=== PATIENT | female | born 1965 | race Caucasian/White ===

== ENCOUNTER 2016-08-27 12:04 | Emergency (ER) | payer OTHER, MEDICARE ==
--- NOTE | 2016-08-27 12:37 | ER Document Report ---
ED Medical Screen (RME) - General Stated Complaint: DIARRHEA,VOMITING,ABDOMINAL PAIN Notes: 51 yo female c/o n/v/d x 5 days. + RLQ pain radiating to RLQ. not able to eat in 6 days due to symptoms. + nocturnal fever. pt reports has had recent gallbladder US. TRAVEL OUTSIDE OF THE [place] IN LAST 30 DAYS: No - Related Data Allergies/Adverse Reactions: morphine [Morphine] Allergy (Verified 05/24/16 12:38) NSAIDS (Non-Steroidal Anti-Inflamma [Nsaids] Allergy (Verified 05/24/16 12:38) Penicillins Allergy (Verified 05/24/16 12:38) Sulfa (Sulfonamide Antibiotics) Allergy (Verified 05/24/16 12:38) Past Medical History - Past Medical History Cardiac Medical History: Reports: Hx Hypercholesterolemia Pulmonary Medical History: Reports: Hx COPD Denies: Hx Tuberculosis Malignancy Medical History: Reports: Hx Skin Cancer GI Medical History: Reports: Hx Cirrhosis Musculoskeltal Medical History: Reports Hx Arthritis Psychiatric Medical History: Reports: Hx Anxiety, Hx Depression Past Surgical History: Reports: Hx Section - 1986, Hx Gynecologic Surgery - laparoscopy, Hx Hysterectomy, Hx Oral Surgery - wisdom teeth, Hx Tubal Ligation, Other - [place] teeth extraction - Immunizations Hx Diphtheria, Pertussis, Tetanus Vaccination: Yes - 2012 Physical Exam - Vital signs Vitals: Temp Pulse Resp BP Pulse Ox 97.9 F 98 14 91/64 L 94 08/27/16 12:14 08/27/16 12:14 08/27/16 12:14 08/27/16 12:14 08/27/16 12:14 Course - Vital Signs Vital signs: Temp Pulse Resp BP Pulse Ox 97.9 F 98 14 91/64 L 94 08/27/16 12:14 08/27/16 12:14 08/27/16 12:14 08/27/16 12:14 08/27/16 12:14
[2016-08-27 13:09] LABS: ABSOLUTE LYMPHOCYTES (AUTO) 3.1 10^3/uL (0.5-4.7); ABSOLUTE MONOCYTES (AUTO) 0.8 10^3/uL (0.1-1.4); ABSOLUTE NEUT (AUTO) 6.3 10^3/uL (1.7-8.2); BASOPHILS % (AUTO) 0.5 % (0-2); EOSINOPHILS % (AUTO) 0.4 % (0-6); HEMOGLOBIN 16.1 g/dL (12.0-15.5); HGB HCT DIFFERENCE 1.3; LYMPHOCYTES % (AUTO) 29.8 % (13-45); MEAN CORPUSCULAR HEMOGLOBIN 33.1 pg (27.0-33.4); MEAN CORPUSCULAR HGB CONC 34.2 g/dL (32.0-36.0); MEAN CORPUSCULAR VOLUME 97 fl (80-97); MONOCYTES % (AUTO) 7.6 % (3-13); RED BLOOD COUNT 4.85 10^6/uL (3.72-5.28); RED CELL DISTRIBUTION WIDTH 14.5 % (11.5-14.0); SEGMENTED NEUTROPHILS % (AUTO) 61.7 % (42-78); WHITE BLOOD COUNT 10.3 10^3/uL (4.0-10.5)
[2016-08-27 13:27] LABS: ALANINE AMINOTRANSFERASE 42 U/L (9-52); ALBUMIN 3.3 g/dL (3.5-5.0); ALKALINE PHOSPHATASE 190 U/L (38-126); ANION GAP 14 (5-19); ASPARTATE AMINO TRANSFERASE 66 U/L (14-36); BILIRUBIN,DIRECT 0.1 mg/dL (0.0-0.3); BILIRUBIN,TOTAL 2.3 mg/dL (0.2-1.3); BLOOD UREA NITROGEN 5 mg/dL (7-20); CARBON DIOXIDE 27 mmol/L (22-30); CHLORIDE 99 mmol/L (98-107); CREATININE RESULT 0.98 mg/dL (0.52-1.25); GLUCOSE 141 mg/dL (75-110); LIPASE 20.5 U/L (23-300); POTASSIUM 3.4 mmol/L (3.6-5.0); SODIUM 139.6 mmol/L (137-145); TOTAL PROTEIN 7.2 g/dL (6.3-8.2)
[2016-08-27] MEDS ORDERED: NORMAL SALINE 1000 ML 1,000 ML IV ONE (15:28)
--- NOTE | 2016-08-27 15:30 | ER Document Report ---
ED GI/ - General Mode of Arrival: Ambulatory Information source: Patient TRAVEL OUTSIDE OF THE [place] IN LAST 30 DAYS: No - HPI Patient complains to provider of: Abdominal pain Timing/Duration: Gradual, Persistent Associated symptoms: Diarrhea, Fever, Nausea, Vomiting <LORENE GOINS - Last Filed: 08/27/16 17:22> <CRYSTAL WHITE - Last Filed: 09/01/16 13:15> - General Chief Complaint: Abdominal Pain Stated Complaint: DIARRHEA,VOMITING,ABDOMINAL PAIN Notes: Patient is a 51-year-old female presenting to the emergency department chief complaint abdominal pain onset 6 days ago. Patient states that every time she eats, she vomits. Patient also reports green, watery diarrhea, [place], vomiting, nausea, nocturnal fever, rash, and cough. Patient states that she had an ultrasound at the OR 7 days ago with no results reported yet. Patient states that the x ray service technician mentioned something about gallstones in her gallbladder. Patient states that she feels "toxic", that "I feel like every pore is dripping." Patient has a history of anxiety, depression, and liver cirrhosis. (LORENE GOINS) - Related Data Allergies/Adverse Reactions: morphine [Morphine] Allergy (Verified 08/27/16 12:38) NSAIDS (Non-Steroidal Anti-Inflamma [Nsaids] Allergy (Verified 08/27/16 12:38) Penicillins Allergy (Verified 08/27/16 12:38) Sulfa (Sulfonamide Antibiotics) Allergy (Verified 08/27/16 12:38) Past Medical History - General Information source: Patient - Social History Smoking Status: Never Smoker Chew tobacco use (# tins/day): No Frequency of alcohol use: None Drug Abuse: None Family History: Reviewed & Not Pertinent, Arthritis Patient has suicidal ideation: No Patient has homicidal ideation: No - Past Medical History Cardiac Medical History: Reports: Hx Hypercholesterolemia Pulmonary Medical History: Reports: Hx COPD Denies: Hx Tuberculosis Renal/ Medical History: Denies: Hx Peritoneal Dialysis Malignancy Medical History: Reports: Hx Skin Cancer GI Medical History: Reports: Hx Cirrhosis Musculoskeltal Medical History: Reports Hx Arthritis Psychiatric Medical History: Reports: Hx Anxiety, Hx Depression Past Surgical History: Reports: Hx Section - 1986, Hx Gynecologic Surgery - laparoscopy, Hx Hysterectomy, Hx Oral Surgery - wisdom teeth, Hx Tubal Ligation, Other - [place] teeth extraction - Immunizations Hx Diphtheria, Pertussis, Tetanus Vaccination: Yes - 2012 Hx Pneumococcal Vaccination: 07/13/12 <LORENE GOINS - Last Filed: 08/27/16 17:22> Review of Systems - Review of Systems Constitutional: No symptoms reported EENT: No symptoms reported Cardiovascular: No symptoms reported Respiratory: See HPI, Cough Gastrointestinal: See HPI, Abdominal pain, Diarrhea, Nausea, Vomiting, Poor appetite Genitourinary: See HPI, Other - Decreased urination Female Genitourinary: No symptoms reported Musculoskeletal: No symptoms reported Skin: See HPI, Rash Hematologic/Lymphatic: No symptoms reported Neurological/Psychological: No symptoms reported <LORENE GOINS - Last Filed: 08/27/16 17:22> Physical Exam - General General appearance: Alert - HEENT Head: Normocephalic, Atraumatic Eyes: Normal Pupils: PERRL - Respiratory Respiratory status: No respiratory distress Chest status: Nontender Breath sounds: Normal Chest palpation: Normal - Cardiovascular Rhythm: Regular Heart sounds: Normal auscultation Murmur: No - Abdominal Distension: No distension Bowel sounds: Normal Tenderness: Tender - RUQ Mildly tender to palpation Organomegaly: No organomegaly - Back Back: Normal, Nontender - Extremities General upper extremity: Normal inspection General lower extremity: Normal inspection - Neurological Neuro grossly intact: Yes Cognition: Normal [place] Coma Scale Eye Opening: Spontaneous [place] Coma Scale Verbal: Oriented [place] Coma Scale Motor: Obeys Commands [place] Coma Scale Total: 15 Speech: Normal - Psychological Associated symptoms: Normal affect, Normal mood - Skin Skin Temperature: Warm Skin Moisture: Dry Skin Color: Normal <LORENE GOINS - Last Filed: 08/27/16 17:22> Course - Laboratory Result Diagrams: 08/27/16 12:50 08/27/16 12:50 <LORENE GOINS - Last Filed: 08/27/16 17:22> - Laboratory Result Diagrams: 08/27/16 12:50 08/27/16 12:50 <CRYSTAL WHITE - Last Filed: 09/01/16 13:15> - Re-evaluation Re-evalutation: 08/27/16 18:40 I personally performed the services described in the documentation, reviewed and edited the documentation which was dictated to my scribe in my presence, and it accurately records my words and actions. presents emergency department with a history of nausea vomiting and diarrhea. Said she's had intermittent fevers at home. She has a history of alcohol abuse chronic back pain and has overdosed in the past. She states she is not currently drinking alcohol she denies taking narcotics for her back pain. Chart says right lower abdomen pain patient on examination serial abdominal examinations no acute tenderness guarding rebound rigidity vital signs are stable mildly elevated liver enzymes no acute pancreatitis. Patient given nausea medication IV fluids is well-appearing and nontoxic no acute abdomen. We will DC on Zofran 1-2 day PCP follow-up and discuss reasons for ED return sooner (CRYSTAL WHITE) - Vital Signs Vital signs: Temp Pulse Resp BP Pulse Ox 98.1 F 105 H 16 93/63 L 94 08/27/16 18:51 08/27/16 18:51 08/27/16 18:51 08/27/16 18:51 08/27/16 18:51 (LORENE GOINS) (CRYSTAL WHITE) - Laboratory Laboratory results interpreted by me: 08/27/16 08/27/16 08/27/16 12:50 12:50 15:24 Hgb 16.1 H RDW 14.5 H Potassium 3.4 L BUN 5 L Glucose 141 H Total Bilirubin 2.3 H AST 66 H Alkaline Phosphatase 190 H Albumin 3.3 L Lipase 20.5 L Urine Urobilinogen 4.0 H (LORENE GOINS) (CRYSTAL WHITE) Discharge <LORENE GOINS - Last Filed: 08/27/16 17:22> <CRYSTAL WHITE - Last Filed: 09/01/16 13:15> - Discharge Clinical Impression: Vomiting and diarrhea Condition: Stable Disposition: HOME, SELF-CARE Additional Instructions: Vomiting Vomiting can be part of many illnesses. Most cases of vomiting are due to gastroenteritis, usually a viral infection in the intestinal tract. There is no specific treatment. The disease will end by itself. For now, the main danger to your child is dehydration. During the first few hours of the illness, give clear liquids, such as Pedialyte. Try to give small quantities frequently, such as a teaspoon of liquid every minute or about an ounce of fluids every five to ten minutes. Medications may be prescribed by the physician for special cases. After an hour or two of fluids without vomiting, add rice cereal, toast, applesauce, or bananas and other more solid foods to the clear liquids. Call the physician or go to the hospital if vomiting increases or blood appears in the bowel movement or vomitus; if your child fails to improve, or if signs of dehydration occur (no wet diapers for eight to twelve hours, tongue and mouth become dry, not acting as alert as usual).Diarrhea Diarrhea means frequent, watery stools. There are many causes. Any problem that keeps the intestinal tract from absorbing water from the stool can lead to diarrhea. A sudden new diarrhea problem is usually caused by a virus, food sensitivity, toxic bacteria, or drugs. In this case, we expect the problem to go away soon. Testing is done only if you seem seriously ill from the diarrhea. If you have chronic diarrhea, or diarrhea that keeps coming back, we need to find out why. Chronic diarrhea can be due to inflammation of the bowels such as Crohn's disease or ulcerative colitis, food sensitivity such as intolerance to lactose or wheat protein, irritable bowel syndrome, and other problems. If your diarrhea is a significant problem but it's not clear why you have it, we' ll refer you to a specialist for further testing. During an episode of diarrhea, drink small amounts (two to six ounces) of clear liquids (soft drinks, sport drinks, herb teas, broth, etc). Take fluids frequently to prevent dehydration. It's usually not a problem to take mild anti- diarrhea medication such as Kaopectate or Pepto-Bismol. As the diarrhea eases, advance to small amounts of bland food (mashed potato, toast) for 24 hours. Call the physician if blood appears in your vomit or stool, if vomiting lasts longer than 24 hours, if the abdominal pain worsens or becomes localized to one area, if you develop high fever, or if you become lightheaded and weak. Prescriptions: Ondansetron [Zofran Odt 4 mg Tablet] 1 - 2 tab PO Q4H PRN #15 tab.rapdis PRN Reason: For Nausea/Vomiting Referrals: [facility] [Provider Group] - Follow up tomorrow (Call in the a.m. to be seen in 2-3 days return for increasing worsening or new symptoms) Scribe Documentation - Scribe Written by Bhavya:: Lorene Goins 08/27/2016 1530 acting as scribe for :: Benson <LORENE GOINS - Last Filed: 08/27/16 17:22>
[2016-08-27 15:41] LABS: APPEARANCE,URINE SLIGHTLY-CLOUDY; BILIRUBIN,URINE NEGATIVE (NEGATIVE); GLUCOSE, URINE NEGATIVE (NEGATIVE); KETONES,URINE NEGATIVE (NEGATIVE); LEUKOCYTE ESTERASE,URINE NEGATIVE (NEGATIVE); NITRITE,URINE NEGATIVE (NEGATIVE); PROTEIN,URINE NEGATIVE (NEGATIVE); URINE SPECIFIC GRAVITY 1.018
[2016-08-27] MEDS ORDERED: ONDANSETRON HCL INJ/PF 4 MG/2 ML SDV IV ONE (15:42)
[2016-08-27 15:52] LABS: URINE BARBITURATES SCREEN NEGATIVE; URINE METHADONE SCREEN NEGATIVE; URINE OPIATES LOW NEGATIVE; URINE PHENCYCLIDINE SCREEN NEGATIVE
[2016-08-27 18:59] VITALS: BP 93/63
== END 2016-08-27 18:52 | disposition home or self-care (01) ==
LOC: ER 12:04
DX: R19.7 Diarrhea, unspecified (principal); R11.10 Vomiting, unspecified; R10.9 Unspecified abdominal pain; E78.00 Pure hypercholesterolemia, unspecified; J44.9 Chronic obstructive pulmonary disease, unspecified; Z88.6 Allergy status to analgesic agent; Z88.0 Allergy status to penicillin; Z88.2 Allergy status to sulfonamides; Z85.828 Personal history of other malignant neoplasm of skin; Z90.710 Acquired absence of both cervix and uterus
CPT/HCPCS: 99284; 96361; 96374; 36415; 80307 ×2; 83690; 85025; 80053; 81001; J2405; J7030

== ENCOUNTER 2016-09-20 10:15 | Inpatient (IN) | payer OTHER, MEDICARE ==
--- NOTE | 2016-09-20 10:24 | ER Document Report ---
ED Medical Screen (RME) - General Stated Complaint: NAUSEA VOMITING Mode of Arrival: Medic Information source: Emergency Med Personnel Notes: Patient presents to the emergency department via EMS for nausea vomiting diarrhea abdominal pain for the past 4 days. Patient was given ODT Zofran. Possible history of gallbladder disease. Abdomen soft. Patient reports her back is hurting. I have greeted and performed a rapid initial assessment of this patient. A comprehensive ED assessment and evaluation of the patient, analysis of test results and completion of the medical decision making process will be conducted by additional ED providers. TRAVEL OUTSIDE OF THE [place] IN LAST 30 DAYS: No - Related Data Allergies/Adverse Reactions: morphine [Morphine] Allergy (Verified 09/20/16 10:22) NSAIDS (Non-Steroidal Anti-Inflamma [Nsaids] Allergy (Verified 09/20/16 10:22) Penicillins Allergy (Verified 09/20/16 10:22) Sulfa (Sulfonamide Antibiotics) Allergy (Verified 09/20/16 10:22) Home Medications: Current Home Medications Acamprosate Calcium [Campral 333 mg Tablet] 333 mg PO Q8 09/20/16 [History] Buspirone HCl [Buspar 15 mg Tablet] 15 mg PO Q12 09/20/16 [History] Duloxetine HCl [Cymbalta] 60 mg PO DAILY 09/20/16 [History] Trazodone HCl [Desyrel] 200 mg PO QHS 09/20/16 [History] Zolpidem Tartrate [Ambien] 10 mg PO HSP PRN 09/20/16 [History] Past Medical History - Past Medical History Cardiac Medical History: Reports: Hx Hypercholesterolemia Pulmonary Medical History: Reports: Hx COPD Denies: Hx Tuberculosis Renal/ Medical History: Denies: Hx Peritoneal Dialysis Malignancy Medical History: Reports: Hx Skin Cancer GI Medical History: Reports: Hx Cirrhosis Musculoskeltal Medical History: Reports Hx Arthritis Psychiatric Medical History: Reports: Hx Anxiety, Hx Depression Past Surgical History: Reports: Hx Section - 1986, Hx Gynecologic Surgery - laparoscopy, Hx Hysterectomy, Hx Oral Surgery - wisdom teeth, Hx Tubal Ligation, Other - [place] teeth extraction - Immunizations Hx Diphtheria, Pertussis, Tetanus Vaccination: Yes - 2012 Physical Exam - Vital signs Vitals: Temp Pulse Resp BP Pulse Ox 97.4 F 71 24 H 84/59 L 100 09/20/16 10:26 09/20/16 10:26 09/20/16 10:26 09/20/16 10:26 09/20/16 10:26 Course - Vital Signs Vital signs: Temp Pulse Resp BP Pulse Ox 98.1 F 80 19 94/73 L 92 09/20/16 16:03 09/20/16 12:09 09/20/16 22:01 09/20/16 22:01 09/20/16 22:01 - Laboratory Result Diagrams: 09/20/16 10:55 09/20/16 10:55 Laboratory results interpreted by me: 09/20/16 09/20/16 09/20/16 10:55 10:55 10:55 WBC 12.2 H MCV 99 H MCH 33.8 H RDW 16.7 H Seg Neutrophils % 79.5 H Lymphocytes % 12.8 L Absolute Neutrophils 9.7 H Sodium 136.3 L Chloride 96 L BUN 5 L Glucose 141 H Lactic Acid 4.7 H Total Bilirubin 2.8 H AST 109 H Alkaline Phosphatase 135 H Albumin 3.1 L Lipase 16.7 L Urine Urobilinogen 09/20/16 13:07 WBC MCV MCH RDW Seg Neutrophils % Lymphocytes % Absolute Neutrophils Sodium Chloride BUN Glucose Lactic Acid Total Bilirubin AST Alkaline Phosphatase Albumin Lipase Urine Urobilinogen 4.0 H Doctor's Discharge - Discharge Clinical Impression: Nausea vomiting and diarrhea, Elevated lactic acid level, Biliary sludge determined by ultrasound, Transient hypotension, Liver enzyme elevation Condition: Good Disposition: ADMITTED INPATIENT
[2016-09-20] MEDS ORDERED: NORMAL SALINE 1000 ML 1,000 ML IV ONE ×5 (10:26→14:13)
[2016-09-20 11:16] LABS: ABSOLUTE BASOPHILS # (AUTO) 0.1 10^3/uL (0.0-0.2); ABSOLUTE LYMPHOCYTES (AUTO) 1.6 10^3/uL (0.5-4.7); ABSOLUTE MONOCYTES (AUTO) 0.8 10^3/uL (0.1-1.4); ABSOLUTE NEUT (AUTO) 9.7 10^3/uL (1.7-8.2); BASOPHILS % (AUTO) 0.8 % (0-2); EOSINOPHILS % (AUTO) 0.1 % (0-6); HEMATOCRIT 42.8 % (36.0-47.0); HEMOGLOBIN 14.7 g/dL (12.0-15.5); HGB HCT DIFFERENCE 1.3; LYMPHOCYTES % (AUTO) 12.8 % (13-45); MEAN CORPUSCULAR HEMOGLOBIN 33.8 pg (27.0-33.4); MEAN CORPUSCULAR HGB CONC 34.2 g/dL (32.0-36.0); MEAN CORPUSCULAR VOLUME 99 fl (80-97); MONOCYTES % (AUTO) 6.8 % (3-13); RED BLOOD COUNT 4.34 10^6/uL (3.72-5.28); RED CELL DISTRIBUTION WIDTH 16.7 % (11.5-14.0); SEGMENTED NEUTROPHILS % (AUTO) 79.5 % (42-78); WHITE BLOOD COUNT 12.2 10^3/uL (4.0-10.5)
[2016-09-20 11:39] LABS: ALANINE AMINOTRANSFERASE 44 U/L (9-52); ALBUMIN 3.1 g/dL (3.5-5.0); ALKALINE PHOSPHATASE 135 U/L (38-126); ANION GAP 17 (5-19); ASPARTATE AMINO TRANSFERASE 109 U/L (14-36); BILIRUBIN,TOTAL 2.8 mg/dL (0.2-1.3); BLOOD UREA NITROGEN 5 mg/dL (7-20); CARBON DIOXIDE 23 mmol/L (22-30); CHLORIDE 96 mmol/L (98-107); CREATININE RESULT 0.74 mg/dL (0.52-1.25); GLUCOSE 141 mg/dL (75-110); LIPASE 16.7 U/L (23-300); MAGNESIUM 1.8 mg/dL (1.6-2.3); POTASSIUM 3.7 mmol/L (3.6-5.0); SODIUM 136.3 mmol/L (137-145); TOTAL PROTEIN 6.9 g/dL (6.3-8.2)
[2016-09-20 11:40] LABS: ALCOHOL < 10 mg/dL (NONE DETECTED)
[2016-09-20] MEDS ORDERED: LEVOFLOXACIN 750 MG/D5W RTU 150 ML IV ONE (11:58)
[2016-09-20 13:25] LABS: APPEARANCE,URINE CLEAR; BILIRUBIN,URINE NEGATIVE (NEGATIVE); GLUCOSE, URINE NEGATIVE (NEGATIVE); KETONES,URINE NEGATIVE (NEGATIVE); LEUKOCYTE ESTERASE,URINE NEGATIVE (NEGATIVE); NITRITE,URINE NEGATIVE (NEGATIVE); PROTEIN,URINE NEGATIVE (NEGATIVE); URINE SPECIFIC GRAVITY 1.005
[2016-09-20 14:09] LABS: URINE BARBITURATES SCREEN NEGATIVE; URINE METHADONE SCREEN NEGATIVE; URINE OPIATES LOW NEGATIVE; URINE PHENCYCLIDINE SCREEN NEGATIVE
--- NOTE | 2016-09-20 14:28 | ER Document Report ---
ED General - General Chief Complaint: Nausea/Vomiting/Diarrhea Stated Complaint: NAUSEA VOMITING Mode of Arrival: Medic TRAVEL OUTSIDE OF THE [place] IN LAST 30 DAYS: No - HPI Patient complains to provider of: nausea vomiting diarrhea right upper quadrant abdominal pain Notes: Patient's coming in for nausea vomiting diarrhea right upper quadrant abdominal pain ongoing for the last 4-5 days. Patient has a history of chronic alcoholism. Patient states she has been sober for the last 6 months. Patient denies any fevers. Patient denies any bloody stools. Patient states abdominal pain has been located right upper quadrant since this started. Denies sick contacts denies recent travel denies antibiotics. Of note patient's blood pressure was significantly low whenever she came into the ER patient denies dizziness - Related Data Allergies/Adverse Reactions: morphine [Morphine] Allergy (Verified 09/20/16 10:22) NSAIDS (Non-Steroidal Anti-Inflamma [Nsaids] Allergy (Verified 09/20/16 10:22) Penicillins Allergy (Verified 09/20/16 10:22) Sulfa (Sulfonamide Antibiotics) Allergy (Verified 09/20/16 10:22) Home Medications: Current Home Medications Acamprosate Calcium [Campral 333 mg Tablet] 333 mg PO Q8 09/20/16 [History] Buspirone HCl [Buspar 15 mg Tablet] 15 mg PO Q12 09/20/16 [History] Duloxetine HCl [Cymbalta] 60 mg PO DAILY 09/20/16 [History] Trazodone HCl [Desyrel] 200 mg PO QHS 09/20/16 [History] Zolpidem Tartrate [Ambien] 10 mg PO HSP PRN 09/20/16 [History] Past Medical History - General Information source: Emergency Med Personnel - Social History Smoking Status: Unknown if Ever Smoked Family History: Reviewed & Not Pertinent, Arthritis Patient has suicidal ideation: No Patient has homicidal ideation: No - Past Medical History Cardiac Medical History: Reports: Hx Hypercholesterolemia Pulmonary Medical History: Reports: Hx COPD Denies: Hx Tuberculosis Renal/ Medical History: Denies: Hx Peritoneal Dialysis Malignancy Medical History: Reports: Hx Skin Cancer GI Medical History: Reports: Hx Cirrhosis Musculoskeltal Medical History: Reports Hx Arthritis Psychiatric Medical History: Reports: Hx Anxiety, Hx Depression Past Surgical History: Reports: Hx Section - 1986, Hx Gynecologic Surgery - laparoscopy, Hx Hysterectomy, Hx Oral Surgery - wisdom teeth, Hx Tubal Ligation, Other - [place] teeth extraction - Immunizations Hx Diphtheria, Pertussis, Tetanus Vaccination: Yes - 2012 Hx Pneumococcal Vaccination: 07/13/12 Review of Systems - Review of Systems Constitutional: No symptoms reported EENT: No symptoms reported Cardiovascular: No symptoms reported Respiratory: No symptoms reported Gastrointestinal: Abdominal pain, Diarrhea, Nausea, Vomiting Genitourinary: No symptoms reported Female Genitourinary: No symptoms reported Musculoskeletal: No symptoms reported Skin: No symptoms reported Hematologic/Lymphatic: No symptoms reported Neurological/Psychological: No symptoms reported -: Yes All other systems reviewed and negative Physical Exam - Vital signs Vitals: Temp Pulse Resp BP Pulse Ox 97.4 F 71 24 H 84/59 L 100 09/20/16 10:26 09/20/16 10:26 09/20/16 10:26 09/20/16 10:26 09/20/16 10:26 Interpretation: Hypotensive - General General appearance: Appears well, Alert - HEENT Head: Normocephalic, Atraumatic Eyes: Normal Pupils: PERRL - Respiratory Respiratory status: No respiratory distress Chest status: Nontender Breath sounds: Normal Chest palpation: Normal - Cardiovascular Rhythm: Regular Heart sounds: Normal auscultation Murmur: No - Abdominal Inspection: Normal Distension: No distension Bowel sounds: Normal Tenderness: Tender - Mild tenderness right upper quadrant. No: McBurney's point , Ellis's sign, Guarding, Rebound, Other Organomegaly: No organomegaly - Back Back: Normal, Nontender - Extremities General upper extremity: Normal inspection, Nontender, Normal color, Normal ROM , Normal temperature General lower extremity: Normal inspection, Nontender, Normal color, Normal ROM , Normal temperature, Normal weight bearing. No: Max's sign - Neurological Neuro grossly intact: Yes Cognition: Normal Orientation: AAOx4 [place] Coma Scale Eye Opening: Spontaneous [place] Coma Scale Verbal: Oriented [place] Coma Scale Motor: Obeys Commands [place] Coma Scale Total: 15 Speech: Normal Motor strength normal: LUE, RUE, LLE, RLE Sensory: Normal - Psychological Associated symptoms: Normal affect, Normal mood - Skin Skin Temperature: Warm Skin Moisture: Dry Skin Color: Normal Course - Re-evaluation Re-evalutation: 09/20/16 15:06 Patient's lab work shows chronic elevation in her liver function tests. Patient does have a slight white count. Patient does have a significant elevation in her lactic acid. Ultrasound was performed showing biliary sludge no signs of acute cholecystitis. Because of the hypotension white count and elevated lactic acid a dose of Levaquin was given prophylactically. Patient was fluid resuscitated. Blood pressure did improve. I did consult surgery at this time does not think patient has any surgical etiology. Also discussed with hospitalist who agrees to that the patient patient's abdomen still remains nonsurgical is no guarding no rebound minimal tenderness in the right upper quadrant. More likely I think patient is having possible gastroenteritis with dehydration likely lactic acid due to chronic alcoholism and chronic liver disease. - Vital Signs Vital signs: Temp Pulse Resp BP Pulse Ox 97.7 F 80 20 107/61 100 09/20/16 12:09 09/20/16 12:09 09/20/16 12:09 09/20/16 12:09 09/20/16 12:09 - Laboratory Result Diagrams: 09/20/16 10:55 09/20/16 10:55 Laboratory results interpreted by me: 09/20/16 09/20/16 09/20/16 10:55 10:55 10:55 WBC 12.2 H MCV 99 H MCH 33.8 H RDW 16.7 H Seg Neutrophils % 79.5 H Lymphocytes % 12.8 L Absolute Neutrophils 9.7 H Sodium 136.3 L Chloride 96 L BUN 5 L Glucose 141 H Lactic Acid 4.7 H Total Bilirubin 2.8 H AST 109 H Alkaline Phosphatase 135 H Albumin 3.1 L Lipase 16.7 L Urine Urobilinogen 09/20/16 13:07 WBC MCV MCH RDW Seg Neutrophils % Lymphocytes % Absolute Neutrophils Sodium Chloride BUN Glucose Lactic Acid Total Bilirubin AST Alkaline Phosphatase Albumin Lipase Urine Urobilinogen 4.0 H Critical Care Note - Critical Care Note Total time excluding time spent on procedures (mins): 35 Comments: Multiple evaluations for initial transient hypotension Discharge - Discharge Clinical Impression: Nausea vomiting and diarrhea, Elevated lactic acid level, Biliary sludge determined by ultrasound, Transient hypotension, Liver enzyme elevation Condition: Good Disposition: ADMITTED INPATIENT [facility]: Telemetry
[2016-09-20] MEDS ORDERED: LORAZEPAM INJ 2 MG/1 ML VIAL IV PRN (16:11)
[2016-09-20] MEDS: DEXTROSE 5%-NORMAL SALINE 1,000 ML IV PRN (16:23)
[2016-09-20] MEDS: ONDANSETRON HCL INJ/PF 4 MG/2 ML SDV IV PRN ×2 (16:26→21:49)
--- NOTE | 2016-09-20 16:31 | PDOC H&P ---
History of Present Illness Admission Date/PCP: 09/20/16 15:29 Patient complains of: Nausea and vomiting History of Present Illness: SANAZ COSYB is a 51 year old female, with history of alcohol abuse, has been sober for 4 months, history of opiate and benzodiazepine dependency presents to the hospital because of increasing abdominal pain with associated nausea and vomiting for the past 4 days. His associated diarrhea as well. There is no melena or hematochezia nor hematemesis. Patient states low-grade fever. There is no cough, no shortness of breath, there is lower rib cage pain due to vomiting. Patient is unable to take anything by mouth due to the discomfort. The patient was in the hospital and signed out AGAINST MEDICAL ADVICE last month for the same problem. Patient reports that she has back pain and right lower extremity pain where she is being worked up at the [facility]. For the past week or so the patient is unable to walk due to pain on her back and right leg. Patient denies any numbness on the lower extremities nor tingling sensation. Pain is characterized as sharp when it happens. In the emergency room the patient was found to be hypotensive with elevated lactic acid. Abdominal ultrasound revealed gallbladder sludge and fatty liver. Patient reportedly evaluated by surgery. The patient was then referred for admission. Past Medical History Cardiac Medical History: Reports: Hyperlipidema Pulmonary Medical History: Reports: Chronic Obstructive Pulmonary Disease (COPD) Denies: Tuberculosis Malignancy Medical History: Reports: Skin Cancer GI Medical History: Reports: Cirrhosis, Other - Chronic pancreatitis Musculoskeltal Medical History: Reports: Arthritis Skin Medical History: Reports: Other - History of skin cancer Psychiatric Medical History: Reports: Depression Past Surgical History Past Surgical History: Reports: Section - 1986, Hysterectomy, Tubal Ligation, Other - [employer] teeth extraction Social History Information Source: Patient Smoking Status: Current Every Day Smoker Frequency of Alcohol Use: Heavy - But has been sober for 4 months. Hx Recreational Drug Use: No Drugs: None Hx Prescription Drug Abuse: No Family History Family History: Arthritis Parental Family History Reviewed: Yes Children Family History Reviewed: Yes Sibling(s) Family History Reviewed.: Yes Medication/Allergy Home Medications: Acamprosate Calcium [Campral 333 mg Tablet] 333 mg PO Q8 09/20/16 Buspirone HCl [Buspar 15 mg Tablet] 15 mg PO Q12 09/20/16 Duloxetine HCl [Cymbalta] 60 mg PO DAILY 09/20/16 Trazodone HCl [Desyrel] 200 mg PO QHS 09/20/16 Zolpidem Tartrate [Ambien] 10 mg PO HSP PRN 09/20/16 Allergies/Adverse Reactions: morphine [Morphine] Allergy (Verified 09/20/16 10:22) NSAIDS (Non-Steroidal Anti-Inflamma [Nsaids] Allergy (Verified 09/20/16 10:22) Penicillins Allergy (Verified 09/20/16 10:22) Sulfa (Sulfonamide Antibiotics) Allergy (Verified 09/20/16 10:22) Review of Systems Constitutional: PRESENT: chills, fever(s), weakness - Generalized. ABSENT: headache(s), night sweats, weight gain, weight loss Eyes: ABSENT: visual disturbances Ears: ABSENT: hearing changes Nose, Mouth, and Throat: PRESENT: sore throat - due to dryness and vomiting. ABSENT: mouth pain Cardiovascular: PRESENT: chest pain - On the lower rib cage. ABSENT: dyspnea on exertion, edema, orthropnea, palpitations Respiratory: ABSENT: cough, dyspnea, hemoptysis, sputum Gastrointestinal: PRESENT: abdominal pain, diarrhea, nausea, vomiting. ABSENT: constipation, hematemesis, hematochezia, melena Genitourinary: ABSENT: difficulty urinating, dysuria, hematuria, nocturia Musculoskeletal: PRESENT: back pain. ABSENT: joint swelling Integumentary: ABSENT: pruritus, rash, wounds Neurological: ABSENT: abnormal gait, abnormal speech, confusion, dizziness, focal weakness, syncope Psychiatric: ABSENT: anxiety, depression, homidical ideation, suicidal ideation Endocrine: ABSENT: cold intolerance, heat intolerance, polydipsia, polyuria Hematologic/Lymphatic: ABSENT: easy bleeding, easy bruising Physical Exam Vital Signs: Temp Pulse Resp BP Pulse Ox 97.7 F 80 20 107/61 100 09/20/16 12:09 09/20/16 12:09 09/20/16 12:09 09/20/16 12:09 09/20/16 12:09 General appearance: PRESENT: mild distress - Due to pain and discomfort, well- developed, well-nourished Head exam: PRESENT: atraumatic, normocephalic Eye exam: PRESENT: conjunctiva pink, EOMI, PERRLA. ABSENT: scleral icterus Ear exam: PRESENT: normal external ear exam. ABSENT: drainage Mouth exam: PRESENT: dry mucosa, neck supple, tongue midline Throat exam: ABSENT: post pharyngeal erythema, tonsillar erythema Neck exam: ABSENT: carotid bruit, JVD, lymphadenopathy, thyromegaly Respiratory exam: PRESENT: clear to auscultation tanisha, unlabored. ABSENT: rales , rhonchi, wheezes Cardiovascular exam: PRESENT: RRR, +S1, +S2. ABSENT: diastolic murmur, gallop, rubs, systolic murmur Pulses: PRESENT: normal dorsalis pedis pul Vascular exam: PRESENT: normal capillary refill GI/Abdominal exam: PRESENT: hyperactive bowel sounds, soft, tenderness - Right upper quadrant and right lower quadrant. ABSENT: distended, guarding, mass, organolmegaly, rebound Rectal exam: PRESENT: deferred Extremities exam: PRESENT: full ROM. ABSENT: calf tenderness, clubbing, pedal edema Neurological exam: PRESENT: alert, awake, oriented to person, oriented to place , oriented to time, oriented to situation Psychiatric exam: PRESENT: anxious - Slightly, appropriate affect, normal mood. ABSENT: homicidal ideation, suicidal ideation Skin exam: PRESENT: dry, intact, warm. ABSENT: cyanosis, jaundice, rash Results Impressions: Abdomen Ultrasound 09/20/16 10:50 IMPRESSION: MARKED FATTY INFILTRATION OF THE LIVER. SLUDGE IN THE GALLBLADDER. OTHERWISE UNREMARKABLE RIGHT UPPER QUADRANT ULTRASOUND. Assessment & Plan - Diagnosis (1) Intractable abdominal pain Is this a current diagnosis for this admission?: Yes (2) Hypotension Qualifiers: Hypotension type: unspecified hypotension type Qualified Code(s): I95.9 - Hypotension, unspecified Is this a current diagnosis for this admission?: Yes (3) Biliary sludge determined by ultrasound Is this a current diagnosis for this admission?: Yes (4) Transaminitis Is this a current diagnosis for this admission?: Yes (5) Alcohol abuse Is this a current diagnosis for this admission?: Yes (6) Cirrhosis of liver Qualifiers: Hepatic cirrhosis type: alcoholic cirrhosis Ascites presence: without ascites Qualified Code(s): K70.30 - Alcoholic cirrhosis of liver without ascites Is this a current diagnosis for this admission?: Yes (7) Chronic pancreatitis Qualifiers: Pancreatitis type: unspecified pancreatitis type Qualified Code(s): K86.1 - Other chronic pancreatitis Is this a current diagnosis for this admission?: Yes (8) COPD (chronic obstructive pulmonary disease) Qualifiers: COPD type: unspecified COPD Qualified Code(s): J44.9 - Chronic obstructive pulmonary disease, unspecified Is this a current diagnosis for this admission?: Yes (9) Anxiety and depression Is this a current diagnosis for this admission?: Yes (10) Opiate dependence Qualifiers: Substance use status: with unspecified opioid-induced disorder Qualified Code(s): F11.29 - Opioid dependence with unspecified opioid-induced disorder Is this a current diagnosis for this admission?: Yes (11) Benzodiazepine dependence Is this a current diagnosis for this admission?: Yes - Time Time Spent: 50 to 70 Minutes - Inpatient Certification Based on my medical assessment, after consideration of the patient's comorbidities, presenting symptoms, or acuity I expect that the services needed warrant INPATIENT care.: Yes I certify that my determination is in accordance with my understanding of Medicare's requirements for reasonable and necessary INPATIENT services [42 CFR 412.3e].: Yes Medical Necessity: Significant Comorbidiites Make Outpatient Treatment Too Risky , Need Close Monitoring Due to Risk of Patient Decompensation, Need For IV Fluids, Need for IV Antibiotics, Risk of Diagnosis Which Will Require Inpatient Eval/Care/Monitoring Post Hospital Care: D/C Morgue Attendant Documentation - Plan Summary Plan Summary: The patient will be admitted to [facility]. The patient's elevated lactic acid could be secondary to hypotension or could be from sepsis. We will begin intravenous Invanz. Obtain CT of the abdomen and pelvis to evaluate her appendix and gallbladder. We will likewise obtain a HIDA scan. I will hydrate the patient with D5 normal saline and give supplemental thiamine and folic acid and multivitamin. We will monitor electrolytes, creatinine and liver function. We will put the patient on as needed Ativan in case she developed withdrawal symptoms. Patient will be on DVT prophylaxis with Lovenox. Further testing depends on the initial evaluation as outlined above.
[2016-09-20] MEDS: NORMAL SALINE 1000 ML 1,000 ML with THIAMINE HCL 100 MG, MVI, ADULT NO.1 WITH VIT K 10 ... IV PRN ×4 (18:40)
[2016-09-20] MEDS: ERTAPENEM SODIUM 1 GM in NORMAL SALINE 50 ML IV SCH (21:36)
[2016-09-20] MEDS: PANTOPRAZOLE SODIUM 40 MG VIAL IV SCH (21:36)
[2016-09-20] MEDS: TRAZODONE HCL 50 MG TABLET PO SCH (21:37)
[2016-09-20] MEDS ORDERED: (PENDING PHARMACY ID) (Trazodone Hcl [Desyrel] 200 MG) PO SCH (22:00)
[2016-09-21] MEDS: DEXTROSE 5%-NORMAL SALINE 1,000 ML IV PRN ×3 (00:23→16:01)
[2016-09-21 06:22] LABS: ABSOLUTE EOSINOPHILS # (AUTO) 0.1 10^3/uL (0.0-0.6); ABSOLUTE LYMPHOCYTES (AUTO) 2.4 10^3/uL (0.5-4.7); ABSOLUTE MONOCYTES (AUTO) 0.5 10^3/uL (0.1-1.4); ABSOLUTE NEUT (AUTO) 2.9 10^3/uL (1.7-8.2); BASOPHILS % (AUTO) 0.5 % (0-2); EOSINOPHILS % (AUTO) 1.1 % (0-6); HEMATOCRIT 32.3 % (36.0-47.0); HGB HCT DIFFERENCE 0.7; MEAN CORPUSCULAR HEMOGLOBIN 34.1 pg (27.0-33.4); MEAN CORPUSCULAR VOLUME 100 fl (80-97); MONOCYTES % (AUTO) 7.8 % (3-13); RED BLOOD COUNT 3.22 10^6/uL (3.72-5.28); RED CELL DISTRIBUTION WIDTH 16.3 % (11.5-14.0); SEGMENTED NEUTROPHILS % (AUTO) 49.6 % (42-78); WHITE BLOOD COUNT 5.8 10^3/uL (4.0-10.5)
[2016-09-21 06:47] LABS: ALANINE AMINOTRANSFERASE 35 U/L (9-52); ALBUMIN 1.8 g/dL (3.5-5.0); ALKALINE PHOSPHATASE 75 U/L (38-126); ANION GAP 7 (5-19); ASPARTATE AMINO TRANSFERASE 117 U/L (14-36); BILIRUBIN,TOTAL 1.1 mg/dL (0.2-1.3); BLOOD UREA NITROGEN 3 mg/dL (7-20); CALCIUM 7.1 mg/dL (8.4-10.2); CARBON DIOXIDE 24 mmol/L (22-30); CHLORIDE 113 mmol/L (98-107); CREATININE RESULT 0.66 mg/dL (0.52-1.25); GLUCOSE 124 mg/dL (75-110); MAGNESIUM 1.6 mg/dL (1.6-2.3); PHOSPHORUS 3.4 mg/dL (2.5-4.5); TOTAL PROTEIN 4.6 g/dL (6.3-8.2)
[2016-09-21 06:54] LABS: POTASSIUM 2.5 mmol/L (3.6-5.0)
[2016-09-21] MEDS: ENOXAPARIN SODIUM INJ 40 MG/0.4 ML DISP.SYRIN SUBCUT SCH (08:25)
[2016-09-21] MEDS: POTASSI CL 20 MEQ/50 ML RIDER 20 MEQ/50 ML RTUPB IV SCH ×3 (09:41→13:49)
[2016-09-21] MEDS: PANTOPRAZOLE SODIUM 40 MG VIAL IV SCH ×2 (09:41→23:15)
[2016-09-21] MEDS ORDERED: ERTAPENEM SODIUM INJ 1 GM VIAL IV SCH (10:00)
--- NOTE | 2016-09-21 10:49 | PDOC PROGRESS REPORT ---
Subjective Progress Note for:: 09/21/16 Subjective:: Patient feels better. Denies nausea or vomiting. No chills or fever. Diarrhea is less. Abdominal pain is less as well. Blood pressure is stable, patient was not placed on vasopressors. Patient denies any bleeding. Physical Exam Vital Signs: Temp Pulse Resp BP Pulse Ox 98.1 F 82 20 91/57 L 97 09/21/16 07:56 09/21/16 07:56 09/21/16 07:56 09/21/16 07:56 09/21/16 07:56 Intake & Output 09/20/16 09/21/16 09/22/16 05:59 06:59 06:59 Intake Total Balance Weight General appearance: PRESENT: no acute distress, cooperative Head exam: PRESENT: normocephalic Eye exam: PRESENT: EOMI Mouth exam: PRESENT: dry mucosa, neck supple Neck exam: ABSENT: JVD Respiratory exam: PRESENT: clear to auscultation tanisha, unlabored Cardiovascular exam: PRESENT: RRR. ABSENT: gallop GI/Abdominal exam: PRESENT: hyperactive bowel sounds, soft, tenderness - On the Right side improved. Less tender today. ABSENT: distended Extremities exam: ABSENT: pedal edema Neurological exam: PRESENT: alert, awake, oriented to situation Skin exam: PRESENT: dry, warm. ABSENT: cyanosis Results Laboratory Results: 09/21/16 06:07 09/21/16 06:07 09/20/16 09/21/16 09/21/16 17:04 06:07 06:07 WBC 5.8 RBC 3.22 L Hgb 11.0 L D Hct 32.3 L MCV 100 H MCH 34.1 H MCHC 34.0 RDW 16.3 H Plt Count 103 L Seg Neutrophils % 49.6 Lymphocytes % 41.0 Monocytes % 7.8 Eosinophils % 1.1 Basophils % 0.5 Absolute Neutrophils 2.9 Absolute Lymphocytes 2.4 Absolute Monocytes 0.5 Absolute Eosinophils 0.1 Absolute Basophils 0.0 Sodium 144.0 Potassium 2.5 L* D Chloride 113 H Carbon Dioxide 24 Anion Gap 7 BUN 3 L Creatinine 0.66 Est GFR ( Amer) > 60 Est GFR (Non-Af Amer) > 60 Glucose 124 H Lactic Acid 4.7 H Calcium 7.1 L Phosphorus 3.4 Magnesium 1.6 Total Bilirubin 1.1 AST 117 H ALT 35 Alkaline Phosphatase 75 Total Protein 4.6 L Albumin 1.8 L Impressions: Abdomen/Pelvis CT 09/20/16 00:00 IMPRESSION: 1. Findings remain consistent with chronic pancreatitis, changes as above including a chronic pseudocyst in the pancreatic neck and coarse calcifications. 2. No definite acute abnormality. No evidence of inflammatory or acute process in the right lower quadrant. Fatty liver. Abdomen Ultrasound 09/20/16 10:50 IMPRESSION: MARKED FATTY INFILTRATION OF THE LIVER. SLUDGE IN THE GALLBLADDER. OTHERWISE UNREMARKABLE RIGHT UPPER QUADRANT ULTRASOUND. Assessment & Plan - Diagnosis (1) Intractable abdominal pain Is this a current diagnosis for this admission?: Yes (2) Hypotension Qualifiers: Hypotension type: unspecified hypotension type Qualified Code(s): I95.9 - Hypotension, unspecified Is this a current diagnosis for this admission?: Yes (3) Biliary sludge determined by ultrasound Is this a current diagnosis for this admission?: Yes (4) Transaminitis Is this a current diagnosis for this admission?: Yes (5) Alcohol abuse Is this a current diagnosis for this admission?: Yes (6) Cirrhosis of liver Qualifiers: Hepatic cirrhosis type: alcoholic cirrhosis Ascites presence: without ascites Qualified Code(s): K70.30 - Alcoholic cirrhosis of liver without ascites Is this a current diagnosis for this admission?: Yes (7) Chronic pancreatitis Qualifiers: Pancreatitis type: unspecified pancreatitis type Qualified Code(s): K86.1 - Other chronic pancreatitis Is this a current diagnosis for this admission?: Yes (8) COPD (chronic obstructive pulmonary disease) Qualifiers: COPD type: unspecified COPD Qualified Code(s): J44.9 - Chronic obstructive pulmonary disease, unspecified Is this a current diagnosis for this admission?: Yes (9) Anxiety and depression Is this a current diagnosis for this admission?: Yes (10) Opiate dependence Qualifiers: Substance use status: with unspecified opioid-induced disorder Qualified Code(s): F11.29 - Opioid dependence with unspecified opioid-induced disorder Is this a current diagnosis for this admission?: Yes (11) Benzodiazepine dependence Is this a current diagnosis for this admission?: Yes (12) Pancreatic pseudocyst Is this a current diagnosis for this admission?: Yes - Time Time Spent with patient: 25-34 minutes - Plan Summary Plan Summary: Continue current antibiotic. Continue IV hydration. Patient's potassium. Check HIDA scan. Continue supportive care per now. We will try to advance diet today.
[2016-09-21] MEDS: ERTAPENEM SODIUM 1 GM in NORMAL SALINE 50 ML IV SCH (22:30)
[2016-09-21] MEDS: TRAZODONE HCL 50 MG TABLET PO SCH (23:15)
[2016-09-21] MEDS: NORMAL SALINE 1000 ML 1,000 ML with THIAMINE HCL 100 MG, MVI, ADULT NO.1 WITH VIT K 10 ... IV PRN ×4 (23:15)
[2016-09-22] MEDS: DEXTROSE 5%-NORMAL SALINE 1,000 ML IV PRN ×3 (01:02→16:21)
[2016-09-22 07:39] LABS: HEMATOCRIT 34.2 % (36.0-47.0); HEMOGLOBIN 11.5 g/dL (12.0-15.5); HGB HCT DIFFERENCE 0.3; MEAN CORPUSCULAR HEMOGLOBIN 34.3 pg (27.0-33.4); MEAN CORPUSCULAR HGB CONC 33.7 g/dL (32.0-36.0); MEAN CORPUSCULAR VOLUME 102 fl (80-97); RED BLOOD COUNT 3.36 10^6/uL (3.72-5.28); RED CELL DISTRIBUTION WIDTH 16.8 % (11.5-14.0); WHITE BLOOD COUNT 6.3 10^3/uL (4.0-10.5)
[2016-09-22 08:05] LABS: ANION GAP 6 (5-19); BLOOD UREA NITROGEN < 2 mg/dL (7-20); CALCIUM 7.4 mg/dL (8.4-10.2); CARBON DIOXIDE 20 mmol/L (22-30); CHLORIDE 117 mmol/L (98-107); CREATININE RESULT 0.59 mg/dL (0.52-1.25); GLUCOSE 116 mg/dL (75-110); MAGNESIUM 1.6 mg/dL (1.6-2.3); SODIUM 142.8 mmol/L (137-145)
[2016-09-22 08:07] LABS: POTASSIUM 2.7 mmol/L (3.6-5.0)
--- NOTE | 2016-09-22 10:13 | PDOC PROGRESS REPORT ---
Subjective Progress Note for:: 09/22/16 Subjective:: Patient continues to feels better. Denies nausea or vomiting. No chills or fever. Diarrhea is less. Abdominal pain is less as well. Blood pressure is stable, but on the low normal side. Urine output reportedly less , but creatinine remains normal. Patient denies any bleeding. Physical Exam Vital Signs: Temp Pulse Resp BP Pulse Ox 98.4 F 65 18 94/59 L 95 09/22/16 07:45 09/22/16 07:45 09/22/16 07:45 09/22/16 07:45 09/22/16 07:45 Intake & Output 09/21/16 09/22/16 09/23/16 06:59 06:59 06:59 Intake Total 6877 Balance 6877 Weight 74.3 kg General appearance: PRESENT: no acute distress, cooperative Head exam: PRESENT: normocephalic Eye exam: PRESENT: EOMI Mouth exam: PRESENT: moist, neck supple Neck exam: ABSENT: JVD Respiratory exam: PRESENT: clear to auscultation tanisha. ABSENT: rhonchi, wheezes Cardiovascular exam: PRESENT: RRR. ABSENT: gallop GI/Abdominal exam: PRESENT: normal bowel sounds, soft, tenderness - Improved on the right upper quadrant. ABSENT: distended Neurological exam: PRESENT: alert, awake, oriented to situation Skin exam: PRESENT: dry, warm. ABSENT: cyanosis Results Laboratory Results: 09/22/16 07:26 09/22/16 07:26 09/22/16 09/22/16 09/22/16 07:26 07:26 07:26 WBC 6.3 RBC 3.36 L Hgb 11.5 L Hct 34.2 L MCV 102 H MCH 34.3 H MCHC 33.7 RDW 16.8 H Plt Count 109 L Sodium 142.8 Potassium 2.7 L* Chloride 117 H Carbon Dioxide 20 L Anion Gap 6 BUN < 2 L Creatinine 0.59 Est GFR ( Amer) > 60 Est GFR (Non-Af Amer) > 60 Glucose 116 H Lactic Acid 2.2 H Calcium 7.4 L Magnesium 1.6 Impressions: Abdomen/Pelvis CT 09/20/16 00:00 IMPRESSION: 1. Findings remain consistent with chronic pancreatitis, changes as above including a chronic pseudocyst in the pancreatic neck and coarse calcifications. 2. No definite acute abnormality. No evidence of inflammatory or acute process in the right lower quadrant. Fatty liver. Abdomen Ultrasound 09/20/16 10:50 IMPRESSION: MARKED FATTY INFILTRATION OF THE LIVER. SLUDGE IN THE GALLBLADDER. OTHERWISE UNREMARKABLE RIGHT UPPER QUADRANT ULTRASOUND. Assessment & Plan - Diagnosis (1) Intractable abdominal pain Is this a current diagnosis for this admission?: Yes (2) Hypotension Qualifiers: Hypotension type: unspecified hypotension type Qualified Code(s): I95.9 - Hypotension, unspecified Is this a current diagnosis for this admission?: Yes (3) Biliary sludge determined by ultrasound Is this a current diagnosis for this admission?: Yes (4) Transaminitis Is this a current diagnosis for this admission?: Yes (5) Alcohol abuse Is this a current diagnosis for this admission?: Yes (6) Cirrhosis of liver Qualifiers: Hepatic cirrhosis type: alcoholic cirrhosis Ascites presence: without ascites Qualified Code(s): K70.30 - Alcoholic cirrhosis of liver without ascites Is this a current diagnosis for this admission?: Yes (7) Chronic pancreatitis Qualifiers: Pancreatitis type: unspecified pancreatitis type Qualified Code(s): K86.1 - Other chronic pancreatitis Is this a current diagnosis for this admission?: Yes (8) COPD (chronic obstructive pulmonary disease) Qualifiers: COPD type: unspecified COPD Qualified Code(s): J44.9 - Chronic obstructive pulmonary disease, unspecified Is this a current diagnosis for this admission?: Yes (9) Anxiety and depression Is this a current diagnosis for this admission?: Yes (10) Opiate dependence Qualifiers: Substance use status: with unspecified opioid-induced disorder Qualified Code(s): F11.29 - Opioid dependence with unspecified opioid-induced disorder Is this a current diagnosis for this admission?: Yes (11) Benzodiazepine dependence Is this a current diagnosis for this admission?: Yes (12) Pancreatic pseudocyst Is this a current diagnosis for this admission?: Yes - Time Time Spent with patient: 25-34 minutes - Plan Summary Plan Summary: Patient without any signs of withdrawal at this time. Continue supportive care. Continue IV hydration. Continue supplements. Continue current antibiotics. Awaiting HIDA scan, and if negative patient likely had colitis causing septic picture. Continue supportive care. Replace potassium and magnesium and recheck levels in the morning.
[2016-09-22] MEDS ORDERED: MAGNESIUM OXIDE 400 MG TABLET PO ONE (11:00)
[2016-09-22] MEDS: ENOXAPARIN SODIUM INJ 40 MG/0.4 ML DISP.SYRIN SUBCUT SCH (11:48)
[2016-09-22] MEDS: PANTOPRAZOLE SODIUM 40 MG VIAL IV SCH ×2 (11:48→21:49)
[2016-09-22] MEDS ORDERED: POTASSIUM CHLORIDE 10 MEQ TABLET.SA PO ONE ×2 (13:00→17:00)
[2016-09-22] MEDS: NORMAL SALINE 1000 ML 1,000 ML with THIAMINE HCL 100 MG, MVI, ADULT NO.1 WITH VIT K 10 ... IV PRN ×4 (17:56)
[2016-09-22] MEDS: TRAZODONE HCL 50 MG TABLET PO SCH (21:49)
[2016-09-22] MEDS: ERTAPENEM SODIUM 1 GM in NORMAL SALINE 50 ML IV SCH (21:50)
[2016-09-23] MEDS: DEXTROSE 5%-NORMAL SALINE 1,000 ML IV PRN ×2 (05:55→18:40)
[2016-09-23 06:58] LABS: ANION GAP 6 (5-19); CARBON DIOXIDE 19 mmol/L (22-30); CHLORIDE 119 mmol/L (98-107); CREATININE RESULT 0.55 mg/dL (0.52-1.25); GLUCOSE 109 mg/dL (75-110); MAGNESIUM 1.5 mg/dL (1.6-2.3); POTASSIUM 3.1 mmol/L (3.6-5.0); SODIUM 144.3 mmol/L (137-145)
[2016-09-23 07:02] LABS: BLOOD UREA NITROGEN < 2 mg/dL (7-20)
[2016-09-23] MEDS ORDERED: POTASSI CL 20 MEQ/50 ML RIDER 20 MEQ/50 ML RTUPB IV SCH (09:00)
[2016-09-23] MEDS: PANTOPRAZOLE SODIUM 40 MG VIAL IV SCH (11:14)
[2016-09-23] MEDS: POTASSIUM CHLORIDE 20 MEQ/50 ML RTU IV SCH ×2 (11:20→12:35)
[2016-09-23] MEDS: ENOXAPARIN SODIUM INJ 40 MG/0.4 ML DISP.SYRIN SUBCUT SCH (11:25)
[2016-09-23] MEDS: ONDANSETRON HCL INJ/PF 4 MG/2 ML SDV IV PRN (17:39)
[2016-09-23] MEDS: NORMAL SALINE 1000 ML 1,000 ML with THIAMINE HCL 100 MG, MVI, ADULT NO.1 WITH VIT K 10 ... IV PRN ×4 (17:39)
--- NOTE | 2016-09-23 18:44 | PDOC PROGRESS REPORT ---
Subjective Progress Note for:: 09/23/16 Subjective:: Patient continues have some abdominal pain but reports is improved. She had a HIDA scan which showed a decreased ejection fraction but no obstruction. Physical Exam Vital Signs: Temp Pulse Resp BP Pulse Ox 98.5 F 81 18 95/63 L 98 09/23/16 16:31 09/23/16 16:31 09/23/16 16:31 09/23/16 16:31 09/23/16 16:31 Intake & Output 09/22/16 09/23/16 09/24/16 06:59 06:59 06:59 Intake Total 6877 5970 1300 Output Total 200 Balance 6877 5770 1300 Weight 74.3 kg 77.9 kg General appearance: PRESENT: no acute distress Eye exam: PRESENT: conjunctiva pink. ABSENT: scleral icterus Mouth exam: PRESENT: moist, tongue midline Neck exam: ABSENT: JVD Respiratory exam: PRESENT: clear to auscultation tanisha. ABSENT: rales, rhonchi, wheezes Cardiovascular exam: PRESENT: RRR. ABSENT: diastolic murmur, rubs, systolic murmur GI/Abdominal exam: PRESENT: normal bowel sounds, soft, tenderness - Mild epigastric tenderness but no guarding or rebound.. ABSENT: distended, guarding , mass, organolmegaly, rebound Extremities exam: ABSENT: calf tenderness, clubbing, pedal edema Neurological exam: PRESENT: alert, awake, oriented to person, oriented to place , oriented to time, oriented to situation, CN II-XII grossly intact. ABSENT: motor sensory deficit Psychiatric exam: PRESENT: appropriate affect Skin exam: PRESENT: dry, intact, warm. ABSENT: cyanosis, rash Results Laboratory Results: 09/22/16 07:26 09/23/16 06:01 09/23/16 06:01 Sodium 144.3 Potassium 3.1 L Chloride 119 H Carbon Dioxide 19 L Anion Gap 6 BUN < 2 L Creatinine 0.55 Est GFR ( Amer) > 60 Est GFR (Non-Af Amer) > 60 Glucose 109 Calcium 8.0 L Magnesium 1.5 L Impressions: Abdomen/Pelvis CT 09/20/16 00:00 IMPRESSION: 1. Findings remain consistent with chronic pancreatitis, changes as above including a chronic pseudocyst in the pancreatic neck and coarse calcifications. 2. No definite acute abnormality. No evidence of inflammatory or acute process in the right lower quadrant. Fatty liver. Abdomen Ultrasound 09/20/16 10:50 IMPRESSION: MARKED FATTY INFILTRATION OF THE LIVER. SLUDGE IN THE GALLBLADDER. OTHERWISE UNREMARKABLE RIGHT UPPER QUADRANT ULTRASOUND. Hepatobiliary Scan Nuclear Medicine 09/23/16 08:00 IMPRESSION: NO CYSTIC OR COMMON DUCT OBSTRUCTION. DEPRESSED GALLBLADDER EJECTION FRACTION. EVIDENCE FOR BILIARY DYSKINESIS. Assessment & Plan - Diagnosis (1) Intractable abdominal pain Is this a current diagnosis for this admission?: YesPlan: Most likely secondary to colitis. Patient had an abnormal HIDA scan however no obvious obstruction and it did not reproduce her pain (2) Hypotension Qualifiers: Hypotension type: unspecified hypotension type Qualified Code(s): I95.9 - Hypotension, unspecified Is this a current diagnosis for this admission?: YesPlan: Resolved. (3) Biliary sludge determined by ultrasound Is this a current diagnosis for this admission?: YesPlan: Patient has a decreased ejection fraction. (4) Anxiety and depression Is this a current diagnosis for this admission?: Yes (5) Benzodiazepine dependence Is this a current diagnosis for this admission?: Yes (6) COPD (chronic obstructive pulmonary disease) Qualifiers: COPD type: unspecified COPD Qualified Code(s): J44.9 - Chronic obstructive pulmonary disease, unspecified Is this a current diagnosis for this admission?: Yes (7) Chronic pancreatitis Qualifiers: Pancreatitis type: unspecified pancreatitis type Qualified Code(s): K86.1 - Other chronic pancreatitis Is this a current diagnosis for this admission?: Yes (8) Cirrhosis of liver Qualifiers: Hepatic cirrhosis type: alcoholic cirrhosis Ascites presence: without ascites Qualified Code(s): K70.30 - Alcoholic cirrhosis of liver without ascites Is this a current diagnosis for this admission?: Yes (9) Pancreatic pseudocyst Is this a current diagnosis for this admission?: Yes (10) Transaminitis Is this a current diagnosis for this admission?: Yes (11) Alcohol abuse Is this a current diagnosis for this admission?: Yes - Time Time Spent with patient: 25-34 minutes - Inpatient Certification Medical Necessity: Need Close Monitoring Due to Risk of Patient Decompensation - Plan Summary Plan Summary: If she continues to improve over discharge home tomorrow on oral antibiotics
[2016-09-23] MEDS: TRAZODONE HCL 50 MG TABLET PO SCH (22:10)
[2016-09-23] MEDS: ERTAPENEM SODIUM 1 GM in NORMAL SALINE 50 ML IV SCH (22:10)
[2016-09-24] MEDS: DEXTROSE 5%-NORMAL SALINE 1,000 ML IV PRN (05:58)
[2016-09-24 06:06] LABS: ABSOLUTE EOSINOPHILS # (AUTO) 0.1 10^3/uL (0.0-0.6); ABSOLUTE LYMPHOCYTES (AUTO) 1.8 10^3/uL (0.5-4.7); ABSOLUTE MONOCYTES (AUTO) 0.5 10^3/uL (0.1-1.4); ABSOLUTE NEUT (AUTO) 3.6 10^3/uL (1.7-8.2); BASOPHILS % (AUTO) 0.6 % (0-2); EOSINOPHILS % (AUTO) 1.3 % (0-6); HEMATOCRIT 33.4 % (36.0-47.0); HEMOGLOBIN 11.4 g/dL (12.0-15.5); HGB HCT DIFFERENCE 0.8; LYMPHOCYTES % (AUTO) 29.6 % (13-45); MEAN CORPUSCULAR HEMOGLOBIN 34.6 pg (27.0-33.4); MEAN CORPUSCULAR HGB CONC 34.1 g/dL (32.0-36.0); MEAN CORPUSCULAR VOLUME 102 fl (80-97); MONOCYTES % (AUTO) 8.2 % (3-13); RED BLOOD COUNT 3.29 10^6/uL (3.72-5.28); RED CELL DISTRIBUTION WIDTH 17.1 % (11.5-14.0); SEGMENTED NEUTROPHILS % (AUTO) 60.3 % (42-78)
[2016-09-24 06:35] LABS: ANION GAP 7 (5-19); CALCIUM 7.9 mg/dL (8.4-10.2); CARBON DIOXIDE 17 mmol/L (22-30); CHLORIDE 118 mmol/L (98-107); CREATININE RESULT 0.56 mg/dL (0.52-1.25); GLUCOSE 101 mg/dL (75-110); POTASSIUM 3.1 mmol/L (3.6-5.0); SODIUM 141.7 mmol/L (137-145)
[2016-09-24 06:40] LABS: BLOOD UREA NITROGEN < 2 mg/dL (7-20)
[2016-09-24] MEDS ORDERED: NORMAL SALINE 1000 ML 1,000 ML IV PRN (07:36)
[2016-09-24] MEDS: ENOXAPARIN SODIUM INJ 40 MG/0.4 ML DISP.SYRIN SUBCUT SCH (07:50)
[2016-09-24] MEDS ORDERED: POTASSI CL 20 MEQ/50 ML RIDER 20 MEQ/50 ML RTUPB IV SCH (08:00)
[2016-09-24 08:07] VITALS: BP 98/69
[2016-09-24] MEDS ORDERED: OXYCODONE HCL IR 5 MG TABLET PO PRN (09:29)
--- NOTE | 2016-09-24 12:32 | PDOC DISCHARGE SUMMARY ---
General - Admit/Disc Date/PCP Admission Date/Primary Care Provider: 09/20/16 15:56 Discharge Date: 09/24/16 - Discharge Diagnosis (1) Intractable abdominal pain Is this a current diagnosis for this admission?: YesSummary: Most likely secondary to colitis. Patient is noted have gallbladder sludge but is felt not to be the cause for her abdominal pain. (2) Hypotension Is this a current diagnosis for this admission?: Yes (3) Biliary sludge determined by ultrasound Is this a current diagnosis for this admission?: YesSummary: With evidence for biliary dyskinesia with an abnormal HIDA scan. (4) Anxiety and depression Is this a current diagnosis for this admission?: Yes (5) Benzodiazepine dependence Is this a current diagnosis for this admission?: Yes (6) COPD (chronic obstructive pulmonary disease) Is this a current diagnosis for this admission?: Yes (7) Chronic pancreatitis Is this a current diagnosis for this admission?: Yes (8) Cirrhosis of liver Is this a current diagnosis for this admission?: Yes (9) Pancreatic pseudocyst Is this a current diagnosis for this admission?: Yes (10) Transaminitis Is this a current diagnosis for this admission?: Yes (11) Alcohol abuse Is this a current diagnosis for this admission?: Yes - Additional Information Resuscitation Status: Full Code Home Medications: Acamprosate Calcium [Campral 333 mg Tablet] 333 mg PO Q8 09/20/16 Buspirone HCl [Buspar 15 mg Tablet] 15 mg PO Q12 09/20/16 Duloxetine HCl [Cymbalta] 60 mg PO DAILY 09/20/16 Trazodone HCl [Desyrel] 200 mg PO QHS 09/20/16 Zolpidem Tartrate [Ambien] 10 mg PO HSP PRN 09/20/16 History of Present Illness History of Present Illness: SANAZ COSBY is a 51 year old female who has a history of alcohol abuse in the past and reportedly has been sober for the last 4 months who presented with abdominal pain nausea and vomiting. The patient had recently been in the hospital for similar episode and left AGAINST MEDICAL ADVICE. The patient initially was found to be hypotensive with elevated lactic acid. Patient was started on IV fluids and admitted for further evaluation. Hospital Course Hospital Course: 51-year-old female with a history of alcohol abuse who presented with abdominal pain. Patient was started on imipenem for presumed colitis. Patient also had an episode of hypotension and may have had some early sepsis. The patient's cultures were negative except for Emy. She was noted to have some gallbladder sludge on ultrasound and underwent a HIDA scan which showed biliary dyskinesia but this did not reproduce her symptoms. It's felt that she most likely had colitis. The patient continued have problems with metabolic acidosis and she decided to leave AGAINST MEDICAL ADVICE on 09/24/2016. Patient is aware of the risk of leaving and that she needs continued IV fluids and IV antibiotics but she is unwilling to stay or in taking other medications. Physical Exam Vital Signs: Temp Pulse Resp BP Pulse Ox 97.6 F 86 20 98/69 L 94 09/24/16 07:33 09/24/16 07:33 09/24/16 07:33 09/24/16 07:33 09/24/16 07:33 Intake & Output 09/23/16 09/24/16 09/25/16 06:59 06:59 06:59 Intake Total 5970 4075 Output Total 200 0 Balance 5770 4075 Weight 77.9 kg 85.1 kg General appearance: PRESENT: no acute distress Eye exam: PRESENT: conjunctiva pink. ABSENT: scleral icterus Mouth exam: PRESENT: moist, tongue midline Neck exam: ABSENT: JVD Respiratory exam: PRESENT: clear to auscultation tanisha. ABSENT: rales, rhonchi, wheezes Cardiovascular exam: PRESENT: RRR. ABSENT: diastolic murmur, rubs, systolic murmur GI/Abdominal exam: PRESENT: normal bowel sounds, soft, tenderness - Mild epigastric tenderness but no guarding or rebound. ABSENT: distended, guarding, mass, organolmegaly, rebound Neurological exam: PRESENT: alert, awake, oriented to person, oriented to place , oriented to time, oriented to situation, CN II-XII grossly intact. ABSENT: motor sensory deficit Psychiatric exam: PRESENT: flat affect Results Laboratory Results: 09/24/16 05:25 09/24/16 05:25 09/24/16 09/24/16 05:25 05:25 WBC 6.0 RBC 3.29 L Hgb 11.4 L Hct 33.4 L MCV 102 H MCH 34.6 H MCHC 34.1 RDW 17.1 H Plt Count 103 L Seg Neutrophils % 60.3 Lymphocytes % 29.6 Monocytes % 8.2 Eosinophils % 1.3 Basophils % 0.6 Absolute Neutrophils 3.6 Absolute Lymphocytes 1.8 Absolute Monocytes 0.5 Absolute Eosinophils 0.1 Absolute Basophils 0.0 Sodium 141.7 Potassium 3.1 L Chloride 118 H Carbon Dioxide 17 L Anion Gap 7 BUN < 2 L Creatinine 0.56 Est GFR ( Amer) > 60 Est GFR (Non-Af Amer) > 60 Glucose 101 Calcium 7.9 L Impressions: Abdomen/Pelvis CT 09/20/16 00:00 IMPRESSION: 1. Findings remain consistent with chronic pancreatitis, changes as above including a chronic pseudocyst in the pancreatic neck and coarse calcifications. 2. No definite acute abnormality. No evidence of inflammatory or acute process in the right lower quadrant. Fatty liver. Abdomen Ultrasound 09/20/16 10:50 IMPRESSION: MARKED FATTY INFILTRATION OF THE LIVER. SLUDGE IN THE GALLBLADDER. OTHERWISE UNREMARKABLE RIGHT UPPER QUADRANT ULTRASOUND. Hepatobiliary Scan Nuclear Medicine 09/23/16 08:00 IMPRESSION: NO CYSTIC OR COMMON DUCT OBSTRUCTION. DEPRESSED GALLBLADDER EJECTION FRACTION. EVIDENCE FOR BILIARY DYSKINESIS. Qualifiers PATEINT BEING DISCHARGED WITH ANY OF THE FOLLOWING DIAGNOSIS?: No Plan Discharge Plan: Patient is leaving AGAINST MEDICAL ADVICE. She should follow-up with her primary care doctor in 1-2 weeks. Time Spent: Greater than 30 Minutes
== END 2016-09-24 11:02 | disposition left against medical advice (07) | DRG 392 ==
LOC: ER 10:15 → UNDOADMIN 15:29 → EH 15:29 → 3S 23:30
DX: K52.9 Noninfective gastroenteritis and colitis, unspecified (principal); K86.1 Other chronic pancreatitis; F13.20 Sedative, hypnotic or anxiolytic dependence, uncomplicated; F11.20 Opioid dependence, uncomplicated; K86.3 Pseudocyst of pancreas; E87.2 Acidosis; J44.9 Chronic obstructive pulmonary disease, unspecified; K83.9 Disease of biliary tract, unspecified; F32.9 Major depressive disorder, single episode, unspecified; M19.90 Unspecified osteoarthritis, unspecified site; F41.9 Anxiety disorder, unspecified; K70.30 Alcoholic cirrhosis of liver without ascites; F17.200 Nicotine dependence, unspecified, uncomplicated; R74.0 Nonspecific elevation of levels of transaminase and lactic acid dehydrogenase [LDH]; K76.0 Fatty (change of) liver, not elsewhere classified; I95.9 Hypotension, unspecified; Z85.828 Personal history of other malignant neoplasm of skin; Z90.710 Acquired absence of both cervix and uterus; Z88.6 Allergy status to analgesic agent; Z88.0 Allergy status to penicillin; Z88.2 Allergy status to sulfonamides
CPT/HCPCS: 36415; 74177; 76705; 78227; 80048; 80053; 80076; 80307; 81001; 83605; 83690; 83735; 84100; 84443; 85025; 85027; 86850; 86900; 86901; 87040; 87045; 87086; 87205; 87493; 96361; 96365; 96366; 99291; A9537; J1335; J1650; J1956; J2060; J2405; J2805; J3411; J3480; J3490; J7030; Q9969; S0164

== ENCOUNTER 2016-10-23 11:24 | Inpatient (IN) | payer OTHER, MEDICARE ==
[2016-10-23 12:53] LABS: ABSOLUTE BASOPHILS # (AUTO) 0.1 10^3/uL (0.0-0.2); ABSOLUTE EOSINOPHILS # (AUTO) 0.1 10^3/uL (0.0-0.6); ABSOLUTE LYMPHOCYTES (AUTO) 2.8 10^3/uL (0.5-4.7); ABSOLUTE MONOCYTES (AUTO) 1.5 10^3/uL (0.1-1.4); BASOPHILS % (AUTO) 0.9 % (0-2); EOSINOPHILS % (AUTO) 0.6 % (0-6); HEMATOCRIT 47.2 % (36.0-47.0); HGB HCT DIFFERENCE 0.8; MEAN CORPUSCULAR HGB CONC 33.9 g/dL (32.0-36.0); MEAN CORPUSCULAR VOLUME 100 fl (80-97); MONOCYTES % (AUTO) 9.7 % (3-13); RED BLOOD COUNT 4.71 10^6/uL (3.72-5.28); RED CELL DISTRIBUTION WIDTH 13.9 % (11.5-14.0); SEGMENTED NEUTROPHILS % (AUTO) 70.8 % (42-78); WHITE BLOOD COUNT 15.5 10^3/uL (4.0-10.5)
[2016-10-23] MEDS ORDERED: NORMAL SALINE 1000 ML 1,000 ML IV ONE ×3 (12:56→13:30)
--- NOTE | 2016-10-23 13:01 | ER Document Report ---
ED General - General Chief Complaint: Blood Pressure Problem Stated Complaint: DIZZY,DIARRHEA,NAUSEA Time seen by provider: 12:45 Mode of Arrival: Ambulatory Information source: Patient Notes: 51-year-old female with 3 week history of diarrhea and nausea at about 6 months history of diffuse abdominal pain worsened right upper quadrant who [facility] for follow-up of outpatient workup done in [place] for her chronic abdominal pain and also for chronic right leg pain for the past 6 months and was noted there to have a blood pressure 70 systolic. Staff there wish to transfer or here by ambulance but she refused and came by private vehicle. She denies hematemesis, hematochezia, melena, vomiting, fever , chills, cough, shortness of breath. The patient reports poor appetite and thinks she lost about 40 pounds in the past 6 months. Patient reports no alcohol use in the past 5 months. She had admission in September where she is not have colitis and gallbladder sludge but signed out AMA. Physical Exam: General: Alert, appears uncomfortable and frail HEENT: Normocephalic. Atraumatic. PERRLA. Extraocular movements intact. Oropharynx mucous membranes Neck: Supple. Non-tender. No JVD no carotid bruits Respiratory: No respiratory distress. Clear and equal breath sounds bilaterally. Cardiovascular: Regular rate and rhythm. PMI not displaced Abdominal: Normal Inspection. Soft, mild diffuse tenderness no guarding rebound rigidity no distension. Normal Bowel Sounds. Back: Non-tender. No deformity or step off. Extremities: Extremities are all warm trace pedal edema bilaterally 2+ radial pulses one posterior suspect is posterior tibial pulses no Homans sign bilaterally Neurological: Speech clear mentation normal moves all 4 extremities to command Psychological: Normal affect. Normal Mood. Skin: Warm. Dry. Normal color. TRAVEL OUTSIDE OF THE [place] IN LAST 30 DAYS: No - Related Data Allergies/Adverse Reactions: morphine [Morphine] Allergy (Verified 10/23/16 11:39) NSAIDS (Non-Steroidal Anti-Inflamma [Nsaids] Allergy (Verified 10/23/16 11:39) Penicillins Allergy (Verified 10/23/16 11:39) Sulfa (Sulfonamide Antibiotics) Allergy (Verified 10/23/16 11:39) Home Medications: Current Home Medications Hydroxyzine Pamoate 100 mg PO TID 04/13/17 [History] Past Medical History - Social History Smoking Status: Current Every Day Smoker Frequency of alcohol use: None Drug Abuse: None Family History: Arthritis - Past Medical History Cardiac Medical History: Reports: Hx Hypercholesterolemia Pulmonary Medical History: Reports: Hx COPD Denies: Hx Tuberculosis Renal/ Medical History: Denies: Hx Peritoneal Dialysis Malignancy Medical History: Reports: Hx Skin Cancer GI Medical History: Reports: Hx Cirrhosis Musculoskeltal Medical History: Reports Hx Arthritis Psychiatric Medical History: Reports: Hx Anxiety, Hx Depression Past Surgical History: Reports: Hx Section - 1986, Hx Gynecologic Surgery - laparoscopy, Hx Hysterectomy, Hx Oral Surgery - wisdom teeth, Hx Tubal Ligation, Other - [place] teeth extraction - Immunizations Hx Diphtheria, Pertussis, Tetanus Vaccination: Yes - 2012 Hx Pneumococcal Vaccination: 07/13/12 Review of Systems - Review of Systems Constitutional: Malaise, Weakness, Weight loss. denies: Chills, Fever EENT: denies: Ear pain, Throat pain Cardiovascular: denies: Chest pain, Dyspnea, Edema Respiratory: denies: Cough, Short of breath, Wheezing Gastrointestinal: See HPI Genitourinary: denies: Burning, Dysuria Female Genitourinary: denies: Vaginal discharge, Vaginal bleeding Musculoskeletal: denies: Back pain Skin: denies: Rash Hematologic/Lymphatic: denies: Swollen glands Neurological/Psychological: denies: Weakness, Numbness Physical Exam - Vital signs Vitals: Temp Pulse Resp BP Pulse Ox 98.4 F 108 H 16 92/67 L 97 10/23/16 11:29 10/23/16 11:29 10/23/16 11:29 10/23/16 11:29 10/23/16 11:29 Course - Re-evaluation Re-evalutation: 10/23/16 17:22 Patient's initial blood pressure here was 93 systolic but she had multiple episodes of hypotension down into the 80s and ultimately received 2 L worth of saline boluses. Most recent blood pressure is 98 systolic. Based on the CT findings of new ascites ultrasound guided paracentesis was performed by radiology. Patient is noted to have a leukocytosis and elevated lactate and meets criteria for systemic inflammatory response syndrome and differential here would include spontaneous bacterial peritonitis. He started on broad- spectrum antibiotics and cultures have been sent. Due to inadequate peripheral access central line was placed without difficulty. The patient's hypotension conceivably could be due to volume depletion from her diarrhea but cannot exclude more serious etiologies believe she requires admission in and out monitoring and Dr. Padilla of the hospitalist service has agreed to admission. Total critical care time excluding billable procedures is 39 minutes - Vital Signs Vital signs: Temp Pulse Resp BP Pulse Ox 98.4 F 108 H 18 98/50 L 98 10/23/16 11:29 10/23/16 11:29 10/23/16 15:47 10/23/16 15:47 10/23/16 15:47 - Laboratory Result Diagrams: 10/23/16 12:00 10/23/16 12:00 Laboratory results interpreted by me: 10/23/16 10/23/16 10/23/16 12:00 12:00 12:40 WBC 15.5 H Hgb 16.0 H Hct 47.2 H MCV 100 H MCH 34.0 H Plt Count 132 L Absolute Neutrophils 11.0 H Absolute Monocytes 1.5 H PT APTT Sodium 135.5 L Potassium 2.6 L* Chloride 90 L Carbon Dioxide 31 H BUN < 2 L Glucose 148 H Lactic Acid Total Bilirubin 3.3 H Direct Bilirubin 1.4 H AST 142 H Alkaline Phosphatase 176 H Albumin 2.8 L Lipase 20.9 L 10/23/16 10/23/16 13:58 13:58 WBC Hgb Hct MCV MCH Plt Count Absolute Neutrophils Absolute Monocytes PT 16.0 H APTT 44.6 H Sodium Potassium Chloride Carbon Dioxide BUN Glucose Lactic Acid 5.1 H Total Bilirubin Direct Bilirubin AST Alkaline Phosphatase Albumin Lipase - Diagnostic Test Radiology reviewed: Image reviewed, Reports reviewed - EKG Interpretation by Me Additional EKG results interpreted by me: 10/23/16 17:22 EKG reviewed by myself shows sinus rhythm at [address] changes Procedures - Central Line Right Internal jugular Time completed: 15:30 Consent obtained: Yes Central line pre-insertion: Sterile PPE donned, Chloraprep applied, Sterile drapes applied Central line lumen type: Triple Anesthetic type: 1% Lidocaine mL's of anesthesia: 3 Ultrasound guided: Yes CM at insertion site: 12 Line secured with sutures: Yes Central line post-insertion: Blood return from lumens, Sutured, Sterile dressing applied, Position confirmed w/ CXR Number of attempts: 3 - right internal jugular vein was easily visualized on ultrasound and seen on ultrasound to be cannulated on all 3 attempts but on the first 2 attempts J-wire would not thread and needle had to be withdrawn and repositioned Complications: No Discharge - Discharge Clinical Impression: Hypokalemia Hypotension Qualifiers: Hypotension type: unspecified hypotension type Qualified Code(s): I95.9 - Hypotension, unspecified Sepsis Qualifiers: Sepsis type: sepsis due to unspecified organism Qualified Code(s): A41.9 - Sepsis, unspecified organism Cirrhosis of liver Qualifiers: Hepatic cirrhosis type: alcoholic cirrhosis Ascites presence: without ascites Qualified Code(s): K70.30 - Alcoholic cirrhosis of liver without ascites Condition: Serious Disposition: ADMITTED INPATIENT Admitting Provider: Hospitalist Unit Admitted: [facility]
[2016-10-23 13:28] LABS: LIPASE 20.9 U/L (23-300)
[2016-10-23 13:28] LABS: ALANINE AMINOTRANSFERASE 39 U/L (9-52); ALBUMIN 2.8 g/dL (3.5-5.0); ALKALINE PHOSPHATASE 176 U/L (38-126); ANION GAP 15 (5-19); ASPARTATE AMINO TRANSFERASE 142 U/L (14-36); BILIRUBIN,DIRECT 1.4 mg/dL (0.0-0.4); BILIRUBIN,TOTAL 3.3 mg/dL (0.2-1.3); CALCIUM 8.5 mg/dL (8.4-10.2); CARBON DIOXIDE 31 mmol/L (22-30); CHLORIDE 90 mmol/L (98-107); CREATININE RESULT 0.79 mg/dL (0.52-1.25); GLUCOSE 148 mg/dL (75-110); SODIUM 135.5 mmol/L (137-145); TOTAL PROTEIN 6.9 g/dL (6.3-8.2)
[2016-10-23 13:29] LABS: BLOOD UREA NITROGEN < 2 mg/dL (7-20)
[2016-10-23 13:39] LABS: POTASSIUM 2.6 mmol/L (3.6-5.0)
[2016-10-23] MEDS ORDERED: POTASSI CL 20 MEQ/NS 1L 1,000 ML IV ONE (13:52)
[2016-10-23 14:10] LABS: CREATINE KINASE MB 0.36 ng/mL (<4.55)
[2016-10-23 14:11] LABS: TROPONIN I < 0.012 ng/mL
[2016-10-23 14:22] LABS: PARTIAL THROMBOPLASTIN TIME 44.6 SEC (23.5-35.8)
[2016-10-23] MEDS ORDERED: VANCOMYCIN HCL INJ 1000 MG VIAL IV ONE (16:27)
[2016-10-23] MEDS ORDERED: CEFTAZIDIME INJ 1 GM VIAL IV ONE (16:27)
[2016-10-23] MEDS ORDERED: POTASSI CL 20 MEQ/50 ML RIDER 50 ML IV ONE (16:28)
[2016-10-23 17:39] LABS: FLUID TYPE PERITONEAL
[2016-10-23 17:40] LABS: FLUID APPEARANCE CLEAR; FLUID RBC AVERAGE 23.5; FLUID RBC DILUENT USED NONE USED; FLUID RBC DILUTION FACTOR 1; FLUID RBC SIDE 1 27; FLUID RBC SIDE 2 20; TOTAL RBC SQUARES COUNTED FLD 225
[2016-10-23] MEDS ORDERED: VANCOMYCIN HCL 0 MG in DEXTROSE 5%-WATER 250 ML IV NR (17:45)
--- NOTE | 2016-10-23 17:53 | PDOC H&P ---
History of Present Illness Admission Date/PCP: 10/23/2016 PMD: [facility] Patient complains of: hypotension History of Present Illness: SANAZ COSBY is a 51 year old female with 3 week history of diarrhea and nausea at about 6 months history of diffuse abdominal pain worsened right upper quadrant who [facility] for follow-up of outpatient workup done in [place] for her chronic abdominal pain and also for chronic right leg pain for the past 6 months and was noted there to have a blood pressure 70 systolic. Staff there wish to transfer or here by ambulance but she refused and came by private vehicle. She denies hematemesis, hematochezia, melena, vomiting, fever, chills , cough, shortness of breath. The patient reports poor appetite and thinks she lost about 40 pounds in the past 6 months. Patient reports no alcohol use in the past 5 months. She had admission in September where she is not have colitis and gallbladder sludge but signed out AMA. Upon evaluation in the ED patient was found in septic shock with a BP of 70 systolic She had a distended abdomen with ascites The abdomen was tender on palpation Paracentesis was performed and a liter of ascitic fluid was drained She was treated with IV fluid resuscitation; broad-spectrum antibiotics and subsequently admitted under hospitalist service with a presumptive diagnosis of Spontaneous Bacterial Peritonitis Past Medical History Cardiac Medical History: Reports: Hyperlipidema Pulmonary Medical History: Reports: Chronic Obstructive Pulmonary Disease (COPD) Denies: Tuberculosis Malignancy Medical History: Reports: Skin Cancer GI Medical History: Reports: Cirrhosis Musculoskeltal Medical History: Reports: Arthritis Psychiatric Medical History: Reports: Depression Past Surgical History Past Surgical History: Reports: Section - 1986, Hysterectomy, Tubal Ligation, Other - [place] teeth extraction Social History Smoking Status: Current Every Day Smoker Frequency of Alcohol Use: Heavy - But has been sober for 6 months. Hx Recreational Drug Use: No Drugs: None Hx Prescription Drug Abuse: No Family History Family History: Arthritis, Other - Chronic alcoholism Parental Family History Reviewed: Yes Children Family History Reviewed: Yes Sibling(s) Family History Reviewed.: Yes Medication/Allergy Home Medications: Buspirone HCl [Buspar 15 mg Tablet] 15 mg PO Q12 09/20/16 Duloxetine HCl [Cymbalta] 60 mg PO DAILY 09/20/16 Trazodone HCl [Desyrel] 200 mg PO QHS 09/20/16 Zolpidem Tartrate [Ambien] 10 mg PO HSP PRN 09/20/16 Hydroxyzine Pamoate 100 mg PO TID 10/23/16 Allergies/Adverse Reactions: morphine [Morphine] Allergy (Verified 10/23/16 11:39) NSAIDS (Non-Steroidal Anti-Inflamma [Nsaids] Allergy (Verified 10/23/16 11:39) Penicillins Allergy (Verified 10/23/16 11:39) Sulfa (Sulfonamide Antibiotics) Allergy (Verified 10/23/16 11:39) Review of Systems Constitutional: PRESENT: chills, fever(s), weight loss. ABSENT: headache(s), weight gain Eyes: ABSENT: visual disturbances Ears: ABSENT: hearing changes Cardiovascular: ABSENT: chest pain, dyspnea on exertion, edema, orthropnea, palpitations Respiratory: ABSENT: cough, hemoptysis Gastrointestinal: PRESENT: abdominal pain, diarrhea, other - Anorexia diarrhea profuse for the past 6 months. ABSENT: constipation, hematemesis, hematochezia , nausea, vomiting Genitourinary: ABSENT: dysuria, hematuria Musculoskeletal: PRESENT: other - Severe right knee pain Right knee gives out Patient has to ambulate with a walker and has a hard time bearing weight on the right leg. ABSENT: joint swelling Integumentary: ABSENT: rash, wounds Neurological: ABSENT: abnormal gait, abnormal speech, confusion, dizziness, focal weakness, syncope Psychiatric: ABSENT: anxiety, depression, homidical ideation, suicidal ideation Endocrine: ABSENT: cold intolerance, heat intolerance, polydipsia, polyuria Hematologic/Lymphatic: ABSENT: easy bleeding, easy bruising Physical Exam Vital Signs: Temp Pulse Resp BP Pulse Ox 98.4 F 108 H 18 98/50 L 98 10/23/16 11:29 10/23/16 11:29 10/23/16 15:47 10/23/16 15:47 10/23/16 15:47 Intake & Output 10/22/16 10/23/16 10/24/16 00:59 00:59 00:59 Weight 63.503 kg General appearance: PRESENT: mild distress, thin Head exam: PRESENT: atraumatic, normocephalic Eye exam: PRESENT: conjunctiva pale, EOMI, PERRLA. ABSENT: scleral icterus Ear exam: PRESENT: normal external ear exam Mouth exam: PRESENT: moist, tongue midline Neck exam: ABSENT: carotid bruit, JVD, lymphadenopathy, thyromegaly Respiratory exam: PRESENT: clear to auscultation tanisha. ABSENT: rales, rhonchi, wheezes Cardiovascular exam: PRESENT: RRR. ABSENT: diastolic murmur, rubs, systolic murmur Pulses: PRESENT: normal dorsalis pedis pul Vascular exam: PRESENT: normal capillary refill GI/Abdominal exam: PRESENT: distended, normal bowel sounds, soft, tenderness - Diffuse no guarding or rebound. ABSENT: guarding, mass, organolmegaly, rebound Rectal exam: PRESENT: deferred Extremities exam: PRESENT: full ROM. ABSENT: calf tenderness, clubbing, pedal edema Neurological exam: PRESENT: alert, awake, oriented to person, oriented to place , oriented to time, oriented to situation, CN II-XII grossly intact. ABSENT: motor sensory deficit Psychiatric exam: PRESENT: appropriate affect, normal mood. ABSENT: homicidal ideation, suicidal ideation Skin exam: PRESENT: dry, intact, warm. ABSENT: cyanosis, rash Results Laboratory Results: 10/23/16 12:00 10/23/16 12:00 10/23/16 10/23/16 10/23/16 12:00 12:00 12:40 WBC 15.5 H RBC 4.71 Hgb 16.0 H Hct 47.2 H MCV 100 H MCH 34.0 H MCHC 33.9 RDW 13.9 Plt Count 132 L Seg Neutrophils % 70.8 Lymphocytes % 18.0 Monocytes % 9.7 Eosinophils % 0.6 Basophils % 0.9 Absolute Neutrophils 11.0 H Absolute Lymphocytes 2.8 Absolute Monocytes 1.5 H Absolute Eosinophils 0.1 Absolute Basophils 0.1 Sodium 135.5 L Potassium 2.6 L* Chloride 90 L Carbon Dioxide 31 H Anion Gap 15 BUN < 2 L Creatinine 0.79 Est GFR ( Amer) > 60 Est GFR (Non-Af Amer) > 60 Glucose 148 H Lactic Acid Calcium 8.5 Magnesium Total Bilirubin 3.3 H AST 142 H ALT 39 Alkaline Phosphatase 176 H Total Protein 6.9 Albumin 2.8 L Lipase 20.9 L 10/23/16 10/23/16 13:58 16:52 WBC RBC Hgb Hct MCV MCH MCHC RDW Plt Count Seg Neutrophils % Lymphocytes % Monocytes % Eosinophils % Basophils % Absolute Neutrophils Absolute Lymphocytes Absolute Monocytes Absolute Eosinophils Absolute Basophils Sodium Potassium Chloride Carbon Dioxide Anion Gap BUN Creatinine Est GFR ( Amer) Est GFR (Non-Af Amer) Glucose Lactic Acid 5.1 H Calcium Magnesium 1.9 Total Bilirubin AST ALT Alkaline Phosphatase Total Protein Albumin Lipase 10/23/16 10/23/16 12:30 12:40 Creatine Kinase 49 CK-MB (CK-2) 0.36 Troponin I < 0.012 Impressions: Chest X-Ray 10/23/16 00:00 IMPRESSION: CENTRAL LINE PLACEMENT IN SATISFACTORY POSITION. NO PNEUMOTHORAX. NO ACUTE RADIOGRAPHIC FINDING IN THE CHEST. Abdomen/Pelvis CT 10/23/16 12:59 IMPRESSION: 1. INTERVAL DEVELOPMENT OF MODERATE ASCITES, NOT PRESENT ON THE PRIOR STUDY (05/2017). 2. SEVERE FATTY INFILTRATION OF THE LIVER. 3. STABLE CHRONIC FINDINGS IN THE PANCREAS INCLUDING ATROPHY AND CALCIFICATIONS CONSISTENT WITH CHRONIC PANCREATITIS. STABLE SMALL FLUID COLLECTION LIKELY REPRESENTING A SMALL PSEUDOCYST. 4. STONES AND/OR SLUDGE IN THE GALLBLADDER. Paracentesis Ultrasound 10/23/16 13:29 IMPRESSION: Successful ultrasound-guided paracentesis Assessment & Plan - Diagnosis (1) Chronic pancreatitis Is this a current diagnosis for this admission?: YesPlan: Patient does have pancreatic calcifications She also has a chronic diarrhea likely to be secondary to malabsorption We will start the patient on pancreatic enzymes (2) Spontaneous bacterial peritonitis Is this a current diagnosis for this admission?: YesPlan: is likely cause for the sepsis Patient has been diffuse and diffusely tender abdomen We will continue antibiotics cefepime and vancomycin pending results of the ascitic fluid (3) Cirrhosis Qualifiers: Hepatic cirrhosis type: alcoholic cirrhosis Ascites presence: with ascites Qualified Code(s): K70.31 - Alcoholic cirrhosis of liver with ascites Is this a current diagnosis for this admission?: YesPlan: We will give the patient thiamine ; check PT/INR (4) Hypokalemia Is this a current diagnosis for this admission?: YesPlan: Check magnesium replace potassium (5) Sepsis Qualifiers: Sepsis type: sepsis due to unspecified organism Qualified Code(s): A41.9 - Sepsis, unspecified organism Is this a current diagnosis for this admission?: YesPlan: Etiology likely secondary to SBP Fluid boluses have been given and the blood pressure is now 97/50 No need for pressors Continue broad-spectrum antibiotics Continue hydration (6) Pancreatic pseudocyst Is this a current diagnosis for this admission?: YesPlan: An MR I of the abdomen and will be performed on Thursday when patient is stable to reevaluate - Time Time Spent with patient: Patient was admitted to an IMCU unit Time Spent: Greater than 70 Minutes - Inpatient Certification Based on my medical assessment, after consideration of the patient's comorbidities, presenting symptoms, or acuity I expect that the services needed warrant INPATIENT care.: Yes I certify that my determination is in accordance with my understanding of Medicare's requirements for reasonable and necessary INPATIENT services [42 CFR 412.3e].: Yes Medical Necessity: Need Close Monitoring Due to Risk of Patient Decompensation, Need For IV Fluids, Risk of Complication if Not Cared For in Hospital
[2016-10-23] MEDS ORDERED: ENOXAPARIN SODIUM INJ 40 MG/0.4 ML DISP.SYRIN SUBCUT ONE (18:00)
[2016-10-23] MEDS: POTASSI CL 20 MEQ/NS 1L 1,000 ML IV PRN ×2 (18:28→23:26)
[2016-10-23] MEDS ORDERED: NOREPINEPHRINE BITARTRATE INJ/PF 4 MG/4 ML SDV IV ONE (19:03)
[2016-10-23 19:27] LABS: ANION GAP 10 (5-19); CALCIUM 7.4 mg/dL (8.4-10.2); CARBON DIOXIDE 29 mmol/L (22-30); CHLORIDE 99 mmol/L (98-107); CREATININE RESULT 0.71 mg/dL (0.52-1.25); GLUCOSE 95 mg/dL (75-110); POTASSIUM 3.3 mmol/L (3.6-5.0)
[2016-10-23 19:32] LABS: BLOOD UREA NITROGEN < 2 mg/dL (7-20)
--- NOTE | 2016-10-23 19:52 | EKG REPORT ---
SEVERITY:- ABNORMAL ECG - SINUS RHYTHM LOW VOLTAGE IN FRONTAL LEADS NONSPECIFIC T ABNORMALITIES, DIFFUSE LEADS PROLONGED QT INTERVAL : Confirmed by: Rod Jensen MD 23-Oct-2016 19:51:58
[2016-10-23] MEDS: PANTOPRAZOLE SODIUM 40 MG VIAL IV SCH (21:28)
[2016-10-23] MEDS: TRAZODONE HCL 50 MG TABLET PO SCH (21:28)
[2016-10-23] MEDS: BUSPIRONE HCL 10 MG TABLET PO SCH (21:28)
[2016-10-23] MEDS: ALBUMIN HUMAN 50 ML IV SCH ×4 (21:46→23:24)
[2016-10-23] MEDS ORDERED: CEFEPIME 2 GM/D5W RTU 50 ML IV SCH (22:00)
[2016-10-23] MEDS ORDERED: (PENDING PHARMACY ID) (Trazodone Hcl [Desyrel] 200 MG) PO SCH (22:00)
[2016-10-23] MEDS ORDERED: CEFEPIME HCL 2 GM in DEXTROSE 5%-WATER 100 ML IV SCH (22:00)
[2016-10-23] MEDS: CEFEPIME HCL 2 GM in DEXTROSE 5%-WATER 50 ML IV SCH (22:11)
[2016-10-23] MEDS: VANCOMYCIN HCL 750 MG in DEXTROSE 5%-WATER 250 ML IV SCH (22:50)
[2016-10-24] MEDS: DEXTROSE 5%-WATER 250 ML with NOREPINEPHRINE BITARTRATE 4 MG IV PRN ×6 (00:32→15:13)
[2016-10-24 01:26] LABS: APPEARANCE,URINE SLIGHTLY-CLOUDY; BILIRUBIN,URINE NEGATIVE (NEGATIVE); GLUCOSE, URINE NEGATIVE (NEGATIVE); KETONES,URINE NEGATIVE (NEGATIVE); LEUKOCYTE ESTERASE,URINE NEGATIVE (NEGATIVE); NITRITE,URINE NEGATIVE (NEGATIVE); PROTEIN,URINE NEGATIVE (NEGATIVE); URINE SPECIFIC GRAVITY 1.003; UROBILINOGEN,URINE NEGATIVE mg/dL (<2.0)
[2016-10-24 04:36] LABS: ABSOLUTE BASOPHILS # (AUTO) 0.1 10^3/uL (0.0-0.2); ABSOLUTE EOSINOPHILS # (AUTO) 0.1 10^3/uL (0.0-0.6); ABSOLUTE LYMPHOCYTES (AUTO) 3.8 10^3/uL (0.5-4.7); ABSOLUTE MONOCYTES (AUTO) 1.8 10^3/uL (0.1-1.4); ABSOLUTE NEUT (AUTO) 8.8 10^3/uL (1.7-8.2); BASOPHILS % (AUTO) 0.9 % (0-2); EOSINOPHILS % (AUTO) 0.7 % (0-6); HEMATOCRIT 33.9 % (36.0-47.0); HGB HCT DIFFERENCE 1.2; LYMPHOCYTES % (AUTO) 26.2 % (13-45); MEAN CORPUSCULAR HEMOGLOBIN 34.4 pg (27.0-33.4); MEAN CORPUSCULAR HGB CONC 34.4 g/dL (32.0-36.0); MEAN CORPUSCULAR VOLUME 100 fl (80-97); RED BLOOD COUNT 3.39 10^6/uL (3.72-5.28); RED CELL DISTRIBUTION WIDTH 13.6 % (11.5-14.0); SEGMENTED NEUTROPHILS % (AUTO) 60.2 % (42-78); WHITE BLOOD COUNT 14.6 10^3/uL (4.0-10.5)
[2016-10-24 04:44] LABS: HEMOGLOBIN 11.7 g/dL (12.0-15.5)
[2016-10-24 04:47] LABS: ANION GAP 12 (5-19); CALCIUM 7.9 mg/dL (8.4-10.2); CARBON DIOXIDE 25 mmol/L (22-30); CHLORIDE 105 mmol/L (98-107); CREATININE RESULT 0.78 mg/dL (0.52-1.25); GLUCOSE 185 mg/dL (75-110); MAGNESIUM 1.8 mg/dL (1.6-2.3); POTASSIUM 3.2 mmol/L (3.6-5.0); SODIUM 141.8 mmol/L (137-145)
[2016-10-24 04:55] LABS: BLOOD UREA NITROGEN < 2 mg/dL (7-20)
[2016-10-24] MEDS ORDERED: POTASSIUM CHLORIDE 10 MEQ TABLET.SA PO ONE (06:00)
[2016-10-24] MEDS ORDERED: ENOXAPARIN SODIUM INJ 40 MG/0.4 ML DISP.SYRIN SUBCUT SCH (08:00)
[2016-10-24] MEDS: POTASSI CL 20 MEQ/NS 1L 1,000 ML IV PRN (08:07)
--- NOTE | 2016-10-24 08:09 | PDOC PROGRESS REPORT ---
Subjective Progress Note for:: 10/24/16 Subjective:: The patient is still on pressors this morning She is alert and awake, does not appear acutely ill She states that the abdominal pain has improved somewhat; she still has some discomfort in the right upper quadrant Ultrasound of the abdomen was suggestive of portal vein thrombosis Physical Exam Vital Signs: Temp Pulse Resp BP Pulse Ox 98.8 F 103 H 22 H 103/67 94 10/24/16 07:58 10/24/16 02:22 10/24/16 07:43 10/24/16 07:43 10/24/16 07:43 Intake & Output 10/23/16 10/24/16 10/25/16 00:59 00:59 00:59 Intake Total 848 Output Total 600 Balance 248 Weight 66.6 kg General appearance: PRESENT: no acute distress, thin Head exam: PRESENT: atraumatic, normocephalic Eye exam: PRESENT: conjunctiva pink, EOMI, PERRLA. ABSENT: scleral icterus Neck exam: ABSENT: carotid bruit, JVD, lymphadenopathy, thyromegaly Respiratory exam: PRESENT: clear to auscultation tanisha. ABSENT: rales, rhonchi, wheezes Cardiovascular exam: PRESENT: RRR. ABSENT: diastolic murmur, rubs, systolic murmur Pulses: PRESENT: normal dorsalis pedis pul GI/Abdominal exam: PRESENT: ascites, tenderness - In the right upper quadrant without guarding or rebound. ABSENT: guarding Extremities exam: PRESENT: full ROM. ABSENT: calf tenderness, clubbing, pedal edema Neurological exam: PRESENT: alert, awake, oriented to person, oriented to place , oriented to time, oriented to situation, CN II-XII grossly intact. ABSENT: motor sensory deficit Results Laboratory Results: 10/24/16 04:28 10/24/16 04:28 10/23/16 10/23/16 10/24/16 18:44 18:44 00:58 WBC RBC Hgb Hct MCV MCH MCHC RDW Plt Count Seg Neutrophils % Lymphocytes % Monocytes % Eosinophils % Basophils % Absolute Neutrophils Absolute Lymphocytes Absolute Monocytes Absolute Eosinophils Absolute Basophils Sodium 138.0 Potassium 3.3 L Chloride 99 Carbon Dioxide 29 Anion Gap 10 BUN < 2 L Creatinine 0.71 Est GFR ( Amer) > 60 Est GFR (Non-Af Amer) > 60 Glucose 95 Lactic Acid 1.7 Calcium 7.4 L Magnesium Urine Color YELLOW Urine Appearance SLIGHTLY-CLOUDY Urine pH 6.0 Ur Specific [place] 1.003 Urine Protein NEGATIVE Urine Glucose (UA) NEGATIVE Urine Ketones NEGATIVE Urine Blood NEGATIVE Urine Nitrite NEGATIVE Ur Leukocyte Esterase NEGATIVE Urine WBC (Auto) 2 Urine RBC (Auto) 0 10/24/16 10/24/16 04:28 04:28 WBC 14.6 H RBC 3.39 L Hgb 11.7 L D Hct 33.9 L MCV 100 H MCH 34.4 H MCHC 34.4 RDW 13.6 Plt Count 148 L Seg Neutrophils % 60.2 Lymphocytes % 26.2 Monocytes % 12.0 Eosinophils % 0.7 Basophils % 0.9 Absolute Neutrophils 8.8 H Absolute Lymphocytes 3.8 Absolute Monocytes 1.8 H Absolute Eosinophils 0.1 Absolute Basophils 0.1 Sodium 141.8 Potassium 3.2 L Chloride 105 Carbon Dioxide 25 Anion Gap 12 BUN < 2 L Creatinine 0.78 Est GFR ( Amer) > 60 Est GFR (Non-Af Amer) > 60 Glucose 185 H Lactic Acid Calcium 7.9 L Magnesium 1.8 Urine Color Urine Appearance Urine pH Ur Specific [place] Urine Protein Urine Glucose (UA) Urine Ketones Urine Blood Urine Nitrite Ur Leukocyte Esterase Urine WBC (Auto) Urine RBC (Auto) Impressions: Chest X-Ray 10/23/16 00:00 IMPRESSION: CENTRAL LINE PLACEMENT IN SATISFACTORY POSITION. NO PNEUMOTHORAX. NO ACUTE RADIOGRAPHIC FINDING IN THE CHEST. Abdomen/Pelvis CT 10/23/16 12:59 IMPRESSION: 1. INTERVAL DEVELOPMENT OF MODERATE ASCITES, NOT PRESENT ON THE PRIOR STUDY (05/2017). 2. SEVERE FATTY INFILTRATION OF THE LIVER. 3. STABLE CHRONIC FINDINGS IN THE PANCREAS INCLUDING ATROPHY AND CALCIFICATIONS CONSISTENT WITH CHRONIC PANCREATITIS. STABLE SMALL FLUID COLLECTION LIKELY REPRESENTING A SMALL PSEUDOCYST. 4. STONES AND/OR SLUDGE IN THE GALLBLADDER. Paracentesis Ultrasound 10/23/16 13:29 IMPRESSION: Successful ultrasound-guided paracentesis Abdomen Ultrasound 10/23/16 17:29 IMPRESSION: Question interval portal vein thrombosis. To and fro flow be in the hepatic veins. Distended gallbladder with sludge but no pericholecystic fluid. Marked fatty infiltration of the liver. Assessment & Plan - Diagnosis (1) Chronic pancreatitis Is this a current diagnosis for this admission?: YesPlan: It is likely close A for the chronic diarrhea ; we will initiate pancreatic enzymes by mouth (2) Spontaneous bacterial peritonitis Is this a current diagnosis for this admission?: Yes (3) Cirrhosis Qualifiers: Hepatic cirrhosis type: alcoholic cirrhosis Ascites presence: with ascites Qualified Code(s): K70.31 - Alcoholic cirrhosis of liver with ascites Is this a current diagnosis for this admission?: YesPlan: Fatty infiltration on ultrasound INR was within normal range Platelet count is normal LFTs: Within normal range We will continue his thiamine supplementation (4) Hypokalemia Is this a current diagnosis for this admission?: YesPlan: Continue to replace (5) Sepsis Qualifiers: Sepsis type: sepsis due to unspecified organism Qualified Code(s): A41.9 - Sepsis, unspecified organism Is this a current diagnosis for this admission?: YesPlan: Source likely spontaneous bacterial peritonitis Continue broad-spectrum coverage Patient has improved and the lactic acid is now in normal Patient is still on pressors (6) Pancreatic pseudocyst Is this a current diagnosis for this admission?: YesPlan: MRI to visualize pseudocyst better It is unlikely that this is her source of the sepsis (7) Portal vein thrombosis Is this a current diagnosis for this admission?: YesPlan: Initiate anticoagulation with Lovenox MRA abdomen scheduled - Time Critical Time spent with patient: 25-34 minutes
[2016-10-24] MEDS: DULOXETINE HCL 30 MG CAPSULE.DR PO SCH (09:04)
[2016-10-24] MEDS: BUSPIRONE HCL 10 MG TABLET PO SCH ×2 (09:04→22:54)
[2016-10-24] MEDS: PANTOPRAZOLE SODIUM 40 MG VIAL IV SCH ×2 (09:05→22:55)
[2016-10-24] MEDS: ENOXAPARIN SODIUM INJ 80 MG/0.8 ML DISP.SYRIN SUBCUT SCH ×2 (09:07→22:54)
[2016-10-24] MEDS: POTASSI CL 20 MEQ/50 ML RIDER 50 ML IV SCH ×2 (09:08→11:34)
[2016-10-24] MEDS: CEFEPIME HCL 2 GM in DEXTROSE 5%-WATER 50 ML IV SCH ×2 (10:09→22:54)
[2016-10-24 10:44] LABS: APPEARANCE,URINE SLIGHTLY-CLOUDY; BILIRUBIN,URINE NEGATIVE (NEGATIVE); GLUCOSE, URINE NEGATIVE (NEGATIVE); KETONES,URINE NEGATIVE (NEGATIVE); LEUKOCYTE ESTERASE,URINE NEGATIVE (NEGATIVE); NITRITE,URINE NEGATIVE (NEGATIVE); PROTEIN,URINE NEGATIVE (NEGATIVE); URINE SPECIFIC GRAVITY 1.002; UROBILINOGEN,URINE NEGATIVE mg/dL (<2.0)
[2016-10-24] MEDS: VANCOMYCIN HCL 750 MG in DEXTROSE 5%-WATER 250 ML IV SCH ×2 (10:44→22:55)
[2016-10-24] MEDS ORDERED: NOREPINEPHRINE BITARTRATE INJ/PF 4 MG/4 ML SDV IV ONE (13:45)
[2016-10-24] MEDS: TRAZODONE HCL 50 MG TABLET PO SCH (22:54)
[2016-10-25] MEDS: POTASSI CL 20 MEQ/NS 1L 1,000 ML IV PRN ×3 (03:54→19:51)
[2016-10-25] MEDS: DEXTROSE 5%-WATER 250 ML with NOREPINEPHRINE BITARTRATE 4 MG IV PRN ×2 (07:19)
[2016-10-25] MEDS ORDERED: LOPERAMIDE HCL 2 MG CAPSULE PO ONE (10:15)
[2016-10-25] MEDS ORDERED: LORAZEPAM INJ 2 MG/1 ML VIAL IV ONE (10:15)
[2016-10-25] MEDS: DULOXETINE HCL 30 MG CAPSULE.DR PO SCH (10:20)
[2016-10-25] MEDS: BUSPIRONE HCL 10 MG TABLET PO SCH ×2 (10:21→21:42)
[2016-10-25] MEDS: PANTOPRAZOLE SODIUM 40 MG VIAL IV SCH ×2 (10:22→21:42)
[2016-10-25] MEDS: ENOXAPARIN SODIUM INJ 80 MG/0.8 ML DISP.SYRIN SUBCUT SCH ×2 (10:23→21:43)
[2016-10-25] MEDS: VANCOMYCIN HCL 750 MG in DEXTROSE 5%-WATER 250 ML IV SCH (10:25)
[2016-10-25] MEDS: CEFEPIME HCL 2 GM in DEXTROSE 5%-WATER 50 ML IV SCH ×2 (10:25→21:42)
[2016-10-25 10:52] LABS: ALANINE AMINOTRANSFERASE 39 U/L (9-52); ALBUMIN 2.3 g/dL (3.5-5.0); ALKALINE PHOSPHATASE 106 U/L (38-126); ANION GAP 9 (5-19); ASPARTATE AMINO TRANSFERASE 57 U/L (14-36); BILIRUBIN,DIRECT 1.4 mg/dL (0.0-0.4); BILIRUBIN,TOTAL 2.6 mg/dL (0.2-1.3); CALCIUM 8.1 mg/dL (8.4-10.2); CARBON DIOXIDE 21 mmol/L (22-30); CHLORIDE 113 mmol/L (98-107); CREATININE RESULT 0.85 mg/dL (0.52-1.25); GLUCOSE 124 mg/dL (75-110); POTASSIUM 4.4 mmol/L (3.6-5.0); SODIUM 143.1 mmol/L (137-145); TOTAL PROTEIN 5.3 g/dL (6.3-8.2)
[2016-10-25 10:56] LABS: BLOOD UREA NITROGEN < 2 mg/dL (7-20)
[2016-10-25] MEDS ORDERED: LIPASE/PROTEASE/AMYLASE 1 CAP CAPSULE.DR PO ONE ×3 (11:00)
[2016-10-25 11:38] LABS: ABSOLUTE BASOPHILS # (AUTO) 0.1 10^3/uL (0.0-0.2); ABSOLUTE EOSINOPHILS # (AUTO) 0.1 10^3/uL (0.0-0.6); ABSOLUTE LYMPHOCYTES (AUTO) 2.2 10^3/uL (0.5-4.7); ABSOLUTE MONOCYTES (AUTO) 0.9 10^3/uL (0.1-1.4); ABSOLUTE NEUT (AUTO) 7.4 10^3/uL (1.7-8.2); BASOPHILS % (AUTO) 1.2 % (0-2); EOSINOPHILS % (AUTO) 1.3 % (0-6); HEMATOCRIT 32.5 % (36.0-47.0); HGB HCT DIFFERENCE 0.5; LYMPHOCYTES % (AUTO) 20.6 % (13-45); MEAN CORPUSCULAR HEMOGLOBIN 34.1 pg (27.0-33.4); MEAN CORPUSCULAR HGB CONC 33.8 g/dL (32.0-36.0); MEAN CORPUSCULAR VOLUME 101 fl (80-97); MONOCYTES % (AUTO) 8.6 % (3-13); RED BLOOD COUNT 3.23 10^6/uL (3.72-5.28); RED CELL DISTRIBUTION WIDTH 13.9 % (11.5-14.0); SEGMENTED NEUTROPHILS % (AUTO) 68.3 % (42-78); WHITE BLOOD COUNT 10.8 10^3/uL (4.0-10.5)
--- NOTE | 2016-10-25 14:55 | PDOC PROGRESS REPORT ---
Subjective Progress Note for:: 10/25/16 Subjective:: Patient is still hypotensive Complaining of some nausea sore throat and abdominal discomfort No fever no chills All her cultures were negative Mentation is excellent; she has no chest pain no shortness of breath Diarrhea is persistent watery Physical Exam Vital Signs: Temp Pulse Resp BP Pulse Ox 97.9 F 91 26 H 92/69 L 98 10/25/16 13:59 10/25/16 12:00 10/25/16 14:13 10/25/16 14:13 10/25/16 14:13 Intake & Output 10/24/16 10/25/16 10/26/16 00:59 00:59 00:59 Intake Total 3023 2072 Output Total 1430 1197 Balance 1593 875 Weight 66.6 kg 69.8 kg General appearance: PRESENT: mild distress, thin Head exam: PRESENT: atraumatic, normocephalic Eye exam: PRESENT: scleral icterus Neck exam: ABSENT: carotid bruit, JVD, lymphadenopathy, thyromegaly Respiratory exam: PRESENT: clear to auscultation tanisha. ABSENT: rales, rhonchi, wheezes Cardiovascular exam: PRESENT: RRR. ABSENT: diastolic murmur, rubs, systolic murmur GI/Abdominal exam: PRESENT: ascites, firm, tenderness - Diffuse Extremities exam: PRESENT: full ROM. ABSENT: calf tenderness, clubbing, pedal edema Neurological exam: PRESENT: alert, awake, oriented to person, oriented to place , oriented to time, oriented to situation, CN II-XII grossly intact. ABSENT: motor sensory deficit Results Laboratory Results: 10/25/16 11:25 10/25/16 09:31 10/25/16 10/25/16 10/25/16 09:31 09:31 09:31 WBC Cancelled RBC Cancelled Hgb Cancelled Hct Cancelled MCV Cancelled MCH Cancelled MCHC Cancelled RDW Cancelled Plt Count Cancelled Seg Neutrophils % Cancelled Lymphocytes % Cancelled Monocytes % Cancelled Eosinophils % Cancelled Basophils % Cancelled Absolute Neutrophils Cancelled Absolute Lymphocytes Cancelled Absolute Monocytes Cancelled Absolute Eosinophils Cancelled Absolute Basophils Cancelled Sodium 143.1 Potassium 4.4 Chloride 113 H Carbon Dioxide 21 L Anion Gap 9 BUN < 2 L Creatinine 0.85 Cancelled Est GFR ( Amer) > 60 Cancelled Est GFR (Non-Af Amer) > 60 Cancelled Glucose 124 H Calcium 8.1 L Total Bilirubin 2.6 H AST 57 H ALT 39 Alkaline Phosphatase 106 Total Protein 5.3 L Albumin 2.3 L 10/25/16 11:25 WBC 10.8 H RBC 3.23 L Hgb 11.0 L Hct 32.5 L MCV 101 H MCH 34.1 H MCHC 33.8 RDW 13.9 Plt Count 93 L Seg Neutrophils % 68.3 Lymphocytes % 20.6 Monocytes % 8.6 Eosinophils % 1.3 Basophils % 1.2 Absolute Neutrophils 7.4 Absolute Lymphocytes 2.2 Absolute Monocytes 0.9 Absolute Eosinophils 0.1 Absolute Basophils 0.1 Sodium Potassium Chloride Carbon Dioxide Anion Gap BUN Creatinine Est GFR ( Amer) Est GFR (Non-Af Amer) Glucose Calcium Total Bilirubin AST ALT Alkaline Phosphatase Total Protein Albumin Impressions: Abdomen/Pelvis CT 10/23/16 12:59 IMPRESSION: 1. INTERVAL DEVELOPMENT OF MODERATE ASCITES, NOT PRESENT ON THE PRIOR STUDY (05/2017). 2. SEVERE FATTY INFILTRATION OF THE LIVER. 3. STABLE CHRONIC FINDINGS IN THE PANCREAS INCLUDING ATROPHY AND CALCIFICATIONS CONSISTENT WITH CHRONIC PANCREATITIS. STABLE SMALL FLUID COLLECTION LIKELY REPRESENTING A SMALL PSEUDOCYST. 4. STONES AND/OR SLUDGE IN THE GALLBLADDER. Paracentesis Ultrasound 10/23/16 13:29 IMPRESSION: Successful ultrasound-guided paracentesis Abdomen Ultrasound 10/23/16 17:29 IMPRESSION: Question interval portal vein thrombosis. To and fro flow be in the hepatic veins. Distended gallbladder with sludge but no pericholecystic fluid. Marked fatty infiltration of the liver. Chest X-Ray 10/25/16 09:02 IMPRESSION: New dense left lower lobe consolidation with or without trace left pleural effusion. Question pneumonia versus pulmonary infarct Assessment & Plan - Diagnosis (1) Chronic pancreatitis Qualifiers: Pancreatitis type: alcohol induced Qualified Code(s): K86.0 - Alcohol-induced chronic pancreatitis Is this a current diagnosis for this admission?: YesPlan: Likely course for chronic diarrhea We will initiate Pancreatic enzymes (2) Spontaneous bacterial peritonitis Is this a current diagnosis for this admission?: YesPlan: Likely cause for sepsis Continue present antibiotics (3) Cirrhosis Qualifiers: Hepatic cirrhosis type: alcoholic cirrhosis Ascites presence: with ascites Qualified Code(s): K70.31 - Alcoholic cirrhosis of liver with ascites Is this a current diagnosis for this admission?: Yes (4) Hypokalemia Is this a current diagnosis for this admission?: Yes (5) Sepsis Qualifiers: Sepsis type: sepsis due to unspecified organism Qualified Code(s): A41.9 - Sepsis, unspecified organism Is this a current diagnosis for this admission?: YesPlan: Likely secondary to spontaneous bacterial peritonitis There was no evidence of acute cholecystitis (6) Pancreatic pseudocyst Is this a current diagnosis for this admission?: Yes (7) Portal vein thrombosis Is this a current diagnosis for this admission?: YesPlan: Continue anticoagulation MRI MRA abdomen no pending could not be performed today as patient is still on pressors - Time Time Spent with patient: 35 or more minutes
[2016-10-25] MEDS ORDERED: LORAZEPAM INJ 2 MG/1 ML VIAL ONE (15:31)
[2016-10-25] MEDS: BENZOCAINE/MENTHOL SORE THROAT LOZENGE BUCCAL PRN (15:37)
[2016-10-25] MEDS: LIPASE/PROTEASE/AMYLASE 1 CAP CAPSULE.DR PO SCH ×3 (17:53)
[2016-10-25] MEDS: CHOLESTYRAMINE/ASPARTAME 4 GM PACKET PO SCH (17:54)
[2016-10-25] MEDS: TRAZODONE HCL 50 MG TABLET PO SCH (21:42)
[2016-10-26] MEDS: POTASSI CL 20 MEQ/NS 1L 1,000 ML IV PRN (05:28)
[2016-10-26 05:41] LABS: ABSOLUTE BASOPHILS # (AUTO) 0.1 10^3/uL (0.0-0.2); ABSOLUTE EOSINOPHILS # (AUTO) 0.2 10^3/uL (0.0-0.6); ABSOLUTE LYMPHOCYTES (AUTO) 2.6 10^3/uL (0.5-4.7); ABSOLUTE MONOCYTES (AUTO) 1.1 10^3/uL (0.1-1.4); ABSOLUTE NEUT (AUTO) 6.2 10^3/uL (1.7-8.2); BASOPHILS % (AUTO) 1.3 % (0-2); EOSINOPHILS % (AUTO) 1.8 % (0-6); HEMATOCRIT 35.1 % (36.0-47.0); HEMOGLOBIN 11.8 g/dL (12.0-15.5); HGB HCT DIFFERENCE 0.3; LYMPHOCYTES % (AUTO) 25.8 % (13-45); MEAN CORPUSCULAR HEMOGLOBIN 34.3 pg (27.0-33.4); MEAN CORPUSCULAR HGB CONC 33.6 g/dL (32.0-36.0); MEAN CORPUSCULAR VOLUME 102 fl (80-97); MONOCYTES % (AUTO) 10.6 % (3-13); RED BLOOD COUNT 3.44 10^6/uL (3.72-5.28); RED CELL DISTRIBUTION WIDTH 14.2 % (11.5-14.0); SEGMENTED NEUTROPHILS % (AUTO) 60.5 % (42-78); WHITE BLOOD COUNT 10.2 10^3/uL (4.0-10.5)
[2016-10-26 07:24] LABS: ALANINE AMINOTRANSFERASE 37 U/L (9-52); ALBUMIN 2.3 g/dL (3.5-5.0); ALKALINE PHOSPHATASE 104 U/L (38-126); ANION GAP 13 (5-19); ASPARTATE AMINO TRANSFERASE 54 U/L (14-36); BILIRUBIN,DIRECT 1.5 mg/dL (0.0-0.4); BILIRUBIN,TOTAL 2.8 mg/dL (0.2-1.3); BLOOD UREA NITROGEN 3 mg/dL (7-20); CALCIUM 8.3 mg/dL (8.4-10.2); CARBON DIOXIDE 18 mmol/L (22-30); CHLORIDE 112 mmol/L (98-107); CREATININE RESULT 0.93 mg/dL (0.52-1.25); GLUCOSE 101 mg/dL (75-110); POTASSIUM 4.1 mmol/L (3.6-5.0); SODIUM 142.9 mmol/L (137-145); TOTAL PROTEIN 5.6 g/dL (6.3-8.2)
[2016-10-26] MEDS: BUSPIRONE HCL 10 MG TABLET PO SCH ×2 (09:40→21:05)
[2016-10-26] MEDS: DULOXETINE HCL 30 MG CAPSULE.DR PO SCH (09:40)
[2016-10-26] MEDS: LIPASE/PROTEASE/AMYLASE 1 CAP CAPSULE.DR PO SCH ×6 (09:40→16:22)
[2016-10-26] MEDS: CHOLESTYRAMINE/ASPARTAME 4 GM PACKET PO SCH ×2 (09:41→17:47)
[2016-10-26] MEDS: PANTOPRAZOLE SODIUM 40 MG VIAL IV SCH ×2 (09:41→21:05)
[2016-10-26] MEDS: ENOXAPARIN SODIUM INJ 80 MG/0.8 ML DISP.SYRIN SUBCUT SCH (09:41)
[2016-10-26] MEDS: CEFEPIME HCL 2 GM in DEXTROSE 5%-WATER 50 ML IV SCH ×2 (09:41→21:05)
[2016-10-26] MEDS: ONDANSETRON HCL INJ/PF 4 MG/2 ML SDV IV PRN (09:50)
[2016-10-26] MEDS: BENZOCAINE/MENTHOL SORE THROAT LOZENGE BUCCAL PRN (12:37)
[2016-10-26] MEDS ORDERED: SPIRONOLACTONE 25 MG TABLET PO ONE (13:30)
--- NOTE | 2016-10-26 14:46 | PDOC PROGRESS REPORT ---
Subjective Progress Note for:: 10/26/16 Subjective:: Patient's condition is somewhat improved She is now hemodynamically stable and off pressors An MRI showed 2 small pancreatic pseudocyst, no portal vein thrombosis Chest x-ray today suggestive of her large left lower lobe infiltrate and effusion; CT of the chest is pending Patient has now reaccumulation of ascitis ; she is still complaining of abdominal tenderness with palpation Physical Exam Vital Signs: Temp Pulse Resp BP Pulse Ox 98.3 F 97 18 96/61 L 95 10/26/16 12:00 10/26/16 07:41 10/26/16 06:00 10/26/16 12:24 10/26/16 12:30 Intake & Output 10/25/16 10/26/16 10/27/16 00:59 00:59 00:59 Intake Total 3023 3602 2000 Output Total 1430 1572 500 Balance 1593 2030 1500 Weight 66.6 kg 69.8 kg General appearance: PRESENT: mild distress, thin Head exam: PRESENT: atraumatic, normocephalic Eye exam: PRESENT: scleral icterus Neck exam: ABSENT: carotid bruit, JVD, lymphadenopathy, thyromegaly Respiratory exam: PRESENT: decreased breath sounds Cardiovascular exam: PRESENT: RRR. ABSENT: diastolic murmur, rubs, systolic murmur Rectal exam: PRESENT: deferred Neurological exam: PRESENT: alert, awake, oriented to person, oriented to place , oriented to time, oriented to situation, CN II-XII grossly intact. ABSENT: motor sensory deficit Results Laboratory Results: 10/26/16 04:33 10/26/16 04:33 10/26/16 10/26/16 04:33 04:33 WBC 10.2 RBC 3.44 L Hgb 11.8 L Hct 35.1 L MCV 102 H MCH 34.3 H MCHC 33.6 RDW 14.2 H Plt Count 83 L Seg Neutrophils % 60.5 Lymphocytes % 25.8 Monocytes % 10.6 Eosinophils % 1.8 Basophils % 1.3 Absolute Neutrophils 6.2 Absolute Lymphocytes 2.6 Absolute Monocytes 1.1 Absolute Eosinophils 0.2 Absolute Basophils 0.1 Sodium 142.9 Potassium 4.1 Chloride 112 H Carbon Dioxide 18 L Anion Gap 13 BUN 3 L Creatinine 0.93 Est GFR ( Amer) > 60 Est GFR (Non-Af Amer) > 60 Glucose 101 Calcium 8.3 L Total Bilirubin 2.8 H AST 54 H ALT 37 Alkaline Phosphatase 104 Total Protein 5.6 L Albumin 2.3 L Impressions: Abdomen/Pelvis CT 10/23/16 12:59 IMPRESSION: 1. INTERVAL DEVELOPMENT OF MODERATE ASCITES, NOT PRESENT ON THE PRIOR STUDY (05/2017). 2. SEVERE FATTY INFILTRATION OF THE LIVER. 3. STABLE CHRONIC FINDINGS IN THE PANCREAS INCLUDING ATROPHY AND CALCIFICATIONS CONSISTENT WITH CHRONIC PANCREATITIS. STABLE SMALL FLUID COLLECTION LIKELY REPRESENTING A SMALL PSEUDOCYST. 4. STONES AND/OR SLUDGE IN THE GALLBLADDER. Paracentesis Ultrasound 10/23/16 13:29 IMPRESSION: Successful ultrasound-guided paracentesis Abdomen Ultrasound 10/23/16 17:29 IMPRESSION: Question interval portal vein thrombosis. To and fro flow be in the hepatic veins. Distended gallbladder with sludge but no pericholecystic fluid. Marked fatty infiltration of the liver. Abdomen MRI 10/25/16 07:58 IMPRESSION: Normal portal venous flow void ; no evidence of portal venous thrombosis. Re- demonstration a pancreatic pseudocyst versus IPMN involving the pancreatic head/ neck junction with additional finding of a smaller cyst along the pancreatic duct within the tail. Compressive atelectasis of the left lower lobe with a moderate left pleural effusion. Chest X-Ray 10/25/16 09:02 IMPRESSION: New dense left lower lobe consolidation with or without trace left pleural effusion. Question pneumonia versus pulmonary infarct Assessment & Plan - Diagnosis (1) Chronic pancreatitis Qualifiers: Pancreatitis type: alcohol induced Qualified Code(s): K86.0 - Alcohol-induced chronic pancreatitis Is this a current diagnosis for this admission?: YesPlan: And chronic diarrhea Patient was started on pancreatitic enzymes and cholestyramine for chronic diarrhea (2) Spontaneous bacterial peritonitis Is this a current diagnosis for this admission?: YesPlan: Was likely at time of admission Cultures that were negative We will continue cefepime (3) Cirrhosis Qualifiers: Hepatic cirrhosis type: alcoholic cirrhosis Ascites presence: with ascites Qualified Code(s): K70.31 - Alcoholic cirrhosis of liver with ascites Is this a current diagnosis for this admission?: Yes (4) Hypokalemia Is this a current diagnosis for this admission?: Yes (5) Sepsis Qualifiers: Sepsis type: sepsis due to unspecified organism Qualified Code(s): A41.9 - Sepsis, unspecified organism Is this a current diagnosis for this admission?: YesPlan: Is resolving (6) Pancreatic pseudocyst Is this a current diagnosis for this admission?: YesPlan: 2 pancreatic pseudocyst were described on MRI There were no dilated ducts We discussed the case with Manager Infrastructure at [facility] He suggested that amylase be measured in ascitic fluid If amylase is high it may mean that there is a leak from pseudocyst into peritoneum and patient may need intervention At this time there is no need for intervention (7) Portal vein thrombosis Is this a current diagnosis for this admission?: YesPlan: There was no portal vein thrombosis on MRI Lovenox was discontinued - Time Time Spent with patient: patient was transferred to [facility] Critical Time spent with patient: 25-34 minutes
[2016-10-26] MEDS: TRAZODONE HCL 50 MG TABLET PO SCH (21:05)
[2016-10-27] MEDS: BENZOCAINE/MENTHOL SORE THROAT LOZENGE BUCCAL PRN ×2 (01:34→16:21)
[2016-10-27 04:46] LABS: ABSOLUTE BASOPHILS # (AUTO) 0.1 10^3/uL (0.0-0.2); ABSOLUTE EOSINOPHILS # (AUTO) 0.1 10^3/uL (0.0-0.6); ABSOLUTE LYMPHOCYTES (AUTO) 2.6 10^3/uL (0.5-4.7); ABSOLUTE MONOCYTES (AUTO) 1.3 10^3/uL (0.1-1.4); ANION GAP 9 (5-19); BASOPHILS % (AUTO) 1.1 % (0-2); BLOOD UREA NITROGEN 3 mg/dL (7-20); CALCIUM 8.6 mg/dL (8.4-10.2); CARBON DIOXIDE 19 mmol/L (22-30); CHLORIDE 113 mmol/L (98-107); CREATININE RESULT 1.06 mg/dL (0.52-1.25); EOSINOPHILS % (AUTO) 0.7 % (0-6); GLUCOSE 101 mg/dL (75-110); HEMATOCRIT 35.3 % (36.0-47.0); HEMOGLOBIN 11.8 g/dL (12.0-15.5); HGB HCT DIFFERENCE 0.1; LYMPHOCYTES % (AUTO) 21.6 % (13-45); MEAN CORPUSCULAR HEMOGLOBIN 34.1 pg (27.0-33.4); MEAN CORPUSCULAR HGB CONC 33.4 g/dL (32.0-36.0); MEAN CORPUSCULAR VOLUME 102 fl (80-97); MONOCYTES % (AUTO) 10.4 % (3-13); POTASSIUM 4.4 mmol/L (3.6-5.0); RED BLOOD COUNT 3.46 10^6/uL (3.72-5.28); RED CELL DISTRIBUTION WIDTH 14.2 % (11.5-14.0); SEGMENTED NEUTROPHILS % (AUTO) 66.2 % (42-78); SODIUM 141.1 mmol/L (137-145); WHITE BLOOD COUNT 12.1 10^3/uL (4.0-10.5)
[2016-10-27 04:50] LABS: PROTHROMBIN TIME 19.4 SEC (11.4-15.4)
[2016-10-27] MEDS: ONDANSETRON HCL INJ/PF 4 MG/2 ML SDV IV PRN (06:11)
[2016-10-27 07:04] LABS: AMORPHOUS SEDIMENT,URINE TRACE /HPF; APPEARANCE,URINE CLOUDY; BILIRUBIN,URINE NEGATIVE (NEGATIVE); GLUCOSE, URINE NEGATIVE (NEGATIVE); KETONES,URINE TRACE mg/dL (NEGATIVE); LEUKOCYTE ESTERASE,URINE NEGATIVE (NEGATIVE); NITRITE,URINE NEGATIVE (NEGATIVE); PROTEIN,URINE 30 mg/dL (NEGATIVE); URINE SPECIFIC GRAVITY 1.014; UROBILINOGEN,URINE NEGATIVE mg/dL (<2.0)
[2016-10-27] MEDS ORDERED: NORMAL SALINE 250 ML IV PRN ×2 (08:24)
[2016-10-27] MEDS ORDERED: FUROSEMIDE INJ/PF 20 MG/2 ML SDV IV PRN (08:24)
[2016-10-27] MEDS: LIPASE/PROTEASE/AMYLASE 1 CAP CAPSULE.DR PO SCH ×6 (08:47→17:58)
--- NOTE | 2016-10-27 09:11 | PDOC PROGRESS REPORT ---
Subjective Progress Note for:: 10/27/16 Subjective:: Hospital Course 51-year-old female chronic alcoholic with 3 week history of diarrhea and nausea at about 6 months history of diffuse abdominal pain worsened right upper quadrant who was seen [facility] for follow-up of outpatient workup done in [place] for her chronic abdominal pain and also for chronic right leg pain for the past 6 months Patient was noted there to have a blood pressure 70 systolic. She was transported to the ED for evaluation Upon evaluation in the ED patient was found in septic shock with a BP of 70 systolic She had a distended abdomen with ascites The abdomen was tender on palpation Paracentesis was performed and a liter of ascitic fluid was drained She was treated with IV fluid resuscitation; broad-spectrum antibiotics and subsequently admitted under hospitalist service with a presumptive diagnosis of Spontaneous Bacterial Peritonitis In the intensive care unit patient was treated with pressors, broad-spectrum antibiotics And given fluid resuscitation She was treated presumptively for spontaneous bacterial peritonitis although the initial culture of the ascitic fluid was negative she improved clinically and is now off pressors and may be transferred to medical unit Mentation remained excellent Current issues at this time include 1 left lower lobe pneumonia and parapneumonic effusion We will add Levaquin to cefepime and patient will undergo today thoracentesis 2 chronic diarrhea likely to be secondary to malabsorption and chronic pancreatitis Dr. Johnston will consult We will add stools for white cells stool cultures and C. difficile if not done yet She is treated with pancreatic enzymes and cholestyramine without improvement 3 chronic pancreatitis and pseudocysts We discussed the case yesterday with [facility] auto suspension and steering mechanic There is no indication for ERCP and drainage at this time it was suggested that repeat paracentesis be performed and amylase should be quantified in the ascitic fluid If amylase is high it would be indicative of a leak from pseudocyst into peritoneum and case should be discussed again with [facility] 4 there was some suspicion of portal vein thrombosis as per ultrasound But MRI showed a patent portal vein without thrombosis Today patient has no shortness of breath no chest pain She's complaining of abdominal distention from ascites She still has profuse diarrhea Physical Exam Vital Signs: Temp Pulse Resp BP Pulse Ox 98.2 F 110 H 22 H 88/62 L 94 10/27/16 06:00 10/27/16 06:00 10/27/16 06:00 10/27/16 06:00 10/27/16 06:00 Intake & Output 10/26/16 10/27/16 10/28/16 00:59 00:59 00:59 Intake Total 3602 3050 510 Output Total 1572 950 185 Balance 2029 2100 325 Weight 69.8 kg 72.2 kg General appearance: PRESENT: no acute distress, well-developed, well-nourished Head exam: PRESENT: atraumatic, normocephalic Eye exam: PRESENT: conjunctiva pink, EOMI, PERRLA. ABSENT: scleral icterus Ear exam: PRESENT: normal external ear exam Mouth exam: PRESENT: moist, tongue midline Neck exam: ABSENT: carotid bruit, JVD, lymphadenopathy, thyromegaly Respiratory exam: PRESENT: decreased breath sounds. ABSENT: rales, rhonchi, wheezes Cardiovascular exam: PRESENT: RRR. ABSENT: diastolic murmur, rubs, systolic murmur Pulses: PRESENT: normal dorsalis pedis pul Vascular exam: PRESENT: normal capillary refill GI/Abdominal exam: PRESENT: ascites, distended, normal bowel sounds, soft, tenderness - Diffuse. ABSENT: guarding, mass, organolmegaly, rebound Rectal exam: PRESENT: deferred Extremities exam: PRESENT: full ROM. ABSENT: calf tenderness, clubbing, pedal edema Neurological exam: PRESENT: alert, awake, oriented to person, oriented to place , oriented to time, oriented to situation, CN II-XII grossly intact. ABSENT: motor sensory deficit Psychiatric exam: PRESENT: appropriate affect, normal mood. ABSENT: homicidal ideation, suicidal ideation Skin exam: PRESENT: dry, intact, warm. ABSENT: cyanosis, rash Results Laboratory Results: 10/27/16 04:18 10/27/16 04:18 10/27/16 10/27/16 10/27/16 04:18 04: 06:00 WBC 12.1 H RBC 3.46 L Hgb 11.8 L Hct 35.3 L MCV 102 H MCH 34.1 H MCHC 33.4 RDW 14.2 H Plt Count 96 L Seg Neutrophils % 66.2 Lymphocytes % 21.6 Monocytes % 10.4 Eosinophils % 0.7 Basophils % 1.1 Absolute Neutrophils 8.0 Absolute Lymphocytes 2.6 Absolute Monocytes 1.3 Absolute Eosinophils 0.1 Absolute Basophils 0.1 Sodium 141.1 Potassium 4.4 Chloride 113 H Carbon Dioxide 19 L Anion Gap 9 BUN 3 L Creatinine 1.06 Est GFR ( Amer) > 60 Est GFR (Non-Af Amer) 55 L Glucose 101 Calcium 8.6 Urine Color Urine Appearance Urine pH Ur Specific [place] Urine Protein Urine Glucose (UA) Urine Ketones Urine Blood Urine Nitrite Ur Leukocyte Esterase Urine WBC (Auto) Urine RBC (Auto) Stool Occult Blood NEGATIVE 10/27/16 06:20 WBC RBC Hgb Hct MCV MCH MCHC RDW Plt Count Seg Neutrophils % Lymphocytes % Monocytes % Eosinophils % Basophils % Absolute Neutrophils Absolute Lymphocytes Absolute Monocytes Absolute Eosinophils Absolute Basophils Sodium Potassium Chloride Carbon Dioxide Anion Gap BUN Creatinine Est GFR ( Amer) Est GFR (Non-Af Amer) Glucose Calcium Urine Color YELLOW Urine Appearance CLOUDY Urine pH 5.0 Ur Specific [place] 1.014 Urine Protein 30 H Urine Glucose (UA) NEGATIVE Urine Ketones TRACE H Urine Blood MODERATE H Urine Nitrite NEGATIVE Ur Leukocyte Esterase NEGATIVE Urine WBC (Auto) 3 Urine RBC (Auto) 4 Stool Occult Blood 10/24/16 00:58 Clean Catch Midstream Urine Culture - Final Yeast, Not Emy Albicans Mixed Urogenital Denise 10/24/16 00:58 Urine Culture - Final Clean Catch Midstream Yeast, Not Emy Albicans Mixed Urogenital Denise 10/23/16 16:27 Gram Stain - Final Abdomen - Not Specified Body Fluid Culture - Final NO AEROBIC OR ANAEROBIC ORGANISMS RECOVERED 10/23/16 13:58 Blood Culture - Preliminary Blood NO GROWTH AFTER 72 HOURS 10/23/16 12:00 Blood Culture - Preliminary Blood NO GROWTH AFTER 72 HOURS Impressions: Abdomen/Pelvis CT 10/23/16 12:59 IMPRESSION: 1. INTERVAL DEVELOPMENT OF MODERATE ASCITES, NOT PRESENT ON THE PRIOR STUDY (05/2017). 2. SEVERE FATTY INFILTRATION OF THE LIVER. 3. STABLE CHRONIC FINDINGS IN THE PANCREAS INCLUDING ATROPHY AND CALCIFICATIONS CONSISTENT WITH CHRONIC PANCREATITIS. STABLE SMALL FLUID COLLECTION LIKELY REPRESENTING A SMALL PSEUDOCYST. 4. STONES AND/OR SLUDGE IN THE GALLBLADDER. Paracentesis Ultrasound 10/23/16 13:29 IMPRESSION: Successful ultrasound-guided paracentesis Abdomen Ultrasound 10/23/16 17:29 IMPRESSION: Question interval portal vein thrombosis. To and fro flow be in the hepatic veins. Distended gallbladder with sludge but no pericholecystic fluid. Marked fatty infiltration of the liver. Abdomen MRI 10/25/16 07:58 IMPRESSION: Normal portal venous flow void ; no evidence of portal venous thrombosis. Re- demonstration a pancreatic pseudocyst versus IPMN involving the pancreatic head/ neck junction with additional finding of a smaller cyst along the pancreatic duct within the tail. Compressive atelectasis of the left lower lobe with a moderate left pleural effusion. Chest CT 10/26/16 14:40 IMPRESSION: Dense left lower lobe atelectatic infiltrate with moderate left pleural effusion. Moderate ascites with marked fatty infiltration of the liver. Stable appearance of the pancreatic mass. Chest X-Ray 10/27/16 06:00 IMPRESSION: Moderate left lower hemithoracic opacity -effusion persists. Assessment & Plan - Diagnosis (1) Chronic pancreatitis Qualifiers: Pancreatitis type: alcohol induced Qualified Code(s): K86.0 - Alcohol-induced chronic pancreatitis Is this a current diagnosis for this admission?: Yes (2) Spontaneous bacterial peritonitis Is this a current diagnosis for this admission?: Yes (3) Cirrhosis Qualifiers: Hepatic cirrhosis type: alcoholic cirrhosis Ascites presence: with ascites Qualified Code(s): K70.31 - Alcoholic cirrhosis of liver with ascites Is this a current diagnosis for this admission?: Yes (4) Hypokalemia Is this a current diagnosis for this admission?: Yes (5) Sepsis Qualifiers: Sepsis type: sepsis due to unspecified organism Qualified Code(s): A41.9 - Sepsis, unspecified organism Is this a current diagnosis for this admission?: Yes (6) Pancreatic pseudocyst Is this a current diagnosis for this admission?: Yes (7) Pneumonia Qualifiers: Pneumonia type: due to unspecified organism Laterality: left Lung location: lower lobe of lung Qualified Code(s): J18.1 - Lobar pneumonia, unspecified organism Is this a current diagnosis for this admission?: YesPlan: Add Levaquin and vancomycin to cefepime as it is now hospital-acquired pneumonia (8) Pleural effusion, left Is this a current diagnosis for this admission?: YesPlan: Plan for thoracentesis today give the patient albumin prior to procedure - Time Critical Time spent with patient: 35 or more minutes
[2016-10-27] MEDS ORDERED: VANCOMYCIN HCL 0 MG in DEXTROSE 5%-WATER 250 ML IV NR (09:15)
[2016-10-27] MEDS: CEFEPIME HCL 2 GM in DEXTROSE 5%-WATER 50 ML IV SCH ×2 (09:38→21:33)
[2016-10-27] MEDS: CHOLESTYRAMINE/ASPARTAME 4 GM PACKET PO SCH ×2 (09:38→17:58)
[2016-10-27] MEDS: LEVOFLOXACIN 750 MG/D5W RTU 150 ML IV SCH (09:39)
[2016-10-27] MEDS: DULOXETINE HCL 30 MG CAPSULE.DR PO SCH (09:39)
[2016-10-27] MEDS: BUSPIRONE HCL 10 MG TABLET PO SCH ×2 (09:39→21:32)
[2016-10-27] MEDS: SPIRONOLACTONE 25 MG TABLET PO SCH (09:40)
[2016-10-27] MEDS: PANTOPRAZOLE SODIUM 40 MG VIAL IV SCH ×2 (09:42→21:33)
[2016-10-27] MEDS: ALBUMIN HUMAN 50 ML IV SCH ×2 (09:42→13:12)
[2016-10-27] MEDS ORDERED: ALBUMIN HUMAN 50 ML IV SCH (13:00)
[2016-10-27] MEDS: VANCOMYCIN HCL 500 MG in DEXTROSE 5%-WATER 100 ML IV SCH (14:20)
--- NOTE | 2016-10-27 20:29 | PDOC CONSULTATION ---
Consultation Consult Date: 10/27/16 History of Present Illness Admission Date/PCP: 10/23/16 17:31 History of Present Illness: This is a 51-year-old patient who was admitted on 10/23/2016 with nausea and diarrhea and sepsis. Consultation is requested for her chronic diarrhea, and abnormal pancreatic imaging. I saw the patient back in 2013 with a history of alcohol abuse and chronic abdominal pain. She admits to having diarrhea off and on for years but worse in the last six weeks. She has abdominal pain off and on and has had a poor appetite. She continued to have diarrhea over the first few days of admission but this appeared to have slowed down. She only had a couple of bowel movements today. She is currently on pancreas supplements and cholestyramine. She was also found to have significant ascites on admission and has had 1 L of fluid removed and tested. Cell count was unremarkable and a cytology was also negative. She is on treatment empirically for peritonitis. She also has a left pleural effusion which I suspect is related to her ascites. She is scheduled for thoracocentesis An ultrasound of abdomen showed significant fatty infiltration of the liver and likely portal vein thrombosis. There was no flow within the portal vein. Her CAT scan showed severe fatty liver, interval development of moderate ascites, calcific chronic pancreatitis and two small pseudocysts. Past Medical History Cardiac Medical History: Reports: Hyperlipidema Pulmonary Medical History: Reports: Chronic Obstructive Pulmonary Disease (COPD) Denies: Tuberculosis Malignancy Medical History: Reports: Skin Cancer GI Medical History: Reports: Cirrhosis Musculoskeltal Medical History: Reports: Arthritis Psychiatric Medical History: Reports: Depression Past Surgical History Past Surgical History: Reports: Section - 1986, Hysterectomy, Tubal Ligation, Other - [place] teeth extraction Social History Smoking Status: Current Every Day Smoker Frequency of Alcohol Use: None Hx Recreational Drug Use: Yes Drugs: None Hx Prescription Drug Abuse: Yes Family History Family History: Arthritis, Other - Chronic alcoholism Parental Family History Reviewed: No Children Family History Reviewed: NA Sibling(s) Family History Reviewed.: NA Medication/Allergy Home Medications: Buspirone HCl [Buspar 15 mg Tablet] 15 mg PO Q12 09/20/16 Duloxetine HCl [Cymbalta] 60 mg PO DAILY 09/20/16 Trazodone HCl [Desyrel] 200 mg PO QHS 09/20/16 Zolpidem Tartrate [Ambien] 10 mg PO HSP PRN 09/20/16 Hydroxyzine Pamoate 100 mg PO Q8 10/23/16 Allergies/Adverse Reactions: morphine [Morphine] Allergy (Verified 10/23/16 11:39) NSAIDS (Non-Steroidal Anti-Inflamma [Nsaids] Allergy (Verified 10/23/16 11:39) Penicillins Allergy (Verified 10/23/16 11:39) Sulfa (Sulfonamide Antibiotics) Allergy (Verified 10/23/16 11:39) Review of Systems All systems: reviewed and no additional remarkable complaints except as stated Physical Exam Vital Signs: Temp Pulse Resp BP Pulse Ox 97.8 F 98 16 87/63 L 99 10/27/16 16:35 10/27/16 16:35 10/27/16 16:35 10/27/16 16:35 10/27/16 17:22 Intake & Output 10/26/16 10/27/16 10/28/16 06:59 06:59 06:59 Intake Total 3330 1760 334 Output Total 1450 1035 2 Balance 1880 725 332 Weight 72.2 kg Exam: General: Patient is alert and looks well. HEENT: There is jaundice with some pallor. PERRLA. Oropharynx normal Respiratory: No chest deformity. No respiratory distress. Chest wall palpitation was unremarkable. Reduced breath sounds on the left side Cardiovascular: Heart sounds 1 and 2 normal with no murmurs. Abdominal: Slight distention with ascites Soft and nontender. Liver and spleen not palpable. No ascites demonstrated. Bowel sounds active. Rectal examination was deferred. Extremities: No edema Neurological: Alert and oriented x4. Grossly nonfocal. Normal speech Skin: No significant rash Psychological: Normal affect Results Laboratory Results: 10/27/16 04:18 10/27/16 04:18 10/27/16 10/27/16 10/27/16 04:28 10: 06:00 WBC 12.1 H RBC 3.46 L Hgb 11.8 L Hct 35.3 L MCV 102 H MCH 34.1 H MCHC 33.4 RDW 14.2 H Plt Count 96 L Seg Neutrophils % 66.2 Lymphocytes % 21.6 Monocytes % 10.4 Eosinophils % 0.7 Basophils % 1.1 Absolute Neutrophils 8.0 Absolute Lymphocytes 2.6 Absolute Monocytes 1.3 Absolute Eosinophils 0.1 Absolute Basophils 0.1 Sodium 141.1 Potassium 4.4 Chloride 113 H Carbon Dioxide 19 L Anion Gap 9 BUN 3 L Creatinine 1.06 Est GFR ( Amer) > 60 Est GFR (Non-Af Amer) 55 L Glucose 101 Calcium 8.6 Urine Color Urine Appearance Urine pH Ur Specific [place] Urine Protein Urine Glucose (UA) Urine Ketones Urine Blood Urine Nitrite Ur Leukocyte Esterase Urine WBC (Auto) Urine RBC (Auto) Stool Occult Blood NEGATIVE Blood Type 10/27/16 10/27/16 06:20 09:42 WBC RBC Hgb Hct MCV MCH MCHC RDW Plt Count Seg Neutrophils % Lymphocytes % Monocytes % Eosinophils % Basophils % Absolute Neutrophils Absolute Lymphocytes Absolute Monocytes Absolute Eosinophils Absolute Basophils Sodium Potassium Chloride Carbon Dioxide Anion Gap BUN Creatinine Est GFR ( Amer) Est GFR (Non-Af Amer) Glucose Calcium Urine Color YELLOW Urine Appearance CLOUDY Urine pH 5.0 Ur Specific [place] 1.014 Urine Protein 30 H Urine Glucose (UA) NEGATIVE Urine Ketones TRACE H Urine Blood MODERATE H Urine Nitrite NEGATIVE Ur Leukocyte Esterase NEGATIVE Urine WBC (Auto) 3 Urine RBC (Auto) 4 Stool Occult Blood Blood Type A POSITIVE 10/24/16 00:58 Clean Catch Midstream Urine Culture - Final Yeast, Not Emy Albicans Mixed Urogenital Denise Impressions: Abdomen/Pelvis CT 10/23/16 12:59 IMPRESSION: 1. INTERVAL DEVELOPMENT OF MODERATE ASCITES, NOT PRESENT ON THE PRIOR STUDY (05/2017). 2. SEVERE FATTY INFILTRATION OF THE LIVER. 3. STABLE CHRONIC FINDINGS IN THE PANCREAS INCLUDING ATROPHY AND CALCIFICATIONS CONSISTENT WITH CHRONIC PANCREATITIS. STABLE SMALL FLUID COLLECTION LIKELY REPRESENTING A SMALL PSEUDOCYST. 4. STONES AND/OR SLUDGE IN THE GALLBLADDER. Paracentesis Ultrasound 10/23/16 13:29 IMPRESSION: Successful ultrasound-guided paracentesis Abdomen Ultrasound 10/23/16 17:29 IMPRESSION: Question interval portal vein thrombosis. To and fro flow be in the hepatic veins. Distended gallbladder with sludge but no pericholecystic fluid. Marked fatty infiltration of the liver. Abdomen MRI 10/25/16 07:58 IMPRESSION: Normal portal venous flow void ; no evidence of portal venous thrombosis. Re- demonstration a pancreatic pseudocyst versus IPMN involving the pancreatic head/ neck junction with additional finding of a smaller cyst along the pancreatic duct within the tail. Compressive atelectasis of the left lower lobe with a moderate left pleural effusion. Chest CT 10/26/16 14:40 IMPRESSION: Dense left lower lobe atelectatic infiltrate with moderate left pleural effusion. Moderate ascites with marked fatty infiltration of the liver. Stable appearance of the pancreatic mass. Guidance Fluoroscopy 10/27/16 00:00 IMPRESSION: SUCCESSFUL PLACEMENT OF A 5 FR DUAL LUMEN 34 CM PICC IN THE left basilic VEIN. Interventional Vascular Procedure 10/27/16 00:00 IMPRESSION: SUCCESSFUL PLACEMENT OF A 5 FR DUAL LUMEN 34 CM PICC IN THE left basilic VEIN. Chest X-Ray 10/27/16 06:00 IMPRESSION: Moderate left lower hemithoracic opacity -effusion persists. PICC Line Insertion 10/27/16 11:11 IMPRESSION: SUCCESSFUL PLACEMENT OF A 5 FR DUAL LUMEN 34 CM PICC IN THE left basilic VEIN. Assessment & Plan - Diagnosis (1) Cirrhosis Qualifiers: Hepatic cirrhosis type: alcoholic cirrhosis Ascites presence: with ascites Qualified Code(s): K70.31 - Alcoholic cirrhosis of liver with ascites Is this a current diagnosis for this admission?: YesPlan: She has cirrhosis presumably from alcohol abuse. He may need to rule out viral hepatitis and autoimmune liver disease by serology. Her ultrasound also suggest portal vein thrombosis which may explain her current exacerbation with ascites and pleural effusion. Her INR is currently two. She will need to follow up as outpatient for further management of her complicated cirrhosis. We should start her on diuretics when her vital signs allows starting with Aldactone. (2) Diarrhea Is this a current diagnosis for this admission?: YesPlan: Her diarrhea is likely multifactorial. She has had diarrhea off and on for years which may be from IBS or possibly from chronic pancreatitis. Her stool has been sent for WBC and cultures to further evaluate for infection. I was to send have for fecal fat. Her diarrhea has improved with the current management. She will continue with pancreatic supplements and cholestyramine for now. She had an unremarkable colonoscopy in 2014 (3) Chronic pancreatitis Qualifiers: Pancreatitis type: alcohol induced Qualified Code(s): K86.0 - Alcohol-induced chronic pancreatitis Is this a current diagnosis for this admission?: Yes (4) Pleural effusion, left Is this a current diagnosis for this admission?: Yes (5) Portal vein thrombosis Is this a current diagnosis for this admission?: Yes (6) Alcohol dependency Qualifiers: Substance use status: unspecified alcohol-induced disorder Qualified Code(s): F10.29 - Alcohol dependence with unspecified alcohol-induced disorder (7) Thrombocytopenia Is this a current diagnosis for this admission?: Yes (8) Ascites due to alcoholic cirrhosis Is this a current diagnosis for this admission?: YesPlan: She will need diuretics going forward. I suspect her pleural effusion is also related to the ascites and the pleural fluid testing and will confirm this
[2016-10-27] MEDS: NORMAL SALINE 10 ML SDV (SCHEDULED) IV SCH (21:32)
[2016-10-27] MEDS: TRAZODONE HCL 50 MG TABLET PO SCH (21:33)
[2016-10-27 22:59] LABS: ABSOLUTE BASOPHILS # (AUTO) 0.1 10^3/uL (0.0-0.2); ABSOLUTE EOSINOPHILS # (AUTO) 0.1 10^3/uL (0.0-0.6); ABSOLUTE LYMPHOCYTES (AUTO) 1.5 10^3/uL (0.5-4.7); ABSOLUTE MONOCYTES (AUTO) 1.1 10^3/uL (0.1-1.4); ABSOLUTE NEUT (AUTO) 6.3 10^3/uL (1.7-8.2); BASOPHILS % (AUTO) 1.1 % (0-2); EOSINOPHILS % (AUTO) 0.7 % (0-6); HEMATOCRIT 29.1 % (36.0-47.0); HEMOGLOBIN 9.8 g/dL (12.0-15.5); HGB HCT DIFFERENCE 0.3; LYMPHOCYTES % (AUTO) 16.9 % (13-45); MEAN CORPUSCULAR HGB CONC 33.6 g/dL (32.0-36.0); MEAN CORPUSCULAR VOLUME 101 fl (80-97); MONOCYTES % (AUTO) 12.2 % (3-13); RED BLOOD COUNT 2.88 10^6/uL (3.72-5.28); RED CELL DISTRIBUTION WIDTH 13.8 % (11.5-14.0); SEGMENTED NEUTROPHILS % (AUTO) 69.1 % (42-78); WHITE BLOOD COUNT 9.1 10^3/uL (4.0-10.5)
[2016-10-28] MEDS: VANCOMYCIN HCL 500 MG in DEXTROSE 5%-WATER 100 ML IV SCH ×2 (00:12→13:40)
[2016-10-28 05:39] LABS: ALANINE AMINOTRANSFERASE 34 U/L (9-52); ALBUMIN 2.5 g/dL (3.5-5.0); ALKALINE PHOSPHATASE 85 U/L (38-126); ANION GAP 10 (5-19); ASPARTATE AMINO TRANSFERASE 33 U/L (14-36); BILIRUBIN,DIRECT 1.5 mg/dL (0.0-0.4); BILIRUBIN,TOTAL 2.7 mg/dL (0.2-1.3); BLOOD UREA NITROGEN 4 mg/dL (7-20); CALCIUM 8.9 mg/dL (8.4-10.2); CARBON DIOXIDE 21 mmol/L (22-30); CHLORIDE 112 mmol/L (98-107); CREATININE RESULT 1.14 mg/dL (0.52-1.25); GLUCOSE 95 mg/dL (75-110); POTASSIUM 3.9 mmol/L (3.6-5.0); SODIUM 142.5 mmol/L (137-145); TOTAL PROTEIN 5.4 g/dL (6.3-8.2)
[2016-10-28 05:46] LABS: ABSOLUTE BASOPHILS # (AUTO) 0.1 10^3/uL (0.0-0.2); ABSOLUTE EOSINOPHILS # (AUTO) 0.1 10^3/uL (0.0-0.6); ABSOLUTE LYMPHOCYTES (AUTO) 1.3 10^3/uL (0.5-4.7); ABSOLUTE NEUT (AUTO) 5.9 10^3/uL (1.7-8.2); HEMATOCRIT 29.4 % (36.0-47.0); HEMOGLOBIN 9.8 g/dL (12.0-15.5); MEAN CORPUSCULAR HGB CONC 33.5 g/dL (32.0-36.0); MEAN CORPUSCULAR VOLUME 102 fl (80-97); MONOCYTES % (AUTO) 11.6 % (3-13); RED BLOOD COUNT 2.89 10^6/uL (3.72-5.28); RED CELL DISTRIBUTION WIDTH 13.8 % (11.5-14.0); SEGMENTED NEUTROPHILS % (AUTO) 70.4 % (42-78); WHITE BLOOD COUNT 8.4 10^3/uL (4.0-10.5)
[2016-10-28] MEDS: LIPASE/PROTEASE/AMYLASE 1 CAP CAPSULE.DR PO SCH ×6 (07:33→15:43)
[2016-10-28] MEDS: BUSPIRONE HCL 10 MG TABLET PO SCH ×2 (09:42→21:09)
[2016-10-28] MEDS: DULOXETINE HCL 30 MG CAPSULE.DR PO SCH (09:42)
[2016-10-28] MEDS: PANTOPRAZOLE SODIUM 40 MG VIAL IV SCH ×2 (09:43→21:09)
[2016-10-28] MEDS: NORMAL SALINE 10 ML SDV (AFTER EACH USE) IV PRN (09:43)
[2016-10-28] MEDS: NORMAL SALINE 10 ML SDV (SCHEDULED) IV SCH ×2 (09:43→21:10)
[2016-10-28] MEDS: CEFEPIME HCL 2 GM in DEXTROSE 5%-WATER 50 ML IV SCH ×2 (09:44→21:09)
[2016-10-28] MEDS: CHOLESTYRAMINE/ASPARTAME 4 GM PACKET PO SCH ×2 (09:45→17:00)
[2016-10-28 09:50] LABS: PROTHROMBIN TIME 19.1 SEC (11.4-15.4)
[2016-10-28 09:51] LABS: PARTIAL THROMBOPLASTIN TIME 47.1 SEC (23.5-35.8)
[2016-10-28] MEDS: LEVOFLOXACIN 750 MG/D5W RTU 150 ML IV SCH (10:46)
[2016-10-28] MEDS: SPIRONOLACTONE 25 MG TABLET PO SCH (10:52)
[2016-10-28] MEDS: FUROSEMIDE 20 MG TABLET PO SCH (10:52)
[2016-10-28 14:13] LABS: FLUID APPEARANCE HAZY; FLUID TYPE PLEURAL
[2016-10-28 14:14] LABS: FLUID RBC DILUENT USED NONE USED; FLUID RBC DILUTION FACTOR 1; FLUID RBC SIDE 1 100; FLUID RBC SIDE 2 100; TOTAL RBC SQUARES COUNTED FLD 225
[2016-10-28] MEDS ORDERED: NORMAL SALINE 500 ML IV ONE (19:00)
[2016-10-28] MEDS: TRAZODONE HCL 50 MG TABLET PO SCH (21:10)
[2016-10-29] MEDS: ONDANSETRON HCL INJ/PF 4 MG/2 ML SDV IV PRN (00:59)
[2016-10-29 01:05] LABS: CREATININE RESULT 1.28 mg/dL (0.52-1.25)
[2016-10-29] MEDS: VANCOMYCIN HCL 500 MG in DEXTROSE 5%-WATER 100 ML IV SCH (01:59)
[2016-10-29] MEDS: TRAMADOL HCL 50 MG TABLET PO PRN (05:33)
[2016-10-29 06:27] LABS: ABSOLUTE BASOPHILS # (AUTO) 0.1 10^3/uL (0.0-0.2); ABSOLUTE LYMPHOCYTES (AUTO) 1.3 10^3/uL (0.5-4.7); ABSOLUTE MONOCYTES (AUTO) 1.1 10^3/uL (0.1-1.4); ABSOLUTE NEUT (AUTO) 8.7 10^3/uL (1.7-8.2); BASOPHILS % (AUTO) 0.6 % (0-2); EOSINOPHILS % (AUTO) 0.1 % (0-6); HEMATOCRIT 29.5 % (36.0-47.0); HGB HCT DIFFERENCE 0.5; LYMPHOCYTES % (AUTO) 11.9 % (13-45); MEAN CORPUSCULAR HGB CONC 33.8 g/dL (32.0-36.0); MEAN CORPUSCULAR VOLUME 101 fl (80-97); MONOCYTES % (AUTO) 9.7 % (3-13); RED BLOOD COUNT 2.93 10^6/uL (3.72-5.28); RED CELL DISTRIBUTION WIDTH 13.8 % (11.5-14.0); SEGMENTED NEUTROPHILS % (AUTO) 77.7 % (42-78); WHITE BLOOD COUNT 11.2 10^3/uL (4.0-10.5)
[2016-10-29 06:42] LABS: ANION GAP 10 (5-19); BLOOD UREA NITROGEN 5 mg/dL (7-20); CALCIUM 9.2 mg/dL (8.4-10.2); CARBON DIOXIDE 20 mmol/L (22-30); CHLORIDE 111 mmol/L (98-107); CREATININE RESULT 1.31 mg/dL (0.52-1.25); GLUCOSE 90 mg/dL (75-110); MAGNESIUM 1.5 mg/dL (1.6-2.3); POTASSIUM 4.1 mmol/L (3.6-5.0); SODIUM 141.1 mmol/L (137-145)
--- NOTE | 2016-10-29 09:14 | PDOC PROGRESS REPORT ---
Subjective Progress Note for:: 10/28/16 Subjective:: This follow-up visit for sepsis and left lower lobe pneumonia. The patient states that she has pain from her hip down to the back of her knee. she also states that she feels short of breath. She denies any chest pain Physical Exam Vital Signs: Temp Pulse Resp BP Pulse Ox 97.9 F 94 14 90/61 L 97 10/28/16 16:06 10/28/16 16:06 10/28/16 16:06 10/28/16 16:06 10/28/16 16:06 Intake & Output 10/27/16 10/28/16 10/29/16 06:59 06:59 06:59 Intake Total 1760 1374 410 Output Total 1035 302 300 Balance 725 1072 110 Weight 72.2 kg 75.6 kg General appearance: PRESENT: no acute distress, well-developed - Thin Head exam: PRESENT: atraumatic, normocephalic Respiratory exam: PRESENT: clear to auscultation tanisha. ABSENT: crackles, rhonchi , wheezes Cardiovascular exam: PRESENT: RRR. ABSENT: gallop, rubs, systolic murmur Pulses: PRESENT: +2 pedal pulses bilateral GI/Abdominal exam: PRESENT: ascites, distended, hypoactive bowel sounds, soft. ABSENT: tenderness Extremities exam: PRESENT: +1 edema - Ankle. ABSENT: clubbing - No cyanosis Neurological exam: PRESENT: alert, awake, oriented to person, oriented to place , oriented to time, oriented to situation, CN II-XII grossly intact Psychiatric exam: PRESENT: flat affect Skin exam: PRESENT: normal color, warm Results Laboratory Results: 10/28/16 04:40 10/28/16 04:40 10/27/16 10/27/16 10/27/16 09:42 21:43 22:45 WBC Cancelled 9.1 RBC Cancelled 2.88 L Hgb Cancelled 9.8 L Hct Cancelled 29.1 L MCV Cancelled 101 H MCH Cancelled 34.0 H MCHC Cancelled 33.6 RDW Cancelled 13.8 Plt Count Cancelled 78 L Seg Neutrophils % Cancelled 69.1 Lymphocytes % Cancelled 16.9 Monocytes % Cancelled 12.2 Eosinophils % Cancelled 0.7 Basophils % Cancelled 1.1 Absolute Neutrophils Cancelled 6.3 Absolute Lymphocytes Cancelled 1.5 Absolute Monocytes Cancelled 1.1 Absolute Eosinophils Cancelled 0.1 Absolute Basophils Cancelled 0.1 Sodium Potassium Chloride Carbon Dioxide Anion Gap BUN Creatinine Est GFR ( Amer) Est GFR (Non-Af Amer) Glucose Calcium Total Bilirubin AST ALT Alkaline Phosphatase Total Protein Albumin Fluid Type Fluid Source Fluid Color Fluid Appearance Fluid Viscosity Fluid WBC Fluid RBC Stool Occult Blood Stool for White Cells Blood Type A POSITIVE 10/28/16 10/28/16 10/28/16 01:50 01:50 04:40 WBC 8.4 RBC 2.89 L Hgb 9.8 L Hct 29.4 L MCV 102 H MCH 34.0 H MCHC 33.5 RDW 13.8 Plt Count 84 L Seg Neutrophils % 70.4 Lymphocytes % 16.0 Monocytes % 11.6 Eosinophils % 1.0 Basophils % 1.0 Absolute Neutrophils 5.9 Absolute Lymphocytes 1.3 Absolute Monocytes 1.0 Absolute Eosinophils 0.1 Absolute Basophils 0.1 Sodium Potassium Chloride Carbon Dioxide Anion Gap BUN Creatinine Est GFR ( Amer) Est GFR (Non-Af Amer) Glucose Calcium Total Bilirubin AST ALT Alkaline Phosphatase Total Protein Albumin Fluid Type Fluid Source Fluid Color Fluid Appearance Fluid Viscosity Fluid WBC Fluid RBC Stool Occult Blood NEGATIVE Stool for White Cells FEW H Blood Type 10/28/16 10/28/16 04:40 11:53 WBC RBC Hgb Hct MCV MCH MCHC RDW Plt Count Seg Neutrophils % Lymphocytes % Monocytes % Eosinophils % Basophils % Absolute Neutrophils Absolute Lymphocytes Absolute Monocytes Absolute Eosinophils Absolute Basophils Sodium 142.5 Potassium 3.9 Chloride 112 H Carbon Dioxide 21 L Anion Gap 10 BUN 4 L Creatinine 1.14 Est GFR ( Amer) > 60 Est GFR (Non-Af Amer) 51 L Glucose 95 Calcium 8.9 Total Bilirubin 2.7 H AST 33 ALT 34 Alkaline Phosphatase 85 Total Protein 5.4 L Albumin 2.5 L Fluid Type PLEURAL Fluid Source Fluid Color YELLOW Fluid Appearance HAZY Fluid Viscosity LIQUID Fluid WBC 337 Fluid RBC 111 Stool Occult Blood Stool for White Cells Blood Type Impressions: Abdomen/Pelvis CT 10/23/16 12:59 IMPRESSION: 1. INTERVAL DEVELOPMENT OF MODERATE ASCITES, NOT PRESENT ON THE PRIOR STUDY (05/2017). 2. SEVERE FATTY INFILTRATION OF THE LIVER. 3. STABLE CHRONIC FINDINGS IN THE PANCREAS INCLUDING ATROPHY AND CALCIFICATIONS CONSISTENT WITH CHRONIC PANCREATITIS. STABLE SMALL FLUID COLLECTION LIKELY REPRESENTING A SMALL PSEUDOCYST. 4. STONES AND/OR SLUDGE IN THE GALLBLADDER. Paracentesis Ultrasound 10/23/16 13:29 IMPRESSION: Successful ultrasound-guided paracentesis Abdomen Ultrasound 10/23/16 17:29 IMPRESSION: Question interval portal vein thrombosis. To and fro flow be in the hepatic veins. Distended gallbladder with sludge but no pericholecystic fluid. Marked fatty infiltration of the liver. Abdomen MRI 10/25/16 07:58 IMPRESSION: Normal portal venous flow void ; no evidence of portal venous thrombosis. Re- demonstration a pancreatic pseudocyst versus IPMN involving the pancreatic head/ neck junction with additional finding of a smaller cyst along the pancreatic duct within the tail. Compressive atelectasis of the left lower lobe with a moderate left pleural effusion. Chest CT 10/26/16 14:40 IMPRESSION: Dense left lower lobe atelectatic infiltrate with moderate left pleural effusion. Moderate ascites with marked fatty infiltration of the liver. Stable appearance of the pancreatic mass. Guidance Fluoroscopy 10/27/16 00:00 IMPRESSION: SUCCESSFUL PLACEMENT OF A 5 FR DUAL LUMEN 34 CM PICC IN THE left basilic VEIN. Interventional Vascular Procedure 10/27/16 00:00 IMPRESSION: SUCCESSFUL PLACEMENT OF A 5 FR DUAL LUMEN 34 CM PICC IN THE left basilic VEIN. PICC Line Insertion 10/27/16 11:11 IMPRESSION: SUCCESSFUL PLACEMENT OF A 5 FR DUAL LUMEN 34 CM PICC IN THE left basilic VEIN. Chest X-Ray 10/28/16 00:00 IMPRESSION: No pneumothorax 2 hours following thoracentesis. Thoracentesis Ultrasound 10/28/16 08:00 IMPRESSION: SUCCESSFUL THORACENTESIS USING ULTRASOUND GUIDANCE. Assessment & Plan - Diagnosis (1) Sepsis Qualifiers: Sepsis type: sepsis due to unspecified organism Qualified Code(s): A41.9 - Sepsis, unspecified organism Is this a current diagnosis for this admission?: YesPlan: Sepsis secondary to presumed SBP. Patient is currently on cefepime bank and Levaquin. Blood cultures thus far have been negative urinalysis has only grown out yeast. (2) Pneumonia Qualifiers: Pneumonia type: due to unspecified organism Laterality: left Lung location: lower lobe of lung Qualified Code(s): J18.1 - Lobar pneumonia, unspecified organism Is this a current diagnosis for this admission?: YesPlan: Left lower lobe pneumonia with parapneumonic effusion. Patient is due for thoracentesis today. Current INR is 1.5. Radiology at this point has no problems with doing thoracentesis. We will await findings (3) Spontaneous bacterial peritonitis Is this a current diagnosis for this admission?: YesPlan: Patient remains on triple antibiotic therapy. At this point previous cultures have been negative patient is not spiking any fevers. I will leave her antibiotics in place for now. But we may be able to discontinue vancomycin tomorrow. (4) Chronic pancreatitis Qualifiers: Pancreatitis type: alcohol induced Qualified Code(s): K86.0 - Alcohol-induced chronic pancreatitis Is this a current diagnosis for this admission?: Yes (5) Ascites due to alcoholic cirrhosis Is this a current diagnosis for this admission?: YesPlan: Paracentesis is artery been done. She may need repeat paracentesis prior to discharge. (6) Cirrhosis Qualifiers: Hepatic cirrhosis type: alcoholic cirrhosis Ascites presence: with ascites Qualified Code(s): K70.31 - Alcoholic cirrhosis of liver with ascites Is this a current diagnosis for this admission?: Yes (7) Pleural effusion, left Is this a current diagnosis for this admission?: YesPlan: Management as above (9) Alcohol withdrawal Qualifiers: Complication of substance-induced condition: uncomplicated Qualified Code(s): F10.230 - Alcohol dependence with withdrawal, uncomplicated Is this a current diagnosis for this admission?: Yes (10) Thrombocytopenia Is this a current diagnosis for this admission?: YesPlan: Stable we'll continue to monitor. This is a consequence of her underlying cirrhosis - Time Critical Time spent with patient: 25-34 minutes - Inpatient Certification Medical Necessity: Significant Comorbidiites Make Outpatient Treatment Too Risky
[2016-10-29] MEDS: LIPASE/PROTEASE/AMYLASE 1 CAP CAPSULE.DR PO SCH ×6 (11:04→17:11)
[2016-10-29] MEDS: MAGNESIUM OXIDE 400 MG TABLET PO SCH ×2 (11:05→17:11)
[2016-10-29] MEDS: BUSPIRONE HCL 10 MG TABLET PO SCH ×2 (11:05→22:24)
[2016-10-29] MEDS: CHOLESTYRAMINE/ASPARTAME 4 GM PACKET PO SCH ×2 (11:06→17:11)
[2016-10-29] MEDS: PANTOPRAZOLE SODIUM 40 MG VIAL IV SCH (11:06)
[2016-10-29] MEDS: SPIRONOLACTONE 25 MG TABLET PO SCH (11:06)
[2016-10-29] MEDS: DULOXETINE HCL 30 MG CAPSULE.DR PO SCH (11:07)
[2016-10-29] MEDS: FUROSEMIDE 20 MG TABLET PO SCH (11:07)
[2016-10-29] MEDS: CEFEPIME HCL 2 GM in DEXTROSE 5%-WATER 50 ML IV SCH ×2 (11:08→22:23)
[2016-10-29] MEDS: LEVOFLOXACIN 750 MG/D5W RTU 150 ML IV SCH (11:08)
[2016-10-29] MEDS: NORMAL SALINE 10 ML SDV (SCHEDULED) IV SCH ×2 (11:09→22:22)
[2016-10-29] MEDS: TRAZODONE HCL 50 MG TABLET PO SCH (22:24)
[2016-10-29] MEDS ORDERED: LORAZEPAM INJ 2 MG/1 ML VIAL IV PRN (22:43)
[2016-10-30 00:29] LABS: ANION GAP 12 (5-19); BLOOD UREA NITROGEN 5 mg/dL (7-20); CALCIUM 9.4 mg/dL (8.4-10.2); CARBON DIOXIDE 19 mmol/L (22-30); CHLORIDE 111 mmol/L (98-107); CREATININE RESULT 1.49 mg/dL (0.52-1.25); GLUCOSE 84 mg/dL (75-110); MAGNESIUM 1.5 mg/dL (1.6-2.3); POTASSIUM 3.9 mmol/L (3.6-5.0); SODIUM 141.7 mmol/L (137-145)
[2016-10-30] MEDS ORDERED: MAGNESIUM SULFATE/D5W 1 GM/100 ML RTUPB IV ONE ×2 (02:09→03:30)
[2016-10-30] MEDS ORDERED: LORAZEPAM INJ 2 MG/1 ML VIAL ONE (02:37)
[2016-10-30] MEDS ORDERED: LORAZEPAM INJ 2 MG/1 ML VIAL IV PRN (03:14)
[2016-10-30] MEDS ORDERED: VANCOMYCIN HCL 750 MG in DEXTROSE 5%-WATER 250 ML IV SCH (06:00)
[2016-10-30] MEDS: NORMAL SALINE 10 ML SDV (AFTER EACH USE) IV PRN (06:14)
[2016-10-30] MEDS: LIPASE/PROTEASE/AMYLASE 1 CAP CAPSULE.DR PO SCH ×6 (07:55→16:33)
--- NOTE | 2016-10-30 10:00 | PDOC PROGRESS REPORT ---
Subjective Progress Note for:: 10/29/16 Subjective:: This follow-up visit for sepsis and left lower lobe pneumonia. Patient states she feels short of breath. I have checked and her oxygen was disconnected in the room. We connected it she's currently at 4 L/m. She also notes that her abdomen is more distended. No acute events overnight. Physical Exam Vital Signs: Temp Pulse Resp BP Pulse Ox 98.2 F 106 H 15 102/81 99 10/29/16 04:00 10/29/16 02:00 10/29/16 06:00 10/29/16 05:36 10/29/16 06:00 Intake & Output 10/28/16 10/29/16 10/30/16 06:59 06:59 06:59 Intake Total 1374 1160 Output Total 302 650 Balance 1072 510 Weight 75.6 kg 73 kg GENERAL: This is a well-developed chronically ill appearing white female appearing somewhat tachypnic at the bedside. HEART: Tachycardic. No murmurs rubs or gallops. LUNGS: Clear to auscultation bilaterally with the exception of diminished breath sounds at the bases bilaterally with equal rise and fall of the chest. ABDOMEN: Soft, distended, slightly tender to palpation especially in the epigastric area. Hypoactive bowel sounds EXTREMITIES: No clubbing cyanosis or trace to 1+ pitting edema at the ankles 2 + peripheral pulses. NEURO: Awake, alert, oriented 3. Cranial nerves II through XII grossly intact. PSYCH: Flat affect. LINES: PICC line in place clean dry and intact : No Grider catheter in place Results Laboratory Results: 10/29/16 05:40 10/29/16 05:40 10/28/16 10/29/16 10/29/16 11:53 00:30 05:40 WBC RBC Hgb Hct MCV MCH MCHC RDW Plt Count Seg Neutrophils % Lymphocytes % Monocytes % Eosinophils % Basophils % Absolute Neutrophils Absolute Lymphocytes Absolute Monocytes Absolute Eosinophils Absolute Basophils Sodium 141.1 Potassium 4.1 Chloride 111 H Carbon Dioxide 20 L Anion Gap 10 BUN 5 L Creatinine 1.28 H 1.31 H Est GFR ( Amer) 54 L 52 L Est GFR (Non-Af Amer) 44 L 43 L Glucose 90 Calcium 9.2 Magnesium 1.5 L Fluid Type PLEURAL Fluid Source Fluid Color YELLOW Fluid Appearance HAZY Fluid Viscosity LIQUID Fluid WBC 337 Fluid RBC 111 04/19/17 05:40 WBC 11.2 H RBC 2.93 L Hgb 10.0 L Hct 29.5 L MCV 101 H MCH 34.0 H MCHC 33.8 RDW 13.8 Plt Count 79 L Seg Neutrophils % 77.7 Lymphocytes % 11.9 L Monocytes % 9.7 Eosinophils % 0.1 Basophils % 0.6 Absolute Neutrophils 8.7 H Absolute Lymphocytes 1.3 Absolute Monocytes 1.1 Absolute Eosinophils 0.0 Absolute Basophils 0.1 Sodium Potassium Chloride Carbon Dioxide Anion Gap BUN Creatinine Est GFR ( Amer) Est GFR (Non-Af Amer) Glucose Calcium Magnesium Fluid Type Fluid Source Fluid Color Fluid Appearance Fluid Viscosity Fluid WBC Fluid RBC Impressions: Abdomen/Pelvis CT 10/23/16 12:59 IMPRESSION: 1. INTERVAL DEVELOPMENT OF MODERATE ASCITES, NOT PRESENT ON THE PRIOR STUDY (05/2017). 2. SEVERE FATTY INFILTRATION OF THE LIVER. 3. STABLE CHRONIC FINDINGS IN THE PANCREAS INCLUDING ATROPHY AND CALCIFICATIONS CONSISTENT WITH CHRONIC PANCREATITIS. STABLE SMALL FLUID COLLECTION LIKELY REPRESENTING A SMALL PSEUDOCYST. 4. STONES AND/OR SLUDGE IN THE GALLBLADDER. Paracentesis Ultrasound 10/23/16 13:29 IMPRESSION: Successful ultrasound-guided paracentesis Abdomen Ultrasound 10/23/16 17:29 IMPRESSION: Question interval portal vein thrombosis. To and fro flow be in the hepatic veins. Distended gallbladder with sludge but no pericholecystic fluid. Marked fatty infiltration of the liver. Abdomen MRI 10/25/16 07:58 IMPRESSION: Normal portal venous flow void ; no evidence of portal venous thrombosis. Re- demonstration a pancreatic pseudocyst versus IPMN involving the pancreatic head/ neck junction with additional finding of a smaller cyst along the pancreatic duct within the tail. Compressive atelectasis of the left lower lobe with a moderate left pleural effusion. Chest CT 10/26/16 14:40 IMPRESSION: Dense left lower lobe atelectatic infiltrate with moderate left pleural effusion. Moderate ascites with marked fatty infiltration of the liver. Stable appearance of the pancreatic mass. Guidance Fluoroscopy 10/27/16 00:00 IMPRESSION: SUCCESSFUL PLACEMENT OF A 5 FR DUAL LUMEN 34 CM PICC IN THE left basilic VEIN. Interventional Vascular Procedure 10/27/16 00:00 IMPRESSION: SUCCESSFUL PLACEMENT OF A 5 FR DUAL LUMEN 34 CM PICC IN THE left basilic VEIN. PICC Line Insertion 10/27/16 11:11 IMPRESSION: SUCCESSFUL PLACEMENT OF A 5 FR DUAL LUMEN 34 CM PICC IN THE left basilic VEIN. Chest X-Ray 10/28/16 00:00 IMPRESSION: No pneumothorax 2 hours following thoracentesis. Thoracentesis Ultrasound 10/28/16 08:00 IMPRESSION: SUCCESSFUL THORACENTESIS USING ULTRASOUND GUIDANCE. Assessment & Plan - Diagnosis (1) Sepsis Qualifiers: Sepsis type: sepsis due to unspecified organism Qualified Code(s): A41.9 - Sepsis, unspecified organism Is this a current diagnosis for this admission?: YesPlan: Sepsis secondary to presumed SBP. Patient is currently on cefepime and vancomycin and Levaquin. Blood cultures thus far have been negative urinalysis has only grown out yeast. Patient's white count bumped slightly overnight. For this purpose I'm going to leave these medications and placed reconsider at least discontinuing the vancomycin tomorrow depending on tomorrow's labs. (2) Pneumonia Qualifiers: Pneumonia type: due to unspecified organism Laterality: left Lung location: lower lobe of lung Qualified Code(s): J18.1 - Lobar pneumonia, unspecified organism Is this a current diagnosis for this admission?: YesPlan: Left lower lobe pneumonia with parapneumonic effusion. Patient is status post thoracentesis 10/28. We will await findings although I suspect that this may be transudative from the patient's ascites (3) Spontaneous bacterial peritonitis Is this a current diagnosis for this admission?: YesPlan: Patient remains on triple antibiotic therapy. At this point previous cultures have been negative patient is not spiking any fevers. I will leave her antibiotics in place for now. But we may be able to discontinue vancomycin tomorrow. Patient also has had some urinary retention by bladder scanning. It is unclear as to whether or not the ascitic fluid obscuring the ultrasound. We will place a Grider. Some of her abdominal distention may be due to this. (4) Chronic pancreatitis Qualifiers: Pancreatitis type: alcohol induced Qualified Code(s): K86.0 - Alcohol-induced chronic pancreatitis Is this a current diagnosis for this admission?: YesPlan: Pain control. Continue pancrelipase (5) Ascites due to alcoholic cirrhosis Is this a current diagnosis for this admission?: YesPlan: Paracentesis is already been done. She may need repeat paracentesis if her tachypnea does not improve. She did not receive Lasix or spironolactone yesterday secondary to hypotension. We will give these today. (6) Cirrhosis Qualifiers: Hepatic cirrhosis type: alcoholic cirrhosis Ascites presence: with ascites Qualified Code(s): K70.31 - Alcoholic cirrhosis of liver with ascites Is this a current diagnosis for this admission?: Yes (7) Pleural effusion, left Is this a current diagnosis for this admission?: YesPlan: Management as above (9) Alcohol withdrawal Qualifiers: Complication of substance-induced condition: uncomplicated Qualified Code(s): F10.230 - Alcohol dependence with withdrawal, uncomplicated Is this a current diagnosis for this admission?: YesPlan: Continue thiamine and multivitamin (10) Thrombocytopenia Is this a current diagnosis for this admission?: Yes - Time Time Spent with patient: 15-24 minutes - Inpatient Certification Medical Necessity: Need Close Monitoring Due to Risk of Patient Decompensation
[2016-10-30] MEDS: CEFEPIME HCL 2 GM in DEXTROSE 5%-WATER 50 ML IV SCH (10:30)
[2016-10-30] MEDS: BUSPIRONE HCL 10 MG TABLET PO SCH ×2 (10:30→23:33)
[2016-10-30] MEDS: DULOXETINE HCL 30 MG CAPSULE.DR PO SCH (10:31)
[2016-10-30] MEDS: MAGNESIUM OXIDE 400 MG TABLET PO SCH ×2 (10:32→18:45)
[2016-10-30] MEDS: FUROSEMIDE 20 MG TABLET PO SCH ×2 (10:32→18:47)
[2016-10-30] MEDS: NORMAL SALINE 10 ML SDV (SCHEDULED) IV SCH ×2 (10:45→23:33)
[2016-10-30] MEDS: SPIRONOLACTONE 25 MG TABLET PO SCH (10:50)
[2016-10-30] MEDS: ONDANSETRON HCL INJ/PF 4 MG/2 ML SDV IV PRN (10:51)
[2016-10-30] MEDS: CHOLESTYRAMINE/ASPARTAME 4 GM PACKET PO SCH ×2 (10:56→18:47)
--- NOTE | 2016-10-30 14:45 | PDOC PROGRESS REPORT ---
Subjective Subjective:: This follow-up visit for sepsis and left lower lobe pneumonia. Patient does not feel short of breath today. She denies any chest pain. But is still concerned about her abdominal distention. No acute events overnight. Physical Exam Vital Signs: Temp Pulse Resp BP Pulse Ox 98.0 F 110 H 19 108/69 94 10/30/16 07:55 10/30/16 07:55 10/30/16 07:55 10/30/16 07:55 10/30/16 07:55 Intake & Output 10/29/16 10/30/16 10/31/16 06:59 06:59 06:59 Intake Total 1160 670 Output Total 650 300 Balance 510 370 Weight 73 kg GENERAL: This is a well-developed chronically ill appearing white female resting in no acute distress at the bedside. HEART: Regular rate and rhythm No murmurs rubs or gallops. LUNGS: diminished breath sounds at the bases bilaterally with equal rise and fall of the chest. ABDOMEN: Soft, distended, slightly tender to palpation especially in the epigastric area. Hypoactive bowel sounds EXTREMITIES: No clubbing cyanosis or trace to 1+ pitting edema at the ankles 2 + peripheral pulses. NEURO: Awake, alert, oriented 3. Cranial nerves II through XII grossly intact. PSYCH: Flat affect. LINES: PICC line in place clean dry and intact : No Grider catheter in place Results Laboratory Results: 10/29/16 05:40 10/30/16 00:10 10/28/16 10/30/16 11:53 00:10 Sodium 141.7 Potassium 3.9 Chloride 111 H Carbon Dioxide 19 L Anion Gap 12 BUN 5 L Creatinine 1.49 H Est GFR ( Amer) 45 L Est GFR (Non-Af Amer) 37 L Glucose 84 Calcium 9.4 Magnesium 1.5 L Fluid Glucose 107 Fluid Total Protein 1.2 10/28/16 01:50 Stool - Stool - Final Impressions: Abdomen/Pelvis CT 10/23/16 12:59 IMPRESSION: 1. INTERVAL DEVELOPMENT OF MODERATE ASCITES, NOT PRESENT ON THE PRIOR STUDY (05/2017). 2. SEVERE FATTY INFILTRATION OF THE LIVER. 3. STABLE CHRONIC FINDINGS IN THE PANCREAS INCLUDING ATROPHY AND CALCIFICATIONS CONSISTENT WITH CHRONIC PANCREATITIS. STABLE SMALL FLUID COLLECTION LIKELY REPRESENTING A SMALL PSEUDOCYST. 4. STONES AND/OR SLUDGE IN THE GALLBLADDER. Paracentesis Ultrasound 10/23/16 13:29 IMPRESSION: Successful ultrasound-guided paracentesis Abdomen Ultrasound 10/23/16 17:29 IMPRESSION: Question interval portal vein thrombosis. To and fro flow be in the hepatic veins. Distended gallbladder with sludge but no pericholecystic fluid. Marked fatty infiltration of the liver. Abdomen MRI 10/25/16 07:58 IMPRESSION: Normal portal venous flow void ; no evidence of portal venous thrombosis. Re- demonstration a pancreatic pseudocyst versus IPMN involving the pancreatic head/ neck junction with additional finding of a smaller cyst along the pancreatic duct within the tail. Compressive atelectasis of the left lower lobe with a moderate left pleural effusion. Chest CT 10/26/16 14:40 IMPRESSION: Dense left lower lobe atelectatic infiltrate with moderate left pleural effusion. Moderate ascites with marked fatty infiltration of the liver. Stable appearance of the pancreatic mass. Guidance Fluoroscopy 10/27/16 00:00 IMPRESSION: SUCCESSFUL PLACEMENT OF A 5 FR DUAL LUMEN 34 CM PICC IN THE left basilic VEIN. Interventional Vascular Procedure 10/27/16 00:00 IMPRESSION: SUCCESSFUL PLACEMENT OF A 5 FR DUAL LUMEN 34 CM PICC IN THE left basilic VEIN. PICC Line Insertion 10/27/16 11:11 IMPRESSION: SUCCESSFUL PLACEMENT OF A 5 FR DUAL LUMEN 34 CM PICC IN THE left basilic VEIN. Chest X-Ray 10/28/16 00:00 IMPRESSION: No pneumothorax 2 hours following thoracentesis. Thoracentesis Ultrasound 10/28/16 08:00 IMPRESSION: SUCCESSFUL THORACENTESIS USING ULTRASOUND GUIDANCE. Head CT 10/29/16 00:00 IMPRESSION: NORMAL BRAIN CT WITHOUT CONTRAST. Assessment & Plan - Diagnosis (1) Sepsis Qualifiers: Sepsis type: sepsis due to unspecified organism Qualified Code(s): A41.9 - Sepsis, unspecified organism Is this a current diagnosis for this admission?: YesPlan: Sepsis secondary to presumed SBP. Patient is currently on cefepime and vancomycin and Levaquin. Blood cultures thus far have been negative urinalysis has only grown out yeast. Discontinue vancomycin. (2) Pneumonia Qualifiers: Pneumonia type: due to unspecified organism Laterality: left Lung location: lower lobe of lung Qualified Code(s): J18.1 - Lobar pneumonia, unspecified organism Is this a current diagnosis for this admission?: YesPlan: Left lower lobe pneumonia with parapneumonic effusion. Patient is status post thoracentesis 10/28. Await cultures (3) Spontaneous bacterial peritonitis Is this a current diagnosis for this admission?: YesPlan: Patient remains on triple antibiotic therapy. At this point previous cultures have been negative patient is not spiking any fevers. Discontinue vancomycin. (4) Chronic pancreatitis Qualifiers: Pancreatitis type: alcohol induced Qualified Code(s): K86.0 - Alcohol-induced chronic pancreatitis Is this a current diagnosis for this admission?: YesPlan: Pain control. Continue pancrelipase (5) Ascites due to alcoholic cirrhosis Is this a current diagnosis for this admission?: YesPlan: Paracentesis is already been done. Continues bilateral active and Lasix. May need additional paracentesis (6) Cirrhosis Qualifiers: Hepatic cirrhosis type: alcoholic cirrhosis Ascites presence: with ascites Qualified Code(s): K70.31 - Alcoholic cirrhosis of liver with ascites Is this a current diagnosis for this admission?: Yes (7) Pleural effusion, left Is this a current diagnosis for this admission?: YesPlan: Management as above (9) Alcohol withdrawal Qualifiers: Complication of substance-induced condition: uncomplicated Qualified Code(s): F10.230 - Alcohol dependence with withdrawal, uncomplicated Is this a current diagnosis for this admission?: YesPlan: Continue thiamine and multivitamin (10) Thrombocytopenia Is this a current diagnosis for this admission?: YesPlan: Stable we'll continue to monitor. This is a consequence of her underlying cirrhosis (11) Diarrhea Is this a current diagnosis for this admission?: YesPlan: Stool culture showed decreased it patient also has yeast in the urine tract. Will get a seven-day course of Diflucan. - Time Time Spent with patient: 15-24 minutes - Inpatient Certification Medical Necessity: Need Close Monitoring Due to Risk of Patient Decompensation
[2016-10-30] MEDS ORDERED: FLUCONAZOLE 100 MG TABLET PO ONE (15:30)
[2016-10-30] MEDS: TRAZODONE HCL 50 MG TABLET PO SCH (23:33)
[2016-10-31 06:12] LABS: ABSOLUTE BASOPHILS # (AUTO) 0.1 10^3/uL (0.0-0.2); ABSOLUTE LYMPHOCYTES (AUTO) 1.4 10^3/uL (0.5-4.7); ABSOLUTE MONOCYTES (AUTO) 0.9 10^3/uL (0.1-1.4); ABSOLUTE NEUT (AUTO) 6.5 10^3/uL (1.7-8.2); EOSINOPHILS % (AUTO) 0.4 % (0-6); HEMATOCRIT 28.4 % (36.0-47.0); HEMOGLOBIN 9.6 g/dL (12.0-15.5); HGB HCT DIFFERENCE 0.4; LYMPHOCYTES % (AUTO) 15.9 % (13-45); MEAN CORPUSCULAR HEMOGLOBIN 34.1 pg (27.0-33.4); MEAN CORPUSCULAR HGB CONC 33.8 g/dL (32.0-36.0); MEAN CORPUSCULAR VOLUME 101 fl (80-97); MONOCYTES % (AUTO) 10.1 % (3-13); RED BLOOD COUNT 2.82 10^6/uL (3.72-5.28); RED CELL DISTRIBUTION WIDTH 14.2 % (11.5-14.0); SEGMENTED NEUTROPHILS % (AUTO) 72.6 % (42-78)
[2016-10-31 06:29] LABS: ANION GAP 12 (5-19); BLOOD UREA NITROGEN 7 mg/dL (7-20); CALCIUM 9.3 mg/dL (8.4-10.2); CARBON DIOXIDE 19 mmol/L (22-30); CHLORIDE 111 mmol/L (98-107); CREATININE RESULT 1.77 mg/dL (0.52-1.25); GLUCOSE 77 mg/dL (75-110); MAGNESIUM 1.9 mg/dL (1.6-2.3); POTASSIUM 3.8 mmol/L (3.6-5.0); SODIUM 141.9 mmol/L (137-145)
[2016-10-31] MEDS ORDERED: LEVOFLOXACIN 750 MG/D5W RTU 750 MG/150 ML RTUPB IV SCH (10:00)
[2016-10-31] MEDS: FLUCONAZOLE 100 MG TABLET PO SCH (11:58)
[2016-10-31] MEDS: MAGNESIUM OXIDE 400 MG TABLET PO SCH ×2 (11:58→18:44)
[2016-10-31] MEDS: BUSPIRONE HCL 10 MG TABLET PO SCH ×2 (11:59→22:28)
[2016-10-31] MEDS: DULOXETINE HCL 30 MG CAPSULE.DR PO SCH (11:59)
[2016-10-31] MEDS: ONDANSETRON HCL INJ/PF 4 MG/2 ML SDV IV PRN (12:09)
[2016-10-31] MEDS: LIPASE/PROTEASE/AMYLASE 1 CAP CAPSULE.DR PO SCH ×6 (12:19→18:45)
[2016-10-31] MEDS: CHOLESTYRAMINE/ASPARTAME 4 GM PACKET PO SCH ×2 (12:19→18:42)
[2016-10-31] MEDS: FUROSEMIDE 20 MG TABLET PO SCH ×2 (14:18→18:44)
[2016-10-31] MEDS: SPIRONOLACTONE 25 MG TABLET PO SCH (14:18)
[2016-10-31] MEDS: NORMAL SALINE 10 ML SDV (SCHEDULED) IV SCH (14:18)
--- NOTE | 2016-10-31 16:20 | PDOC PROGRESS REPORT ---
Subjective Progress Note for:: 10/31/16 Subjective:: This follow-up visit for sepsis and left lower lobe pneumonia. Patient feels short of breath intermittently at rest. She'll work with physical therapy today and was able to ambulate 5 feet. She has shortness of breath during this interaction as well. She denies any chest pain. But is still concerned about her abdominal distention. No acute events overnight. Physical Exam Vital Signs: Temp Pulse Resp BP Pulse Ox 97.8 F 95 16 97/62 L 96 10/31/16 07:26 10/31/16 07:26 10/31/16 07:26 10/31/16 07:26 10/31/16 07:26 Intake & Output 10/30/16 10/31/16 11/01/16 06:59 06:59 06:59 Intake Total 670 180 360 Output Total 300 450 50 Balance 370 -270 310 Weight 77.1 kg PHYSICAL EXAM: GENERAL: This is a well-developed chronically ill appearing white female resting in no acute distress at the bedside. HEART: Regular rate and rhythm No murmurs rubs or gallops. LUNGS: diminished breath sounds at the bases bilaterally with equal rise and fall of the chest. ABDOMEN: Soft, distended, slightly tender to palpation especially in the epigastric area. Hypoactive bowel sounds EXTREMITIES: No clubbing cyanosis or trace to 1+ pitting edema at the ankles 2 + peripheral pulses. NEURO: Awake, alert, oriented 3. Cranial nerves II through XII grossly intact. PSYCH: Flat affect. Results Laboratory Results: 10/31/16 05:40 10/31/16 05:40 10/31/16 10/31/16 05:40 05:40 WBC 9.0 RBC 2.82 L Hgb 9.6 L Hct 28.4 L MCV 101 H MCH 34.1 H MCHC 33.8 RDW 14.2 H Plt Count 56 L Seg Neutrophils % 72.6 Lymphocytes % 15.9 Monocytes % 10.1 Eosinophils % 0.4 Basophils % 1.0 Absolute Neutrophils 6.5 Absolute Lymphocytes 1.4 Absolute Monocytes 0.9 Absolute Eosinophils 0.0 Absolute Basophils 0.1 Sodium 141.9 Potassium 3.8 Chloride 111 H Carbon Dioxide 19 L Anion Gap 12 BUN 7 Creatinine 1.77 H Est GFR ( Amer) 37 L Est GFR (Non-Af Amer) 30 L Glucose 77 Calcium 9.3 Magnesium 1.9 10/28/16 01:50 Stool - Stool - Final 10/28/16 01:50 Stool - Stool Stool Culture - Final C.albicans/C.dubliniensis Impressions: Abdomen/Pelvis CT 10/23/16 12:59 IMPRESSION: 1. INTERVAL DEVELOPMENT OF MODERATE ASCITES, NOT PRESENT ON THE PRIOR STUDY (05/2017). 2. SEVERE FATTY INFILTRATION OF THE LIVER. 3. STABLE CHRONIC FINDINGS IN THE PANCREAS INCLUDING ATROPHY AND CALCIFICATIONS CONSISTENT WITH CHRONIC PANCREATITIS. STABLE SMALL FLUID COLLECTION LIKELY REPRESENTING A SMALL PSEUDOCYST. 4. STONES AND/OR SLUDGE IN THE GALLBLADDER. Paracentesis Ultrasound 10/23/16 13:29 IMPRESSION: Successful ultrasound-guided paracentesis Abdomen Ultrasound 10/23/16 17:29 IMPRESSION: Question interval portal vein thrombosis. To and fro flow be in the hepatic veins. Distended gallbladder with sludge but no pericholecystic fluid. Marked fatty infiltration of the liver. Abdomen MRI 10/25/16 07:58 IMPRESSION: Normal portal venous flow void ; no evidence of portal venous thrombosis. Re- demonstration a pancreatic pseudocyst versus IPMN involving the pancreatic head/ neck junction with additional finding of a smaller cyst along the pancreatic duct within the tail. Compressive atelectasis of the left lower lobe with a moderate left pleural effusion. Chest CT 10/26/16 14:40 IMPRESSION: Dense left lower lobe atelectatic infiltrate with moderate left pleural effusion. Moderate ascites with marked fatty infiltration of the liver. Stable appearance of the pancreatic mass. Guidance Fluoroscopy 10/27/16 00:00 IMPRESSION: SUCCESSFUL PLACEMENT OF A 5 FR DUAL LUMEN 34 CM PICC IN THE left basilic VEIN. Interventional Vascular Procedure 10/27/16 00:00 IMPRESSION: SUCCESSFUL PLACEMENT OF A 5 FR DUAL LUMEN 34 CM PICC IN THE left basilic VEIN. PICC Line Insertion 10/27/16 11:11 IMPRESSION: SUCCESSFUL PLACEMENT OF A 5 FR DUAL LUMEN 34 CM PICC IN THE left basilic VEIN. Chest X-Ray 10/28/16 00:00 IMPRESSION: No pneumothorax 2 hours following thoracentesis. Thoracentesis Ultrasound 10/28/16 08:00 IMPRESSION: SUCCESSFUL THORACENTESIS USING ULTRASOUND GUIDANCE. Head CT 10/29/16 00:00 IMPRESSION: NORMAL BRAIN CT WITHOUT CONTRAST. Assessment & Plan - Diagnosis (1) Sepsis Qualifiers: Sepsis type: sepsis due to unspecified organism Qualified Code(s): A41.9 - Sepsis, unspecified organism Is this a current diagnosis for this admission?: YesPlan: Sepsis secondary to presumed SBP. Patient is currently on cefepime and vancomycin and Levaquin. Blood cultures thus far have been negative urinalysis has only grown out yeast. Discontinue vancomycin. Discontinue cefepime and Levaquin. Begin by mouth antibiotics. (2) Pneumonia Qualifiers: Pneumonia type: due to unspecified organism Laterality: left Lung location: lower lobe of lung Qualified Code(s): J18.1 - Lobar pneumonia, unspecified organism Is this a current diagnosis for this admission?: YesPlan: Left lower lobe pneumonia with parapneumonic effusion. Patient is status post thoracentesis 10/28. Cultures preliminarily negative. This is transudative and likely from ascitic fluid. (3) Spontaneous bacterial peritonitis Is this a current diagnosis for this admission?: YesPlan: Patient remains on triple antibiotic therapy. At this point previous cultures have been negative patient is not spiking any fevers. Discontinue vancomycin. Switch to by mouth antibiotics (4) Chronic pancreatitis Qualifiers: Pancreatitis type: alcohol induced Qualified Code(s): K86.0 - Alcohol-induced chronic pancreatitis Is this a current diagnosis for this admission?: YesPlan: Pain control. Continue pancrelipase (5) Ascites due to alcoholic cirrhosis Is this a current diagnosis for this admission?: YesPlan: Paracentesis is already been done. Continues bilateral active and Lasix. Will arrange for paracentesis (6) Cirrhosis Qualifiers: Hepatic cirrhosis type: alcoholic cirrhosis Ascites presence: with ascites Qualified Code(s): K70.31 - Alcoholic cirrhosis of liver with ascites Is this a current diagnosis for this admission?: Yes (7) Pleural effusion, left Is this a current diagnosis for this admission?: YesPlan: Management as above (9) Alcohol withdrawal Qualifiers: Complication of substance-induced condition: uncomplicated Qualified Code(s): F10.230 - Alcohol dependence with withdrawal, uncomplicated Is this a current diagnosis for this admission?: YesPlan: Continue thiamine and multivitamin (10) Thrombocytopenia Is this a current diagnosis for this admission?: YesPlan: Stable we'll continue to monitor. This is a consequence of her underlying cirrhosis (11) Diarrhea Is this a current diagnosis for this admission?: YesPlan: Stool culture showed decreased it patient also has yeast in the urine tract. Will get a seven-day course of Diflucan. (12) Debility Plan: Continue PT. I've spoken with the patient at length about considering subacute rehabilitation. She will discuss it with her sister. She really wants to go home. - Time Time Spent with patient: 25-34 minutes - Inpatient Certification Medical Necessity: Need Close Monitoring Due to Risk of Patient Decompensation
[2016-10-31] MEDS: FOLIC ACID/VITAMIN B COMP W-C CAPSULE PO SCH (18:43)
[2016-10-31] MEDS: SODIUM BICARBONATE 650 MG TABLET PO SCH (18:44)
[2016-10-31] MEDS: TRAZODONE HCL 50 MG TABLET PO SCH (22:28)
[2016-11-01] MEDS: NORMAL SALINE 10 ML SDV (SCHEDULED) IV SCH ×2 (08:45→10:52)
[2016-11-01] MEDS: LIPASE/PROTEASE/AMYLASE 1 CAP CAPSULE.DR PO SCH ×6 (08:51→17:35)
[2016-11-01] MEDS ORDERED: LEVOFLOXACIN 500 MG TABLET PO SCH (10:00)
[2016-11-01] MEDS: MAGNESIUM OXIDE 400 MG TABLET PO SCH ×2 (10:46→17:36)
[2016-11-01] MEDS: FLUCONAZOLE 100 MG TABLET PO SCH (10:46)
[2016-11-01] MEDS: DULOXETINE HCL 30 MG CAPSULE.DR PO SCH (10:46)
[2016-11-01] MEDS: BUSPIRONE HCL 10 MG TABLET PO SCH ×2 (10:47→21:10)
[2016-11-01] MEDS: FUROSEMIDE 20 MG TABLET PO SCH ×2 (10:49→17:36)
[2016-11-01] MEDS: CHOLESTYRAMINE/ASPARTAME 4 GM PACKET PO SCH ×2 (10:53→17:38)
[2016-11-01] MEDS: MULTIVITAMIN TABLET PO SCH (12:20)
[2016-11-01] MEDS: SPIRONOLACTONE 25 MG TABLET PO SCH (12:20)
--- NOTE | 2016-11-01 12:57 | PDOC PROGRESS REPORT ---
Subjective Progress Note for:: 11/01/16 Subjective:: This follow-up visit for sepsis and left lower lobe pneumonia. No acute events overnight. She was put out very little urine. Physical Exam Vital Signs: Temp Pulse Resp BP Pulse Ox 98.0 F 89 16 90/60 L 95 11/01/16 11:55 11/01/16 11:55 11/01/16 11:55 11/01/16 11:55 11/01/16 11:55 Intake & Output 10/31/16 11/01/16 11/02/16 06:59 06:59 06:59 Intake Total 180 860 0 Output Total 450 250 40 Balance -270 610 -40 Weight 77.1 kg 78 kg PHYSICAL EXAM: GENERAL: This is a well-developed chronically ill appearing white female resting in no acute distress at the bedside. HEART: Regular rate and rhythm No murmurs rubs or gallops. LUNGS: diminished breath sounds at the bases bilaterally with equal rise and fall of the chest. ABDOMEN: Soft, distended, slightly tender to palpation especially in the epigastric area. Hypoactive bowel sounds EXTREMITIES: No clubbing cyanosis or trace pitting edema at the ankles 2+ peripheral pulses. NEURO: Awake, alert, oriented 3. Cranial nerves II through XII grossly intact. PSYCH: Flat affect. Results Laboratory Results: 10/31/16 05:40 10/31/16 05:40 10/28/16 11:53 Pleural Fluid Gram Stain - Final 10/28/16 11:53 Pleural Fluid Body Fluid Culture - Final NO AEROBIC OR ANAEROBIC ORGANISMS RECOVERED Impressions: Abdomen/Pelvis CT 10/23/16 12:59 IMPRESSION: 1. INTERVAL DEVELOPMENT OF MODERATE ASCITES, NOT PRESENT ON THE PRIOR STUDY (05/2017). 2. SEVERE FATTY INFILTRATION OF THE LIVER. 3. STABLE CHRONIC FINDINGS IN THE PANCREAS INCLUDING ATROPHY AND CALCIFICATIONS CONSISTENT WITH CHRONIC PANCREATITIS. STABLE SMALL FLUID COLLECTION LIKELY REPRESENTING A SMALL PSEUDOCYST. 4. STONES AND/OR SLUDGE IN THE GALLBLADDER. Paracentesis Ultrasound 10/23/16 13:29 IMPRESSION: Successful ultrasound-guided paracentesis Abdomen MRI 10/25/16 07:58 IMPRESSION: Normal portal venous flow void ; no evidence of portal venous thrombosis. Re- demonstration a pancreatic pseudocyst versus IPMN involving the pancreatic head/ neck junction with additional finding of a smaller cyst along the pancreatic duct within the tail. Compressive atelectasis of the left lower lobe with a moderate left pleural effusion. Chest CT 10/26/16 14:40 IMPRESSION: Dense left lower lobe atelectatic infiltrate with moderate left pleural effusion. Moderate ascites with marked fatty infiltration of the liver. Stable appearance of the pancreatic mass. Guidance Fluoroscopy 10/27/16 00:00 IMPRESSION: SUCCESSFUL PLACEMENT OF A 5 FR DUAL LUMEN 34 CM PICC IN THE left basilic VEIN. Interventional Vascular Procedure 10/27/16 00:00 IMPRESSION: SUCCESSFUL PLACEMENT OF A 5 FR DUAL LUMEN 34 CM PICC IN THE left basilic VEIN. PICC Line Insertion 10/27/16 11:11 IMPRESSION: SUCCESSFUL PLACEMENT OF A 5 FR DUAL LUMEN 34 CM PICC IN THE left basilic VEIN. Chest X-Ray 10/28/16 00:00 IMPRESSION: No pneumothorax 2 hours following thoracentesis. Thoracentesis Ultrasound 10/28/16 08:00 IMPRESSION: SUCCESSFUL THORACENTESIS USING ULTRASOUND GUIDANCE. Head CT 10/29/16 00:00 IMPRESSION: NORMAL BRAIN CT WITHOUT CONTRAST. Abdomen Ultrasound 10/31/16 00:00 IMPRESSION: STABLE DEGREE OF ASCITES COMPARED TO MRI FROM 10/25/2016. Assessment & Plan - Diagnosis (1) Sepsis Qualifiers: Sepsis type: sepsis due to unspecified organism Qualified Code(s): A41.9 - Sepsis, unspecified organism Plan: Sepsis secondary to presumed SBP. Continue oral Levaquin. She is status post cefepime and vancomycin and Levaquin. (2) Pneumonia Qualifiers: Pneumonia type: due to unspecified organism Laterality: left Lung location: lower lobe of lung Qualified Code(s): J18.1 - Lobar pneumonia, unspecified organism Plan: Left lower lobe pneumonia with parapneumonic effusion. Patient is status post thoracentesis 10/28. Cultures negative. This is transudative and likely from ascitic fluid. (3) Spontaneous bacterial peritonitis Plan: Continue Levaquin. (4) Chronic pancreatitis Qualifiers: Pancreatitis type: alcohol induced Qualified Code(s): K86.0 - Alcohol-induced chronic pancreatitis Plan: Pain control. Continue pancrelipase (5) Ascites due to alcoholic cirrhosis Plan: Paracentesis is already been done. Continues bilateral active and Lasix. Will arrange for paracentesis (6) Cirrhosis Qualifiers: Hepatic cirrhosis type: alcoholic cirrhosis Ascites presence: with ascites Qualified Code(s): K70.31 - Alcoholic cirrhosis of liver with ascites (7) Pleural effusion, left Plan: Management as above. Status post thoracentesis with transudative fluid (8) Alcohol abuse Plan: Continue multivitamin thiamine and folate (9) Alcohol withdrawal Qualifiers: Complication of substance-induced condition: uncomplicated Qualified Code(s): F10.230 - Alcohol dependence with withdrawal, uncomplicated Plan: Continue thiamine and multivitamin (10) Thrombocytopenia Plan: Stable we'll continue to monitor. This is a consequence of her underlying cirrhosis (11) Diarrhea Plan: Stool culture showed decreased it patient also has yeast in the urine tract. Will get a seven-day course of Diflucan. (12) Debility Plan: Continue PT. I've spoken with the patient at length about considering subacute rehabilitation. She will discuss it with her sister. She really wants to go home. (13) Renal failure Plan: Concern for hepatorenal syndrome the patient is oliguric. Decrease by mouth intake - Time Time Spent with patient: 15-24 minutes - Inpatient Certification Medical Necessity: Need Close Monitoring Due to Risk of Patient Decompensation
[2016-11-01 13:52] LABS: ABSOLUTE BASOPHILS # (AUTO) 0.2 10^3/uL (0.0-0.2); ABSOLUTE EOSINOPHILS # (AUTO) 0.1 10^3/uL (0.0-0.6); ABSOLUTE MONOCYTES (AUTO) 1.4 10^3/uL (0.1-1.4); ABSOLUTE NEUT (AUTO) 6.9 10^3/uL (1.7-8.2); BASOPHILS % (AUTO) 1.9 % (0-2); EOSINOPHILS % (AUTO) 0.6 % (0-6); HEMATOCRIT 28.9 % (36.0-47.0); HEMOGLOBIN 9.7 g/dL (12.0-15.5); HGB HCT DIFFERENCE 0.2; LYMPHOCYTES % (AUTO) 18.6 % (13-45); MEAN CORPUSCULAR HEMOGLOBIN 33.9 pg (27.0-33.4); MEAN CORPUSCULAR HGB CONC 33.8 g/dL (32.0-36.0); MEAN CORPUSCULAR VOLUME 100 fl (80-97); RED BLOOD COUNT 2.88 10^6/uL (3.72-5.28); RED CELL DISTRIBUTION WIDTH 14.2 % (11.5-14.0); SEGMENTED NEUTROPHILS % (AUTO) 65.9 % (42-78); WHITE BLOOD COUNT 10.5 10^3/uL (4.0-10.5)
[2016-11-01 13:58] LABS: ANION GAP 11 (5-19); BLOOD UREA NITROGEN 10 mg/dL (7-20); CALCIUM 9.5 mg/dL (8.4-10.2); CARBON DIOXIDE 20 mmol/L (22-30); CHLORIDE 109 mmol/L (98-107); CREATININE RESULT 2.04 mg/dL (0.52-1.25); GLUCOSE 99 mg/dL (75-110); MAGNESIUM 2.1 mg/dL (1.6-2.3); POTASSIUM 3.7 mmol/L (3.6-5.0); SODIUM 140.2 mmol/L (137-145)
[2016-11-01] MEDS ORDERED: ALBUMIN HUMAN 50 ML IV ONE (15:00)
[2016-11-01] MEDS: FOLIC ACID/VITAMIN B COMP W-C CAPSULE PO SCH (16:46)
[2016-11-01] MEDS: SODIUM BICARBONATE 650 MG TABLET PO SCH (17:36)
[2016-11-01 17:59] LABS: APPEARANCE,URINE SLIGHTLY-CLOUDY; BILIRUBIN,URINE NEGATIVE (NEGATIVE); GLUCOSE, URINE NEGATIVE (NEGATIVE); KETONES,URINE TRACE mg/dL (NEGATIVE); LEUKOCYTE ESTERASE,URINE TRACE (NEGATIVE); NITRITE,URINE NEGATIVE (NEGATIVE); PROTEIN,URINE 30 mg/dL (NEGATIVE); UROBILINOGEN,URINE NEGATIVE mg/dL (<2.0)
[2016-11-01] MEDS ORDERED: NORMAL SALINE 1000 ML 1,000 ML IV PRN (18:37)
[2016-11-01] MEDS: TRAZODONE HCL 50 MG TABLET PO SCH (21:10)
[2016-11-02] MEDS: NORMAL SALINE 10 ML SDV (SCHEDULED) IV SCH ×2 (01:20→09:24)
[2016-11-02 05:34] LABS: ANION GAP 10 (5-19); BLOOD UREA NITROGEN 12 mg/dL (7-20); CALCIUM 9.3 mg/dL (8.4-10.2); CARBON DIOXIDE 22 mmol/L (22-30); CHLORIDE 109 mmol/L (98-107); CREATININE RESULT 2.07 mg/dL (0.52-1.25); GLUCOSE 88 mg/dL (75-110); MAGNESIUM 2.1 mg/dL (1.6-2.3); POTASSIUM 3.4 mmol/L (3.6-5.0); SODIUM 141.4 mmol/L (137-145)
[2016-11-02] MEDS ORDERED: POTASSIUM CHLORIDE 10 MEQ TABLET.SA PO ONE (08:30)
[2016-11-02] MEDS: MULTIVITAMIN TABLET PO SCH (09:14)
[2016-11-02] MEDS: MAGNESIUM OXIDE 400 MG TABLET PO SCH ×2 (09:15→18:37)
[2016-11-02] MEDS: DULOXETINE HCL 30 MG CAPSULE.DR PO SCH (09:15)
[2016-11-02] MEDS: FUROSEMIDE 20 MG TABLET PO SCH ×2 (09:17→18:36)
[2016-11-02] MEDS: BUSPIRONE HCL 10 MG TABLET PO SCH ×2 (09:17→22:49)
[2016-11-02] MEDS: FLUCONAZOLE 100 MG TABLET PO SCH (09:17)
[2016-11-02] MEDS: SPIRONOLACTONE 25 MG TABLET PO SCH (09:17)
[2016-11-02] MEDS: LIPASE/PROTEASE/AMYLASE 1 CAP CAPSULE.DR PO SCH ×6 (09:24→18:40)
[2016-11-02] MEDS: CHOLESTYRAMINE/ASPARTAME 4 GM PACKET PO SCH ×2 (09:25→18:41)
[2016-11-02] MEDS: TRAMADOL HCL 50 MG TABLET PO PRN (09:40)
--- NOTE | 2016-11-02 12:14 | PDOC PROGRESS REPORT ---
Subjective Progress Note for:: 11/02/16 Subjective:: This follow-up visit for sepsis and left lower lobe pneumonia. No acute events overnight. She was put out very little urine again yesterday. Put out a total of 290 mL. In my conversation with her today she has agreed for rehabilitation. Also discussed with her opening up the blinds in her room and getting some light the patient seems depressed. She likes dark. Currently she doesn't complain of anything Physical Exam Vital Signs: Temp Pulse Resp BP Pulse Ox 97.9 F 96 18 98/56 L 94 11/02/16 07:33 11/02/16 07:33 11/02/16 07:33 11/02/16 07:33 11/02/16 07:33 Intake & Output 11/01/16 11/02/16 11/03/16 06:59 06:59 06:59 Intake Total 860 865 Output Total 250 290 Balance 610 575 Weight 78 kg 77.5 kg PHYSICAL EXAM: GENERAL: This is a well-developed chronically ill appearing white female resting in no acute distress at the bedside, but appearing quite sad and down trodden. HEART: Regular rate and rhythm No murmurs rubs or gallops. LUNGS: Crackles can be heard anteriorly with equal rise and fall of the chest. ABDOMEN: Soft, distended, slightly tender to palpation especially in the epigastric area. Hypoactive bowel sounds EXTREMITIES: No clubbing cyanosis or trace to 1+ pitting edema at the ankles 2 + peripheral pulses. NEURO: Awake, alert, oriented 3. Cranial nerves II through XII grossly intact. PSYCH: Flat affect. Patient appears depressed. Results Laboratory Results: 11/02/16 04:50 11/02/16 04:50 11/01/16 11/01/16 11/01/16 13:00 13:00 13:55 WBC 10.5 RBC 2.88 L Hgb 9.7 L Hct 28.9 L MCV 100 H MCH 33.9 H MCHC 33.8 RDW 14.2 H Plt Count 59 L Seg Neutrophils % 65.9 Lymphocytes % 18.6 Monocytes % 13.0 Eosinophils % 0.6 Basophils % 1.9 Absolute Neutrophils 6.9 Absolute Lymphocytes 2.0 Absolute Monocytes 1.4 Absolute Eosinophils 0.1 Absolute Basophils 0.2 Sodium 140.2 Potassium 3.7 Chloride 109 H Carbon Dioxide 20 L Anion Gap 11 BUN 10 Creatinine 2.04 H Est GFR ( Amer) 31 L Est GFR (Non-Af Amer) 26 L Glucose 99 Calcium 9.5 Magnesium 2.1 Urine Color Urine Appearance Urine pH Ur Specific [place] Urine Protein Urine Glucose (UA) Urine Ketones Urine Blood Urine Nitrite Ur Leukocyte Esterase Urine WBC (Auto) Urine RBC (Auto) Stool Occult Blood NEGATIVE 11/01/16 11/02/16 11/02/16 16:47 04:50 04:50 WBC Cancelled RBC Cancelled Hgb Cancelled Hct Cancelled MCV Cancelled MCH Cancelled MCHC Cancelled RDW Cancelled Plt Count Cancelled Seg Neutrophils % Cancelled Lymphocytes % Cancelled Monocytes % Cancelled Eosinophils % Cancelled Basophils % Cancelled Absolute Neutrophils Cancelled Absolute Lymphocytes Cancelled Absolute Monocytes Cancelled Absolute Eosinophils Cancelled Absolute Basophils Cancelled Sodium 141.4 Potassium 3.4 L Chloride 109 H Carbon Dioxide 22 Anion Gap 10 BUN 12 Creatinine 2.07 H Est GFR ( Amer) 31 L Est GFR (Non-Af Amer) 25 L Glucose 88 Calcium 9.3 Magnesium 2.1 Urine Color YELLOW Urine Appearance SLIGHTLY-CLOUDY Urine pH 5.0 Ur Specific [place] 1.010 Urine Protein 30 H Urine Glucose (UA) NEGATIVE Urine Ketones TRACE H Urine Blood LARGE H Urine Nitrite NEGATIVE Ur Leukocyte Esterase TRACE H Urine WBC (Auto) 23 Urine RBC (Auto) 82 Stool Occult Blood 10/28/16 11:53 Pleural Fluid Gram Stain - Final 10/28/16 11:53 Pleural Fluid Body Fluid Culture - Final NO AEROBIC OR ANAEROBIC ORGANISMS RECOVERED Impressions: Abdomen/Pelvis CT 10/23/16 12:59 IMPRESSION: 1. INTERVAL DEVELOPMENT OF MODERATE ASCITES, NOT PRESENT ON THE PRIOR STUDY (05/2017). 2. SEVERE FATTY INFILTRATION OF THE LIVER. 3. STABLE CHRONIC FINDINGS IN THE PANCREAS INCLUDING ATROPHY AND CALCIFICATIONS CONSISTENT WITH CHRONIC PANCREATITIS. STABLE SMALL FLUID COLLECTION LIKELY REPRESENTING A SMALL PSEUDOCYST. 4. STONES AND/OR SLUDGE IN THE GALLBLADDER. Paracentesis Ultrasound 10/23/16 13:29 IMPRESSION: Successful ultrasound-guided paracentesis Abdomen MRI 10/25/16 07:58 IMPRESSION: Normal portal venous flow void ; no evidence of portal venous thrombosis. Re- demonstration a pancreatic pseudocyst versus IPMN involving the pancreatic head/ neck junction with additional finding of a smaller cyst along the pancreatic duct within the tail. Compressive atelectasis of the left lower lobe with a moderate left pleural effusion. Chest CT 10/26/16 14:40 IMPRESSION: Dense left lower lobe atelectatic infiltrate with moderate left pleural effusion. Moderate ascites with marked fatty infiltration of the liver. Stable appearance of the pancreatic mass. Guidance Fluoroscopy 10/27/16 00:00 IMPRESSION: SUCCESSFUL PLACEMENT OF A 5 FR DUAL LUMEN 34 CM PICC IN THE left basilic VEIN. Interventional Vascular Procedure 10/27/16 00:00 IMPRESSION: SUCCESSFUL PLACEMENT OF A 5 FR DUAL LUMEN 34 CM PICC IN THE left basilic VEIN. PICC Line Insertion 10/27/16 11:11 IMPRESSION: SUCCESSFUL PLACEMENT OF A 5 FR DUAL LUMEN 34 CM PICC IN THE left basilic VEIN. Chest X-Ray 10/28/16 00:00 IMPRESSION: No pneumothorax 2 hours following thoracentesis. Thoracentesis Ultrasound 10/28/16 08:00 IMPRESSION: SUCCESSFUL THORACENTESIS USING ULTRASOUND GUIDANCE. Head CT 10/29/16 00:00 IMPRESSION: NORMAL BRAIN CT WITHOUT CONTRAST. Abdomen Ultrasound 10/31/16 00:00 IMPRESSION: STABLE DEGREE OF ASCITES COMPARED TO MRI FROM 10/25/2016. Renal Ultrasound 11/01/16 00:00 IMPRESSION: NORMAL RENAL AND BLADDER ULTRASOUND. STABLE DEGREE OF ASCITES. Assessment & Plan - Diagnosis (1) Sepsis Qualifiers: Sepsis type: sepsis due to unspecified organism Qualified Code(s): A41.9 - Sepsis, unspecified organism Plan: Sepsis with shock secondary to presumed SBP. A sugar status post pressor support (2) Pneumonia Qualifiers: Pneumonia type: due to unspecified organism Laterality: left Lung location: lower lobe of lung Qualified Code(s): J18.1 - Lobar pneumonia, unspecified organism Plan: Left lower lobe hospital-acquired pneumonia with parapneumonic effusion. Patient is status post thoracentesis 10/28. Cultures negative. This is transudative and likely from ascitic fluid. She is status post treatment with antibiotics. (3) Spontaneous bacterial peritonitis Plan: Continue prophylactic oral Levaquin. She is status post cefepime and vancomycin and Levaquin IV. Cultures of peritoneal fluid were negative. Patient blood pressures run on the low side and therefore beta blockers prescribed. (4) Chronic pancreatitis Qualifiers: Pancreatitis type: alcohol induced Qualified Code(s): K86.0 - Alcohol-induced chronic pancreatitis Plan: Chronic pancreatitis with pseudocyst. Pain control. Continue pancrelipase (5) Ascites due to alcoholic cirrhosis Plan: Paracentesis is done 10/23. Continue Aldactone and Lasix. (6) Pleural effusion, left Is this a current diagnosis for this admission?: Yes (7) Alcohol abuse Plan: Continue multivitamin thiamine and folate. Patient's last drink was approximately 6 months ago. (8) Thrombocytopenia Is this a current diagnosis for this admission?: YesPlan: Stable we'll continue to monitor. This is a consequence of her underlying cirrhosis. (9) Diarrhea Plan: Stool culture showed yeast. Yeast is also present in the urine Will get a seven -day course of Diflucan. (10) Renal failure Plan: Concern for hepatorenal syndrome the patient is oliguric. She has Decrease by mouth intake. Estring when I saw her she only had 90 mL of urine out. She was given albumin as well as a fluid challenge, after which she put out 200 more for the rest of the day. Consult nephrology. (11) Debility Plan: Continue PT. I've spoken with the patient at length about considering subacute rehabilitation. She discussed things with her boyfriend and they have decided that subacute rehabilitation would be best at least in the short-term. (12) Portal vein thrombosis Plan: Portal vein thrombosis suspected and ruled out with MRI. - Time Time Spent with patient: 25-34 minutes Anticipated discharge: Acute Rehab - Inpatient Certification Medical Necessity: Significant Comorbidiites Make Outpatient Treatment Too Risky
[2016-11-02] MEDS: LEVOFLOXACIN 500 MG TABLET PO SCH (13:00)
[2016-11-02 13:37] LABS: ABSOLUTE BASOPHILS # (AUTO) 0.1 10^3/uL (0.0-0.2); ABSOLUTE EOSINOPHILS # (AUTO) 0.1 10^3/uL (0.0-0.6); ABSOLUTE LYMPHOCYTES (AUTO) 2.1 10^3/uL (0.5-4.7); ABSOLUTE MONOCYTES (AUTO) 1.5 10^3/uL (0.1-1.4); ABSOLUTE NEUT (AUTO) 5.8 10^3/uL (1.7-8.2); BASOPHILS % (AUTO) 0.7 % (0-2); HEMATOCRIT 27.3 % (36.0-47.0); HEMOGLOBIN 9.3 g/dL (12.0-15.5); HGB HCT DIFFERENCE 0.6; LYMPHOCYTES % (AUTO) 22.1 % (13-45); MEAN CORPUSCULAR HGB CONC 33.9 g/dL (32.0-36.0); MEAN CORPUSCULAR VOLUME 100 fl (80-97); MONOCYTES % (AUTO) 15.2 % (3-13); RED BLOOD COUNT 2.72 10^6/uL (3.72-5.28); RED CELL DISTRIBUTION WIDTH 14.1 % (11.5-14.0); WHITE BLOOD COUNT 9.6 10^3/uL (4.0-10.5)
[2016-11-02] MEDS: NORMAL SALINE 1000 ML 1,000 ML IV PRN ×2 (16:54→18:37)
--- NOTE | 2016-11-02 17:02 | PDOC CONSULTATION ---
Consultation Consult Date: 11/02/16 Attending physician:: JUAN C GAYTAN Consult reason:: I was asked by Dr. Grover to see this patient because of worsening kidney function. History of Present Illness Admission Date/PCP: 10/23/16 17:31 History of Present Illness: Patient is a 51 lady with unfortunate history of alcoholic cirrhosis, COPD, hyperlipidemia who was admitted on October 23 because of severe hypotension with systolic blood pressure in the 70s. She was admitted in the intensive care unit with diagnosis of possible septic shock, spontaneous bacterial peritonitis in a patient with history of cirrhosis and chronic pancreatitis. She was aggressively hydrated and treated with antibiotics. She also had history of 6 months weight loss of 40 pounds, diarrhea and chronic abdominal pain. She was found to have ascites and had paracentesis were 1 L ascitic fluid was obtained. While in the ICU she was also being given albumin intravenously. When she improved she was transferred to [facility] on October 26. She had the left thoracentesis on October 27 for pleural effusion. Currently she is being treated for pneumonia. She was on vancomycin on October 23 to October 30 and a vancomycin trough level and 15 1019 showed level above 20 which is within toxic level. Vancomycin was discontinued. She is currently being given Lasix 20 mg twice a day increased from once a day as well as his spironolactone daily. She continues to have very poor appetite. She said she doesn't eat much because she doesn't like certain foods. She claims that she drinks water at least 1-2 for drugs at bedside. She got diagnosed with liver cirrhosis about 6 months ago. In terms of her kidney function patient came in with a BUN of less than 2, creatinine of 0.79 with estimated GFR greater than 60. Her kidney function progressively deteriorated and declined throughout her hospitalization and today they were BUN of 12 creatinine of 2.07 with estimated GFR of 25. She has been oliguric worse for the last couple of days with urine output less than 300 mL a day. She was started on some normal saline at 50 mL an hour yesterday. Her kidney ultrasound done yesterday was unremarkable. Her intake and output balance since admission is positive at least 7 L for the cumulative balance. Patient has some bilateral flank pain. She denies any history of kidney disease or kidney failure episode in the past. She denies any history of kidney stones. When she came in she said she didn't have any leg swelling but she does have some swelling now. She is also short of breath which she felt like its worst and when she came in. She has occasional cough but no fever. She continues to have abdominal pain which seems worse associated with some nausea and occasional vomiting. Past Medical History Cardiac Medical History: Reports: Hyperlipidemia Pulmonary Medical History: Reports: Chronic Obstructive Pulmonary Disease (COPD) Malignancy Medical History: Reports: Skin Cancer GI Medical History: Reports: Cirrhosis Musculoskeltal Medical History: Reports: Arthritis Psychiatric Medical History: Reports: Depression Past Surgical History Past Surgical History: Reports: Section - 1986, Hysterectomy, Tubal Ligation, Other - [place] teeth extraction Social History Smoking Status: Current Every Day Smoker Cigarettes Packs Per Day: 1 Number of Years Smokin Frequency of Alcohol Use: Heavy - She was drinking for one coolers every day for at least 10 years but she claims she has been sober for the last 6 months Hx Recreational Drug Use: No Drugs: None Hx Prescription Drug Abuse: No - Advance Directive Resuscitation Status: Full Code Family History Family History: Other - Chronic alcoholism on her 2 brothers and sister, Alzheimer's in her mother, daughter has history of neuroblastoma and Hodgkin's lymphoma Parental Family History Reviewed: Yes Children Family History Reviewed: Yes Sibling(s) Family History Reviewed.: Yes Medication/Allergy Home Medications: Buspirone HCl [Buspar 15 mg Tablet] 15 mg PO Q12 09/20/16 Duloxetine HCl [Cymbalta] 60 mg PO DAILY 09/20/16 Trazodone HCl [Desyrel] 200 mg PO QHS 09/20/16 Zolpidem Tartrate [Ambien] 10 mg PO HSP PRN 09/20/16 Hydroxyzine Pamoate 100 mg PO Q8 10/23/16 Allergies/Adverse Reactions: morphine [Morphine] Allergy (Verified 10/23/16 11:39) NSAIDS (Non-Steroidal Anti-Inflamma [Nsaids] Allergy (Verified 10/23/16 11:39) Penicillins Allergy (Verified 10/23/16 11:39) Sulfa (Sulfonamide Antibiotics) Allergy (Verified 10/23/16 11:39) Review of Systems All systems: reviewed and no additional remarkable complaints except as stated Review of Systems: Constitutional: ABSENT: chills, fatigue, fever(s), headache(s), weight gain, admits 40 pounds weight loss Eyes: ABSENT: visual disturbances Ears: ABSENT: hearing changes Cardiovascular: ABSENT: chest pain, dyspnea on exertion, orthropnea, palpitations; admits edema Respiratory: ABSENT: hemoptysis; admits cough and shortness of breath Gastrointestinal: ABSENT: constipation, hematemesis, hematochezia; admits chronic abdominal pain, diarrhea, nausea, and vomiting Genitourinary: ABSENT: dysuria, hematuria Musculoskeletal: ABSENT: joint swelling Integumentary: ABSENT: rash, wounds Neurological: ABSENT: abnormal gait, abnormal speech, confusion, dizziness, focal weakness, numbness, syncope Psychiatric: ABSENT: anxiety, admits depression Endocrine: ABSENT: cold intolerance, heat intolerance, polydipsia, polyuria Hematologic/Lymphatic: ABSENT: easy bleeding, easy bruising, lymphadenopathy Physical Exam Vital Signs: Temp Pulse Resp BP Pulse Ox 97.9 F 99 18 98/56 L 94 11/02/16 07:33 11/02/16 14:00 11/02/16 07:33 11/02/16 07:33 11/02/16 07:33 Intake & Output 11/01/16 11/02/16 11/03/16 06:59 06:59 06:59 Intake Total 860 865 0 Output Total 250 290 50 Balance 610 575 -50 Weight 78 kg 77.5 kg Exam: General appearance: no acute distress, cooperative, well-developed, well- nourished Head exam: PRESENT: atraumatic, normocephalic Eye exam: PRESENT: Conjunctiva pale, EOMI, PERRLA. ABSENT: conjunctival injection, scleral icterus Mouth exam: PRESENT: moist, neck supple, tongue midline Neck exam: PRESENT: full ROM. ABSENT: carotid bruit, JVD, lymphadenopathy, thyromegaly Respiratory exam: PRESENT: Diminished to auscultation bilaterally. Positive right basal crackles ABSENT: rhonchi, stridor, wheezes Cardiovascular exam: PRESENT: RRR, +S1, +S2. ABSENT: systolic murmur Pulses: PRESENT: normal radial pulses, normal dorsalis pedis pulses GI/Abdominal exam: PRESENT: Hyperreactive bowel sounds, soft. globular and distended insistent with ascites, positive diffuse tenderness more on the periumbilical and right flank areas ABSENT: guarding, mass Rectal exam: deferred Extremities exam: PRESENT: full ROM. Trace bilateral lower extremity peeping edema ABSENT: calf tenderness Musculoskeletal: PRESENT: full ROM. ABSENT: deformity Neurological exam: PRESENT: alert, Awake, Oriented to person, Oriented to place , Oriented to time, reflexes normal, CN II-XII grossly intact. ABSENT: motor sensory deficit Psychiatric exam: PRESENT: appropriate affect, normal mood. She appears depressed ABSENT: homicidal ideation, suicidal ideation Skin exam: PRESENT: intact, dry, warm. ABSENT: rash Results Laboratory Results: 11/02/16 13:02 11/02/16 04:50 11/01/16 11/02/16 11/02/16 16:47 04:50 04:50 WBC Cancelled RBC Cancelled Hgb Cancelled Hct Cancelled MCV Cancelled MCH Cancelled MCHC Cancelled RDW Cancelled Plt Count Cancelled Seg Neutrophils % Cancelled Lymphocytes % Cancelled Monocytes % Cancelled Eosinophils % Cancelled Basophils % Cancelled Absolute Neutrophils Cancelled Absolute Lymphocytes Cancelled Absolute Monocytes Cancelled Absolute Eosinophils Cancelled Absolute Basophils Cancelled Sodium 141.4 Potassium 3.4 L Chloride 109 H Carbon Dioxide 22 Anion Gap 10 BUN 12 Creatinine 2.07 H Est GFR ( Amer) 31 L Est GFR (Non-Af Amer) 25 L Glucose 88 Calcium 9.3 Magnesium 2.1 Urine Color YELLOW Urine Appearance SLIGHTLY-CLOUDY Urine pH 5.0 Ur Specific [place] 1.010 Urine Protein 30 H Urine Glucose (UA) NEGATIVE Urine Ketones TRACE H Urine Blood LARGE H Urine Nitrite NEGATIVE Ur Leukocyte Esterase TRACE H Urine WBC (Auto) 23 Urine RBC (Auto) 82 11/02/16 13:02 WBC 9.6 RBC 2.72 L Hgb 9.3 L Hct 27.3 L MCV 100 H MCH 34.0 H MCHC 33.9 RDW 14.1 H Plt Count 52 L Seg Neutrophils % 61.0 Lymphocytes % 22.1 Monocytes % 15.2 H Eosinophils % 1.0 Basophils % 0.7 Absolute Neutrophils 5.8 Absolute Lymphocytes 2.1 Absolute Monocytes 1.5 H Absolute Eosinophils 0.1 Absolute Basophils 0.1 Sodium Potassium Chloride Carbon Dioxide Anion Gap BUN Creatinine Est GFR ( Amer) Est GFR (Non-Af Amer) Glucose Calcium Magnesium Urine Color Urine Appearance Urine pH Ur Specific [place] Urine Protein Urine Glucose (UA) Urine Ketones Urine Blood Urine Nitrite Ur Leukocyte Esterase Urine WBC (Auto) Urine RBC (Auto) Impressions: Abdomen/Pelvis CT 10/23/16 12:59 IMPRESSION: 1. INTERVAL DEVELOPMENT OF MODERATE ASCITES, NOT PRESENT ON THE PRIOR STUDY (05/2017). 2. SEVERE FATTY INFILTRATION OF THE LIVER. 3. STABLE CHRONIC FINDINGS IN THE PANCREAS INCLUDING ATROPHY AND CALCIFICATIONS CONSISTENT WITH CHRONIC PANCREATITIS. STABLE SMALL FLUID COLLECTION LIKELY REPRESENTING A SMALL PSEUDOCYST. 4. STONES AND/OR SLUDGE IN THE GALLBLADDER. Paracentesis Ultrasound 10/23/16 13:29 IMPRESSION: Successful ultrasound-guided paracentesis Abdomen MRI 10/25/16 07:58 IMPRESSION: Normal portal venous flow void ; no evidence of portal venous thrombosis. Re- demonstration a pancreatic pseudocyst versus IPMN involving the pancreatic head/ neck junction with additional finding of a smaller cyst along the pancreatic duct within the tail. Compressive atelectasis of the left lower lobe with a moderate left pleural effusion. Chest CT 10/26/16 14:40 IMPRESSION: Dense left lower lobe atelectatic infiltrate with moderate left pleural effusion. Moderate ascites with marked fatty infiltration of the liver. Stable appearance of the pancreatic mass. Guidance Fluoroscopy 10/27/16 00:00 IMPRESSION: SUCCESSFUL PLACEMENT OF A 5 FR DUAL LUMEN 34 CM PICC IN THE left basilic VEIN. Interventional Vascular Procedure 10/27/16 00:00 IMPRESSION: SUCCESSFUL PLACEMENT OF A 5 FR DUAL LUMEN 34 CM PICC IN THE left basilic VEIN. PICC Line Insertion 10/27/16 11:11 IMPRESSION: SUCCESSFUL PLACEMENT OF A 5 FR DUAL LUMEN 34 CM PICC IN THE left basilic VEIN. Chest X-Ray 10/28/16 00:00 IMPRESSION: No pneumothorax 2 hours following thoracentesis. Thoracentesis Ultrasound 10/28/16 08:00 IMPRESSION: SUCCESSFUL THORACENTESIS USING ULTRASOUND GUIDANCE. Head CT 10/29/16 00:00 IMPRESSION: NORMAL BRAIN CT WITHOUT CONTRAST. Abdomen Ultrasound 10/31/16 00:00 IMPRESSION: STABLE DEGREE OF ASCITES COMPARED TO MRI FROM 10/25/2016. Renal Ultrasound 11/01/16 00:00 IMPRESSION: NORMAL RENAL AND BLADDER ULTRASOUND. STABLE DEGREE OF ASCITES. Assessment & Plan - Diagnosis (1) Acute kidney injury Is this a current diagnosis for this admission?: YesPlan: Patient has been nonoliguric and has been worse for the last couple of days. Differential diagnosis are as follow: Patient came in with hypotension, vancomycin toxicity due to elevated trough levels few days ago, intravascular volume depletion however the positive fluid balance does not favor this, the patient could've very much have hepatorenal syndrome given her history. I will continue her normal saline at 70 mL but now her, give her albumin 25 g IV daily, and check her albumin level. I will also send and collect urine for sodium and creatinine from random specimen. Continue to monitor kidney function and urine output. (2) Anemia in chronic illness Is this a current diagnosis for this admission?: Yes (3) Hypokalemia Is this a current diagnosis for this admission?: YesPlan: Replace as necessary. (4) Ascites due to alcoholic cirrhosis Is this a current diagnosis for this admission?: Yes (5) Cirrhosis of liver Qualifiers: Hepatic cirrhosis type: alcoholic cirrhosis Ascites presence: without ascites Qualified Code(s): K70.30 - Alcoholic cirrhosis of liver without ascites (6) Pleural effusion, left Is this a current diagnosis for this admission?: Yes (7) Pneumonia Qualifiers: Pneumonia type: due to unspecified organism Laterality: left Lung location: lower lobe of lung Qualified Code(s): J18.1 - Lobar pneumonia, unspecified organism Is this a current diagnosis for this admission?: Yes (8) Chronic pancreatitis Qualifiers: Pancreatitis type: alcohol induced Qualified Code(s): K86.0 - Alcohol-induced chronic pancreatitis Is this a current diagnosis for this admission?: Yes - Notes Notes: Assessment and plan discussed with patient. Thank you very much for this consultation. I'll follow the patient with you. - Time Time Spent: Greater than 70 Minutes
--- NOTE | 2016-11-02 17:04 | EKG REPORT ---
SEVERITY:- ABNORMAL ECG - SINUS RHYTHM PROBABLE LEFT ATRIAL ABNORMALITY LATERAL INFARCT, AGE INDETERMINATE CONSIDER ANTEROSEPTAL INFARCT : Confirmed by: Marilou Winters MD 02-Nov-2016 17:02:34
[2016-11-02] MEDS: FOLIC ACID/VITAMIN B COMP W-C CAPSULE PO SCH (18:36)
[2016-11-02] MEDS: SODIUM BICARBONATE 650 MG TABLET PO SCH (18:36)
[2016-11-02] MEDS ORDERED: ALBUMIN HUMAN 100 ML IV ONE (22:14)
[2016-11-02] MEDS: ALBUMIN HUMAN 50 ML IV SCH ×2 (22:49→23:45)
[2016-11-02 23:12] LABS: URINE CREATININE 44.7 mg/dL (15-278)
[2016-11-03] MEDS: TRAMADOL HCL 50 MG TABLET PO PRN ×2 (00:54→16:58)
[2016-11-03] MEDS: TRAZODONE HCL 50 MG TABLET PO SCH ×2 (00:54→21:25)
[2016-11-03] MEDS: NORMAL SALINE 10 ML SDV (SCHEDULED) IV SCH ×3 (00:55→22:44)
[2016-11-03 06:42] LABS: APPEARANCE,URINE SLIGHTLY-CLOUDY; BILIRUBIN,URINE NEGATIVE (NEGATIVE); GLUCOSE, URINE NEGATIVE (NEGATIVE); KETONES,URINE NEGATIVE (NEGATIVE); LEUKOCYTE ESTERASE,URINE NEGATIVE (NEGATIVE); NITRITE,URINE NEGATIVE (NEGATIVE); PROTEIN,URINE 30 mg/dL (NEGATIVE); URINE SPECIFIC GRAVITY 1.008; UROBILINOGEN,URINE NEGATIVE mg/dL (<2.0)
[2016-11-03 06:43] LABS: ABSOLUTE BASOPHILS # (AUTO) 0.1 10^3/uL (0.0-0.2); ABSOLUTE EOSINOPHILS # (AUTO) 0.1 10^3/uL (0.0-0.6); ABSOLUTE LYMPHOCYTES (AUTO) 2.1 10^3/uL (0.5-4.7); ABSOLUTE MONOCYTES (AUTO) 1.1 10^3/uL (0.1-1.4); ABSOLUTE NEUT (AUTO) 4.4 10^3/uL (1.7-8.2); BASOPHILS % (AUTO) 1.2 % (0-2); HEMATOCRIT 24.4 % (36.0-47.0); HEMOGLOBIN 8.2 g/dL (12.0-15.5); HGB HCT DIFFERENCE 0.2; LYMPHOCYTES % (AUTO) 26.7 % (13-45); MEAN CORPUSCULAR HEMOGLOBIN 33.8 pg (27.0-33.4); MEAN CORPUSCULAR HGB CONC 33.6 g/dL (32.0-36.0); MEAN CORPUSCULAR VOLUME 101 fl (80-97); MONOCYTES % (AUTO) 14.3 % (3-13); RED BLOOD COUNT 2.43 10^6/uL (3.72-5.28); RED CELL DISTRIBUTION WIDTH 14.2 % (11.5-14.0); SEGMENTED NEUTROPHILS % (AUTO) 56.8 % (42-78); WHITE BLOOD COUNT 7.8 10^3/uL (4.0-10.5)
[2016-11-03 07:03] LABS: ALBUMIN 2.3 g/dL (3.5-5.0); ANION GAP 11 (5-19); BLOOD UREA NITROGEN 13 mg/dL (7-20); CALCIUM 8.6 mg/dL (8.4-10.2); CARBON DIOXIDE 21 mmol/L (22-30); CHLORIDE 110 mmol/L (98-107); CREATININE RESULT 1.99 mg/dL (0.52-1.25); GLUCOSE 70 mg/dL (75-110); MAGNESIUM 1.8 mg/dL (1.6-2.3); POTASSIUM 3.1 mmol/L (3.6-5.0); SODIUM 142.3 mmol/L (137-145)
[2016-11-03] MEDS: LIPASE/PROTEASE/AMYLASE 1 CAP CAPSULE.DR PO SCH ×6 (08:13→16:58)
[2016-11-03] MEDS ORDERED: POTASSI CL 20 MEQ/50 ML RIDER 50 ML IV ONE (08:45)
[2016-11-03] MEDS: NORMAL SALINE 1000 ML 1,000 ML IV PRN (09:12)
[2016-11-03] MEDS: FLUCONAZOLE 100 MG TABLET PO SCH (10:47)
[2016-11-03] MEDS: BUSPIRONE HCL 10 MG TABLET PO SCH ×2 (10:47→21:24)
[2016-11-03] MEDS: FUROSEMIDE 20 MG TABLET PO SCH ×2 (10:48→18:11)
[2016-11-03] MEDS: MAGNESIUM OXIDE 400 MG TABLET PO SCH ×2 (10:48→18:11)
[2016-11-03] MEDS: SPIRONOLACTONE 25 MG TABLET PO SCH (10:49)
[2016-11-03] MEDS: MULTIVITAMIN TABLET PO SCH (10:52)
[2016-11-03] MEDS: DULOXETINE HCL 30 MG CAPSULE.DR PO SCH (10:53)
[2016-11-03] MEDS: CHOLESTYRAMINE/ASPARTAME 4 GM PACKET PO SCH ×2 (10:58→17:00)
[2016-11-03] MEDS: LEVOFLOXACIN 500 MG TABLET PO SCH (12:50)
--- NOTE | 2016-11-03 13:01 | PDOC PROGRESS REPORT ---
Subjective Progress Note for:: 11/03/16 Subjective:: This follow-up visit for sepsis and left lower lobe pneumonia. Recall that this patient was admitted about 2 weeks ago with sepsis thought to be secondary to SBP and left lower lobe pneumonia. He was initially in the ICU. She gradually got better and was able to be downgraded to [facility] level care. She has cirrhosis of the liver and abdominal ascites. Also had parapneumonic effusion. She has had paracentesis as well as thoracentesis. I suspect that her pleural effusion is likely secondary to her ascitic fluid. The last several days the patient has had decline in her renal function. I have great concern that she could be developing hepatorenal syndrome. Therefore, nephrology was consulted and is following. The patient also has chronic pancreatitis with pseudocyst. She has tachypnea off and on due to abdominal distention. The plan as of now is to try her best to correct her kidney dysfunction and have her go to subacute rehabilitation she was agreeable to this. No acute events overnight. She was put out very little urine again yesterday. She has agreed for rehabilitation. Also discussed with her opening up the blinds in her room and getting some light the patient seems depressed. Currently she doesn't complain of anything Physical Exam Vital Signs: Temp Pulse Resp BP Pulse Ox 98.2 F 90 16 90/56 L 94 11/03/16 11:51 11/03/16 11:51 11/03/16 07:50 11/03/16 11:51 11/03/16 11:51 Intake & Output 11/02/16 11/03/16 11/04/16 06:59 06:59 06:59 Intake Total 865 866 0 Output Total 290 500 150 Balance 575 366 -150 Weight 77.5 kg 79.9 kg PHYSICAL EXAM: GENERAL: This is a well-developed chronically ill appearing white female resting in no acute distress at the bedside, but appearing quite sad and down trodden. HEART: Regular rate and rhythm. No murmurs rubs or gallops. LUNGS: Clear anteriorly with equal rise and fall of the chest. ABDOMEN: Soft, distended, slightly tender to palpation especially in the epigastric area. Hypoactive bowel sounds EXTREMITIES: No clubbing cyanosis or trace to 1+ pitting edema at the ankles 2 + peripheral pulses. NEURO: Awake, alert, oriented 3. Cranial nerves II through XII grossly intact. PSYCH: Flat affect. Patient appears depressed. Results Laboratory Results: 11/03/16 04:50 11/03/16 04:50 11/02/16 11/03/16 11/03/16 13:02 04:50 04:50 WBC 9.6 7.8 RBC 2.72 L 2.43 L Hgb 9.3 L 8.2 L Hct 27.3 L 24.4 L MCV 100 H 101 H MCH 34.0 H 33.8 H MCHC 33.9 33.6 RDW 14.1 H 14.2 H Plt Count 52 L 46 L Seg Neutrophils % 61.0 56.8 Lymphocytes % 22.1 26.7 Monocytes % 15.2 H 14.3 H Eosinophils % 1.0 1.0 Basophils % 0.7 1.2 Absolute Neutrophils 5.8 4.4 Absolute Lymphocytes 2.1 2.1 Absolute Monocytes 1.5 H 1.1 Absolute Eosinophils 0.1 0.1 Absolute Basophils 0.1 0.1 Sodium 142.3 Potassium 3.1 L Chloride 110 H Carbon Dioxide 21 L Anion Gap 11 BUN 13 Creatinine 1.99 H Est GFR ( Amer) 32 L Est GFR (Non-Af Amer) 27 L Glucose 70 L Calcium 8.6 Magnesium 1.8 Albumin 2.3 L Urine Color Urine Appearance Urine pH Ur Specific [place] Urine Protein Urine Glucose (UA) Urine Ketones Urine Blood Urine Nitrite Ur Leukocyte Esterase Urine WBC (Auto) Urine RBC (Auto) 11/03/16 05:35 WBC RBC Hgb Hct MCV MCH MCHC RDW Plt Count Seg Neutrophils % Lymphocytes % Monocytes % Eosinophils % Basophils % Absolute Neutrophils Absolute Lymphocytes Absolute Monocytes Absolute Eosinophils Absolute Basophils Sodium Potassium Chloride Carbon Dioxide Anion Gap BUN Creatinine Est GFR ( Amer) Est GFR (Non-Af Amer) Glucose Calcium Magnesium Albumin Urine Color YELLOW Urine Appearance SLIGHTLY-CLOUDY Urine pH 5.0 Ur Specific [place] 1.008 Urine Protein 30 H Urine Glucose (UA) NEGATIVE Urine Ketones NEGATIVE Urine Blood MODERATE H Urine Nitrite NEGATIVE Ur Leukocyte Esterase NEGATIVE Urine WBC (Auto) 5 Urine RBC (Auto) 30 Impressions: Abdomen/Pelvis CT 10/23/16 12:59 IMPRESSION: 1. INTERVAL DEVELOPMENT OF MODERATE ASCITES, NOT PRESENT ON THE PRIOR STUDY (05/2017). 2. SEVERE FATTY INFILTRATION OF THE LIVER. 3. STABLE CHRONIC FINDINGS IN THE PANCREAS INCLUDING ATROPHY AND CALCIFICATIONS CONSISTENT WITH CHRONIC PANCREATITIS. STABLE SMALL FLUID COLLECTION LIKELY REPRESENTING A SMALL PSEUDOCYST. 4. STONES AND/OR SLUDGE IN THE GALLBLADDER. Paracentesis Ultrasound 10/23/16 13:29 IMPRESSION: Successful ultrasound-guided paracentesis Abdomen MRI 10/25/16 07:58 IMPRESSION: Normal portal venous flow void ; no evidence of portal venous thrombosis. Re- demonstration a pancreatic pseudocyst versus IPMN involving the pancreatic head/ neck junction with additional finding of a smaller cyst along the pancreatic duct within the tail. Compressive atelectasis of the left lower lobe with a moderate left pleural effusion. Chest CT 10/26/16 14:40 IMPRESSION: Dense left lower lobe atelectatic infiltrate with moderate left pleural effusion. Moderate ascites with marked fatty infiltration of the liver. Stable appearance of the pancreatic mass. Guidance Fluoroscopy 10/27/16 00:00 IMPRESSION: SUCCESSFUL PLACEMENT OF A 5 FR DUAL LUMEN 34 CM PICC IN THE left basilic VEIN. Interventional Vascular Procedure 10/27/16 00:00 IMPRESSION: SUCCESSFUL PLACEMENT OF A 5 FR DUAL LUMEN 34 CM PICC IN THE left basilic VEIN. PICC Line Insertion 10/27/16 11:11 IMPRESSION: SUCCESSFUL PLACEMENT OF A 5 FR DUAL LUMEN 34 CM PICC IN THE left basilic VEIN. Chest X-Ray 10/28/16 00:00 IMPRESSION: No pneumothorax 2 hours following thoracentesis. Thoracentesis Ultrasound 10/28/16 08:00 IMPRESSION: SUCCESSFUL THORACENTESIS USING ULTRASOUND GUIDANCE. Head CT 10/29/16 00:00 IMPRESSION: NORMAL BRAIN CT WITHOUT CONTRAST. Abdomen Ultrasound 10/31/16 00:00 IMPRESSION: STABLE DEGREE OF ASCITES COMPARED TO MRI FROM 10/25/2016. Renal Ultrasound 11/01/16 00:00 IMPRESSION: NORMAL RENAL AND BLADDER ULTRASOUND. STABLE DEGREE OF ASCITES. Assessment & Plan - Diagnosis (1) Sepsis Qualifiers: Sepsis type: sepsis due to unspecified organism Qualified Code(s): A41.9 - Sepsis, unspecified organism Plan: Sepsis with shock secondary to presumed SBP. She is status post pressor support (2) Pneumonia Qualifiers: Pneumonia type: due to unspecified organism Laterality: left Lung location: lower lobe of lung Qualified Code(s): J18.1 - Lobar pneumonia, unspecified organism Plan: Left lower lobe hospital-acquired pneumonia with parapneumonic effusion. Patient is status post thoracentesis 10/28. Cultures negative. This is transudative and likely from ascitic fluid. She is status post treatment with antibiotics. (3) Spontaneous bacterial peritonitis Plan: Continue prophylactic oral Levaquin. She is status post cefepime and vancomycin and Levaquin IV. Cultures of peritoneal fluid were negative. Patient blood pressures run on the low side and therefore beta blockers are not prescribed. (4) Chronic pancreatitis Qualifiers: Pancreatitis type: alcohol induced Qualified Code(s): K86.0 - Alcohol-induced chronic pancreatitis Plan: Chronic pancreatitis with pseudocyst. Pain control. Continue pancrelipase (5) Ascites due to alcoholic cirrhosis Plan: Paracentesis is done 10/23. Continue Aldactone and Lasix. (6) Pleural effusion, left Plan: Management as above. Status post thoracentesis with transudative fluid (7) Alcohol abuse Plan: Continue multivitamin thiamine and folate. Patient's last drink was approximately 6 months ago. (8) Thrombocytopenia Plan: Stable we'll continue to monitor. This is a consequence of her underlying cirrhosis. (9) Diarrhea Plan: Stool culture showed yeast. Yeast is also present in the urine Will get a seven -day course of Diflucan. (10) Renal failure Plan: Concern for hepatorenal syndrome the patient is oliguric. She has Decrease by mouth intake. She is currently receiving IV fluids. We will need to be cautious. For allergies following. Continue albumin as ordered. (11) Debility Plan: Continue PT. I've spoken with the patient at length about considering subacute rehabilitation. She discussed things with her boyfriend and they have decided that subacute rehabilitation would be best at least in the short-term. (12) Portal vein thrombosis Plan: Portal vein thrombosis suspected and ruled out with MRI. - Time Time Spent with patient: 15-24 minutes - Inpatient Certification Medical Necessity: Need Close Monitoring Due to Risk of Patient Decompensation
[2016-11-03] MEDS: FOLIC ACID/VITAMIN B COMP W-C CAPSULE PO SCH (16:58)
[2016-11-03] MEDS: NORMAL SALINE 10 ML SDV (AFTER EACH USE) IV PRN (18:09)
[2016-11-03] MEDS: SODIUM BICARBONATE 650 MG TABLET PO SCH (18:11)
--- NOTE | 2016-11-03 18:54 | PDOC PROGRESS REPORT ---
Subjective Progress Note for:: 11/03/16 Subjective:: Patient underwent paracentesis obtaining about 4 L of fluid. She said she is a little bit nauseated after the procedure. She continues to have poor appetite. Her urine output seems to be slightly better compared to previous days. Physical Exam Vital Signs: Temp Pulse Resp BP Pulse Ox 98.2 F 88 16 92/52 L 100 11/03/16 16:00 11/03/16 16:00 11/03/16 16:00 11/03/16 16:00 11/03/16 16:00 Intake & Output 11/02/16 11/03/16 11/04/16 06:59 06:59 06:59 Intake Total 010 006 5918 Output Total 290 500 350 Balance 575 366 976 Weight 77.5 kg 79.9 kg Exam: General appearance: PRESENT: no acute distress, cooperative, well-developed, well-nourished Head exam: PRESENT: atraumatic, normocephalic Eye exam: PRESENT: conjunctiva pink, PERRLA. ABSENT: scleral icterus Neck exam: ABSENT: JVD Respiratory exam: PRESENT: Diminished breath sounds. Minimal bibasal crackles ABSENT: rhonchi, unlabored, wheezes Cardiovascular exam: PRESENT: Regular rate rhythm -+S1, +S2. ABSENT: diastolic murmur, systolic murmur GI/Abdominal exam: PRESENT: normal bowel sounds, soft. ABSENT: guarding, mass, tenderness Extremities exam: Grade 1 bilateral lower extremity pitting edema Neurological exam: PRESENT: alert, awake, oriented to person, place and time. Skin exam: PRESENT: dry, warm, Results Laboratory Results: 11/03/16 04:50 11/03/16 04:50 11/03/16 11/03/16 11/03/16 04:50 04:50 05:35 WBC 7.8 RBC 2.43 L Hgb 8.2 L Hct 24.4 L MCV 101 H MCH 33.8 H MCHC 33.6 RDW 14.2 H Plt Count 46 L Seg Neutrophils % 56.8 Lymphocytes % 26.7 Monocytes % 14.3 H Eosinophils % 1.0 Basophils % 1.2 Absolute Neutrophils 4.4 Absolute Lymphocytes 2.1 Absolute Monocytes 1.1 Absolute Eosinophils 0.1 Absolute Basophils 0.1 Sodium 142.3 Potassium 3.1 L Chloride 110 H Carbon Dioxide 21 L Anion Gap 11 BUN 13 Creatinine 1.99 H Est GFR ( Amer) 32 L Est GFR (Non-Af Amer) 27 L Glucose 70 L Calcium 8.6 Magnesium 1.8 Albumin 2.3 L Urine Color YELLOW Urine Appearance SLIGHTLY-CLOUDY Urine pH 5.0 Ur Specific [place] 1.008 Urine Protein 30 H Urine Glucose (UA) NEGATIVE Urine Ketones NEGATIVE Urine Blood MODERATE H Urine Nitrite NEGATIVE Ur Leukocyte Esterase NEGATIVE Urine WBC (Auto) 5 Urine RBC (Auto) 30 Impressions: Abdomen/Pelvis CT 10/23/16 12:59 IMPRESSION: 1. INTERVAL DEVELOPMENT OF MODERATE ASCITES, NOT PRESENT ON THE PRIOR STUDY (05/2017). 2. SEVERE FATTY INFILTRATION OF THE LIVER. 3. STABLE CHRONIC FINDINGS IN THE PANCREAS INCLUDING ATROPHY AND CALCIFICATIONS CONSISTENT WITH CHRONIC PANCREATITIS. STABLE SMALL FLUID COLLECTION LIKELY REPRESENTING A SMALL PSEUDOCYST. 4. STONES AND/OR SLUDGE IN THE GALLBLADDER. Abdomen MRI 10/25/16 07:58 IMPRESSION: Normal portal venous flow void ; no evidence of portal venous thrombosis. Re- demonstration a pancreatic pseudocyst versus IPMN involving the pancreatic head/ neck junction with additional finding of a smaller cyst along the pancreatic duct within the tail. Compressive atelectasis of the left lower lobe with a moderate left pleural effusion. Chest CT 10/26/16 14:40 IMPRESSION: Dense left lower lobe atelectatic infiltrate with moderate left pleural effusion. Moderate ascites with marked fatty infiltration of the liver. Stable appearance of the pancreatic mass. Guidance Fluoroscopy 10/27/16 00:00 IMPRESSION: SUCCESSFUL PLACEMENT OF A 5 FR DUAL LUMEN 34 CM PICC IN THE left basilic VEIN. Interventional Vascular Procedure 10/27/16 00:00 IMPRESSION: SUCCESSFUL PLACEMENT OF A 5 FR DUAL LUMEN 34 CM PICC IN THE left basilic VEIN. PICC Line Insertion 10/27/16 11:11 IMPRESSION: SUCCESSFUL PLACEMENT OF A 5 FR DUAL LUMEN 34 CM PICC IN THE left basilic VEIN. Chest X-Ray 10/28/16 00:00 IMPRESSION: No pneumothorax 2 hours following thoracentesis. Thoracentesis Ultrasound 10/28/16 08:00 IMPRESSION: SUCCESSFUL THORACENTESIS USING ULTRASOUND GUIDANCE. Head CT 10/29/16 00:00 IMPRESSION: NORMAL BRAIN CT WITHOUT CONTRAST. Abdomen Ultrasound 10/31/16 00:00 IMPRESSION: STABLE DEGREE OF ASCITES COMPARED TO MRI FROM 10/25/2016. Renal Ultrasound 11/01/16 00:00 IMPRESSION: NORMAL RENAL AND BLADDER ULTRASOUND. STABLE DEGREE OF ASCITES. Paracentesis Ultrasound 11/03/16 00:00 IMPRESSION: Successful ultrasound-guided therapeutic and diagnostic paracentesis Assessment & Plan - Diagnosis (1) Acute kidney injury Is this a current diagnosis for this admission?: YesPlan: Patient has been nonoliguric and has been worse for the last couple of days. Differential diagnosis are as follow: Patient came in with hypotension, vancomycin toxicity due to elevated trough levels few days ago, intravascular volume depletion however the positive fluid balance does not favor this, the patient could very much have hepatorenal syndrome given her history. Her urine sodium though is 91 which is not in favor of hepatorenal syndrome. She could' ve had of the ATN due to hypotension and vancomycin toxicity. I will continue her normal saline with potassium at 70 mL but now her, give her albumin 25 g IV daily. Continue to monitor kidney function and urine output. (2) Anemia in chronic illness Is this a current diagnosis for this admission?: YesPlan: Decrease in hemoglobin could be due to IV fluid hydration. No obvious bleeding. (3) Hypokalemia Is this a current diagnosis for this admission?: YesPlan: Replace as necessary. Change IV fluids as above. (4) Ascites due to alcoholic cirrhosis Is this a current diagnosis for this admission?: YesPlan: Status post paracentesis today obtaining 4 L of fluid. First paracentesis last for 13. (5) Cirrhosis of liver Qualifiers: Hepatic cirrhosis type: alcoholic cirrhosis Ascites presence: without ascites Qualified Code(s): K70.30 - Alcoholic cirrhosis of liver without ascites Is this a current diagnosis for this admission?: Yes (6) Pleural effusion, left Is this a current diagnosis for this admission?: Yes (7) Pneumonia Qualifiers: Pneumonia type: due to unspecified organism Laterality: left Lung location: lower lobe of lung Qualified Code(s): J18.1 - Lobar pneumonia, unspecified organism Is this a current diagnosis for this admission?: Yes (8) Chronic pancreatitis Qualifiers: Pancreatitis type: alcohol induced Qualified Code(s): 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
[2016-11-03] MEDS: ALBUMIN HUMAN 50 ML IV SCH ×2 (21:23→23:29)
[2016-11-03] MEDS: POTASSI CL 40 MEQ/NS 1L 1,000 ML IV PRN (21:24)
[2016-11-04 06:54] LABS: ABSOLUTE BASOPHILS # (AUTO) 0.1 10^3/uL (0.0-0.2); ABSOLUTE EOSINOPHILS # (AUTO) 0.1 10^3/uL (0.0-0.6); ABSOLUTE LYMPHOCYTES (AUTO) 2.2 10^3/uL (0.5-4.7); ABSOLUTE NEUT (AUTO) 4.4 10^3/uL (1.7-8.2); BASOPHILS % (AUTO) 0.9 % (0-2); HEMATOCRIT 24.2 % (36.0-47.0); HEMOGLOBIN 8.2 g/dL (12.0-15.5); HGB HCT DIFFERENCE 0.4; LYMPHOCYTES % (AUTO) 28.1 % (13-45); MEAN CORPUSCULAR HEMOGLOBIN 33.8 pg (27.0-33.4); MEAN CORPUSCULAR HGB CONC 33.8 g/dL (32.0-36.0); MEAN CORPUSCULAR VOLUME 100 fl (80-97); MONOCYTES % (AUTO) 13.2 % (3-13); RED BLOOD COUNT 2.42 10^6/uL (3.72-5.28); SEGMENTED NEUTROPHILS % (AUTO) 56.8 % (42-78); WHITE BLOOD COUNT 7.8 10^3/uL (4.0-10.5)
[2016-11-04 07:06] LABS: ANION GAP 10 (5-19); BLOOD UREA NITROGEN 12 mg/dL (7-20); CALCIUM 8.4 mg/dL (8.4-10.2); CARBON DIOXIDE 24 mmol/L (22-30); CHLORIDE 108 mmol/L (98-107); CREATININE RESULT 1.76 mg/dL (0.52-1.25); GLUCOSE 80 mg/dL (75-110); MAGNESIUM 1.8 mg/dL (1.6-2.3); POTASSIUM 3.5 mmol/L (3.6-5.0); SODIUM 141.9 mmol/L (137-145)
[2016-11-04] MEDS: LIPASE/PROTEASE/AMYLASE 1 CAP CAPSULE.DR PO SCH ×6 (08:17→17:31)
--- NOTE | 2016-11-04 09:13 | PDOC PROGRESS REPORT ---
Subjective Progress Note for:: 11/04/16 Subjective:: Patient looks somewhat depressed and a bit withdrawn She is no acute distress She still complaining of some shortness of breath no chest pain no fever no chills She underwent a paracentesis yesterday without any complications Physical Exam Vital Signs: Temp Pulse Resp BP Pulse Ox 98.1 F 88 20 90/60 L 96 11/04/16 07:48 11/04/16 07:48 11/04/16 07:48 11/04/16 07:48 11/04/16 07:48 Intake & Output 11/03/16 11/04/16 11/05/16 00:59 00:59 00:59 Intake Total 601 2266 1036 Output Total 250 1300 400 Balance 351 966 636 Weight 79.9 kg 77.8 kg General appearance: PRESENT: no acute distress Head exam: PRESENT: atraumatic, normocephalic Eye exam: PRESENT: conjunctival injection Neck exam: ABSENT: carotid bruit, JVD, lymphadenopathy, thyromegaly Respiratory exam: PRESENT: clear to auscultation tanisha, decreased breath sounds. ABSENT: chest wall tenderness, rales, tachypnea Cardiovascular exam: PRESENT: RRR. ABSENT: diastolic murmur, rubs, systolic murmur Pulses: PRESENT: normal dorsalis pedis pul GI/Abdominal exam: PRESENT: normal bowel sounds, soft. ABSENT: distended, guarding, mass, organolmegaly, rebound, tenderness Neurological exam: PRESENT: alert, awake, oriented to person, oriented to place , oriented to time, oriented to situation, CN II-XII grossly intact. ABSENT: motor sensory deficit Results Laboratory Results: 11/04/16 06:20 11/04/16 06:20 11/04/16 11/04/16 06:20 06:20 WBC 7.8 RBC 2.42 L Hgb 8.2 L Hct 24.2 L MCV 100 H MCH 33.8 H MCHC 33.8 RDW 14.0 Plt Count 42 L Seg Neutrophils % 56.8 Lymphocytes % 28.1 Monocytes % 13.2 H Eosinophils % 1.0 Basophils % 0.9 Absolute Neutrophils 4.4 Absolute Lymphocytes 2.2 Absolute Monocytes 1.0 Absolute Eosinophils 0.1 Absolute Basophils 0.1 Sodium 141.9 Potassium 3.5 L Chloride 108 H Carbon Dioxide 24 Anion Gap 10 BUN 12 Creatinine 1.76 H Est GFR ( Amer) 37 L Est GFR (Non-Af Amer) 31 L Glucose 80 Calcium 8.4 Magnesium 1.8 Impressions: Abdomen/Pelvis CT 10/23/16 12:59 IMPRESSION: 1. INTERVAL DEVELOPMENT OF MODERATE ASCITES, NOT PRESENT ON THE PRIOR STUDY (05/2017). 2. SEVERE FATTY INFILTRATION OF THE LIVER. 3. STABLE CHRONIC FINDINGS IN THE PANCREAS INCLUDING ATROPHY AND CALCIFICATIONS CONSISTENT WITH CHRONIC PANCREATITIS. STABLE SMALL FLUID COLLECTION LIKELY REPRESENTING A SMALL PSEUDOCYST. 4. STONES AND/OR SLUDGE IN THE GALLBLADDER. Abdomen MRI 10/25/16 07:58 IMPRESSION: Normal portal venous flow void ; no evidence of portal venous thrombosis. Re- demonstration a pancreatic pseudocyst versus IPMN involving the pancreatic head/ neck junction with additional finding of a smaller cyst along the pancreatic duct within the tail. Compressive atelectasis of the left lower lobe with a moderate left pleural effusion. Chest CT 10/26/16 14:40 IMPRESSION: Dense left lower lobe atelectatic infiltrate with moderate left pleural effusion. Moderate ascites with marked fatty infiltration of the liver. Stable appearance of the pancreatic mass. Guidance Fluoroscopy 10/27/16 00:00 IMPRESSION: SUCCESSFUL PLACEMENT OF A 5 FR DUAL LUMEN 34 CM PICC IN THE left basilic VEIN. Interventional Vascular Procedure 10/27/16 00:00 IMPRESSION: SUCCESSFUL PLACEMENT OF A 5 FR DUAL LUMEN 34 CM PICC IN THE left basilic VEIN. PICC Line Insertion 10/27/16 11:11 IMPRESSION: SUCCESSFUL PLACEMENT OF A 5 FR DUAL LUMEN 34 CM PICC IN THE left basilic VEIN. Chest X-Ray 10/28/16 00:00 IMPRESSION: No pneumothorax 2 hours following thoracentesis. Thoracentesis Ultrasound 10/28/16 08:00 IMPRESSION: SUCCESSFUL THORACENTESIS USING ULTRASOUND GUIDANCE. Head CT 10/29/16 00:00 IMPRESSION: NORMAL BRAIN CT WITHOUT CONTRAST. Abdomen Ultrasound 10/31/16 00:00 IMPRESSION: STABLE DEGREE OF ASCITES COMPARED TO MRI FROM 10/25/2016. Renal Ultrasound 11/01/16 00:00 IMPRESSION: NORMAL RENAL AND BLADDER ULTRASOUND. STABLE DEGREE OF ASCITES. Paracentesis Ultrasound 11/03/16 00:00 IMPRESSION: Successful ultrasound-guided therapeutic and diagnostic paracentesis Assessment & Plan - Diagnosis (1) Chronic pancreatitis Qualifiers: Pancreatitis type: alcohol induced Qualified Code(s): K86.0 - Alcohol-induced chronic pancreatitis Is this a current diagnosis for this admission?: Yes (2) Spontaneous bacterial peritonitis Is this a current diagnosis for this admission?: Yes (3) Cirrhosis Qualifiers: Hepatic cirrhosis type: alcoholic cirrhosis Ascites presence: with ascites Qualified Code(s): K70.31 - Alcoholic cirrhosis of liver with ascites Is this a current diagnosis for this admission?: Yes (4) Hypokalemia Is this a current diagnosis for this admission?: Yes (5) Sepsis Qualifiers: Sepsis type: sepsis due to unspecified organism Qualified Code(s): A41.9 - Sepsis, unspecified organism Is this a current diagnosis for this admission?: Yes (6) Pancreatic pseudocyst Is this a current diagnosis for this admission?: Yes (7) Pneumonia Qualifiers: Pneumonia type: due to unspecified organism Laterality: left Lung location: lower lobe of lung Qualified Code(s): J18.1 - Lobar pneumonia, unspecified organism Is this a current diagnosis for this admission?: Yes (8) Pleural effusion, left Is this a current diagnosis for this admission?: Yes - Time Time Spent with patient: Patient is short of breath subjectively She is not hypoxemic We will repeat a chest x-ray Discussed with patient need for her to go to short-term rehabilitation Search has been initiated We will downgrade patient to medical unit if a bed is not available Time Spent with patient: 25-34 minutes
[2016-11-04] MEDS: BUSPIRONE HCL 10 MG TABLET PO SCH ×2 (09:30→22:18)
[2016-11-04] MEDS: DULOXETINE HCL 30 MG CAPSULE.DR PO SCH (09:30)
[2016-11-04] MEDS: FLUCONAZOLE 100 MG TABLET PO SCH (09:31)
[2016-11-04] MEDS: SPIRONOLACTONE 25 MG TABLET PO SCH (09:31)
[2016-11-04] MEDS: FUROSEMIDE 20 MG TABLET PO SCH ×2 (09:31→17:33)
[2016-11-04] MEDS: MULTIVITAMIN TABLET PO SCH (09:32)
[2016-11-04] MEDS: MAGNESIUM OXIDE 400 MG TABLET PO SCH ×2 (09:35→17:32)
[2016-11-04] MEDS: CHOLESTYRAMINE/ASPARTAME 4 GM PACKET PO SCH ×2 (09:35→17:26)
[2016-11-04] MEDS: NORMAL SALINE 10 ML SDV (SCHEDULED) IV SCH ×2 (09:35→22:19)
[2016-11-04] MEDS: POTASSI CL 40 MEQ/NS 1L 1,000 ML IV PRN (12:47)
[2016-11-04] MEDS: LEVOFLOXACIN 500 MG TABLET PO SCH (12:48)
[2016-11-04] MEDS: TRAMADOL HCL 50 MG TABLET PO PRN (14:59)
[2016-11-04] MEDS: FOLIC ACID/VITAMIN B COMP W-C CAPSULE PO SCH (17:32)
[2016-11-04] MEDS: SODIUM BICARBONATE 650 MG TABLET PO SCH (17:32)
--- NOTE | 2016-11-04 19:04 | PDOC PROGRESS REPORT ---
Subjective Progress Note for:: 11/04/16 Subjective:: Patient said that she is having pain where she had a paracentesis done yesterday. She also mentioned that she is having diarrhea. She said she is somewhat short of breath. She is making good amount of urine which is much improved. Physical Exam Vital Signs: Temp Pulse Resp BP Pulse Ox 97.9 F 91 22 H 96/51 L 97 11/04/16 15:50 11/04/16 15:50 11/04/16 15:50 11/04/16 17:30 11/04/16 15:50 Intake & Output 11/03/16 11/04/16 11/05/16 06:59 06:59 06:59 Intake Total 866 2462 1983 Output Total 500 1350 500 Balance 366 1112 1483 Weight 79.9 kg 77.8 kg Exam: General appearance: PRESENT: no acute distress, cooperative, well-developed, well-nourished Head exam: PRESENT: atraumatic, normocephalic Eye exam: PRESENT: conjunctiva pink, PERRLA. ABSENT: scleral icterus Neck exam: ABSENT: JVD Respiratory exam: PRESENT: Diminished breath sounds. She has right basal minimal crackles ABSENT: rhonchi, unlabored, wheezes Cardiovascular exam: PRESENT: Regular rate rhythm -+S1, +S2. ABSENT: diastolic murmur, systolic murmur GI/Abdominal exam: PRESENT: normal bowel sounds, soft. ABSENT: guarding, mass, tenderness Extremities exam: ABSENT: No edema Neurological exam: PRESENT: alert, awake, oriented to person, place and time. Skin exam: PRESENT: dry, warm, Results Laboratory Results: 11/04/16 06:20 11/04/16 06:20 11/04/16 11/04/16 06:20 06:20 WBC 7.8 RBC 2.42 L Hgb 8.2 L Hct 24.2 L MCV 100 H MCH 33.8 H MCHC 33.8 RDW 14.0 Plt Count 42 L Seg Neutrophils % 56.8 Lymphocytes % 28.1 Monocytes % 13.2 H Eosinophils % 1.0 Basophils % 0.9 Absolute Neutrophils 4.4 Absolute Lymphocytes 2.2 Absolute Monocytes 1.0 Absolute Eosinophils 0.1 Absolute Basophils 0.1 Sodium 141.9 Potassium 3.5 L Chloride 108 H Carbon Dioxide 24 Anion Gap 10 BUN 12 Creatinine 1.76 H Est GFR ( Amer) 37 L Est GFR (Non-Af Amer) 31 L Glucose 80 Calcium 8.4 Magnesium 1.8 Impressions: Abdomen/Pelvis CT 10/23/16 12:59 IMPRESSION: 1. INTERVAL DEVELOPMENT OF MODERATE ASCITES, NOT PRESENT ON THE PRIOR STUDY (05/2017). 2. SEVERE FATTY INFILTRATION OF THE LIVER. 3. STABLE CHRONIC FINDINGS IN THE PANCREAS INCLUDING ATROPHY AND CALCIFICATIONS CONSISTENT WITH CHRONIC PANCREATITIS. STABLE SMALL FLUID COLLECTION LIKELY REPRESENTING A SMALL PSEUDOCYST. 4. STONES AND/OR SLUDGE IN THE GALLBLADDER. Abdomen MRI 10/25/16 07:58 IMPRESSION: Normal portal venous flow void ; no evidence of portal venous thrombosis. Re- demonstration a pancreatic pseudocyst versus IPMN involving the pancreatic head/ neck junction with additional finding of a smaller cyst along the pancreatic duct within the tail. Compressive atelectasis of the left lower lobe with a moderate left pleural effusion. Chest CT 10/26/16 14:40 IMPRESSION: Dense left lower lobe atelectatic infiltrate with moderate left pleural effusion. Moderate ascites with marked fatty infiltration of the liver. Stable appearance of the pancreatic mass. Guidance Fluoroscopy 10/27/16 00:00 IMPRESSION: SUCCESSFUL PLACEMENT OF A 5 FR DUAL LUMEN 34 CM PICC IN THE left basilic VEIN. Interventional Vascular Procedure 10/27/16 00:00 IMPRESSION: SUCCESSFUL PLACEMENT OF A 5 FR DUAL LUMEN 34 CM PICC IN THE left basilic VEIN. PICC Line Insertion 10/27/16 11:11 IMPRESSION: SUCCESSFUL PLACEMENT OF A 5 FR DUAL LUMEN 34 CM PICC IN THE left basilic VEIN. Thoracentesis Ultrasound 10/28/16 08:00 IMPRESSION: SUCCESSFUL THORACENTESIS USING ULTRASOUND GUIDANCE. Head CT 10/29/16 00:00 IMPRESSION: NORMAL BRAIN CT WITHOUT CONTRAST. Abdomen Ultrasound 10/31/16 00:00 IMPRESSION: STABLE DEGREE OF ASCITES COMPARED TO MRI FROM 10/25/2016. Renal Ultrasound 11/01/16 00:00 IMPRESSION: NORMAL RENAL AND BLADDER ULTRASOUND. STABLE DEGREE OF ASCITES. Paracentesis Ultrasound 11/03/16 00:00 IMPRESSION: Successful ultrasound-guided therapeutic and diagnostic paracentesis Chest X-Ray 11/04/16 09:01 IMPRESSION: Persistent consolidation in the left lower lobe Assessment & Plan - Diagnosis (1) Acute kidney injury Is this a current diagnosis for this admission?: YesPlan: Patient has been nonoliguric and has been worse for the last couple of days. Differential diagnosis are as follow: Patient came in with hypotension, vancomycin toxicity due to elevated trough levels few days ago, intravascular volume depletion however the positive fluid balance does not favor this, the patient could very much have hepatorenal syndrome given her history. Her urine sodium though is 91 which is not in favor of hepatorenal syndrome that could be inconclusive because she is also on Lasix. She could've had of the ATN due to hypotension and vancomycin toxicity. Kidney function is currently improving. I will continue her normal saline with potassium at 70 mL but now her, give her albumin 25 g IV daily. Continue to monitor kidney function and urine output. (2) Anemia in chronic illness Is this a current diagnosis for this admission?: YesPlan: Decrease in hemoglobin could be due to IV fluid hydration. No obvious bleeding. Unchanged and stable. (3) Hypokalemia Is this a current diagnosis for this admission?: YesPlan: Replace as necessary. Change IV fluids as above. (4) Ascites due to alcoholic cirrhosis Is this a current diagnosis for this admission?: YesPlan: Status post paracentesis today obtaining 4 L of fluid. First paracentesis last 10/23. (5) Cirrhosis of liver Qualifiers: Hepatic cirrhosis type: alcoholic cirrhosis Ascites presence: without ascites Qualified Code(s): K70.30 - Alcoholic cirrhosis of liver without ascites Is this a current diagnosis for this admission?: Yes (6) Pleural effusion, left Is this a current diagnosis for this admission?: Yes (7) Pneumonia Qualifiers: Pneumonia type: due to unspecified organism Laterality: left Lung location: lower lobe of lung Qualified Code(s): J18.1 - Lobar pneumonia, unspecified organism Is this a current diagnosis for this admission?: Yes (8) Chronic pancreatitis Qualifiers: Pancreatitis type: alcohol induced Qualified Code(s): 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
[2016-11-04] MEDS ORDERED: ALBUMIN HUMAN 50 ML IV SCH (22:00)
[2016-11-04] MEDS ORDERED: ALBUMIN HUMAN 100 ML IV SCH (22:00)
[2016-11-04] MEDS: TRAZODONE HCL 50 MG TABLET PO SCH (22:18)
[2016-11-04] MEDS: ALBUMIN HUMAN 100 ML IV SCH (22:19)
[2016-11-05] MEDS: POTASSI CL 40 MEQ/NS 1L 1,000 ML IV PRN ×2 (03:18→19:51)
[2016-11-05 06:10] LABS: APPEARANCE,URINE CLEAR; BILIRUBIN,URINE NEGATIVE (NEGATIVE); GLUCOSE, URINE NEGATIVE (NEGATIVE); KETONES,URINE NEGATIVE (NEGATIVE); LEUKOCYTE ESTERASE,URINE NEGATIVE (NEGATIVE); NITRITE,URINE NEGATIVE (NEGATIVE); PROTEIN,URINE 30 mg/dL (NEGATIVE); URINE SPECIFIC GRAVITY 1.006; UROBILINOGEN,URINE NEGATIVE mg/dL (<2.0)
[2016-11-05 07:24] LABS: ABSOLUTE BASOPHILS # (AUTO) 0.1 10^3/uL (0.0-0.2); ABSOLUTE LYMPHOCYTES (AUTO) 1.9 10^3/uL (0.5-4.7); ABSOLUTE MONOCYTES (AUTO) 1.1 10^3/uL (0.1-1.4); ABSOLUTE NEUT (AUTO) 5.7 10^3/uL (1.7-8.2); BASOPHILS % (AUTO) 1.1 % (0-2); EOSINOPHILS % (AUTO) 0.5 % (0-6); HEMATOCRIT 26.3 % (36.0-47.0); HEMOGLOBIN 8.9 g/dL (12.0-15.5); HGB HCT DIFFERENCE 0.4; LYMPHOCYTES % (AUTO) 21.8 % (13-45); MEAN CORPUSCULAR HEMOGLOBIN 33.9 pg (27.0-33.4); MEAN CORPUSCULAR VOLUME 100 fl (80-97); MONOCYTES % (AUTO) 12.7 % (3-13); RED BLOOD COUNT 2.64 10^6/uL (3.72-5.28); RED CELL DISTRIBUTION WIDTH 14.1 % (11.5-14.0); SEGMENTED NEUTROPHILS % (AUTO) 63.9 % (42-78); WHITE BLOOD COUNT 8.9 10^3/uL (4.0-10.5)
[2016-11-05 07:38] LABS: ANION GAP 10 (5-19); BLOOD UREA NITROGEN 11 mg/dL (7-20); CALCIUM 8.6 mg/dL (8.4-10.2); CARBON DIOXIDE 22 mmol/L (22-30); CHLORIDE 109 mmol/L (98-107); CREATININE RESULT 1.55 mg/dL (0.52-1.25); GLUCOSE 82 mg/dL (75-110); POTASSIUM 4.1 mmol/L (3.6-5.0); SODIUM 141.3 mmol/L (137-145)
[2016-11-05] MEDS: TRAMADOL HCL 50 MG TABLET PO PRN (08:30)
[2016-11-05] MEDS: LIPASE/PROTEASE/AMYLASE 1 CAP CAPSULE.DR PO SCH ×6 (08:31→16:56)
[2016-11-05] MEDS ORDERED: HYDROMORPHONE HCL INJ/PF 2 MG/ML AMPULE IV PRN (11:06)
[2016-11-05] MEDS: NORMAL SALINE 10 ML SDV (SCHEDULED) IV SCH ×2 (11:16→23:01)
[2016-11-05] MEDS: FLUCONAZOLE 100 MG TABLET PO SCH (11:18)
[2016-11-05] MEDS: DULOXETINE HCL 30 MG CAPSULE.DR PO SCH (11:18)
[2016-11-05] MEDS: MULTIVITAMIN TABLET PO SCH (11:19)
[2016-11-05] MEDS: MAGNESIUM OXIDE 400 MG TABLET PO SCH ×2 (11:22→18:38)
[2016-11-05] MEDS: BUSPIRONE HCL 10 MG TABLET PO SCH ×2 (11:22→22:59)
[2016-11-05] MEDS: CHOLESTYRAMINE/ASPARTAME 4 GM PACKET PO SCH ×2 (11:27→18:38)
[2016-11-05] MEDS: SPIRONOLACTONE 25 MG TABLET PO SCH (11:28)
[2016-11-05] MEDS: FUROSEMIDE 20 MG TABLET PO SCH ×2 (11:28→18:37)
--- NOTE | 2016-11-05 12:22 | PDOC PROGRESS REPORT ---
Subjective Progress Note for:: 11/05/16 Subjective:: Diarrhea is persistent profuse watery No nausea or vomiting Abdominal pain also persistent with distention No fever no chills Physical Exam Vital Signs: Temp Pulse Resp BP Pulse Ox 98.6 F 93 20 96/60 L 97 11/05/16 10:47 11/05/16 10:47 11/05/16 10:47 11/05/16 10:47 11/05/16 10:47 Intake & Output 11/04/16 11/05/16 11/06/16 00:59 00:59 00:59 Intake Total 2266 3339 1075 Output Total 1300 900 400 Balance 966 0039 675 Weight 77.8 kg 77.7 kg General appearance: PRESENT: no acute distress, thin Head exam: PRESENT: atraumatic, normocephalic Eye exam: PRESENT: conjunctiva pink, EOMI, PERRLA. ABSENT: scleral icterus Ear exam: PRESENT: normal external ear exam Mouth exam: PRESENT: moist, tongue midline Neck exam: ABSENT: carotid bruit, JVD, lymphadenopathy, thyromegaly Respiratory exam: PRESENT: clear to auscultation tanisha. ABSENT: rales, rhonchi, wheezes Cardiovascular exam: PRESENT: RRR. ABSENT: diastolic murmur, rubs, systolic murmur Pulses: PRESENT: normal dorsalis pedis pul Vascular exam: PRESENT: normal capillary refill GI/Abdominal exam: PRESENT: distended, normal bowel sounds, soft. ABSENT: guarding, mass, organolmegaly, rebound, tenderness Rectal exam: PRESENT: deferred Extremities exam: PRESENT: full ROM. ABSENT: calf tenderness, clubbing, pedal edema Neurological exam: PRESENT: alert, awake, oriented to person, oriented to place , oriented to time, oriented to situation, CN II-XII grossly intact. ABSENT: motor sensory deficit Psychiatric exam: PRESENT: appropriate affect, normal mood. ABSENT: homicidal ideation, suicidal ideation Skin exam: PRESENT: dry, intact, warm. ABSENT: cyanosis, rash Results Laboratory Results: 11/05/16 06:30 11/05/16 06:30 11/03/16 11/05/16 11/05/16 14:35 05:30 06:30 WBC 8.9 RBC 2.64 L Hgb 8.9 L Hct 26.3 L MCV 100 H MCH 33.9 H MCHC 34.0 RDW 14.1 H Plt Count 51 L Seg Neutrophils % 63.9 Lymphocytes % 21.8 Monocytes % 12.7 Eosinophils % 0.5 Basophils % 1.1 Absolute Neutrophils 5.7 Absolute Lymphocytes 1.9 Absolute Monocytes 1.1 Absolute Eosinophils 0.0 Absolute Basophils 0.1 Sodium Potassium Chloride Carbon Dioxide Anion Gap BUN Creatinine Est GFR ( Amer) Est GFR (Non-Af Amer) Glucose Calcium Urine Color YELLOW Urine Appearance CLEAR Urine pH 5.0 Ur Specific [place] 1.006 Urine Protein 30 H Urine Glucose (UA) NEGATIVE Urine Ketones NEGATIVE Urine Blood SMALL H Urine Nitrite NEGATIVE Ur Leukocyte Esterase NEGATIVE Urine WBC (Auto) 8 Urine RBC (Auto) 3 Fluid Amylase 3 11/05/16 06:30 WBC RBC Hgb Hct MCV MCH MCHC RDW Plt Count Seg Neutrophils % Lymphocytes % Monocytes % Eosinophils % Basophils % Absolute Neutrophils Absolute Lymphocytes Absolute Monocytes Absolute Eosinophils Absolute Basophils Sodium 141.3 Potassium 4.1 Chloride 109 H Carbon Dioxide 22 Anion Gap 10 BUN 11 Creatinine 1.55 H Est GFR ( Amer) 43 L Est GFR (Non-Af Amer) 36 L Glucose 82 Calcium 8.6 Urine Color Urine Appearance Urine pH Ur Specific [place] Urine Protein Urine Glucose (UA) Urine Ketones Urine Blood Urine Nitrite Ur Leukocyte Esterase Urine WBC (Auto) Urine RBC (Auto) Fluid Amylase Impressions: Abdomen/Pelvis CT 10/23/16 12:59 IMPRESSION: 1. INTERVAL DEVELOPMENT OF MODERATE ASCITES, NOT PRESENT ON THE PRIOR STUDY (05/2017). 2. SEVERE FATTY INFILTRATION OF THE LIVER. 3. STABLE CHRONIC FINDINGS IN THE PANCREAS INCLUDING ATROPHY AND CALCIFICATIONS CONSISTENT WITH CHRONIC PANCREATITIS. STABLE SMALL FLUID COLLECTION LIKELY REPRESENTING A SMALL PSEUDOCYST. 4. STONES AND/OR SLUDGE IN THE GALLBLADDER. Abdomen MRI 10/25/16 07:58 IMPRESSION: Normal portal venous flow void ; no evidence of portal venous thrombosis. Re- demonstration a pancreatic pseudocyst versus IPMN involving the pancreatic head/ neck junction with additional finding of a smaller cyst along the pancreatic duct within the tail. Compressive atelectasis of the left lower lobe with a moderate left pleural effusion. Chest CT 10/26/16 14:40 IMPRESSION: Dense left lower lobe atelectatic infiltrate with moderate left pleural effusion. Moderate ascites with marked fatty infiltration of the liver. Stable appearance of the pancreatic mass. Guidance Fluoroscopy 10/27/16 00:00 IMPRESSION: SUCCESSFUL PLACEMENT OF A 5 FR DUAL LUMEN 34 CM PICC IN THE left basilic VEIN. Interventional Vascular Procedure 10/27/16 00:00 IMPRESSION: SUCCESSFUL PLACEMENT OF A 5 FR DUAL LUMEN 34 CM PICC IN THE left basilic VEIN. PICC Line Insertion 10/27/16 11:11 IMPRESSION: SUCCESSFUL PLACEMENT OF A 5 FR DUAL LUMEN 34 CM PICC IN THE left basilic VEIN. Thoracentesis Ultrasound 10/28/16 08:00 IMPRESSION: SUCCESSFUL THORACENTESIS USING ULTRASOUND GUIDANCE. Head CT 10/29/16 00:00 IMPRESSION: NORMAL BRAIN CT WITHOUT CONTRAST. Abdomen Ultrasound 10/31/16 00:00 IMPRESSION: STABLE DEGREE OF ASCITES COMPARED TO MRI FROM 10/25/2016. Renal Ultrasound 11/01/16 00:00 IMPRESSION: NORMAL RENAL AND BLADDER ULTRASOUND. STABLE DEGREE OF ASCITES. Paracentesis Ultrasound 11/03/16 00:00 IMPRESSION: Successful ultrasound-guided therapeutic and diagnostic paracentesis Chest X-Ray 11/04/16 09:01 IMPRESSION: Persistent consolidation in the left lower lobe Assessment & Plan - Diagnosis (1) Chronic pancreatitis Qualifiers: Pancreatitis type: alcohol induced Qualified Code(s): K86.0 - Alcohol-induced chronic pancreatitis Is this a current diagnosis for this admission?: Yes (2) Spontaneous bacterial peritonitis Is this a current diagnosis for this admission?: Yes (3) Cirrhosis Qualifiers: Hepatic cirrhosis type: alcoholic cirrhosis Ascites presence: with ascites Qualified Code(s): K70.31 - Alcoholic cirrhosis of liver with ascites Is this a current diagnosis for this admission?: Yes (4) Hypokalemia Is this a current diagnosis for this admission?: Yes (5) Sepsis Qualifiers: Sepsis type: sepsis due to unspecified organism Qualified Code(s): A41.9 - Sepsis, unspecified organism Is this a current diagnosis for this admission?: Yes (6) Pancreatic pseudocyst Is this a current diagnosis for this admission?: Yes (7) Pneumonia Qualifiers: Pneumonia type: due to unspecified organism Laterality: left Lung location: lower lobe of lung Qualified Code(s): J18.1 - Lobar pneumonia, unspecified organism Is this a current diagnosis for this admission?: Yes (8) Pleural effusion, left Is this a current diagnosis for this admission?: Yes - Time Time Spent with patient: Chest x-ray was unremarkable Effusion resolved We'll reevaluate management diarrhea we will continue pancreatic enzymes and Questran We will add Imodium; DC IV fluids Patient may be transferred to short-term rehabilitation when a bed is available Time Spent with patient: 25-34 minutes
[2016-11-05] MEDS: LOPERAMIDE HCL 2 MG CAPSULE PO PRN (14:13)
[2016-11-05] MEDS: OXYCODONE HCL IR 5 MG TABLET PO PRN ×2 (14:41→20:37)
[2016-11-05] MEDS: FOLIC ACID/VITAMIN B COMP W-C CAPSULE PO SCH (16:56)
[2016-11-05] MEDS: SODIUM BICARBONATE 650 MG TABLET PO SCH (18:37)
[2016-11-05] MEDS: ALBUMIN HUMAN 100 ML IV SCH (22:57)
[2016-11-05] MEDS: TRAZODONE HCL 50 MG TABLET PO SCH (22:59)
[2016-11-06] MEDS: OXYCODONE HCL IR 5 MG TABLET PO PRN (08:40)
[2016-11-06] MEDS: LIPASE/PROTEASE/AMYLASE 1 CAP CAPSULE.DR PO SCH ×6 (08:41→15:46)
--- NOTE | 2016-11-06 09:18 | PDOC TRANSFER SUMMARY ---
General - Admit/Disc Date/PCP Admission Date/Primary Care Provider: 10[facility]23/16 [facility]: 11/06/16 - Discharge Diagnosis (1) Chronic pancreatitis Is this a current diagnosis for this admission?: YesSummary: With two stable pseudocysts Chronic pancreatitis likely her cause for chronic abdominal pain, and profuse diarrhea Patient is to continue pancreatic enzymes (2) Spontaneous bacterial peritonitis Is this a current diagnosis for this admission?: YesSummary: Was cause of sepsis on admission Patient. 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 (4) Hypokalemia Is this a current diagnosis for this admission?: Yes (5) Sepsis Is this a current diagnosis for this admission?: YesSummary: On admission Resolved Because of sepsis was likely spontaneous bacterial peritonitis and bilateral pneumonia (6) Pancreatic pseudocyst Is this a current diagnosis for this admission?: Yes (7) Pneumonia Is this a current diagnosis for this admission?: Yes (8) Pleural effusion, left Is this a current diagnosis for this admission?: YesSummary: Last chest x-ray showed that the pleural effusion had cleared (9) Ascites due to alcoholic cirrhosis Is this a current diagnosis for this admission?: YesSummary: Recurrent ascites Patient had several paracentesis during her hospital stay She may need to have paracentesis as an outpatient Patient is to follow up with Dr. Jacobsen Patient is discharged on Lasix and Aldactone - Additional Information Resuscitation Status: Full Code Discharge Diet: Cardiac Discharge Activity: Activity As Tolerated Home Medications: Buspirone HCl [Buspar 15 mg Tablet] 15 mg PO Q12 09/20/16 Duloxetine HCl [Cymbalta] 60 mg PO DAILY 09/20/16 Trazodone HCl [Desyrel] 200 mg PO QHS 09/20/16 Cholestyramine/Aspartame [Questran Light 4 gm Packet] 4 gm PO BID #60 packet Folic Acid/Vitamin B Comp W-C [Nephrocaps Multiple Vitamin Capsule] 1 cap PO ACSUPPER #30 capsule 11/06/16 Furosemide [Lasix] 20 mg PO BID #60 tablet 11/06/16 Levofloxacin [Levaquin 500 mg Tablet] 750 mg PO Q2D@1400 #15 tablet 11/06/16 Loperamide HCl [Imodium 2 mg Capsule] 2 mg PO Q12HP PRN #60 capsule 11/06/16 Magnesium Oxide [Mag-Ox 400 mg Tablet] 400 mg PO BID #60 tablet 11/06/16 Multivitamin [Tab-A-Jina (Multiple Vitamin) Tablet] 1 tab PO DAILY #30 tablet Oxycodone HCl [Oxy-Ir 5 mg Tablet] 5 mg PO Q6HP PRN #30 tablet 11/06/16 Spironolactone [Aldactone 25 mg Tablet] 25 mg PO DAILY #30 tablet 11/06/16 History of Present Illness Admission Date/PCP: 10/23/16 17:31 Patient complains of: Hypotension septic shock History of Present Illness: Patient is a 51 lady with unfortunate history of alcoholic cirrhosis, COPD, hyperlipidemia who was admitted on October 23 because of severe hypotension with systolic blood pressure in the 70s. She was admitted in the intensive care unit with diagnosis of possible septic shock, spontaneous bacterial peritonitis in a patient with history of cirrhosis and chronic pancreatitis. She was aggressively hydrated and treated with antibiotics. She also had history of 6 months weight loss of 40 pounds, diarrhea and chronic abdominal pain. She was found to have ascites and had paracentesis were 1 L ascitic fluid was obtained. While in the ICU she was also being given albumin intravenously. When she improved she was transferred to [facility] on October 26. She had the left thoracentesis on October 27 for pleural effusion. Currently she is being treated for pneumonia. She was on vancomycin on October 23 to October 30 and a vancomycin trough level and 15 1019 showed level above 20 which is within toxic level. Vancomycin was discontinued. She is currently being given Lasix 20 mg twice a day increased from once a day as well as his spironolactone daily. She continues to have very poor appetite. She said she doesn't eat much because she doesn't like certain foods. She claims that she drinks water at least 1-2 for drugs at bedside. She got diagnosed with liver cirrhosis about 6 months ago. In terms of her kidney function patient came in with a BUN of less than 2, creatinine of 0.79 with estimated GFR greater than 60. Her kidney function progressively deteriorated and declined throughout her hospitalization and today they were BUN of 12 creatinine of 2.07 with estimated GFR of 25. She has been oliguric worse for the last couple of days with urine output less than 300 mL a day. She was started on some normal saline at 50 mL an hour yesterday. Her kidney ultrasound done yesterday was unremarkable. Her intake and output balance since admission is positive at least 7 L for the cumulative balance. Patient has some bilateral flank pain. She denies any history of kidney disease or kidney failure episode in the past. She denies any history of kidney stones. When she came in she said she didn't have any leg swelling but she does have some swelling now. She is also short of breath which she felt like its worst and when she came in. She has occasional cough but no fever. She continues to have abdominal pain which seems worse associated with some nausea and occasional vomiting. Physical Exam Vital Signs: Temp Pulse Resp BP Pulse Ox 98.2 F 100 12 105/65 100 11/06/16 07:10 11/06/16 07:10 11/06/16 07:10 11/06/16 07:10 11/06/16 07:10 Intake & Output 11/05/16 11/06/16 11/07/16 00:59 00:59 00:59 Intake Total 3339 3152 440 Output Total 900 1250 350 Balance 2439 1902 90 Weight 77.8 kg 77.7 kg 76.8 kg General appearance: PRESENT: mild distress, thin Head exam: PRESENT: atraumatic, normocephalic Eye exam: PRESENT: conjunctiva pink, EOMI, PERRLA. ABSENT: scleral icterus Mouth exam: PRESENT: moist, tongue midline Neck exam: ABSENT: carotid bruit, JVD, lymphadenopathy, thyromegaly Respiratory exam: PRESENT: clear to auscultation tanisha. ABSENT: rales, rhonchi, wheezes Pulses: PRESENT: normal dorsalis pedis pul GI/Abdominal exam: PRESENT: ascites, tenderness. ABSENT: guarding, rebound Extremities exam: PRESENT: full ROM. ABSENT: calf tenderness, clubbing, pedal edema Musculoskeletal exam: PRESENT: ambulatory, full ROM Neurological exam: PRESENT: alert, awake, oriented to person, oriented to place , oriented to time, oriented to situation, CN II-XII grossly intact. ABSENT: motor sensory deficit Results Laboratory Results: 11/05/16 06:30 11/05/16 06:30 11/03/16 14:35 Fluid Amylase 3 Labs- All tests 24 hr 11/03/16 11/05/16 14:35 12:31 POC Glucose 92 Fluid Amylase 3 Labs- Entire Visit 10/23/16 10/23/16 10/23/16 12:00 12:00 12:30 WBC 15.5 H RBC 4.71 Hgb 16.0 H Hct 47.2 H MCV 100 H MCH 34.0 H MCHC 33.9 RDW 13.9 Plt Count 132 L Seg Neutrophils % 70.8 Lymphocytes % 18.0 Monocytes % 9.7 Eosinophils % 0.6 Basophils % 0.9 Absolute Neutrophils 11.0 H Absolute Lymphocytes 2.8 Absolute Monocytes 1.5 H Absolute Eosinophils 0.1 Absolute Basophils 0.1 Platelet Estimate Large Platelets Platelet Comment PT INR APTT Sodium 135.5 L Potassium 2.6 L* Chloride 90 L Carbon Dioxide 31 H Anion Gap 15 BUN < 2 L Creatinine 0.79 Est GFR ( Amer) > 60 Est GFR (Non-Af Amer) > 60 Glucose 148 H POC Glucose Lactic Acid Calcium 8.5 Magnesium Total Bilirubin 3.3 H Direct Bilirubin 1.4 H Indirect Bilirubin Not Reportable Neonat Total Bilirubin Not Reportable AST 142 H ALT 39 Alkaline Phosphatase 176 H Ammonia Creatine Kinase CK-MB (CK-2) 0.36 Troponin I < 0.012 Total Protein 6.9 Albumin 2.8 L Lipase Urine Color Urine Appearance Urine pH Ur Specific [place] Urine Protein Urine Glucose (UA) Urine Ketones Urine Blood Urine Nitrite Urine Bilirubin Urine Urobilinogen Ur Leukocyte Esterase Urine WBC (Auto) Urine RBC (Auto) U Hyaline Cast (Auto) Urine Bacteria (Auto) Squamous Epi Cells Auto Amorphous Sediment Auto Urine Mucus (Auto) Urine Yeast (Budding) Urine Creatinine Urine Sodium Urine Ascorbic Acid Fluid Type Fluid Source Fluid Color Fluid Appearance Fluid Viscosity Fluid WBC Fluid RBC Fluid Seg Neutrophils Fluid Lymphocytes Fluid Monocytes Fluid Eosinophils Fluid Basophils Fluid Glucose Fluid Total Protein Fluid LDH Fluid Amylase Stool Occult Blood Stool for White Cells Time Trough Drawn Vancomycin Trough C. difficile Tox (PCR) Slides for Path Review Blood Type 10/23/16 10/23/16 10/23/16 12:40 13:58 13:58 WBC RBC Hgb Hct MCV MCH MCHC RDW Plt Count Seg Neutrophils % Lymphocytes % Monocytes % Eosinophils % Basophils % Absolute Neutrophils Absolute Lymphocytes Absolute Monocytes Absolute Eosinophils Absolute Basophils Platelet Estimate Large Platelets Platelet Comment PT 16.0 H INR 1.23 APTT 44.6 H Sodium Potassium Chloride Carbon Dioxide Anion Gap BUN Creatinine Est GFR ( Amer) Est GFR (Non-Af Amer) Glucose POC Glucose Lactic Acid 5.1 H Calcium Magnesium Total Bilirubin Direct Bilirubin Indirect Bilirubin Neonat Total Bilirubin AST ALT Alkaline Phosphatase Ammonia Creatine Kinase 49 CK-MB (CK-2) Troponin I Total Protein Albumin Lipase 20.9 L Urine Color Urine Appearance Urine pH Ur Specific [place] Urine Protein Urine Glucose (UA) Urine Ketones Urine Blood Urine Nitrite Urine Bilirubin Urine Urobilinogen Ur Leukocyte Esterase Urine WBC (Auto) Urine RBC (Auto) U Hyaline Cast (Auto) Urine Bacteria (Auto) Squamous Epi Cells Auto Amorphous Sediment Auto Urine Mucus (Auto) Urine Yeast (Budding) Urine Creatinine Urine Sodium Urine Ascorbic Acid Fluid Type Fluid Source Fluid Color Fluid Appearance Fluid Viscosity Fluid WBC Fluid RBC Fluid Seg Neutrophils Fluid Lymphocytes Fluid Monocytes Fluid Eosinophils Fluid Basophils Fluid Glucose Fluid Total Protein Fluid LDH Fluid Amylase Stool Occult Blood Stool for White Cells Time Trough Drawn Vancomycin Trough C. difficile Tox (PCR) Slides for Path Review Blood Type 10/23/16 10/23/16 10/23/16 16:27 16:27 16:27 WBC RBC Hgb Hct MCV MCH MCHC RDW Plt Count Seg Neutrophils % Lymphocytes % Monocytes % Eosinophils % Basophils % Absolute Neutrophils Absolute Lymphocytes Absolute Monocytes Absolute Eosinophils Absolute Basophils Platelet Estimate Large Platelets Platelet Comment PT INR APTT Sodium Potassium Chloride Carbon Dioxide Anion Gap BUN Creatinine Est GFR ( Amer) Est GFR (Non-Af Amer) Glucose POC Glucose Lactic Acid Calcium Magnesium Total Bilirubin Direct Bilirubin Indirect Bilirubin Neonat Total Bilirubin AST ALT Alkaline Phosphatase Ammonia Creatine Kinase CK-MB (CK-2) Troponin I Total Protein Albumin Lipase Urine Color Urine Appearance Urine pH Ur Specific [place] Urine Protein Urine Glucose (UA) Urine Ketones Urine Blood Urine Nitrite Urine Bilirubin Urine Urobilinogen Ur Leukocyte Esterase Urine WBC (Auto) Urine RBC (Auto) U Hyaline Cast (Auto) Urine Bacteria (Auto) Squamous Epi Cells Auto Amorphous Sediment Auto Urine Mucus (Auto) Urine Yeast (Budding) Urine Creatinine Urine Sodium Urine Ascorbic Acid Fluid Type PERITONEAL Fluid Source ASCITES Fluid Color YELLOW Fluid Appearance CLEAR Fluid Viscosity LIQUID Fluid WBC 67 Fluid RBC 26 Fluid Seg Neutrophils 14 Fluid Lymphocytes 81 Fluid Monocytes 5 Fluid Eosinophils Fluid Basophils Fluid Glucose 126 Fluid Total Protein Fluid LDH 32 Fluid Amylase Stool Occult Blood Stool for White Cells Time Trough Drawn Vancomycin Trough C. difficile Tox (PCR) Slides for Path Review Blood Type 10/23/16 10/23/16 10/23/16 16:52 18:44 18:44 WBC RBC Hgb Hct MCV MCH MCHC RDW Plt Count Seg Neutrophils % Lymphocytes % Monocytes % Eosinophils % Basophils % Absolute Neutrophils Absolute Lymphocytes Absolute Monocytes Absolute Eosinophils Absolute Basophils Platelet Estimate Large Platelets Platelet Comment PT INR APTT Sodium 138.0 Potassium 3.3 L Chloride 99 Carbon Dioxide 29 Anion Gap 10 BUN < 2 L Creatinine 0.71 Est GFR ( Amer) > 60 Est GFR (Non-Af Amer) > 60 Glucose 95 POC Glucose Lactic Acid 1.7 Calcium 7.4 L Magnesium 1.9 Total Bilirubin Direct Bilirubin Indirect Bilirubin Neonat Total Bilirubin AST ALT Alkaline Phosphatase Ammonia Creatine Kinase CK-MB (CK-2) Troponin I Total Protein Albumin Lipase Urine Color Urine Appearance Urine pH Ur Specific [place] Urine Protein Urine Glucose (UA) Urine Ketones Urine Blood Urine Nitrite Urine Bilirubin Urine Urobilinogen Ur Leukocyte Esterase Urine WBC (Auto) Urine RBC (Auto) U Hyaline Cast (Auto) Urine Bacteria (Auto) Squamous Epi Cells Auto Amorphous Sediment Auto Urine Mucus (Auto) Urine Yeast (Budding) Urine Creatinine Urine Sodium Urine Ascorbic Acid Fluid Type Fluid Source Fluid Color Fluid Appearance Fluid Viscosity Fluid WBC Fluid RBC Fluid Seg Neutrophils Fluid Lymphocytes Fluid Monocytes Fluid Eosinophils Fluid Basophils Fluid Glucose Fluid Total Protein Fluid LDH Fluid Amylase Stool Occult Blood Stool for White Cells Time Trough Drawn Vancomycin Trough C. difficile Tox (PCR) Slides for Path Review Blood Type 10/24/16 10/24/16 10/24/16 00:58 04:28 04:28 WBC 14.6 H RBC 3.39 L Hgb 11.7 L D Hct 33.9 L MCV 100 H MCH 34.4 H MCHC 34.4 RDW 13.6 Plt Count 148 L Seg Neutrophils % 60.2 Lymphocytes % 26.2 Monocytes % 12.0 Eosinophils % 0.7 Basophils % 0.9 Absolute Neutrophils 8.8 H Absolute Lymphocytes 3.8 Absolute Monocytes 1.8 H Absolute Eosinophils 0.1 Absolute Basophils 0.1 Platelet Estimate Large Platelets Platelet Comment PT INR APTT Sodium 141.8 Potassium 3.2 L Chloride 105 Carbon Dioxide 25 Anion Gap 12 BUN < 2 L Creatinine 0.78 Est GFR ( Amer) > 60 Est GFR (Non-Af Amer) > 60 Glucose 185 H POC Glucose Lactic Acid Calcium 7.9 L Magnesium 1.8 Total Bilirubin Direct Bilirubin Indirect Bilirubin Neonat Total Bilirubin AST ALT Alkaline Phosphatase Ammonia Creatine Kinase CK-MB (CK-2) Troponin I Total Protein Albumin Lipase Urine Color YELLOW Urine Appearance SLIGHTLY-CLOUDY Urine pH 6.0 Ur Specific [place] 1.003 Urine Protein NEGATIVE Urine Glucose (UA) NEGATIVE Urine Ketones NEGATIVE Urine Blood NEGATIVE Urine Nitrite NEGATIVE Urine Bilirubin NEGATIVE Urine Urobilinogen NEGATIVE Ur Leukocyte Esterase NEGATIVE Urine WBC (Auto) 2 Urine RBC (Auto) 0 U Hyaline Cast (Auto) Urine Bacteria (Auto) 1+ Squamous Epi Cells Auto 3 Amorphous Sediment Auto Urine Mucus (Auto) RARE Urine Yeast (Budding) Urine Creatinine Urine Sodium Urine Ascorbic Acid NEGATIVE Fluid Type Fluid Source Fluid Color Fluid Appearance Fluid Viscosity Fluid WBC Fluid RBC Fluid Seg Neutrophils Fluid Lymphocytes Fluid Monocytes Fluid Eosinophils Fluid Basophils Fluid Glucose Fluid Total Protein Fluid LDH Fluid Amylase Stool Occult Blood Stool for White Cells Time Trough Drawn Vancomycin Trough C. difficile Tox (PCR) Slides for Path Review Blood Type 10/24/16 10/24/16 10/25/16 08:40 10:00 09:31 WBC Cancelled RBC Cancelled Hgb Cancelled Hct Cancelled MCV Cancelled MCH Cancelled MCHC Cancelled RDW Cancelled Plt Count Cancelled Seg Neutrophils % Cancelled Lymphocytes % Cancelled Monocytes % Cancelled Eosinophils % Cancelled Basophils % Cancelled Absolute Neutrophils Cancelled Absolute Lymphocytes Cancelled Absolute Monocytes Cancelled Absolute Eosinophils Cancelled Absolute Basophils Cancelled Platelet Estimate Cancelled Large Platelets Platelet Comment PT INR APTT Sodium Potassium Chloride Carbon Dioxide Anion Gap BUN Creatinine Est GFR ( Amer) Est GFR (Non-Af Amer) Glucose POC Glucose Lactic Acid Calcium Magnesium Total Bilirubin Direct Bilirubin Indirect Bilirubin Neonat Total Bilirubin AST ALT Alkaline Phosphatase Ammonia < 8.7 L Creatine Kinase CK-MB (CK-2) Troponin I Total Protein Albumin Lipase Urine Color YELLOW Urine Appearance SLIGHTLY-CLOUDY Urine pH 7.0 Ur Specific [place] 1.002 Urine Protein NEGATIVE Urine Glucose (UA) NEGATIVE Urine Ketones NEGATIVE Urine Blood SMALL H Urine Nitrite NEGATIVE Urine Bilirubin NEGATIVE Urine Urobilinogen NEGATIVE Ur Leukocyte Esterase NEGATIVE Urine WBC (Auto) 0 Urine RBC (Auto) 0 U Hyaline Cast (Auto) Urine Bacteria (Auto) TRACE Squamous Epi Cells Auto <1 Amorphous Sediment Auto Urine Mucus (Auto) Urine Yeast (Budding) Urine Creatinine Urine Sodium Urine Ascorbic Acid NEGATIVE Fluid Type Fluid Source Fluid Color Fluid Appearance Fluid Viscosity Fluid WBC Fluid RBC Fluid Seg Neutrophils Fluid Lymphocytes Fluid Monocytes Fluid Eosinophils Fluid Basophils Fluid Glucose Fluid Total Protein Fluid LDH Fluid Amylase Stool Occult Blood Stool for White Cells Time Trough Drawn Vancomycin Trough C. difficile Tox (PCR) Slides for Path Review Cancelled Blood Type 10/25/16 10/25/16 10/25/16 09:31 09:31 09:31 WBC RBC Hgb Hct MCV MCH MCHC RDW Plt Count Seg Neutrophils % Lymphocytes % Monocytes % Eosinophils % Basophils % Absolute Neutrophils Absolute Lymphocytes Absolute Monocytes Absolute Eosinophils Absolute Basophils Platelet Estimate Large Platelets Platelet Comment PT INR APTT Sodium 143.1 Potassium 4.4 Chloride 113 H Carbon Dioxide 21 L Anion Gap 9 BUN < 2 L Creatinine 0.85 Cancelled Est GFR ( Amer) > 60 Cancelled Est GFR (Non-Af Amer) > 60 Cancelled Glucose 124 H POC Glucose Lactic Acid Calcium 8.1 L Magnesium Total Bilirubin 2.6 H Direct Bilirubin 1.4 H Indirect Bilirubin Not Reportable Neonat Total Bilirubin Not Reportable AST 57 H ALT 39 Alkaline Phosphatase 106 Ammonia Creatine Kinase CK-MB (CK-2) Troponin I Total Protein 5.3 L Albumin 2.3 L Lipase Urine Color Urine Appearance Urine pH Ur Specific [place] Urine Protein Urine Glucose (UA) Urine Ketones Urine Blood Urine Nitrite Urine Bilirubin Urine Urobilinogen Ur Leukocyte Esterase Urine WBC (Auto) Urine RBC (Auto) U Hyaline Cast (Auto) Urine Bacteria (Auto) Squamous Epi Cells Auto Amorphous Sediment Auto Urine Mucus (Auto) Urine Yeast (Budding) Urine Creatinine Urine Sodium Urine Ascorbic Acid Fluid Type Fluid Source Fluid Color Fluid Appearance Fluid Viscosity Fluid WBC Fluid RBC Fluid Seg Neutrophils Fluid Lymphocytes Fluid Monocytes Fluid Eosinophils Fluid Basophils Fluid Glucose Fluid Total Protein Fluid LDH Fluid Amylase Stool Occult Blood Stool for White Cells Time Trough Drawn 0931 Vancomycin Trough 25.2 H C. difficile Tox (PCR) Slides for Path Review Blood Type 10/25/16 10/26/16 10/26/16 11:25 02:00 04:33 WBC 10.8 H 10.2 RBC 3.23 L 3.44 L Hgb 11.0 L 11.8 L Hct 32.5 L 35.1 L MCV 101 H 102 H MCH 34.1 H 34.3 H MCHC 33.8 33.6 RDW 13.9 14.2 H Plt Count 93 L 83 L Seg Neutrophils % 68.3 60.5 Lymphocytes % 20.6 25.8 Monocytes % 8.6 10.6 Eosinophils % 1.3 1.8 Basophils % 1.2 1.3 Absolute Neutrophils 7.4 6.2 Absolute Lymphocytes 2.2 2.6 Absolute Monocytes 0.9 1.1 Absolute Eosinophils 0.1 0.2 Absolute Basophils 0.1 0.1 Platelet Estimate Large Platelets Platelet Comment PT INR APTT Sodium Potassium Chloride Carbon Dioxide Anion Gap BUN Creatinine Est GFR ( Amer) Est GFR (Non-Af Amer) Glucose POC Glucose Lactic Acid Calcium Magnesium Total Bilirubin Direct Bilirubin Indirect Bilirubin Neonat Total Bilirubin AST ALT Alkaline Phosphatase Ammonia Creatine Kinase CK-MB (CK-2) Troponin I Total Protein Albumin Lipase Urine Color Urine Appearance Urine pH Ur Specific [place] Urine Protein Urine Glucose (UA) Urine Ketones Urine Blood Urine Nitrite Urine Bilirubin Urine Urobilinogen Ur Leukocyte Esterase Urine WBC (Auto) Urine RBC (Auto) U Hyaline Cast (Auto) Urine Bacteria (Auto) Squamous Epi Cells Auto Amorphous Sediment Auto Urine Mucus (Auto) Urine Yeast (Budding) Urine Creatinine Urine Sodium Urine Ascorbic Acid Fluid Type Fluid Source Fluid Color Fluid Appearance Fluid Viscosity Fluid WBC Fluid RBC Fluid Seg Neutrophils Fluid Lymphocytes Fluid Monocytes Fluid Eosinophils Fluid Basophils Fluid Glucose Fluid Total Protein Fluid LDH Fluid Amylase Stool Occult Blood Stool for White Cells Time Trough Drawn Vancomycin Trough C. difficile Tox (PCR) NEGATIVE Slides for Path Review Blood Type 10/26/16 10/27/16 10/27/16 04:33 04:18 04:18 WBC 12.1 H RBC 3.46 L Hgb 11.8 L Hct 35.3 L MCV 102 H MCH 34.1 H MCHC 33.4 RDW 14.2 H Plt Count 96 L Seg Neutrophils % 66.2 Lymphocytes % 21.6 Monocytes % 10.4 Eosinophils % 0.7 Basophils % 1.1 Absolute Neutrophils 8.0 Absolute Lymphocytes 2.6 Absolute Monocytes 1.3 Absolute Eosinophils 0.1 Absolute Basophils 0.1 Platelet Estimate Large Platelets Platelet Comment PT INR APTT Sodium 142.9 141.1 Potassium 4.1 4.4 Chloride 112 H 113 H Carbon Dioxide 18 L 19 L Anion Gap 13 9 BUN 3 L 3 L Creatinine 0.93 1.06 Est GFR ( Amer) > 60 > 60 Est GFR (Non-Af Amer) > 60 55 L Glucose 101 101 POC Glucose Lactic Acid Calcium 8.3 L 8.6 Magnesium Total Bilirubin 2.8 H Direct Bilirubin 1.5 H Indirect Bilirubin Not Reportable Neonat Total Bilirubin Not Reportable AST 54 H ALT 37 Alkaline Phosphatase 104 Ammonia Creatine Kinase CK-MB (CK-2) Troponin I Total Protein 5.6 L Albumin 2.3 L Lipase Urine Color Urine Appearance Urine pH Ur Specific [place] Urine Protein Urine Glucose (UA) Urine Ketones Urine Blood Urine Nitrite Urine Bilirubin Urine Urobilinogen Ur Leukocyte Esterase Urine WBC (Auto) Urine RBC (Auto) U Hyaline Cast (Auto) Urine Bacteria (Auto) Squamous Epi Cells Auto Amorphous Sediment Auto Urine Mucus (Auto) Urine Yeast (Budding) Urine Creatinine Urine Sodium Urine Ascorbic Acid Fluid Type Fluid Source Fluid Color Fluid Appearance Fluid Viscosity Fluid WBC Fluid RBC Fluid Seg Neutrophils Fluid Lymphocytes Fluid Monocytes Fluid Eosinophils Fluid Basophils Fluid Glucose Fluid Total Protein Fluid LDH Fluid Amylase Stool Occult Blood Stool for White Cells Time Trough Drawn Vancomycin Trough C. difficile Tox (PCR) Slides for Path Review Blood Type 10/27/16 10/27/16 10/27/16 04:18 06:00 06:20 WBC RBC Hgb Hct MCV MCH MCHC RDW Plt Count Seg Neutrophils % Lymphocytes % Monocytes % Eosinophils % Basophils % Absolute Neutrophils Absolute Lymphocytes Absolute Monocytes Absolute Eosinophils Absolute Basophils Platelet Estimate Large Platelets Platelet Comment PT 19.4 H INR 1.57 APTT Sodium Potassium Chloride Carbon Dioxide Anion Gap BUN Creatinine Est GFR ( Amer) Est GFR (Non-Af Amer) Glucose POC Glucose Lactic Acid Calcium Magnesium Total Bilirubin Direct Bilirubin Indirect Bilirubin Neonat Total Bilirubin AST ALT Alkaline Phosphatase Ammonia Creatine Kinase CK-MB (CK-2) Troponin I Total Protein Albumin Lipase Urine Color YELLOW Urine Appearance CLOUDY Urine pH 5.0 Ur Specific [place] 1.014 Urine Protein 30 H Urine Glucose (UA) NEGATIVE Urine Ketones TRACE H Urine Blood MODERATE H Urine Nitrite NEGATIVE Urine Bilirubin NEGATIVE Urine Urobilinogen NEGATIVE Ur Leukocyte Esterase NEGATIVE Urine WBC (Auto) 3 Urine RBC (Auto) 4 U Hyaline Cast (Auto) 10 Urine Bacteria (Auto) Squamous Epi Cells Auto Amorphous Sediment Auto TRACE Urine Mucus (Auto) OCC Urine Yeast (Budding) Urine Creatinine Urine Sodium Urine Ascorbic Acid NEGATIVE Fluid Type Fluid Source Fluid Color Fluid Appearance Fluid Viscosity Fluid WBC Fluid RBC Fluid Seg Neutrophils Fluid Lymphocytes Fluid Monocytes Fluid Eosinophils Fluid Basophils Fluid Glucose Fluid Total Protein Fluid LDH Fluid Amylase Stool Occult Blood NEGATIVE Stool for White Cells Time Trough Drawn Vancomycin Trough C. difficile Tox (PCR) Slides for Path Review Blood Type 10/27/16 10/27/16 10/27/16 09:42 21:43 22:45 WBC Cancelled 9.1 RBC Cancelled 2.88 L Hgb Cancelled 9.8 L Hct Cancelled 29.1 L MCV Cancelled 101 H MCH Cancelled 34.0 H MCHC Cancelled 33.6 RDW Cancelled 13.8 Plt Count Cancelled 78 L Seg Neutrophils % Cancelled 69.1 Lymphocytes % Cancelled 16.9 Monocytes % Cancelled 12.2 Eosinophils % Cancelled 0.7 Basophils % Cancelled 1.1 Absolute Neutrophils Cancelled 6.3 Absolute Lymphocytes Cancelled 1.5 Absolute Monocytes Cancelled 1.1 Absolute Eosinophils Cancelled 0.1 Absolute Basophils Cancelled 0.1 Platelet Estimate Cancelled Large Platelets Platelet Comment PT INR APTT Sodium Potassium Chloride Carbon Dioxide Anion Gap BUN Creatinine Est GFR ( Amer) Est GFR (Non-Af Amer) Glucose POC Glucose Lactic Acid Calcium Magnesium Total Bilirubin Direct Bilirubin Indirect Bilirubin Neonat Total Bilirubin AST ALT Alkaline Phosphatase Ammonia Creatine Kinase CK-MB (CK-2) Troponin I Total Protein Albumin Lipase Urine Color Urine Appearance Urine pH Ur Specific [place] Urine Protein Urine Glucose (UA) Urine Ketones Urine Blood Urine Nitrite Urine Bilirubin Urine Urobilinogen Ur Leukocyte Esterase Urine WBC (Auto) Urine RBC (Auto) U Hyaline Cast (Auto) Urine Bacteria (Auto) Squamous Epi Cells Auto Amorphous Sediment Auto Urine Mucus (Auto) Urine Yeast (Budding) Urine Creatinine Urine Sodium Urine Ascorbic Acid Fluid Type Fluid Source Fluid Color Fluid Appearance Fluid Viscosity Fluid WBC Fluid RBC Fluid Seg Neutrophils Fluid Lymphocytes Fluid Monocytes Fluid Eosinophils Fluid Basophils Fluid Glucose Fluid Total Protein Fluid LDH Fluid Amylase Stool Occult Blood Stool for White Cells Time Trough Drawn Vancomycin Trough C. difficile Tox (PCR) Slides for Path Review Cancelled Blood Type A POSITIVE 10/28/16 10/28/16 10/28/16 01:50 01:50 04:40 WBC 8.4 RBC 2.89 L Hgb 9.8 L Hct 29.4 L MCV 102 H MCH 34.0 H MCHC 33.5 RDW 13.8 Plt Count 84 L Seg Neutrophils % 70.4 Lymphocytes % 16.0 Monocytes % 11.6 Eosinophils % 1.0 Basophils % 1.0 Absolute Neutrophils 5.9 Absolute Lymphocytes 1.3 Absolute Monocytes 1.0 Absolute Eosinophils 0.1 Absolute Basophils 0.1 Platelet Estimate Large Platelets Platelet Comment PT INR APTT Sodium Potassium Chloride Carbon Dioxide Anion Gap BUN Creatinine Est GFR ( Amer) Est GFR (Non-Af Amer) Glucose POC Glucose Lactic Acid Calcium Magnesium Total Bilirubin Direct Bilirubin Indirect Bilirubin Neonat Total Bilirubin AST ALT Alkaline Phosphatase Ammonia Creatine Kinase CK-MB (CK-2) Troponin I Total Protein Albumin Lipase Urine Color Urine Appearance Urine pH Ur Specific [place] Urine Protein Urine Glucose (UA) Urine Ketones Urine Blood Urine Nitrite Urine Bilirubin Urine Urobilinogen Ur Leukocyte Esterase Urine WBC (Auto) Urine RBC (Auto) U Hyaline Cast (Auto) Urine Bacteria (Auto) Squamous Epi Cells Auto Amorphous Sediment Auto Urine Mucus (Auto) Urine Yeast (Budding) Urine Creatinine Urine Sodium Urine Ascorbic Acid Fluid Type Fluid Source Fluid Color Fluid Appearance Fluid Viscosity Fluid WBC Fluid RBC Fluid Seg Neutrophils Fluid Lymphocytes Fluid Monocytes Fluid Eosinophils Fluid Basophils Fluid Glucose Fluid Total Protein Fluid LDH Fluid Amylase Stool Occult Blood NEGATIVE Stool for White Cells FEW H Time Trough Drawn Vancomycin Trough C. difficile Tox (PCR) Slides for Path Review Blood Type 10/28/16 10/28/16 10/28/16 04:40 09:16 11:53 WBC RBC Hgb Hct MCV MCH MCHC RDW Plt Count Seg Neutrophils % Lymphocytes % Monocytes % Eosinophils % Basophils % Absolute Neutrophils Absolute Lymphocytes Absolute Monocytes Absolute Eosinophils Absolute Basophils Platelet Estimate Large Platelets Platelet Comment PT 19.1 H INR 1.55 APTT 47.1 H Sodium 142.5 Potassium 3.9 Chloride 112 H Carbon Dioxide 21 L Anion Gap 10 BUN 4 L Creatinine 1.14 Est GFR ( Amer) > 60 Est GFR (Non-Af Amer) 51 L Glucose 95 POC Glucose Lactic Acid Calcium 8.9 Magnesium Total Bilirubin 2.7 H Direct Bilirubin 1.5 H Indirect Bilirubin Not Reportable Neonat Total Bilirubin Not Reportable AST 33 ALT 34 Alkaline Phosphatase 85 Ammonia Creatine Kinase CK-MB (CK-2) Troponin I Total Protein 5.4 L Albumin 2.5 L Lipase Urine Color Urine Appearance Urine pH Ur Specific [place] Urine Protein Urine Glucose (UA) Urine Ketones Urine Blood Urine Nitrite Urine Bilirubin Urine Urobilinogen Ur Leukocyte Esterase Urine WBC (Auto) Urine RBC (Auto) U Hyaline Cast (Auto) Urine Bacteria (Auto) Squamous Epi Cells Auto Amorphous Sediment Auto Urine Mucus (Auto) Urine Yeast (Budding) Urine Creatinine Urine Sodium Urine Ascorbic Acid Fluid Type PLEURAL Fluid Source Fluid Color YELLOW Fluid Appearance HAZY Fluid Viscosity LIQUID Fluid WBC 337 Fluid RBC 111 Fluid Seg Neutrophils 92 Fluid Lymphocytes 3 Fluid Monocytes 5 Fluid Eosinophils 0 Fluid Basophils 0 Fluid Glucose Fluid Total Protein Fluid LDH Fluid Amylase Stool Occult Blood Stool for White Cells Time Trough Drawn Vancomycin Trough C. difficile Tox (PCR) Slides for Path Review Blood Type 10/28/16 10/29/16 10/29/16 11:53 00:30 00:30 WBC RBC Hgb Hct MCV MCH MCHC RDW Plt Count Seg Neutrophils % Lymphocytes % Monocytes % Eosinophils % Basophils % Absolute Neutrophils Absolute Lymphocytes Absolute Monocytes Absolute Eosinophils Absolute Basophils Platelet Estimate Large Platelets Platelet Comment PT INR APTT Sodium Potassium Chloride Carbon Dioxide Anion Gap BUN Creatinine 1.28 H Est GFR ( Amer) 54 L Est GFR (Non-Af Amer) 44 L Glucose POC Glucose Lactic Acid Calcium Magnesium Total Bilirubin Direct Bilirubin Indirect Bilirubin Neonat Total Bilirubin AST ALT Alkaline Phosphatase Ammonia Creatine Kinase CK-MB (CK-2) Troponin I Total Protein Albumin Lipase Urine Color Urine Appearance Urine pH Ur Specific [place] Urine Protein Urine Glucose (UA) Urine Ketones Urine Blood Urine Nitrite Urine Bilirubin Urine Urobilinogen Ur Leukocyte Esterase Urine WBC (Auto) Urine RBC (Auto) U Hyaline Cast (Auto) Urine Bacteria (Auto) Squamous Epi Cells Auto Amorphous Sediment Auto Urine Mucus (Auto) Urine Yeast (Budding) Urine Creatinine Urine Sodium Urine Ascorbic Acid Fluid Type Fluid Source Fluid Color Fluid Appearance Fluid Viscosity Fluid WBC Fluid RBC Fluid Seg Neutrophils Fluid Lymphocytes Fluid Monocytes Fluid Eosinophils Fluid Basophils Fluid Glucose 107 Fluid Total Protein 1.2 Fluid LDH Fluid Amylase Stool Occult Blood Stool for White Cells Time Trough Drawn 0030 Vancomycin Trough 21.2 H C. difficile Tox (PCR) Slides for Path Review Blood Type 10/29/16 10/29/16 10/29/16 05:40 05:40 22:57 WBC 11.2 H RBC 2.93 L Hgb 10.0 L Hct 29.5 L MCV 101 H MCH 34.0 H MCHC 33.8 RDW 13.8 Plt Count 79 L Seg Neutrophils % 77.7 Lymphocytes % 11.9 L Monocytes % 9.7 Eosinophils % 0.1 Basophils % 0.6 Absolute Neutrophils 8.7 H Absolute Lymphocytes 1.3 Absolute Monocytes 1.1 Absolute Eosinophils 0.0 Absolute Basophils 0.1 Platelet Estimate Large Platelets Platelet Comment PT INR APTT Sodium 141.1 Potassium 4.1 Chloride 111 H Carbon Dioxide 20 L Anion Gap 10 BUN 5 L Creatinine 1.31 H Est GFR ( Amer) 52 L Est GFR (Non-Af Amer) 43 L Glucose 90 POC Glucose 85 Lactic Acid Calcium 9.2 Magnesium 1.5 L Total Bilirubin Direct Bilirubin Indirect Bilirubin Neonat Total Bilirubin AST ALT Alkaline Phosphatase Ammonia Creatine Kinase CK-MB (CK-2) Troponin I Total Protein Albumin Lipase Urine Color Urine Appearance Urine pH Ur Specific [place] Urine Protein Urine Glucose (UA) Urine Ketones Urine Blood Urine Nitrite Urine Bilirubin Urine Urobilinogen Ur Leukocyte Esterase Urine WBC (Auto) Urine RBC (Auto) U Hyaline Cast (Auto) Urine Bacteria (Auto) Squamous Epi Cells Auto Amorphous Sediment Auto Urine Mucus (Auto) Urine Yeast (Budding) Urine Creatinine Urine Sodium Urine Ascorbic Acid Fluid Type Fluid Source Fluid Color Fluid Appearance Fluid Viscosity Fluid WBC Fluid RBC Fluid Seg Neutrophils Fluid Lymphocytes Fluid Monocytes Fluid Eosinophils Fluid Basophils Fluid Glucose Fluid Total Protein Fluid LDH Fluid Amylase Stool Occult Blood Stool for White Cells Time Trough Drawn Vancomycin Trough C. difficile Tox (PCR) Slides for Path Review Blood Type 10/30/16 10/31/16 10/31/16 00:10 05:40 05:40 WBC 9.0 RBC 2.82 L Hgb 9.6 L Hct 28.4 L MCV 101 H MCH 34.1 H MCHC 33.8 RDW 14.2 H Plt Count 56 L Seg Neutrophils % 72.6 Lymphocytes % 15.9 Monocytes % 10.1 Eosinophils % 0.4 Basophils % 1.0 Absolute Neutrophils 6.5 Absolute Lymphocytes 1.4 Absolute Monocytes 0.9 Absolute Eosinophils 0.0 Absolute Basophils 0.1 Platelet Estimate Large Platelets Platelet Comment PT INR APTT Sodium 141.7 141.9 Potassium 3.9 3.8 Chloride 111 H 111 H Carbon Dioxide 19 L 19 L Anion Gap 12 12 BUN 5 L 7 Creatinine 1.49 H 1.77 H Est GFR ( Amer) 45 L 37 L Est GFR (Non-Af Amer) 37 L 30 L Glucose 84 77 POC Glucose Lactic Acid Calcium 9.4 9.3 Magnesium 1.5 L 1.9 Total Bilirubin Direct Bilirubin Indirect Bilirubin Neonat Total Bilirubin AST ALT Alkaline Phosphatase Ammonia Creatine Kinase CK-MB (CK-2) Troponin I Total Protein Albumin Lipase Urine Color Urine Appearance Urine pH Ur Specific [place] Urine Protein Urine Glucose (UA) Urine Ketones Urine Blood Urine Nitrite Urine Bilirubin Urine Urobilinogen Ur Leukocyte Esterase Urine WBC (Auto) Urine RBC (Auto) U Hyaline Cast (Auto) Urine Bacteria (Auto) Squamous Epi Cells Auto Amorphous Sediment Auto Urine Mucus (Auto) Urine Yeast (Budding) Urine Creatinine Urine Sodium Urine Ascorbic Acid Fluid Type Fluid Source Fluid Color Fluid Appearance Fluid Viscosity Fluid WBC Fluid RBC Fluid Seg Neutrophils Fluid Lymphocytes Fluid Monocytes Fluid Eosinophils Fluid Basophils Fluid Glucose Fluid Total Protein Fluid LDH Fluid Amylase Stool Occult Blood Stool for White Cells Time Trough Drawn Vancomycin Trough C. difficile Tox (PCR) Slides for Path Review Blood Type 11/01/16 11/01/16 11/01/16 13:00 13:00 13:55 WBC 10.5 RBC 2.88 L Hgb 9.7 L Hct 28.9 L MCV 100 H MCH 33.9 H MCHC 33.8 RDW 14.2 H Plt Count 59 L Seg Neutrophils % 65.9 Lymphocytes % 18.6 Monocytes % 13.0 Eosinophils % 0.6 Basophils % 1.9 Absolute Neutrophils 6.9 Absolute Lymphocytes 2.0 Absolute Monocytes 1.4 Absolute Eosinophils 0.1 Absolute Basophils 0.2 Platelet Estimate Large Platelets Platelet Comment PT INR APTT Sodium 140.2 Potassium 3.7 Chloride 109 H Carbon Dioxide 20 L Anion Gap 11 BUN 10 Creatinine 2.04 H Est GFR ( Amer) 31 L Est GFR (Non-Af Amer) 26 L Glucose 99 POC Glucose Lactic Acid Calcium 9.5 Magnesium 2.1 Total Bilirubin Direct Bilirubin Indirect Bilirubin Neonat Total Bilirubin AST ALT Alkaline Phosphatase Ammonia Creatine Kinase CK-MB (CK-2) Troponin I Total Protein Albumin Lipase Urine Color Urine Appearance Urine pH Ur Specific [place] Urine Protein Urine Glucose (UA) Urine Ketones Urine Blood Urine Nitrite Urine Bilirubin Urine Urobilinogen Ur Leukocyte Esterase Urine WBC (Auto) Urine RBC (Auto) U Hyaline Cast (Auto) Urine Bacteria (Auto) Squamous Epi Cells Auto Amorphous Sediment Auto Urine Mucus (Auto) Urine Yeast (Budding) Urine Creatinine Urine Sodium Urine Ascorbic Acid Fluid Type Fluid Source Fluid Color Fluid Appearance Fluid Viscosity Fluid WBC Fluid RBC Fluid Seg Neutrophils Fluid Lymphocytes Fluid Monocytes Fluid Eosinophils Fluid Basophils Fluid Glucose Fluid Total Protein Fluid LDH Fluid Amylase Stool Occult Blood NEGATIVE Stool for White Cells Time Trough Drawn Vancomycin Trough C. difficile Tox (PCR) Slides for Path Review Blood Type 11/01/16 11/02/16 11/02/16 16:47 04:50 04:50 WBC Cancelled RBC Cancelled Hgb Cancelled Hct Cancelled MCV Cancelled MCH Cancelled MCHC Cancelled RDW Cancelled Plt Count Cancelled Seg Neutrophils % Cancelled Lymphocytes % Cancelled Monocytes % Cancelled Eosinophils % Cancelled Basophils % Cancelled Absolute Neutrophils Cancelled Absolute Lymphocytes Cancelled Absolute Monocytes Cancelled Absolute Eosinophils Cancelled Absolute Basophils Cancelled Platelet Estimate Cancelled Large Platelets Platelet Comment PT INR APTT Sodium 141.4 Potassium 3.4 L Chloride 109 H Carbon Dioxide 22 Anion Gap 10 BUN 12 Creatinine 2.07 H Est GFR ( Amer) 31 L Est GFR (Non-Af Amer) 25 L Glucose 88 POC Glucose Lactic Acid Calcium 9.3 Magnesium 2.1 Total Bilirubin Direct Bilirubin Indirect Bilirubin Neonat Total Bilirubin AST ALT Alkaline Phosphatase Ammonia Creatine Kinase CK-MB (CK-2) Troponin I Total Protein Albumin Lipase Urine Color YELLOW Urine Appearance SLIGHTLY-CLOUDY Urine pH 5.0 Ur Specific [place] 1.010 Urine Protein 30 H Urine Glucose (UA) NEGATIVE Urine Ketones TRACE H Urine Blood LARGE H Urine Nitrite NEGATIVE Urine Bilirubin NEGATIVE Urine Urobilinogen NEGATIVE Ur Leukocyte Esterase TRACE H Urine WBC (Auto) 23 Urine RBC (Auto) 82 U Hyaline Cast (Auto) 5 Urine Bacteria (Auto) TRACE Squamous Epi Cells Auto <1 Amorphous Sediment Auto Urine Mucus (Auto) RARE Urine Yeast (Budding) PRESENT Urine Creatinine Urine Sodium Urine Ascorbic Acid NEGATIVE Fluid Type Fluid Source Fluid Color Fluid Appearance Fluid Viscosity Fluid WBC Fluid RBC Fluid Seg Neutrophils Fluid Lymphocytes Fluid Monocytes Fluid Eosinophils Fluid Basophils Fluid Glucose Fluid Total Protein Fluid LDH Fluid Amylase Stool Occult Blood Stool for White Cells Time Trough Drawn Vancomycin Trough C. difficile Tox (PCR) Slides for Path Review Cancelled Blood Type 11/02/16 11/02/16 11/03/16 13:02 22:23 04:50 WBC 9.6 RBC 2.72 L Hgb 9.3 L Hct 27.3 L MCV 100 H MCH 34.0 H MCHC 33.9 RDW 14.1 H Plt Count 52 L Seg Neutrophils % 61.0 Lymphocytes % 22.1 Monocytes % 15.2 H Eosinophils % 1.0 Basophils % 0.7 Absolute Neutrophils 5.8 Absolute Lymphocytes 2.1 Absolute Monocytes 1.5 H Absolute Eosinophils 0.1 Absolute Basophils 0.1 Platelet Estimate Large Platelets Platelet Comment PT INR APTT Sodium 142.3 Potassium 3.1 L Chloride 110 H Carbon Dioxide 21 L Anion Gap 11 BUN 13 Creatinine 1.99 H Est GFR ( Amer) 32 L Est GFR (Non-Af Amer) 27 L Glucose 70 L POC Glucose Lactic Acid Calcium 8.6 Magnesium 1.8 Total Bilirubin Direct Bilirubin Indirect Bilirubin Neonat Total Bilirubin AST ALT Alkaline Phosphatase Ammonia Creatine Kinase CK-MB (CK-2) Troponin I Total Protein Albumin 2.3 L Lipase Urine Color Urine Appearance Urine pH Ur Specific [place] Urine Protein Urine Glucose (UA) Urine Ketones Urine Blood Urine Nitrite Urine Bilirubin Urine Urobilinogen Ur Leukocyte Esterase Urine WBC (Auto) Urine RBC (Auto) U Hyaline Cast (Auto) Urine Bacteria (Auto) Squamous Epi Cells Auto Amorphous Sediment Auto Urine Mucus (Auto) Urine Yeast (Budding) Urine Creatinine 44.7 Urine Sodium 91 H Urine Ascorbic Acid Fluid Type Fluid Source Fluid Color Fluid Appearance Fluid Viscosity Fluid WBC Fluid RBC Fluid Seg Neutrophils Fluid Lymphocytes Fluid Monocytes Fluid Eosinophils Fluid Basophils Fluid Glucose Fluid Total Protein Fluid LDH Fluid Amylase Stool Occult Blood Stool for White Cells Time Trough Drawn Vancomycin Trough C. difficile Tox (PCR) Slides for Path Review Blood Type 11/03/16 11/03/16 11/03/16 04:50 05:35 14:35 WBC 7.8 RBC 2.43 L Hgb 8.2 L Hct 24.4 L MCV 101 H MCH 33.8 H MCHC 33.6 RDW 14.2 H Plt Count 46 L Seg Neutrophils % 56.8 Lymphocytes % 26.7 Monocytes % 14.3 H Eosinophils % 1.0 Basophils % 1.2 Absolute Neutrophils 4.4 Absolute Lymphocytes 2.1 Absolute Monocytes 1.1 Absolute Eosinophils 0.1 Absolute Basophils 0.1 Platelet Estimate Large Platelets PRESENT Platelet Comment DECREASED PT INR APTT Sodium Potassium Chloride Carbon Dioxide Anion Gap BUN Creatinine Est GFR ( Amer) Est GFR (Non-Af Amer) Glucose POC Glucose Lactic Acid Calcium Magnesium Total Bilirubin Direct Bilirubin Indirect Bilirubin Neonat Total Bilirubin AST ALT Alkaline Phosphatase Ammonia Creatine Kinase CK-MB (CK-2) Troponin I Total Protein Albumin Lipase Urine Color YELLOW Urine Appearance SLIGHTLY-CLOUDY Urine pH 5.0 Ur Specific [place] 1.008 Urine Protein 30 H Urine Glucose (UA) NEGATIVE Urine Ketones NEGATIVE Urine Blood MODERATE H Urine Nitrite NEGATIVE Urine Bilirubin NEGATIVE Urine Urobilinogen NEGATIVE Ur Leukocyte Esterase NEGATIVE Urine WBC (Auto) 5 Urine RBC (Auto) 30 U Hyaline Cast (Auto) 3 Urine Bacteria (Auto) TRACE Squamous Epi Cells Auto Amorphous Sediment Auto Urine Mucus (Auto) RARE Urine Yeast (Budding) PRESENT Urine Creatinine Urine Sodium Urine Ascorbic Acid NEGATIVE Fluid Type Fluid Source Fluid Color Fluid Appearance Fluid Viscosity Fluid WBC Fluid RBC Fluid Seg Neutrophils Fluid Lymphocytes Fluid Monocytes Fluid Eosinophils Fluid Basophils Fluid Glucose Fluid Total Protein Fluid LDH Fluid Amylase 3 Stool Occult Blood Stool for White Cells Time Trough Drawn Vancomycin Trough C. difficile Tox (PCR) Slides for Path Review Blood Type 11/04/16 11/04/16 11/04/16 06:20 06:20 11:01 WBC 7.8 RBC 2.42 L Hgb 8.2 L Hct 24.2 L MCV 100 H MCH 33.8 H MCHC 33.8 RDW 14.0 Plt Count 42 L Seg Neutrophils % 56.8 Lymphocytes % 28.1 Monocytes % 13.2 H Eosinophils % 1.0 Basophils % 0.9 Absolute Neutrophils 4.4 Absolute Lymphocytes 2.2 Absolute Monocytes 1.0 Absolute Eosinophils 0.1 Absolute Basophils 0.1 Platelet Estimate Large Platelets Platelet Comment PT INR APTT Sodium 141.9 Potassium 3.5 L Chloride 108 H Carbon Dioxide 24 Anion Gap 10 BUN 12 Creatinine 1.76 H Est GFR ( Amer) 37 L Est GFR (Non-Af Amer) 31 L Glucose 80 POC Glucose 108 Lactic Acid Calcium 8.4 Magnesium 1.8 Total Bilirubin Direct Bilirubin Indirect Bilirubin Neonat Total Bilirubin AST ALT Alkaline Phosphatase Ammonia Creatine Kinase CK-MB (CK-2) Troponin I Total Protein Albumin Lipase Urine Color Urine Appearance Urine pH Ur Specific [place] Urine Protein Urine Glucose (UA) Urine Ketones Urine Blood Urine Nitrite Urine Bilirubin Urine Urobilinogen Ur Leukocyte Esterase Urine WBC (Auto) Urine RBC (Auto) U Hyaline Cast (Auto) Urine Bacteria (Auto) Squamous Epi Cells Auto Amorphous Sediment Auto Urine Mucus (Auto) Urine Yeast (Budding) Urine Creatinine Urine Sodium Urine Ascorbic Acid Fluid Type Fluid Source Fluid Color Fluid Appearance Fluid Viscosity Fluid WBC Fluid RBC Fluid Seg Neutrophils Fluid Lymphocytes Fluid Monocytes Fluid Eosinophils Fluid Basophils Fluid Glucose Fluid Total Protein Fluid LDH Fluid Amylase Stool Occult Blood Stool for White Cells Time Trough Drawn Vancomycin Trough C. difficile Tox (PCR) Slides for Path Review Blood Type 11/04/16 11/05/16 11/05/16 16:42 05:30 06:30 WBC 8.9 RBC 2.64 L Hgb 8.9 L Hct 26.3 L MCV 100 H MCH 33.9 H MCHC 34.0 RDW 14.1 H Plt Count 51 L Seg Neutrophils % 63.9 Lymphocytes % 21.8 Monocytes % 12.7 Eosinophils % 0.5 Basophils % 1.1 Absolute Neutrophils 5.7 Absolute Lymphocytes 1.9 Absolute Monocytes 1.1 Absolute Eosinophils 0.0 Absolute Basophils 0.1 Platelet Estimate Large Platelets Platelet Comment PT INR APTT Sodium Potassium Chloride Carbon Dioxide Anion Gap BUN Creatinine Est GFR ( Amer) Est GFR (Non-Af Amer) Glucose POC Glucose 95 Lactic Acid Calcium Magnesium Total Bilirubin Direct Bilirubin Indirect Bilirubin Neonat Total Bilirubin AST ALT Alkaline Phosphatase Ammonia Creatine Kinase CK-MB (CK-2) Troponin I Total Protein Albumin Lipase Urine Color YELLOW Urine Appearance CLEAR Urine pH 5.0 Ur Specific [place] 1.006 Urine Protein 30 H Urine Glucose (UA) NEGATIVE Urine Ketones NEGATIVE Urine Blood SMALL H Urine Nitrite NEGATIVE Urine Bilirubin NEGATIVE Urine Urobilinogen NEGATIVE Ur Leukocyte Esterase NEGATIVE Urine WBC (Auto) 8 Urine RBC (Auto) 3 U Hyaline Cast (Auto) Urine Bacteria (Auto) TRACE Squamous Epi Cells Auto Amorphous Sediment Auto Urine Mucus (Auto) RARE Urine Yeast (Budding) Urine Creatinine Urine Sodium Urine Ascorbic Acid NEGATIVE Fluid Type Fluid Source Fluid Color Fluid Appearance Fluid Viscosity Fluid WBC Fluid RBC Fluid Seg Neutrophils Fluid Lymphocytes Fluid Monocytes Fluid Eosinophils Fluid Basophils Fluid Glucose Fluid Total Protein Fluid LDH Fluid Amylase Stool Occult Blood Stool for White Cells Time Trough Drawn Vancomycin Trough C. difficile Tox (PCR) Slides for Path Review Blood Type 11/05/16 11/05/16 06:30 12:31 WBC RBC Hgb Hct MCV MCH MCHC RDW Plt Count Seg Neutrophils % Lymphocytes % Monocytes % Eosinophils % Basophils % Absolute Neutrophils Absolute Lymphocytes Absolute Monocytes Absolute Eosinophils Absolute Basophils Platelet Estimate Large Platelets Platelet Comment PT INR APTT Sodium 141.3 Potassium 4.1 Chloride 109 H Carbon Dioxide 22 Anion Gap 10 BUN 11 Creatinine 1.55 H Est GFR ( Amer) 43 L Est GFR (Non-Af Amer) 36 L Glucose 82 POC Glucose 92 Lactic Acid Calcium 8.6 Magnesium Total Bilirubin Direct Bilirubin Indirect Bilirubin Neonat Total Bilirubin AST ALT Alkaline Phosphatase Ammonia Creatine Kinase CK-MB (CK-2) Troponin I Total Protein Albumin Lipase Urine Color Urine Appearance Urine pH Ur Specific [place] Urine Protein Urine Glucose (UA) Urine Ketones Urine Blood Urine Nitrite Urine Bilirubin Urine Urobilinogen Ur Leukocyte Esterase Urine WBC (Auto) Urine RBC (Auto) U Hyaline Cast (Auto) Urine Bacteria (Auto) Squamous Epi Cells Auto Amorphous Sediment Auto Urine Mucus (Auto) Urine Yeast (Budding) Urine Creatinine Urine Sodium Urine Ascorbic Acid Fluid Type Fluid Source Fluid Color Fluid Appearance Fluid Viscosity Fluid WBC Fluid RBC Fluid Seg Neutrophils Fluid Lymphocytes Fluid Monocytes Fluid Eosinophils Fluid Basophils Fluid Glucose Fluid Total Protein Fluid LDH Fluid Amylase Stool Occult Blood Stool for White Cells Time Trough Drawn Vancomycin Trough C. difficile Tox (PCR) Slides for Path Review Blood Type Impressions: Abdomen/Pelvis CT 10/23/16 12:59 IMPRESSION: 1. INTERVAL DEVELOPMENT OF MODERATE ASCITES, NOT PRESENT ON THE PRIOR STUDY (05/2017). 2. SEVERE FATTY INFILTRATION OF THE LIVER. 3. STABLE CHRONIC FINDINGS IN THE PANCREAS INCLUDING ATROPHY AND CALCIFICATIONS CONSISTENT WITH CHRONIC PANCREATITIS. STABLE SMALL FLUID COLLECTION LIKELY REPRESENTING A SMALL PSEUDOCYST. 4. STONES AND/OR SLUDGE IN THE GALLBLADDER. Abdomen MRI 10/25/16 07:58 IMPRESSION: Normal portal venous flow void ; no evidence of portal venous thrombosis. Re- demonstration a pancreatic pseudocyst versus IPMN involving the pancreatic head/ neck junction with additional finding of a smaller cyst along the pancreatic duct within the tail. Compressive atelectasis of the left lower lobe with a moderate left pleural effusion. Chest CT 10/26/16 14:40 IMPRESSION: Dense left lower lobe atelectatic infiltrate with moderate left pleural effusion. Moderate ascites with marked fatty infiltration of the liver. Stable appearance of the pancreatic mass. Guidance Fluoroscopy 10/27/16 00:00 IMPRESSION: SUCCESSFUL PLACEMENT OF A 5 FR DUAL LUMEN 34 CM PICC IN THE left basilic VEIN. Interventional Vascular Procedure 10/27/16 00:00 IMPRESSION: SUCCESSFUL PLACEMENT OF A 5 FR DUAL LUMEN 34 CM PICC IN THE left basilic VEIN. PICC Line Insertion 10/27/16 11:11 IMPRESSION: SUCCESSFUL PLACEMENT OF A 5 FR DUAL LUMEN 34 CM PICC IN THE left basilic VEIN. Thoracentesis Ultrasound 10/28/16 08:00 IMPRESSION: SUCCESSFUL THORACENTESIS USING ULTRASOUND GUIDANCE. Head CT 10/29/16 00:00 IMPRESSION: NORMAL BRAIN CT WITHOUT CONTRAST. Abdomen Ultrasound 10/31/16 00:00 IMPRESSION: STABLE DEGREE OF ASCITES COMPARED TO MRI FROM 10/25/2016. Renal Ultrasound 11/01/16 00:00 IMPRESSION: NORMAL RENAL AND BLADDER ULTRASOUND. STABLE DEGREE OF ASCITES. Paracentesis Ultrasound 11/03/16 00:00 IMPRESSION: Successful ultrasound-guided therapeutic and diagnostic paracentesis Chest X-Ray 11/04/16 09:01 IMPRESSION: Persistent consolidation in the left lower lobe Transfer Plan - Disposition Transfer Plan: [facility] Follow-up in [address] Jacobsen Patient should have repeat CBC and BMP in a week - Time Spent with Patient Time spent with patient: Greater than 30 Minutes
[2016-11-06] MEDS: NORMAL SALINE 10 ML SDV (SCHEDULED) IV SCH (09:58)
[2016-11-06] MEDS: BUSPIRONE HCL 10 MG TABLET PO SCH (09:59)
[2016-11-06] MEDS: MAGNESIUM OXIDE 400 MG TABLET PO SCH (09:59)
[2016-11-06] MEDS: FLUCONAZOLE 100 MG TABLET PO SCH (09:59)
[2016-11-06] MEDS: SPIRONOLACTONE 25 MG TABLET PO SCH (10:00)
[2016-11-06] MEDS: FUROSEMIDE 20 MG TABLET PO SCH (10:00)
[2016-11-06] MEDS: MULTIVITAMIN TABLET PO SCH (10:01)
[2016-11-06] MEDS: DULOXETINE HCL 30 MG CAPSULE.DR PO SCH (10:01)
[2016-11-06] MEDS: CHOLESTYRAMINE/ASPARTAME 4 GM PACKET PO SCH (10:01)
[2016-11-06] MEDS ORDERED: LEVOFLOXACIN 500 MG TABLET PO SCH (14:00)
[2016-11-06] MEDS: TRAMADOL HCL 50 MG TABLET PO PRN (14:10)
[2016-11-06] MEDS: LOPERAMIDE HCL 2 MG CAPSULE PO PRN (15:45)
[2016-11-06] MEDS: FOLIC ACID/VITAMIN B COMP W-C CAPSULE PO SCH (15:46)
[2016-11-06 17:11] VITALS: BP 92/54
== END 2016-11-06 17:26 | DRG 871 ==
LOC: ER 11:24 → EH 17:31 → UNDOADMIN 17:48 → EH 17:48 → ICU 10-24 01:35 → 3S 10-29 15:28
PROVIDERS: ADMIT Emergency Medicine; ATTEND Emergency Medicine
PROC: 0W9G3ZZ Drainage of Peritoneal Cavity, Percutaneous Approach (ICD-10-PCS; 2016-10-23)
PROC: 02HV33Z Insertion of Infusion Device into Superior Vena Cava, Percutaneous Approach (ICD-10-PCS; 2016-10-23)
PROC: 02HV33Z Insertion of Infusion Device into Superior Vena Cava, Percutaneous Approach (ICD-10-PCS; 2016-10-27)
PROC: B5181ZA Fluoroscopy of Superior Vena Cava using Low Osmolar Contrast, Guidance (ICD-10-PCS; 2016-10-27)
PROC: B548ZZA Ultrasonography of Superior Vena Cava, Guidance (ICD-10-PCS; 2016-10-27)
PROC: 0W9B3ZZ Drainage of Left Pleural Cavity, Percutaneous Approach (ICD-10-PCS; principal; 2016-10-28)
PROC: 0W9G3ZZ Drainage of Peritoneal Cavity, Percutaneous Approach (ICD-10-PCS; 2016-11-03)
DX: A41.9 Sepsis, unspecified organism (principal); K65.2 Spontaneous bacterial peritonitis; R65.21 Severe sepsis with septic shock; J18.1 Lobar pneumonia, unspecified organism; N17.9 Acute kidney failure, unspecified; K86.1 Other chronic pancreatitis; K86.3 Pseudocyst of pancreas; J90 Pleural effusion, not elsewhere classified; F10.230 Alcohol dependence with withdrawal, uncomplicated; F10.29 Alcohol dependence with unspecified alcohol-induced disorder; K70.31 Alcoholic cirrhosis of liver with ascites; E87.6 Hypokalemia; K52.9 Noninfective gastroenteritis and colitis, unspecified; J44.9 Chronic obstructive pulmonary disease, unspecified; D63.8 Anemia in other chronic diseases classified elsewhere; D69.6 Thrombocytopenia, unspecified; E78.5 Hyperlipidemia, unspecified; F32.9 Major depressive disorder, single episode, unspecified; M19.90 Unspecified osteoarthritis, unspecified site; Z90.710 Acquired absence of both cervix and uterus; F17.210 Nicotine dependence, cigarettes, uncomplicated; Z79.899 Other long term (current) drug therapy; Z85.828 Personal history of other malignant neoplasm of skin; Z88.0 Allergy status to penicillin; Z88.1 Allergy status to other antibiotic agents; Z88.8 Allergy status to other drugs, medicaments and biological substances
CPT/HCPCS: 32555; 36415; 36430; 36569; 49083; 70450; 71010; 71250; 74176; 74181; 76705; 76775; 76937; 77001; 80048; 80053; 80202; 81001; 82040; 82140; 82150; 82272; 82550; 82553; 82565; 82570; 82945; 82962; 83605; 83615; 83690; 83735; 84157; 84300; 84484; 85025; 85610; 85730; 86900; 86901; 87040; 87045; 87070; 87075; 87086; 87205; 87493; 89050; 89055; 93005; 93010; 93976; 99285; C1751; G8978-GP; G8979-GP; J0692; J0713; J1642; J1650; J1940; J1956; J2060; J2405; J3370; J3475; J3480; J3490; J7030; J7040; J7060; P9017; P9047; S0164

== ENCOUNTER 2016-11-10 13:06 | Inpatient (IN) | payer OTHER, MEDICARE ==
[2016-11-10] MEDS ORDERED: FENTANYL CITRATE INJ/PF 100 MCG/2 ML AMPUL IV ONE (14:46)
--- NOTE | 2016-11-10 14:53 | ER Document Report ---
ED GI/ - General Chief Complaint: Abdominal Distention Stated Complaint: ABDOMINAL PAIN Notes: Patient is complaining of pain and swelling of her abdomen and inability to eat , and very limited fluid intake for several days. Patient was hospitalized at [facility] for 2 weeks and just transferred to [facility]. She had been admitted at [facility] with chronic pancreatitis, bacterial peritonitis, cirrhosis with ascites requiring paracentesis, sepsis. She also has a pancreatic pseudocyst and a left pleural effusion. Patient says that she currently has had some vomiting as well as diarrhea. Has difficulty breathing because her abdomen is swollen. Has generalized anterior chest pain. No UTI symptoms. Not aware of any fever. TRAVEL OUTSIDE OF THE [place] IN LAST 30 DAYS: No - Related Data Allergies/Adverse Reactions: morphine [Morphine] Allergy (Verified 11/10/16 16:23) NSAIDS (Non-Steroidal Anti-Inflamma [Nsaids] Allergy (Verified 11/10/16 16:23) Penicillins Allergy (Verified 11/10/16 16:23) Sulfa (Sulfonamide Antibiotics) Allergy (Verified 11/10/16 16:23) Past Medical History - Social History Smoking Status: Current Every Day Smoker Frequency of alcohol use: None - Stopped 6 months ago. Drug Abuse: None Family History: Reviewed & Not Pertinent, Arthritis, Other - Chronic alcoholism - Past Medical History Cardiac Medical History: Reports: Hx Hypercholesterolemia Pulmonary Medical History: Reports: Hx COPD, Other - Pleural effusion on last [facility] admission Denies: Hx Tuberculosis Endocrine Medical History: Denies: Hx Diabetes Mellitus Type 1, Hx Diabetes Mellitus Type 2 Malignancy Medical History: Reports: Hx Skin Cancer GI Medical History: Reports: Hx Cirrhosis, Other - Pancreatitis Musculoskeltal Medical History: Reports Hx Arthritis Psychiatric Medical History: Reports: Hx Anxiety, Hx Depression Past Surgical History: Reports: Hx Section - 1986, Hx Gynecologic Surgery - laparoscopy, Hx Hysterectomy, Hx Oral Surgery - wisdom teeth, Hx Tubal Ligation, Other - [place] teeth extraction - Immunizations Hx Diphtheria, Pertussis, Tetanus Vaccination: Yes - 2012 Hx Pneumococcal Vaccination: 07/13/12 Review of Systems - Review of Systems Notes: REVIEW OF SYSTEMS: CONSTITUTIONAL : Denies fever. EENT: Denies eye, ear, nose or mouth or throat pain or other symptoms. CARDIOVASCULAR: Says she is having chest pain.. RESPIRATORY: See history of present illness. GASTROINTESTINAL: Has generalized abdominal pain, distended, nausea and vomiting. GENITOURINARY: Denies difficulty or painful urinating, urinary frequency, blood in urine. MUSCULOSKELETAL: Denies back or neck pain. Denies joint pain or swelling. SKIN: Denies rash or skin lesions. NEUROLOGICAL: Denies LOC or altered mental status. Denies headache. Denies sensory loss or motor deficits. ALL OTHER SYSTEMS REVIEWED AND NEGATIVE. Physical Exam - Vital signs Vitals: Temp Pulse Resp BP Pulse Ox 97.9 F 90 20 96/65 L 95 11/10/16 13:08 11/10/16 13:08 11/10/16 13:08 11/10/16 13:08 11/10/16 13:08 Interpretation: Normal, Hypotensive - Blood pressure was a little bit low, but on repeated to 105/70.. No: Tachycardic, Hypoxic, Febrile - Notes Notes: PHYSICAL EXAMINATION: GENERAL: Chronically ill-appearing, in no acute distress but does seem to be breathing a little rapid.. HEAD: Atraumatic, normocephalic. EYES: Pupils equal round and reactive to light, extraocular movements intact. NECK: Normal range of motion, supple. LUNGS: Breath sounds clear and equal bilaterally. HEART: Regular rate and rhythm without murmurs. Regular rhythm at 80 at bedside by me. ABDOMEN: Abdomen is obviously distended and tender to touch all over, without localization. Perhaps some guarding, but no rebound. BACK: No tenderness throughout entire back. EXTREMITIES: Normal range of motion without pain. NEUROLOGICAL: Normal speech, normal gait. Normal sensory, motor, and reflex exams. Awake, alert, and oriented x3. Cranial nerves normal. PSYCH: Asked depressed. SKIN: Warm, dry, no rashes. Course - Re-evaluation Re-evalutation: 11/10/16 15:[address] Padilla to make her aware that the patient was here and would be needing readmission. 11/10/16 16:33 Patient was seen by Dr. Padilla who is going to admit her to the hospital for abdominal pain and ascites. - Vital Signs Vital signs: Temp Pulse Resp BP Pulse Ox 97.9 F 83 18 103/48 L 97 11/10/16 13:08 11/10/16 13:47 11/10/16 16:21 11/10/16 16:21 11/10/16 16:21 - Laboratory Result Diagrams: 11/10/16 14:40 11/10/16 14:40 Laboratory results interpreted by me: 11/10/16 11/10/16 11/10/16 14:40 14:40 14:40 VBG pH 7.56 H VBG pCO2 22.0 L VBG HCO3 19.3 L Carbon Dioxide 20 L Creatinine 1.41 H Est GFR ( Amer) 48 L Est GFR (Non-Af Amer) 40 L Total Bilirubin 5.4 H Direct Bilirubin 3.6 H AST 79 H Alkaline Phosphatase 131 H Albumin 2.8 L Lipase 10.5 L Urine Ketones 11/10/16 15:35 VBG pH VBG pCO2 VBG HCO3 Carbon Dioxide Creatinine Est GFR ( Amer) Est GFR (Non-Af Amer) Total Bilirubin Direct Bilirubin AST Alkaline Phosphatase Albumin Lipase Urine Ketones TRACE H - Diagnostic Test Radiology results interpreted by me: 11/10/16 15:04 Chest x-ray does not show any evidence of pleural effusion today. Lungs are much improved over previous films. No acute process seen. - EKG Interpretation by Nm EKG shows normal: Sinus rhythm Rate: Normal Rhythm: NSR Voltage: Decreased voltage Discharge - Discharge Clinical Impression: Ascites due to alcoholic cirrhosis Abdominal pain Qualifiers: Abdominal location: generalized Qualified Code(s): R10.84 - Generalized abdominal pain Admitting Provider: Hospitalist Unit Admitted: Medical Floor
[2016-11-10 14:54] LABS: VENOUS BLOOD BASE EXCESS -1.8 mmol/L; VENOUS BLOOD HCO3 19.3 mmol/L (20-32); VENOUS BLOOD PH 7.56 (7.30-7.42)
[2016-11-10 15:18] LABS: ALANINE AMINOTRANSFERASE 40 U/L (9-52); ALBUMIN 2.8 g/dL (3.5-5.0); ALKALINE PHOSPHATASE 131 U/L (38-126); ANION GAP 18 (5-19); ASPARTATE AMINO TRANSFERASE 79 U/L (14-36); BILIRUBIN,DIRECT 3.6 mg/dL (0.0-0.4); BILIRUBIN,TOTAL 5.4 mg/dL (0.2-1.3); BLOOD UREA NITROGEN 9 mg/dL (7-20); CARBON DIOXIDE 20 mmol/L (22-30); CHLORIDE 104 mmol/L (98-107); CREATININE RESULT 1.41 mg/dL (0.52-1.25); GLUCOSE 106 mg/dL (75-110); POTASSIUM 3.6 mmol/L (3.6-5.0); SODIUM 141.9 mmol/L (137-145); TOTAL PROTEIN 6.3 g/dL (6.3-8.2)
[2016-11-10 15:22] LABS: LIPASE 10.5 U/L (23-300)
[2016-11-10 15:25] LABS: ALCOHOL < 10 mg/dL (NONE DETECTED)
[2016-11-10 15:59] LABS: APPEARANCE,URINE CLEAR; BILIRUBIN,URINE NEGATIVE (NEGATIVE); GLUCOSE, URINE NEGATIVE (NEGATIVE); KETONES,URINE TRACE mg/dL (NEGATIVE); LEUKOCYTE ESTERASE,URINE NEGATIVE (NEGATIVE); NITRITE,URINE NEGATIVE (NEGATIVE); PROTEIN,URINE NEGATIVE (NEGATIVE); UROBILINOGEN,URINE NEGATIVE mg/dL (<2.0)
--- NOTE | 2016-11-10 16:17 | PDOC H&P ---
History of Present Illness Admission Date/PCP: 11/10/2016 Patient complains of: abdominal pain and distension History of Present Illness: SANAZ COSBY is a 51 year old female Patient is complaining of pain and swelling of her abdomen and inability to eat , and very limited fluid intake for several days. Patient was hospitalized at [facility] for 2 weeks and just transferred to [facility]. She had been admitted at [facility] with chronic pancreatitis, bacterial peritonitis, cirrhosis with ascites requiring paracentesis, sepsis. She also has a pancreatic pseudocyst and a left pleural effusion. Patient says that she currently has had some vomiting as well as diarrhea. Has difficulty breathing because her abdomen is swollen. Has generalized anterior chest pain. No UTI symptoms. Not aware of any fever. Upon evaluation in the ED patient was found to have tense ascites She was subsequently readmitted for paracentesis and placement of Pleurx catheter Past Medical History Cardiac Medical History: Reports: Hyperlipidema Pulmonary Medical History: Reports: Chronic Obstructive Pulmonary Disease (COPD) , Other - Pleural effusion on last [facility] admission Denies: Tuberculosis Endocrine Medical History: Denies: Diabetes Mellitus Type 1, Diabetes Mellitus Type 2 Malignancy Medical History: Reports: Skin Cancer GI Medical History: Reports: Cirrhosis, Other - Pancreatitis Musculoskeltal Medical History: Reports: Arthritis Psychiatric Medical History: Reports: Depression Past Surgical History Past Surgical History: Reports: Section - 1986, Hysterectomy, Tubal Ligation, Other - [place] teeth extraction Social History Smoking Status: Current Every Day Smoker Frequency of Alcohol Use: Heavy - She was drinking for one coolers every day for at least 10 years but she claims she has been sober for the last 6 months Hx Recreational Drug Use: No Drugs: None Hx Prescription Drug Abuse: No - Advance Directive Resuscitation Status: Full Code Family History Family History: Reviewed & Not Pertinent, Arthritis, Other - Chronic alcoholism Parental Family History Reviewed: Yes Children Family History Reviewed: Yes Sibling(s) Family History Reviewed.: Yes Medication/Allergy Home Medications: Buspirone HCl [Buspar 15 mg Tablet] 15 mg PO Q12 09/20/16 Duloxetine HCl [Cymbalta] 60 mg PO DAILY 09/20/16 Trazodone HCl [Desyrel] 200 mg PO QHS 09/20/16 Cholestyramine/Aspartame [Questran Light 4 gm Packet] 4 gm PO BID #60 packet Folic Acid/Vitamin B Comp W-C [Nephrocaps Multiple Vitamin Capsule] 1 cap PO ACSUPPER #30 capsule 11/06/16 Furosemide [Lasix] 20 mg PO BID #60 tablet 11/06/16 Levofloxacin [Levaquin 500 mg Tablet] 750 mg PO Q2D@1400 #15 tablet 11/06/16 Loperamide HCl [Imodium 2 mg Capsule] 2 mg PO Q12HP PRN #60 capsule 11/06/16 Magnesium Oxide [Mag-Ox 400 mg Tablet] 400 mg PO BID #60 tablet 11/06/16 Multivitamin [Tab-A-Jina (Multiple Vitamin) Tablet] 1 tab PO DAILY #30 tablet Oxycodone HCl [Oxy-Ir 5 mg Tablet] 5 mg PO Q6HP PRN #30 tablet 11/06/16 Spironolactone [Aldactone 25 mg Tablet] 25 mg PO DAILY #30 tablet 11/06/16 Allergies/Adverse Reactions: morphine [Morphine] Allergy (Verified 10/23/16 11:39) NSAIDS (Non-Steroidal Anti-Inflamma [Nsaids] Allergy (Verified 10/23/16 11:39) Penicillins Allergy (Verified 10/23/16 11:39) Sulfa (Sulfonamide Antibiotics) Allergy (Verified 10/23/16 11:39) Review of Systems Constitutional: ABSENT: chills, fever(s), headache(s), weight gain, weight loss Eyes: ABSENT: visual disturbances Ears: ABSENT: hearing changes Cardiovascular: ABSENT: chest pain, dyspnea on exertion, edema, orthropnea, palpitations Respiratory: PRESENT: dyspnea. ABSENT: cough, hemoptysis Gastrointestinal: PRESENT: abdominal pain, bloating, nausea, other - Abdominal distention. ABSENT: constipation, diarrhea, hematemesis, hematochezia, vomiting Genitourinary: ABSENT: dysuria, hematuria Musculoskeletal: ABSENT: joint swelling Integumentary: ABSENT: rash, wounds Neurological: ABSENT: abnormal gait, abnormal speech, confusion, dizziness, focal weakness, syncope Psychiatric: ABSENT: anxiety, depression, homidical ideation, suicidal ideation Endocrine: ABSENT: cold intolerance, heat intolerance, polydipsia, polyuria Hematologic/Lymphatic: ABSENT: easy bleeding, easy bruising Physical Exam Vital Signs: Temp Pulse Resp BP Pulse Ox 97.9 F 83 18 104/75 97 11/10/16 13:08 11/10/16 13:47 11/10/16 15:41 11/10/16 15:41 11/10/16 15:41 Intake & Output 11/09/16 11/10/16 11/11/16 00:59 00:59 00:59 Weight 65.771 kg General appearance: PRESENT: mild distress, thin, other - Looks chronically Head exam: PRESENT: atraumatic, normocephalic Eye exam: PRESENT: conjunctiva pink, EOMI, PERRLA. ABSENT: scleral icterus Neck exam: ABSENT: carotid bruit, JVD, lymphadenopathy, thyromegaly Respiratory exam: PRESENT: decreased breath sounds - Both bases. ABSENT: rales , rhonchi, wheezes Cardiovascular exam: PRESENT: RRR. ABSENT: diastolic murmur, rubs, systolic murmur Pulses: PRESENT: normal dorsalis pedis pul GI/Abdominal exam: PRESENT: ascites, distended, firm, tenderness Extremities exam: PRESENT: full ROM. ABSENT: calf tenderness, clubbing, pedal edema Musculoskeletal exam: ABSENT: ambulatory, deformity, dislocation, full ROM, normal inspection, tenderness, other Neurological exam: PRESENT: alert, awake, oriented to person, oriented to place , oriented to time, oriented to situation, CN II-XII grossly intact. ABSENT: motor sensory deficit Results Laboratory Results: 11/10/16 14:40 11/10/16 14:40 11/10/16 11/10/16 11/10/16 14:40 14:40 14:40 WBC Cancelled RBC Cancelled Hgb Cancelled Hct Cancelled MCV Cancelled MCH Cancelled MCHC Cancelled RDW Cancelled Plt Count Cancelled Seg Neutrophils % Cancelled Lymphocytes % Cancelled Monocytes % Cancelled Eosinophils % Cancelled Basophils % Cancelled Absolute Neutrophils Cancelled Absolute Lymphocytes Cancelled Absolute Monocytes Cancelled Absolute Eosinophils Cancelled Absolute Basophils Cancelled VBG pH VBG pCO2 VBG HCO3 VBG Base Excess Sodium 141.9 Potassium 3.6 Chloride 104 Carbon Dioxide 20 L Anion Gap 18 BUN 9 Creatinine 1.41 H Est GFR ( Amer) 48 L Est GFR (Non-Af Amer) 40 L Glucose 106 Lactic Acid 1.5 Calcium 9.0 Total Bilirubin 5.4 H AST 79 H ALT 40 Alkaline Phosphatase 131 H Total Protein 6.3 Albumin 2.8 L Lipase Urine Color Urine Appearance Urine pH Ur Specific [place] Urine Protein Urine Glucose (UA) Urine Ketones Urine Blood Urine Nitrite Ur Leukocyte Esterase Urine WBC (Auto) 11/10/16 11/10/16 11/10/16 14:40 14:40 15:35 WBC RBC Hgb Hct MCV MCH MCHC RDW Plt Count Seg Neutrophils % Lymphocytes % Monocytes % Eosinophils % Basophils % Absolute Neutrophils Absolute Lymphocytes Absolute Monocytes Absolute Eosinophils Absolute Basophils VBG pH 7.56 H VBG pCO2 22.0 L VBG HCO3 19.3 L VBG Base Excess -1.8 Sodium Potassium Chloride Carbon Dioxide Anion Gap BUN Creatinine Est GFR ( Amer) Est GFR (Non-Af Amer) Glucose Lactic Acid Calcium Total Bilirubin AST ALT Alkaline Phosphatase Total Protein Albumin Lipase 10.5 L Urine Color DARK YELLOW Urine Appearance CLEAR Urine pH 5.0 Ur Specific [place] 1.010 Urine Protein NEGATIVE Urine Glucose (UA) NEGATIVE Urine Ketones TRACE H Urine Blood NEGATIVE Urine Nitrite NEGATIVE Ur Leukocyte Esterase NEGATIVE Urine WBC (Auto) 2 11/10/16 14:40 11/10/16 14:40 MCV Cancelled 11/10/16 14:40 MCH Cancelled 11/10/16 14:40 MCHC Cancelled 11/10/16 14:40 RDW Cancelled 11/10/16 14:40 Seg Neutrophils % Cancelled 11/10/16 14:40 Lymphocytes % Cancelled 11/10/16 14:40 Monocytes % Cancelled 11/10/16 14:40 Eosinophils % Cancelled 11/10/16 14:40 Basophils % Cancelled 11/10/16 14:40 Absolute Neutrophils Cancelled 11/10/16 14:40 Absolute Lymphocytes Cancelled 11/10/16 14:40 Absolute Monocytes Cancelled 11/10/16 14:40 Absolute Eosinophils Cancelled 11/10/16 14:40 Absolute Basophils Cancelled 11/10/16 14:40 VBG pH 7.56 (7.30-7.42) H 11/10/16 14:40 VBG pCO2 22.0 mmHg (35-63) L 11/10/16 14:40 VBG HCO3 19.3 mmol/L (20-32) L 11/10/16 14:40 VBG Base Excess -1.8 mmol/L 11/10/16 14:40 Chloride 104 mmol/L (98-107) 11/10/16 14:40 Carbon Dioxide 20 mmol/L (22-30) L 11/10/16 14:40 Anion Gap 18 (5-19) 11/10/16 14:40 Est GFR ( Amer) 48 (>60) L 11/10/16 14:40 Est GFR (Non-Af Amer) 40 (>60) L 11/10/16 14:40 Glucose 106 mg/dL (75-110) 11/10/16 14:40 Lactic Acid 1.5 mmol/L (0.7-2.1) 11/10/16 14:40 Calcium 9.0 mg/dL (8.4-10.2) 11/10/16 14:40 Total Bilirubin 5.4 mg/dL (0.2-1.3) H 11/10/16 14:40 AST 79 U/L (14-36) H 11/10/16 14:40 ALT 40 U/L (9-52) 11/10/16 14:40 Alkaline Phosphatase 131 U/L (38-126) H 11/10/16 14:40 Total Protein 6.3 g/dL (6.3-8.2) 11/10/16 14:40 Albumin 2.8 g/dL (3.5-5.0) L 11/10/16 14:40 Lipase 10.5 U/L (23-300) L 11/10/16 14:40 Urine Color DARK YELLOW 11/10/16 15:35 Urine Appearance CLEAR 11/10/16 15:35 Urine pH 5.0 (5.0-9.0) 11/10/16 15:35 Ur Specific [place] 1.010 11/10/16 15:35 Urine Protein NEGATIVE mg/dL (NEGATIVE) 11/10/16 15:35 Urine Glucose (UA) NEGATIVE mg/dL (NEGATIVE) 11/10/16 15:35 Urine Ketones TRACE mg/dL (NEGATIVE) H 11/10/16 15:35 Urine Blood NEGATIVE (NEGATIVE) 11/10/16 15:35 Urine Nitrite NEGATIVE (NEGATIVE) 11/10/16 15:35 Ur Leukocyte Esterase NEGATIVE (NEGATIVE) 11/10/16 15:35 Urine WBC (Auto) 2 /HPF 11/10/16 15:35 Impressions: Chest X-Ray 11/10/16 14:17 IMPRESSION: Improved aeration of the lung bases compared to previous. Assessment & Plan - Diagnosis (1) Chronic liver disease and cirrhosis Is this a current diagnosis for this admission?: Yes (2) Ascites due to alcoholic cirrhosis Is this a current diagnosis for this admission?: YesPlan: Patient does have recurrent ascites We'll schedule her for tomorrow to have paracentesis ; a Pleurx catheter will be placed (3) Chronic pancreatitis Qualifiers: Pancreatitis type: unspecified pancreatitis type Qualified Code(s): K86.1 - Other chronic pancreatitis Is this a current diagnosis for this admission?: YesPlan: Chronic pancreatitis and chronic pseudocysts stable Patient is to continue pancreatic enzymes (4) Chronic abdominal pain Is this a current diagnosis for this admission?: YesPlan: Secondary to pancreatitis and ascites - Time Time Spent with patient: We will admit the patient for observation overnight Patient to be scheduled in a.m. for paracentesis Time Spent: 50 to 70 Minutes - Inpatient Certification Based on my medical assessment, after consideration of the patient's comorbidities, presenting symptoms, or acuity I expect that the services needed warrant INPATIENT care.: No I certify that my determination is in accordance with my understanding of Medicare's requirements for reasonable and necessary INPATIENT services [42 CFR 412.3e].: No
[2016-11-10 16:36] LABS: HEMATOCRIT 29.3 % (36.0-47.0); HEMOGLOBIN 9.7 g/dL (12.0-15.5); HGB HCT DIFFERENCE -0.2; MEAN CORPUSCULAR HEMOGLOBIN 32.3 pg (27.0-33.4); MEAN CORPUSCULAR HGB CONC 33.2 g/dL (32.0-36.0); MEAN CORPUSCULAR VOLUME 97 fl (80-97); RED BLOOD COUNT 3.02 10^6/uL (3.72-5.28); RED CELL DISTRIBUTION WIDTH 15.1 % (11.5-14.0); WHITE BLOOD COUNT 25.9 10^3/uL (4.0-10.5)
[2016-11-10 16:48] LABS: PROTHROMBIN TIME 17.2 SEC (11.4-15.4)
[2016-11-10 16:55] LABS: BASOPHILS % (MANUAL) 0 % (0-2); EOSINOPHILS % (MANUAL) 0 % (0-6); LYMPHOCYTES % (MANUAL) 7 % (13-45); TOTAL CELLS COUNTED 100
[2016-11-10 16:56] LABS: ANISOCYTOSIS SLIGHT; POIKILOCYTOSIS SLIGHT; TARGET CELLS SLIGHT
--- NOTE | 2016-11-10 18:20 | EKG REPORT ---
SEVERITY:- BORDERLINE ECG - SINUS RHYTHM LOW VOLTAGE THROUGHOUT BORDERLINE T ABNORMALITIES, ANTERIOR LEADS : Confirmed by: Rod Jensen MD 10-Nov-2016 18:20:08
[2016-11-10] MEDS: OXYCODONE HCL IR 5 MG TABLET PO PRN (19:52)
[2016-11-10] MEDS ORDERED: (PENDING PHARMACY ID) (Trazodone Hcl [Desyrel] 200 MG) PO SCH (22:00)
[2016-11-10] MEDS: CIPROFLOXACIN 400 MG/D5W RTU 400 MG/200 ML RTUPB IV SCH (23:43)
[2016-11-10] MEDS: TRAZODONE HCL 50 MG TABLET PO SCH (23:44)
[2016-11-10] MEDS: BUSPIRONE HCL 10 MG TABLET PO SCH (23:44)
[2016-11-10] MEDS: METRONIDAZOLE 500 MG/NS RTU 100 ML IV SCH (23:46)
[2016-11-11] MEDS: METRONIDAZOLE 500 MG/NS RTU 100 ML IV SCH ×4 (03:29→21:30)
[2016-11-11 06:37] LABS: HEMATOCRIT 27.6 % (36.0-47.0); HEMOGLOBIN 9.4 g/dL (12.0-15.5); HGB HCT DIFFERENCE 0.6; MEAN CORPUSCULAR HEMOGLOBIN 32.9 pg (27.0-33.4); MEAN CORPUSCULAR VOLUME 97 fl (80-97); RED BLOOD COUNT 2.86 10^6/uL (3.72-5.28); RED CELL DISTRIBUTION WIDTH 15.7 % (11.5-14.0); WHITE BLOOD COUNT 18.5 10^3/uL (4.0-10.5)
[2016-11-11 07:00] LABS: ANION GAP 16 (5-19); BLOOD UREA NITROGEN 8 mg/dL (7-20); CALCIUM 8.6 mg/dL (8.4-10.2); CARBON DIOXIDE 22 mmol/L (22-30); CHLORIDE 102 mmol/L (98-107); CREATININE RESULT 1.35 mg/dL (0.52-1.25); GLUCOSE 103 mg/dL (75-110); POTASSIUM 3.1 mmol/L (3.6-5.0); SODIUM 139.9 mmol/L (137-145)
--- NOTE | 2016-11-11 08:24 | PDOC PROGRESS REPORT ---
Subjective Progress Note for:: 11/11/16 Subjective:: Patient complains of continued abdominal discomfort. She also feels feverish. She has no appetite. Patient denies headache, new focal weakness, chest pain, shortness of breath, nausea, vomiting, diarrhea, constipation. Physical Exam Vital Signs: Temp Pulse Resp BP Pulse Ox 98.1 F 99 21 H 106/79 100 11/11/16 07:24 11/11/16 07:24 11/11/16 07:24 11/11/16 07:24 11/11/16 07:24 Intake & Output 11/10/16 11/11/16 11/12/16 06:59 06:59 06:59 Intake Total 105 Output Total 450 Balance -345 Weight 69.6 kg GENERAL: No acute distress HEENT: Conjunctiva clear, nonicteric, moist mucous membranes, no JVD, midline trachea RESPIRATORY: Clear to auscultation bilaterally, no wheezes, no rhonchi CARDIAC: Regular rate and rhythm, no murmurs/gallops/rubs ABDOMEN: Distended, tense, diffuse tenderness, obvious ascites EXTREMETIES: No edema, cyanosis, clubbing NEUROLOGIC: Alert, oriented to person/place/time, CN's grossly intact, no focal deficits SKIN: No rash, wounds PSYCH: Depressed mood, normal affect Results Laboratory Results: 11/11/16 06:25 11/11/16 06:25 11/11/16 11/11/16 06:25 06:25 WBC 18.5 H RBC 2.86 L Hgb 9.4 L Hct 27.6 L MCV 97 MCH 32.9 MCHC 34.0 RDW 15.7 H Plt Count 168 Sodium 139.9 Potassium 3.1 L Chloride 102 Carbon Dioxide 22 Anion Gap 16 BUN 8 Creatinine 1.35 H Est GFR ( Amer) 50 L Est GFR (Non-Af Amer) 42 L Glucose 103 Calcium 8.6 Impressions: Chest X-Ray 11/10/16 14:17 IMPRESSION: Improved aeration of the lung bases compared to previous. Abdomen/Pelvis CT 11/10/16 19:03 IMPRESSION: Large amount of ascites, increased compared with the previous study. Irregular peritoneum and omental contours, partially obscured by fluid. Mildly distended gallbladder. Fatty infiltration of the liver with Heterogeneous parenchyma. New Small bilateral pleural effusions and lower lobe subsegmental atelectasis, left greater than right. Assessment & Plan - Diagnosis (1) Spontaneous bacterial peritonitis Is this a current diagnosis for this admission?: YesPlan: Continue IV Cipro and IV Flagyl pending further cultures. (2) Ascites due to alcoholic cirrhosis Is this a current diagnosis for this admission?: YesPlan: Continue Lasix and spironolactone. Patient is to have diagnostic/therapeutic paracentesis. (3) Chronic liver disease and cirrhosis Is this a current diagnosis for this admission?: Yes (4) Anemia in chronic illness Is this a current diagnosis for this admission?: Yes (5) Anxiety and depression Is this a current diagnosis for this admission?: Yes (6) Chronic pancreatitis Qualifiers: Pancreatitis type: unspecified pancreatitis type Qualified Code(s): K86.1 - Other chronic pancreatitis Is this a current diagnosis for this admission?: Yes (7) Debility Is this a current diagnosis for this admission?: YesPlan: Patient was at [place] [facility] prior to returning to the hospital. - Time Time Spent with patient: 35 or more minutes Anticipated discharge: Acute Rehab
[2016-11-11] MEDS: POTASSI CL 20 MEQ/D5NS 1L 1,000 ML IV PRN (08:48)
[2016-11-11] MEDS: OXYCODONE HCL IR 5 MG TABLET PO PRN ×3 (08:48→21:29)
[2016-11-11] MEDS: BUSPIRONE HCL 10 MG TABLET PO SCH ×2 (10:30→21:32)
[2016-11-11] MEDS: FUROSEMIDE 20 MG TABLET PO SCH ×2 (10:30→17:10)
[2016-11-11] MEDS: MULTIVITAMIN TABLET PO SCH (10:30)
[2016-11-11] MEDS: SPIRONOLACTONE 25 MG TABLET PO SCH (10:30)
[2016-11-11] MEDS: DULOXETINE HCL 30 MG CAPSULE.DR PO SCH (10:31)
[2016-11-11] MEDS: CIPROFLOXACIN 400 MG/D5W RTU 400 MG/200 ML RTUPB IV SCH ×2 (10:31→21:31)
[2016-11-11] MEDS: ONDANSETRON HCL INJ/PF 4 MG/2 ML SDV IV PRN ×2 (10:45→17:41)
[2016-11-11 14:58] LABS: FLUID APPEARANCE CLEAR; FLUID RBC AVERAGE 158.5; FLUID RBC SIDE 1 158; FLUID RBC SIDE 2 159; FLUID TYPE PERITONEAL
[2016-11-11 14:59] LABS: FLUID RBC DILUENT USED NONE USED; FLUID RBC DILUTION FACTOR 1; TOTAL RBC SQUARES COUNTED FLD 225
[2016-11-11] MEDS: FOLIC ACID/VITAMIN B COMP W-C CAPSULE PO SCH (17:10)
[2016-11-11] MEDS: TRAZODONE HCL 50 MG TABLET PO SCH (21:31)
[2016-11-11] MEDS: MAGNESIUM OXIDE 400 MG TABLET PO SCH (21:32)
[2016-11-12] MEDS: ONDANSETRON HCL INJ/PF 4 MG/2 ML SDV IV PRN ×2 (02:48→08:08)
[2016-11-12] MEDS: METRONIDAZOLE 500 MG/NS RTU 100 ML IV SCH ×4 (02:50→20:11)
[2016-11-12] MEDS: OXYCODONE HCL IR 5 MG TABLET PO PRN (03:29)
[2016-11-12 04:02] LABS: ABSOLUTE BASOPHILS # (AUTO) 0.1 10^3/uL (0.0-0.2); ABSOLUTE EOSINOPHILS # (AUTO) 0.1 10^3/uL (0.0-0.6); ABSOLUTE MONOCYTES (AUTO) 1.1 10^3/uL (0.1-1.4); ABSOLUTE NEUT (AUTO) 8.4 10^3/uL (1.7-8.2); BASOPHILS % (AUTO) 0.6 % (0-2); EOSINOPHILS % (AUTO) 0.8 % (0-6); HEMATOCRIT 26.9 % (36.0-47.0); HEMOGLOBIN 9.4 g/dL (12.0-15.5); HGB HCT DIFFERENCE 1.3; LYMPHOCYTES % (AUTO) 17.3 % (13-45); MEAN CORPUSCULAR HEMOGLOBIN 33.9 pg (27.0-33.4); MEAN CORPUSCULAR HGB CONC 35.1 g/dL (32.0-36.0); MEAN CORPUSCULAR VOLUME 97 fl (80-97); MONOCYTES % (AUTO) 9.5 % (3-13); RED BLOOD COUNT 2.78 10^6/uL (3.72-5.28); RED CELL DISTRIBUTION WIDTH 15.5 % (11.5-14.0); SEGMENTED NEUTROPHILS % (AUTO) 71.8 % (42-78); WHITE BLOOD COUNT 11.7 10^3/uL (4.0-10.5)
[2016-11-12 04:21] LABS: ALANINE AMINOTRANSFERASE 46 U/L (9-52); ALBUMIN 2.5 g/dL (3.5-5.0); ALKALINE PHOSPHATASE 130 U/L (38-126); ANION GAP 13 (5-19); ASPARTATE AMINO TRANSFERASE 75 U/L (14-36); BILIRUBIN,DIRECT 2.9 mg/dL (0.0-0.4); BILIRUBIN,TOTAL 4.5 mg/dL (0.2-1.3); BLOOD UREA NITROGEN 7 mg/dL (7-20); CALCIUM 8.2 mg/dL (8.4-10.2); CARBON DIOXIDE 24 mmol/L (22-30); CHLORIDE 102 mmol/L (98-107); CREATININE RESULT 1.41 mg/dL (0.52-1.25); GLUCOSE 116 mg/dL (75-110); MAGNESIUM 1.5 mg/dL (1.6-2.3); SODIUM 139.4 mmol/L (137-145); TOTAL PROTEIN 5.6 g/dL (6.3-8.2)
[2016-11-12 04:25] LABS: POTASSIUM 2.9 mmol/L (3.6-5.0)
[2016-11-12] MEDS: MAGNESIUM SULFATE/D5W 100 ML IV SCH ×4 (04:51→10:06)
[2016-11-12] MEDS: POTASSI CL 20 MEQ/50 ML RIDER 50 ML IV SCH ×2 (04:52→05:53)
[2016-11-12] MEDS: POTASSI CL 20 MEQ/D5NS 1L 1,000 ML IV PRN (05:52)
[2016-11-12] MEDS: HYDROMORPHONE HCL INJ/PF 2 MG/ML AMPULE IV PRN ×3 (09:59→19:15)
[2016-11-12] MEDS: CIPROFLOXACIN 400 MG/D5W RTU 400 MG/200 ML RTUPB IV SCH ×2 (10:01→21:51)
[2016-11-12] MEDS ORDERED: PROMETHAZINE HCL 25 MG TABLET PO ONE (11:30)
[2016-11-12] MEDS: FUROSEMIDE 20 MG TABLET PO SCH (15:09)
[2016-11-12] MEDS: BUSPIRONE HCL 10 MG TABLET PO SCH ×2 (15:09→21:57)
[2016-11-12] MEDS: SPIRONOLACTONE 25 MG TABLET PO SCH (15:09)
[2016-11-12] MEDS: MAGNESIUM OXIDE 400 MG TABLET PO SCH ×2 (15:10→21:57)
[2016-11-12] MEDS: DULOXETINE HCL 30 MG CAPSULE.DR PO SCH (15:10)
[2016-11-12] MEDS: FOLIC ACID/VITAMIN B COMP W-C CAPSULE PO SCH (15:10)
[2016-11-12] MEDS: MULTIVITAMIN TABLET PO SCH (15:10)
[2016-11-12] MEDS: LACTOBACILLUS ACIDOPHILUS 250 MG TAB PO SCH ×2 (15:11→19:16)
[2016-11-12 16:30] LABS: ANION GAP 12 (5-19); BLOOD UREA NITROGEN 6 mg/dL (7-20); CARBON DIOXIDE 24 mmol/L (22-30); CHLORIDE 101 mmol/L (98-107); CREATININE RESULT 1.46 mg/dL (0.52-1.25); GLUCOSE 127 mg/dL (75-110); POTASSIUM 3.1 mmol/L (3.6-5.0); SODIUM 137.3 mmol/L (137-145)
--- NOTE | 2016-11-12 18:09 | PDOC PROGRESS REPORT ---
Subjective Progress Note for:: 11/12/16 Subjective:: Patient complains of continued abdominal discomfort. She has no appetite. Patient also complains of ongoing diarrhea. Patient denies headache, new focal weakness, chest pain, shortness of breath, nausea, vomiting. Physical Exam Vital Signs: Temp Pulse Resp BP Pulse Ox 97.9 F 96 15 117/76 92 11/12/16 16:53 11/12/16 16:53 11/12/16 16:53 11/12/16 16:53 11/12/16 16:53 Intake & Output 11/11/16 11/12/16 11/13/16 06:59 06:59 06:59 Intake Total 105 1942 500 Output Total 450 560 160 Balance -345 1382 340 Weight 69.6 kg 70.8 kg GENERAL: No acute distress HEENT: Conjunctiva clear, nonicteric, moist mucous membranes, no JVD, midline trachea RESPIRATORY: Clear to auscultation bilaterally, no wheezes, no rhonchi CARDIAC: Regular rate and rhythm, no murmurs/gallops/rubs ABDOMEN: Distended, tense, diffuse tenderness, obvious ascites EXTREMETIES: No edema, cyanosis, clubbing NEUROLOGIC: Alert, oriented to person/place/time, CN's grossly intact, no focal deficits SKIN: No rash, wounds. Jaundiced PSYCH: Depressed mood, normal affect Results Laboratory Results: 11/12/16 03:21 11/12/16 15:25 11/12/16 11/12/16 11/12/16 03:21 03:21 15:25 WBC 11.7 H RBC 2.78 L Hgb 9.4 L Hct 26.9 L MCV 97 MCH 33.9 H MCHC 35.1 RDW 15.5 H Plt Count 138 L Seg Neutrophils % 71.8 Lymphocytes % 17.3 Monocytes % 9.5 Eosinophils % 0.8 Basophils % 0.6 Absolute Neutrophils 8.4 H Absolute Lymphocytes 2.0 Absolute Monocytes 1.1 Absolute Eosinophils 0.1 Absolute Basophils 0.1 Sodium 139.4 137.3 Potassium 2.9 L* 3.1 L Chloride 102 101 Carbon Dioxide 24 24 Anion Gap 13 12 BUN 7 6 L Creatinine 1.41 H 1.46 H Est GFR ( Amer) 48 L 46 L Est GFR (Non-Af Amer) 40 L 38 L Glucose 116 H 127 H Calcium 8.2 L 8.0 L Magnesium 1.5 L 2.0 Total Bilirubin 4.5 H AST 75 H ALT 46 Alkaline Phosphatase 130 H Total Protein 5.6 L Albumin 2.5 L Impressions: Chest X-Ray 11/10/16 14:17 IMPRESSION: Improved aeration of the lung bases compared to previous. Abdomen/Pelvis CT 11/10/16 19:03 IMPRESSION: Large amount of ascites, increased compared with the previous study. Irregular peritoneum and omental contours, partially obscured by fluid. Mildly distended gallbladder. Fatty infiltration of the liver with Heterogeneous parenchyma. New Small bilateral pleural effusions and lower lobe subsegmental atelectasis, left greater than right. Paracentesis Ultrasound 11/11/16 00:00 IMPRESSION: Successful ultrasound-guided diagnostic and therapeutic paracentesis Guidance Fluoroscopy 11/12/16 00:00 IMPRESSION: SUCCESSFUL PLACEMENT OF A 5 FR DUAL LUMEN 32 CM PICC IN THE RIGHT BASILIC VEIN. Interventional Vascular Procedure 11/12/16 00:00 IMPRESSION: SUCCESSFUL PLACEMENT OF A 5 FR DUAL LUMEN 32 CM PICC IN THE RIGHT BASILIC VEIN. PICC Line Insertion 11/12/16 10:55 IMPRESSION: SUCCESSFUL PLACEMENT OF A 5 FR DUAL LUMEN 32 CM PICC IN THE RIGHT BASILIC VEIN. Assessment & Plan - Diagnosis (1) Spontaneous bacterial peritonitis Is this a current diagnosis for this admission?: YesPlan: Continue IV Cipro and IV Flagyl. Peritoneal fluid culture negative. (2) Ascites due to alcoholic cirrhosis Is this a current diagnosis for this admission?: YesPlan: Continue Lasix and spironolactone. Patient had diagnostic/therapeutic paracentesis on 11/11/2016. She may need repeat therapeutic paracentesis periodically. (3) Chronic liver disease and cirrhosis Is this a current diagnosis for this admission?: YesPlan: Discussions have been initiated with patient today regarding palliative care. We will consult Eleonora Saleem NP with palliative program. (4) Anemia in chronic illness Is this a current diagnosis for this admission?: Yes (5) Anxiety and depression Is this a current diagnosis for this admission?: Yes (6) Chronic pancreatitis Qualifiers: Pancreatitis type: unspecified pancreatitis type Qualified Code(s): K86.1 - Other chronic pancreatitis Is this a current diagnosis for this admission?: Yes (7) Debility Is this a current diagnosis for this admission?: YesPlan: Patient was at [facility] for rehabilitation prior to returning to the hospital. She does not seem in favor of returning to a rehabilitation facility. We will have physical therapy assess and try and work towards getting patient home with home hospice services. (8) Hypokalemia Is this a current diagnosis for this admission?: Yes (9) Hypomagnesemia Is this a current diagnosis for this admission?: Yes (10) Diarrhea Is this a current diagnosis for this admission?: YesPlan: Likely associated with antibiotic use and probably chronic pancreatitis. C. difficile negative. - Time Time Spent with patient: 35 or more minutes
[2016-11-12] MEDS ORDERED: POTASSIUM CHLORIDE 10 MEQ TABLET.SA PO ONE (19:00)
[2016-11-12] MEDS: TRAZODONE HCL 50 MG TABLET PO SCH (21:56)
[2016-11-13] MEDS: METRONIDAZOLE 500 MG/NS RTU 100 ML IV SCH ×4 (02:43→20:38)
[2016-11-13] MEDS: HYDROMORPHONE HCL INJ/PF 2 MG/ML AMPULE IV PRN ×3 (02:52→19:30)
[2016-11-13 04:37] LABS: ABSOLUTE BASOPHILS # (AUTO) 0.1 10^3/uL (0.0-0.2); ABSOLUTE EOSINOPHILS # (AUTO) 0.1 10^3/uL (0.0-0.6); ABSOLUTE LYMPHOCYTES (AUTO) 2.3 10^3/uL (0.5-4.7); ABSOLUTE MONOCYTES (AUTO) 1.7 10^3/uL (0.1-1.4); ABSOLUTE NEUT (AUTO) 15.3 10^3/uL (1.7-8.2); BASOPHILS % (AUTO) 0.4 % (0-2); EOSINOPHILS % (AUTO) 0.7 % (0-6); HEMATOCRIT 25.7 % (36.0-47.0); HEMOGLOBIN 8.7 g/dL (12.0-15.5); HGB HCT DIFFERENCE 0.4; LYMPHOCYTES % (AUTO) 11.7 % (13-45); MEAN CORPUSCULAR HGB CONC 33.8 g/dL (32.0-36.0); MEAN CORPUSCULAR VOLUME 98 fl (80-97); MONOCYTES % (AUTO) 8.7 % (3-13); RED BLOOD COUNT 2.63 10^6/uL (3.72-5.28); RED CELL DISTRIBUTION WIDTH 15.8 % (11.5-14.0); SEGMENTED NEUTROPHILS % (AUTO) 78.5 % (42-78); WHITE BLOOD COUNT 19.5 10^3/uL (4.0-10.5)
[2016-11-13 04:53] LABS: ALANINE AMINOTRANSFERASE 44 U/L (9-52); ALBUMIN 2.5 g/dL (3.5-5.0); ALKALINE PHOSPHATASE 119 U/L (38-126); ANION GAP 11 (5-19); ASPARTATE AMINO TRANSFERASE 54 U/L (14-36); BILIRUBIN,DIRECT 2.9 mg/dL (0.0-0.4); BILIRUBIN,TOTAL 4.1 mg/dL (0.2-1.3); BLOOD UREA NITROGEN 6 mg/dL (7-20); CALCIUM 7.9 mg/dL (8.4-10.2); CARBON DIOXIDE 24 mmol/L (22-30); CHLORIDE 102 mmol/L (98-107); CREATININE RESULT 1.39 mg/dL (0.52-1.25); GLUCOSE 139 mg/dL (75-110); MAGNESIUM 1.9 mg/dL (1.6-2.3); POTASSIUM 3.2 mmol/L (3.6-5.0); SODIUM 137.1 mmol/L (137-145); TOTAL PROTEIN 5.7 g/dL (6.3-8.2)
[2016-11-13] MEDS ORDERED: GLUCAGON,HUMAN RECOMB 1 MG INJ SUBCUT PRN (08:05)
[2016-11-13] MEDS ORDERED: DEXTROSE 40% GEL 15 GM TUBE PO PRN ×2 (08:05)
[2016-11-13] MEDS ORDERED: DEXTROSE 50%-WATER 25 GM/50 ML DISP.SYRIN IV PRN ×2 (08:05)
--- NOTE | 2016-11-13 08:06 | PDOC PROGRESS REPORT ---
Subjective Progress Note for:: 11/13/16 Subjective:: Patient has been having no appetite. She has been having vomiting this morning. She continues to have abdominal pain this seems to be more located in the right upper quadrant now. She denies fevers or chills. Physical Exam Vital Signs: Temp Pulse Resp BP Pulse Ox 99.2 F 104 H 23 H 104/69 93 11/13/16 07:53 11/13/16 07:53 11/13/16 07:53 11/13/16 07:53 11/13/16 07:53 Intake & Output 11/12/16 11/13/16 11/14/16 06:59 06:59 06:59 Intake Total 1948 Output Total 560 230 Balance 1382 1828 Weight 70.8 kg 72.7 kg GENERAL: No acute distress HEENT: Conjunctiva clear, nonicteric, moist mucous membranes, no JVD, midline trachea RESPIRATORY: Clear to auscultation bilaterally, no wheezes, no rhonchi CARDIAC: Regular rate and rhythm, no murmurs/gallops/rubs ABDOMEN: Distended, tense, diffuse tenderness (worsened right upper quadrant), obvious ascites EXTREMETIES: No edema, cyanosis, clubbing NEUROLOGIC: Alert, oriented to person/place/time, CN's grossly intact, no focal deficits SKIN: No rash, wounds. PSYCH: Depressed mood, normal affect Results Laboratory Results: 11/13/16 04:25 11/13/16 04:25 11/12/16 11/13/16 11/13/16 15:25 04:25 04:25 WBC 19.5 H RBC 2.63 L Hgb 8.7 L Hct 25.7 L MCV 98 H MCH 33.0 MCHC 33.8 RDW 15.8 H Plt Count 177 Seg Neutrophils % 78.5 H Lymphocytes % 11.7 L Monocytes % 8.7 Eosinophils % 0.7 Basophils % 0.4 Absolute Neutrophils 15.3 H Absolute Lymphocytes 2.3 Absolute Monocytes 1.7 H Absolute Eosinophils 0.1 Absolute Basophils 0.1 Sodium 137.3 137.1 Potassium 3.1 L 3.2 L Chloride 101 102 Carbon Dioxide 24 24 Anion Gap 12 11 BUN 6 L 6 L Creatinine 1.46 H 1.39 H Est GFR ( Amer) 46 L 49 L Est GFR (Non-Af Amer) 38 L 40 L Glucose 127 H 139 H Calcium 8.0 L 7.9 L Magnesium 2.0 1.9 Total Bilirubin 4.1 H AST 54 H ALT 44 Alkaline Phosphatase 119 Total Protein 5.7 L Albumin 2.5 L Impressions: Chest X-Ray 11/10/16 14:17 IMPRESSION: Improved aeration of the lung bases compared to previous. Abdomen/Pelvis CT 11/10/16 19:03 IMPRESSION: Large amount of ascites, increased compared with the previous study. Irregular peritoneum and omental contours, partially obscured by fluid. Mildly distended gallbladder. Fatty infiltration of the liver with Heterogeneous parenchyma. New Small bilateral pleural effusions and lower lobe subsegmental atelectasis, left greater than right. Paracentesis Ultrasound 11/11/16 00:00 IMPRESSION: Successful ultrasound-guided diagnostic and therapeutic paracentesis Guidance Fluoroscopy 11/12/16 00:00 IMPRESSION: SUCCESSFUL PLACEMENT OF A 5 FR DUAL LUMEN 32 CM PICC IN THE RIGHT BASILIC VEIN. Interventional Vascular Procedure 11/12/16 00:00 IMPRESSION: SUCCESSFUL PLACEMENT OF A 5 FR DUAL LUMEN 32 CM PICC IN THE RIGHT BASILIC VEIN. PICC Line Insertion 11/12/16 10:55 IMPRESSION: SUCCESSFUL PLACEMENT OF A 5 FR DUAL LUMEN 32 CM PICC IN THE RIGHT BASILIC VEIN. Assessment & Plan - Diagnosis (1) Sepsis Qualifiers: Sepsis type: sepsis due to unspecified organism Qualified Code(s): A41.9 - Sepsis, unspecified organism Is this a current diagnosis for this admission?: YesPlan: Patient has worsening leukocytosis. She was hypotensive yesterday as well. She is being currently treated for spontaneous bacterial peritonitis associated with cirrhosis. I'm concerned about her worsening right upper quadrant pain so I would like to obtain right upper quadrant ultrasound. I will make patient nothing by mouth for now until nausea/vomiting and abdominal pain improved. Start maintenance IV fluids. (2) Spontaneous bacterial peritonitis Is this a current diagnosis for this admission?: YesPlan: Continue IV Cipro and IV Flagyl. Peritoneal fluid culture negative. (3) Ascites due to alcoholic cirrhosis Is this a current diagnosis for this admission?: YesPlan: Continue Lasix and spironolactone. Patient had diagnostic/therapeutic paracentesis on 11/11/2016. She may need repeat therapeutic paracentesis periodically. (4) Chronic liver disease and cirrhosis Is this a current diagnosis for this admission?: YesPlan: Discussions have been initiated with patient today regarding palliative care. We will consult Eleonora Saleem NP with palliative program. (5) Anemia in chronic illness Is this a current diagnosis for this admission?: Yes (6) Anxiety and depression Is this a current diagnosis for this admission?: YesPlan: Continue trazodone and BuSpar. (7) Chronic pancreatitis Qualifiers: Pancreatitis type: unspecified pancreatitis type Qualified Code(s): K86.1 - Other chronic pancreatitis Is this a current diagnosis for this admission?: Yes (8) Debility Is this a current diagnosis for this admission?: YesPlan: Patient was at [facility] for rehabilitation prior to returning to the hospital. She does not seem in favor of returning to a rehabilitation facility. We will have physical therapy assess and try and work towards getting patient home with home hospice services. (9) Hypokalemia Is this a current diagnosis for this admission?: Yes (10) Hypomagnesemia Is this a current diagnosis for this admission?: Yes (11) Diarrhea Is this a current diagnosis for this admission?: YesPlan: Likely associated with antibiotic use and probably chronic pancreatitis. C. difficile negative. - Time Time Spent with patient: 35 or more minutes
[2016-11-13] MEDS ORDERED: POTASSI CL 20 MEQ/50 ML RIDER 20 MEQ/50 ML RTUPB IV ONE (09:00)
[2016-11-13] MEDS: POTASSI CL 20 MEQ/D5NS 1L 1,000 ML IV PRN (09:16)
[2016-11-13] MEDS: MULTIVITAMIN TABLET PO SCH (10:00)
[2016-11-13] MEDS: DULOXETINE HCL 30 MG CAPSULE.DR PO SCH (10:00)
[2016-11-13] MEDS: SPIRONOLACTONE 25 MG TABLET PO SCH (10:00)
[2016-11-13] MEDS: POTASSIUM CHLORIDE 10 MEQ TABLET.SA PO SCH (10:00)
[2016-11-13] MEDS: MAGNESIUM OXIDE 400 MG TABLET PO SCH ×2 (10:00→22:14)
[2016-11-13] MEDS: LACTOBACILLUS ACIDOPHILUS 250 MG TAB PO SCH ×2 (10:00→18:22)
[2016-11-13] MEDS: BUSPIRONE HCL 10 MG TABLET PO SCH ×2 (10:00→22:14)
[2016-11-13] MEDS: FUROSEMIDE 20 MG TABLET PO SCH (10:00)
[2016-11-13] MEDS: CIPROFLOXACIN 400 MG/D5W RTU 400 MG/200 ML RTUPB IV SCH ×2 (10:31→22:08)
[2016-11-13] MEDS: ONDANSETRON HCL INJ/PF 4 MG/2 ML SDV IV PRN ×2 (10:32→19:30)
[2016-11-13] MEDS: FOLIC ACID/VITAMIN B COMP W-C CAPSULE PO SCH (15:56)
--- NOTE | 2016-11-13 20:25 | Palliative Consultation Report ---
Consultation From:: [facility] - [facility] HPI: Appreciate Palliative care consult request with this very sick 51 year old patient who has been admitted again for bacterial peritonitis and ascites due to cirrhosis. SHe apparently was admitted a few weeks with similar symptoms, discharged to SNF for rehab and readmitted with recurrent ascites, abd pain, diarrhea and sepsis. Ms. Dowd is is in ICU but she is alert and oriented. We talked a while about her illness and problems including current symptoms which she feels are not being addressed with medications. She says she cannot get nurses to give her the pain medications or Immodium that is ordered and she needs some topical cream for the irritation on her buttocks and rectal area from diarrhea. Patient was receptive to discussing her illness and prognosis. She does want to go home and says her boyfriend can care for her as he is retired and eager to help her. We discussed having hospice help her at home and she is agreeable. She is apporpriate for hospice with frequent hospitalizations, need for frequent paracentesis and frequent infections. She does not want to go back to SNF for any attempt for rehab. We discussed code status and what life would be like on a ventilator given her condition. 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 I encouraged her to talk to Dr. Salas about this in the morning. She is very open with conversation about her illness and her emotions with it. She is upset at some of the care she has recieved from time to time and wants to be kept more comfortable. I told her to ask Dr. Salas if meds for diarrhea could be available and is so, scheduled. Onset: Last week Onset/Duration: Gradual Quality of Pain: Fullness, Throbbing Severity: Moderate Pain Level: 3, 4 Associated Symptoms: Diarrhea Exacerbated by: Movement Past Medical History(Consults) - General Information Source: Patient, [facility] Records Home Medications: Buspirone HCl [Buspar 15 mg Tablet] 15 mg PO Q12 09/20/16 Duloxetine HCl [Cymbalta] 60 mg PO DAILY 09/20/16 Trazodone HCl [Desyrel] 200 mg PO QHS 09/20/16 Cholestyramine/Aspartame [Questran Light 4 gm Packet] 4 gm PO BID #60 packet Folic Acid/Vitamin B Comp W-C [Nephrocaps Multiple Vitamin Capsule] 1 cap PO ACSUPPER #30 capsule 11/06/16 Furosemide [Lasix] 20 mg PO BID #60 tablet 11/06/16 Magnesium Oxide [Mag-Ox 400 mg Tablet] 400 mg PO BID #60 tablet 11/06/16 Multivitamin [Tab-A-Jina (Multiple Vitamin) Tablet] 1 tab PO DAILY #30 tablet Spironolactone [Aldactone 25 mg Tablet] 25 mg PO DAILY #30 tablet 11/06/16 Loperamide HCl [Imodium 2 mg Capsule] 2 mg PO Q12HP PRN 11/10/16 Oxycodone HCl [Oxy-Ir 5 mg Tablet] 5 mg PO Q6HP PRN 11/10/16 Allergies/Adverse Reactions: morphine [Morphine] Allergy (Verified 11/10/16 16:23) NSAIDS (Non-Steroidal Anti-Inflamma [Nsaids] Allergy (Verified 11/10/16 16:23) Penicillins Allergy (Verified 11/10/16 16:23) Sulfa (Sulfonamide Antibiotics) Allergy (Verified 11/10/16 16:23) - Social History Lives with: Friend Family History: Reviewed & Not Pertinent, Arthritis, Other - Chronic alcoholism Parental Family History Reviewed: No Children Family History Reviewed: No Sibling(s) Family History Reviewed.: No Smoking Status: Current Every Day Smoker Frequency of Alcohol Use: Heavy - She was drinking for one coolers every day for at least 10 years but she claims she has been sober for the last 6 months Hx Recreational Drug Use: Yes Drugs: None Hx Prescription Drug Abuse: Yes - Past Medical History Cardiac Medical History: Reports: Hx Hypercholesterolemia Pulmonary Medical History: Reports: Hx COPD, Other - Pleural effusion on last [facility] admission Denies: Hx Tuberculosis Endocrine Medical History: Denies: Hx Diabetes Mellitus Type 1, Hx Diabetes Mellitus Type 2 Renal/ Medical History: Denies: Hx Peritoneal Dialysis Malignancy Medical History: Reports: Hx Skin Cancer GI Medical History: Reports: Hx Cirrhosis, Other - Pancreatitis Musculoskeltal Medical History: Reports Hx Arthritis Psychiatric Medical History: Reports: Hx Anxiety, Hx Depression - Surgical History Past Surgical History: Reports: Hx Section - 1986, Hx Gynecologic Surgery - laparoscopy, Hx Hysterectomy, Hx Oral Surgery - wisdom teeth, Hx Tubal Ligation, Other - [place] teeth extraction Review of systems Constitutional: Malaise, Weakness EENT: No symptoms reported Gastrointestinal: Abdomen distended, Abdominal pain, Diarrhea Skin: Other - Irritation rectal area and buttocks from diarrhea Neurological/Psychological: Depression, Anxiety Ojective:Exam Vital Signs: Temp Pulse Resp BP Pulse Ox 99.2 F 104 H 17 104/69 93 11/13/16 07:53 11/13/16 07:53 11/13/16 08:00 11/13/16 07:53 11/13/16 07:53 Intake & Output 11/12/16 11/13/16 11/14/16 06:59 06:59 06:59 Intake Total 194 9508 947 Output Total 560 230 250 Balance 1382 1828 697 Weight 70.8 kg 72.7 kg - General General Appearance: Alert, Anxious Note:: oriented and anxious, irritable about pain, diarrhea and skin issues - HEENT Head: Normocephalic Pupils: PERRLA - Respiratory Respiratory Status: No respiratory distress - Ascites and pressure inhibit normal breathing Chest Status: Pain on movement - Abdominal Distension: Distended Bowel Sounds: Hypoactive Tenderness: Tender Abdominal Notes: Ascites and distention - Neurological Cognition: Normal Orientation: Alert, Oriented to person, Oriented to place, Oriented to time Speech: Normal - Psychological Associated symptoms: Anxious, Irritable Objective-Diagnostic Laboratory: 11/13/16 04:25 11/13/16 04:25 11/13/16 11/13/16 04:25 04:25 WBC 19.5 H RBC 2.63 L Hgb 8.7 L Hct 25.7 L MCV 98 H MCH 33.0 MCHC 33.8 RDW 15.8 H Plt Count 177 Seg Neutrophils % 78.5 H Lymphocytes % 11.7 L Monocytes % 8.7 Eosinophils % 0.7 Basophils % 0.4 Absolute Neutrophils 15.3 H Absolute Lymphocytes 2.3 Absolute Monocytes 1.7 H Absolute Eosinophils 0.1 Absolute Basophils 0.1 Sodium 137.1 Potassium 3.2 L Chloride 102 Carbon Dioxide 24 Anion Gap 11 BUN 6 L Creatinine 1.39 H Est GFR ( Amer) 49 L Est GFR (Non-Af Amer) 40 L Glucose 139 H Calcium 7.9 L Magnesium 1.9 Total Bilirubin 4.1 H AST 54 H ALT 44 Alkaline Phosphatase 119 Total Protein 5.7 L Albumin 2.5 L Plan and Recommendation Plan and Recommendation: Wants to go home with hospice support and have her boyfriend care ofr her. She says he is agreeable and capable. She is appropriate for hospice services at home. Wants to be DNR, will discuss with Dr. Salas in AM. Very little hesitancy in this decision, but I told her to think about it to make sure as she has so little control I felt giving her time to consider might make her feel more in control. Would suggest scheduling pain meds to maintain comfort. She reports relief with the dilaudid but she feels it is hard to get nurses to give it to her. Appreciate consult, will have hospice liason follow up tomorrow. - Time Spent with Patient Time spent with patient: 15 to 30 Minutes - 25 minutes with patient, 15 min chart review, 20 min documentation
[2016-11-13] MEDS: TRAZODONE HCL 50 MG TABLET PO SCH (22:14)
[2016-11-14] MEDS: METRONIDAZOLE 500 MG/NS RTU 100 ML IV SCH (03:09)
[2016-11-14] MEDS: POTASSI CL 20 MEQ/D5NS 1L 1,000 ML IV PRN (03:32)
[2016-11-14 06:24] LABS: ABSOLUTE BASOPHILS # (AUTO) 0.1 10^3/uL (0.0-0.2); ABSOLUTE EOSINOPHILS # (AUTO) 0.2 10^3/uL (0.0-0.6); ABSOLUTE LYMPHOCYTES (AUTO) 2.4 10^3/uL (0.5-4.7); ABSOLUTE MONOCYTES (AUTO) 1.4 10^3/uL (0.1-1.4); ABSOLUTE NEUT (AUTO) 11.5 10^3/uL (1.7-8.2); BASOPHILS % (AUTO) 0.7 % (0-2); EOSINOPHILS % (AUTO) 1.1 % (0-6); HEMATOCRIT 26.7 % (36.0-47.0); HGB HCT DIFFERENCE 0.3; LYMPHOCYTES % (AUTO) 15.2 % (13-45); MEAN CORPUSCULAR HEMOGLOBIN 32.9 pg (27.0-33.4); MEAN CORPUSCULAR HGB CONC 33.5 g/dL (32.0-36.0); MEAN CORPUSCULAR VOLUME 98 fl (80-97); RED BLOOD COUNT 2.72 10^6/uL (3.72-5.28); RED CELL DISTRIBUTION WIDTH 15.8 % (11.5-14.0); WHITE BLOOD COUNT 15.6 10^3/uL (4.0-10.5)
[2016-11-14 06:43] LABS: ALANINE AMINOTRANSFERASE 42 U/L (9-52); ALBUMIN 2.4 g/dL (3.5-5.0); ALKALINE PHOSPHATASE 115 U/L (38-126); ANION GAP 10 (5-19); ASPARTATE AMINO TRANSFERASE 43 U/L (14-36); BILIRUBIN,DIRECT 2.2 mg/dL (0.0-0.4); BILIRUBIN,TOTAL 3.2 mg/dL (0.2-1.3); BLOOD UREA NITROGEN 4 mg/dL (7-20); CALCIUM 8.1 mg/dL (8.4-10.2); CARBON DIOXIDE 22 mmol/L (22-30); CHLORIDE 105 mmol/L (98-107); CREATININE RESULT 1.46 mg/dL (0.52-1.25); GLUCOSE 118 mg/dL (75-110); POTASSIUM 3.5 mmol/L (3.6-5.0); TOTAL PROTEIN 5.5 g/dL (6.3-8.2)
[2016-11-14] MEDS: FUROSEMIDE 20 MG TABLET PO SCH (11:51)
[2016-11-14] MEDS: SPIRONOLACTONE 25 MG TABLET PO SCH (11:51)
[2016-11-14] MEDS: POTASSIUM CHLORIDE 10 MEQ TABLET.SA PO SCH (11:53)
[2016-11-14] MEDS: LACTOBACILLUS ACIDOPHILUS 250 MG TAB PO SCH ×2 (11:53→19:01)
[2016-11-14] MEDS: MAGNESIUM OXIDE 400 MG TABLET PO SCH ×2 (11:54→22:55)
[2016-11-14] MEDS: DULOXETINE HCL 30 MG CAPSULE.DR PO SCH (11:55)
[2016-11-14] MEDS: MULTIVITAMIN TABLET PO SCH (11:55)
[2016-11-14] MEDS: BUSPIRONE HCL 10 MG TABLET PO SCH ×2 (11:56→22:55)
[2016-11-14] MEDS: METRONIDAZOLE 500 MG TABLET PO SCH ×2 (14:49→22:55)
[2016-11-14] MEDS: FOLIC ACID/VITAMIN B COMP W-C CAPSULE PO SCH (14:50)
--- NOTE | 2016-11-14 17:37 | PDOC PROGRESS REPORT ---
Subjective Progress Note for:: 11/14/16 Subjective:: Patient has been having no appetite. Her abdominal pain is improving. She feels generally a little bit better. She denies fevers or chills. Physical Exam Vital Signs: Temp Pulse Resp BP Pulse Ox 98.6 F 88 16 96/64 L 98 11/14/16 00:00 11/14/16 00:00 11/14/16 00:00 11/14/16 00:00 11/14/16 00:00 Intake & Output 11/13/16 11/14/16 11/15/16 06:59 06:59 06:59 Intake Total 2058 1847 120 Output Total 265 994 5714 Balance 1828 1372 -1030 Weight 72.7 kg 72.7 kg GENERAL: No acute distress HEENT: Conjunctiva clear, nonicteric, moist mucous membranes, no JVD, midline trachea RESPIRATORY: Clear to auscultation bilaterally, no wheezes, no rhonchi CARDIAC: Regular rate and rhythm, no murmurs/gallops/rubs ABDOMEN: Distended, mild diffuse tenderness, obvious ascites EXTREMETIES: No edema, cyanosis, clubbing NEUROLOGIC: Alert, oriented to person/place/time, CN's grossly intact, no focal deficits SKIN: No rash, wounds. PSYCH: Depressed mood, normal affect Results Laboratory Results: 11/14/16 05:52 11/14/16 05:52 11/14/16 11/14/16 05:52 05:52 WBC 15.6 H RBC 2.72 L Hgb 9.0 L Hct 26.7 L MCV 98 H MCH 32.9 MCHC 33.5 RDW 15.8 H Plt Count 217 Seg Neutrophils % 74.0 Lymphocytes % 15.2 Monocytes % 9.0 Eosinophils % 1.1 Basophils % 0.7 Absolute Neutrophils 11.5 H Absolute Lymphocytes 2.4 Absolute Monocytes 1.4 Absolute Eosinophils 0.2 Absolute Basophils 0.1 Sodium 137.0 Potassium 3.5 L Chloride 105 Carbon Dioxide 22 Anion Gap 10 BUN 4 L Creatinine 1.46 H Est GFR ( Amer) 46 L Est GFR (Non-Af Amer) 38 L Glucose 118 H Calcium 8.1 L Total Bilirubin 3.2 H AST 43 H ALT 42 Alkaline Phosphatase 115 Total Protein 5.5 L Albumin 2.4 L Impressions: Chest X-Ray 11/10/16 14:17 IMPRESSION: Improved aeration of the lung bases compared to previous. Abdomen/Pelvis CT 11/10/16 19:03 IMPRESSION: Large amount of ascites, increased compared with the previous study. Irregular peritoneum and omental contours, partially obscured by fluid. Mildly distended gallbladder. Fatty infiltration of the liver with Heterogeneous parenchyma. New Small bilateral pleural effusions and lower lobe subsegmental atelectasis, left greater than right. Paracentesis Ultrasound 11/11/16 00:00 IMPRESSION: Successful ultrasound-guided diagnostic and therapeutic paracentesis Guidance Fluoroscopy 11/12/16 00:00 IMPRESSION: SUCCESSFUL PLACEMENT OF A 5 FR DUAL LUMEN 32 CM PICC IN THE RIGHT BASILIC VEIN. Interventional Vascular Procedure 11/12/16 00:00 IMPRESSION: SUCCESSFUL PLACEMENT OF A 5 FR DUAL LUMEN 32 CM PICC IN THE RIGHT BASILIC VEIN. PICC Line Insertion 11/12/16 10:55 IMPRESSION: SUCCESSFUL PLACEMENT OF A 5 FR DUAL LUMEN 32 CM PICC IN THE RIGHT BASILIC VEIN. Abdomen Ultrasound 11/13/16 07:58 IMPRESSION: 1. The liver is prominent at 17.8 cm. 2. There are no gallstones. There is no evidence of cholecystitis. 3. There is a small amount of ascites around the liver. Assessment & Plan - Diagnosis (1) Sepsis Qualifiers: Sepsis type: sepsis due to unspecified organism Qualified Code(s): A41.9 - Sepsis, unspecified organism Is this a current diagnosis for this admission?: YesPlan: She is being currently treated for spontaneous bacterial peritonitis associated with cirrhosis. White count improved, afebrile, clinically improving. (2) Spontaneous bacterial peritonitis Is this a current diagnosis for this admission?: YesPlan: Change Cipro and Flagyl to by mouth. Peritoneal fluid culture negative. (3) Ascites due to alcoholic cirrhosis Is this a current diagnosis for this admission?: YesPlan: Continue Lasix and spironolactone. Patient had diagnostic/therapeutic paracentesis on 11/11/2016. She may need repeat therapeutic paracentesis periodically. (4) Chronic liver disease and cirrhosis Is this a current diagnosis for this admission?: YesPlan: Discussions have been initiated with patient today regarding palliative care. Eleonora Saleem NP with palliative program has assessed patient. (5) Anemia in chronic illness Is this a current diagnosis for this admission?: Yes (6) Anxiety and depression Is this a current diagnosis for this admission?: YesPlan: Continue trazodone and BuSpar. (7) Chronic pancreatitis Qualifiers: Pancreatitis type: unspecified pancreatitis type Qualified Code(s): K86.1 - Other chronic pancreatitis Is this a current diagnosis for this admission?: Yes (8) Debility Is this a current diagnosis for this admission?: YesPlan: Patient was at [facility] for rehabilitation prior to returning to the hospital. She does not seem in favor of returning to a rehabilitation facility. We will have physical therapy assess and try and work towards getting patient home with home hospice services. (9) Hypokalemia Is this a current diagnosis for this admission?: Yes (10) Hypomagnesemia Is this a current diagnosis for this admission?: Yes (11) Diarrhea Is this a current diagnosis for this admission?: YesPlan: Likely associated with antibiotic use and probably chronic pancreatitis. C. difficile negative. - Time Time Spent with patient: 35 or more minutes Anticipated discharge: Hospice Within: within 72 hours
[2016-11-14] MEDS: TRAZODONE HCL 50 MG TABLET PO SCH (22:54)
[2016-11-14] MEDS: CIPROFLOXACIN HCL 500 MG TABLET PO SCH (22:55)
[2016-11-15] MEDS: METRONIDAZOLE 500 MG TABLET PO SCH ×3 (06:29→21:10)
[2016-11-15 07:12] LABS: ALANINE AMINOTRANSFERASE 43 U/L (9-52); ALBUMIN 2.4 g/dL (3.5-5.0); ALKALINE PHOSPHATASE 114 U/L (38-126); ANION GAP 12 (5-19); ASPARTATE AMINO TRANSFERASE 39 U/L (14-36); BILIRUBIN,DIRECT 2.3 mg/dL (0.0-0.4); BILIRUBIN,TOTAL 3.1 mg/dL (0.2-1.3); BLOOD UREA NITROGEN 4 mg/dL (7-20); CALCIUM 8.4 mg/dL (8.4-10.2); CARBON DIOXIDE 21 mmol/L (22-30); CHLORIDE 107 mmol/L (98-107); CREATININE RESULT 1.63 mg/dL (0.52-1.25); GLUCOSE 100 mg/dL (75-110); POTASSIUM 3.2 mmol/L (3.6-5.0); SODIUM 139.7 mmol/L (137-145); TOTAL PROTEIN 5.8 g/dL (6.3-8.2)
[2016-11-15 07:16] LABS: ABSOLUTE BASOPHILS # (AUTO) 0.1 10^3/uL (0.0-0.2); ABSOLUTE EOSINOPHILS # (AUTO) 0.2 10^3/uL (0.0-0.6); ABSOLUTE LYMPHOCYTES (AUTO) 2.8 10^3/uL (0.5-4.7); ABSOLUTE MONOCYTES (AUTO) 1.2 10^3/uL (0.1-1.4); ABSOLUTE NEUT (AUTO) 8.3 10^3/uL (1.7-8.2); BASOPHILS % (AUTO) 0.6 % (0-2); EOSINOPHILS % (AUTO) 1.2 % (0-6); HEMATOCRIT 25.6 % (36.0-47.0); HEMOGLOBIN 8.4 g/dL (12.0-15.5); HGB HCT DIFFERENCE -0.4; LYMPHOCYTES % (AUTO) 22.2 % (13-45); MEAN CORPUSCULAR HEMOGLOBIN 32.9 pg (27.0-33.4); MEAN CORPUSCULAR VOLUME 100 fl (80-97); MONOCYTES % (AUTO) 9.6 % (3-13); RED BLOOD COUNT 2.57 10^6/uL (3.72-5.28); SEGMENTED NEUTROPHILS % (AUTO) 66.4 % (42-78); WHITE BLOOD COUNT 12.5 10^3/uL (4.0-10.5)
[2016-11-15] MEDS ORDERED: POTASSIUM CHLORIDE 10 MEQ TABLET.SA PO ONE (08:45)
[2016-11-15] MEDS: BUSPIRONE HCL 10 MG TABLET PO SCH ×2 (10:10→21:11)
[2016-11-15] MEDS: MAGNESIUM OXIDE 400 MG TABLET PO SCH ×2 (10:13→21:10)
[2016-11-15] MEDS: LACTOBACILLUS ACIDOPHILUS 250 MG TAB PO SCH ×2 (10:13→17:00)
[2016-11-15] MEDS: CIPROFLOXACIN HCL 500 MG TABLET PO SCH ×2 (10:13→21:10)
[2016-11-15] MEDS: DULOXETINE HCL 30 MG CAPSULE.DR PO SCH (10:14)
[2016-11-15] MEDS: MULTIVITAMIN TABLET PO SCH (10:14)
[2016-11-15] MEDS: POTASSIUM CHLORIDE 10 MEQ TABLET.SA PO SCH (10:14)
[2016-11-15] MEDS: SPIRONOLACTONE 25 MG TABLET PO SCH (10:27)
[2016-11-15] MEDS: FUROSEMIDE 20 MG TABLET PO SCH (10:27)
[2016-11-15] MEDS: OXYCODONE HCL IR 5 MG TABLET PO PRN ×2 (10:46→17:00)
[2016-11-15] MEDS: LOPERAMIDE HCL 2 MG CAPSULE PO PRN (13:14)
[2016-11-15] MEDS ORDERED: NORMAL SALINE 10 ML SDV (AFTER EACH USE) IV PRN (14:18)
--- NOTE | 2016-11-15 14:31 | PDOC PROGRESS REPORT ---
Subjective Progress Note for:: 11/15/16 Subjective:: Patient feels generally better. Abdominal pain is improving. She does state that she is feeling weak and dizzy when she tries to stand and walk. Her blood pressures have been low and nursing has had to hold her Lasix as a result. She states that she has constant loose watery stools. It doesn't look like this is a new problem as she is on Imodium and Questran as an outpatient. She denies fevers, chills, headache, chest pain. Physical Exam Vital Signs: Temp Pulse Resp BP Pulse Ox 98.3 F 86 16 95/54 L 96 11/15/16 07:37 11/15/16 07:37 11/15/16 07:37 11/15/16 07:37 11/15/16 07:37 Intake & Output 11/14/16 11/15/16 11/16/16 06:59 06:59 06:59 Intake Total 1847 390 Output Total 475 1800 Balance 1372 -1410 Weight 72.7 kg 66 kg GENERAL: No acute distress HEENT: Conjunctiva clear, nonicteric, moist mucous membranes, no JVD, midline trachea RESPIRATORY: Clear to auscultation bilaterally, no wheezes, no rhonchi CARDIAC: Regular rate and rhythm, no murmurs/gallops/rubs ABDOMEN: Distended, mild diffuse tenderness, obvious ascites EXTREMETIES: No edema, cyanosis, clubbing NEUROLOGIC: Alert, oriented to person/place/time, CN's grossly intact, no focal deficits SKIN: No rash, wounds. PSYCH: Depressed mood, normal affect Results Laboratory Results: 11/15/16 06:25 11/15/16 06:25 11/15/16 11/15/16 11/15/16 06:25 06:25 06:25 WBC 12.5 H RBC 2.57 L Hgb 8.4 L Hct 25.6 L MCV 100 H MCH 32.9 MCHC 33.0 RDW 16.0 H Plt Count 180 Seg Neutrophils % 66.4 Lymphocytes % 22.2 Monocytes % 9.6 Eosinophils % 1.2 Basophils % 0.6 Absolute Neutrophils 8.3 H Absolute Lymphocytes 2.8 Absolute Monocytes 1.2 Absolute Eosinophils 0.2 Absolute Basophils 0.1 Retic Count (auto) 5.83 H Absolute Retic 0.149 H Sodium 139.7 Potassium 3.2 L Chloride 107 Carbon Dioxide 21 L Anion Gap 12 BUN 4 L Creatinine 1.63 H Est GFR ( Amer) 41 L Est GFR (Non-Af Amer) 34 L Glucose 100 Calcium 8.4 Total Bilirubin 3.1 H AST 39 H ALT 43 Alkaline Phosphatase 114 Total Protein 5.8 L Albumin 2.4 L 11/11/16 13:55 Ascities Fluid Gram Stain - Final 11/11/16 13:55 Ascities Fluid Body Fluid Culture - Final NO AEROBIC OR ANAEROBIC ORGANISMS RECOVERED Impressions: Chest X-Ray 11/10/16 14:17 IMPRESSION: Improved aeration of the lung bases compared to previous. Abdomen/Pelvis CT 11/10/16 19:03 IMPRESSION: Large amount of ascites, increased compared with the previous study. Irregular peritoneum and omental contours, partially obscured by fluid. Mildly distended gallbladder. Fatty infiltration of the liver with Heterogeneous parenchyma. New Small bilateral pleural effusions and lower lobe subsegmental atelectasis, left greater than right. Paracentesis Ultrasound 11/11/16 00:00 IMPRESSION: Successful ultrasound-guided diagnostic and therapeutic paracentesis Guidance Fluoroscopy 11/12/16 00:00 IMPRESSION: SUCCESSFUL PLACEMENT OF A 5 FR DUAL LUMEN 32 CM PICC IN THE RIGHT BASILIC VEIN. Interventional Vascular Procedure 11/12/16 00:00 IMPRESSION: SUCCESSFUL PLACEMENT OF A 5 FR DUAL LUMEN 32 CM PICC IN THE RIGHT BASILIC VEIN. PICC Line Insertion 11/12/16 10:55 IMPRESSION: SUCCESSFUL PLACEMENT OF A 5 FR DUAL LUMEN 32 CM PICC IN THE RIGHT BASILIC VEIN. Abdomen Ultrasound 11/13/16 07:58 IMPRESSION: 1. The liver is prominent at 17.8 cm. 2. There are no gallstones. There is no evidence of cholecystitis. 3. There is a small amount of ascites around the liver. Assessment & Plan - Diagnosis (1) Sepsis Qualifiers: Sepsis type: sepsis due to unspecified organism Qualified Code(s): A41.9 - Sepsis, unspecified organism Is this a current diagnosis for this admission?: YesPlan: She is being currently treated for spontaneous bacterial peritonitis associated with cirrhosis. White count improved, afebrile, clinically improving. (2) Spontaneous bacterial peritonitis Is this a current diagnosis for this admission?: YesPlan: Continue Cipro and Flagyl by mouth. Peritoneal fluid culture negative. (3) Ascites due to alcoholic cirrhosis Is this a current diagnosis for this admission?: YesPlan: Continue spironolactone. Discontinue Lasix secondary to hypotension and orthostasis. Patient had diagnostic/therapeutic paracentesis on 11/11/2016. She may need repeat therapeutic paracentesis periodically. (4) Chronic liver disease and cirrhosis Is this a current diagnosis for this admission?: Yes (5) Anemia in chronic illness Is this a current diagnosis for this admission?: Yes (6) Anxiety and depression Is this a current diagnosis for this admission?: YesPlan: Decrease Cymbalta and trazodone secondary to consideration of serotonin syndrome based on excessive chronic diarrhea. (7) Chronic pancreatitis Qualifiers: Pancreatitis type: unspecified pancreatitis type Qualified Code(s): K86.1 - Other chronic pancreatitis Is this a current diagnosis for this admission?: Yes (8) Debility Is this a current diagnosis for this admission?: YesPlan: Patient was at [facility] rehabilitation prior to returning to the hospital. She does not seem in favor of returning to a rehabilitation facility. We will have physical therapy assess and try and work towards getting patient home with home hospice services. (9) Hypokalemia Is this a current diagnosis for this admission?: YesPlan: Replace as needed. (10) Hypomagnesemia Is this a current diagnosis for this admission?: Yes (11) Diarrhea Is this a current diagnosis for this admission?: YesPlan: Likely associated with antibiotic use and probably chronic pancreatitis. Also need to consider possible serotonin syndrome given IV doses of Cymbalta and trazodone. I will decrease the dose of both these medications. C. difficile negative. Check stool culture and fecal leukocytes. This doesn't appear to be a new problem as patient takes Imodium and Questran as an outpatient. (12) Do not resuscitate Is this a current diagnosis for this admission?: Yes - Time Time Spent with patient: 35 or more minutes Anticipated discharge: Home, Hospice
[2016-11-15] MEDS: FOLIC ACID/VITAMIN B COMP W-C CAPSULE PO SCH (16:57)
[2016-11-15] MEDS: TRAZODONE HCL 50 MG TABLET PO SCH (21:10)
[2016-11-15] MEDS: NORMAL SALINE 10 ML SDV (SCHEDULED) IV SCH (21:11)
[2016-11-16] MEDS: METRONIDAZOLE 500 MG TABLET PO SCH ×3 (05:59→23:05)
[2016-11-16 07:31] LABS: ABSOLUTE BASOPHILS # (AUTO) 0.1 10^3/uL (0.0-0.2); ABSOLUTE EOSINOPHILS # (AUTO) 0.2 10^3/uL (0.0-0.6); ABSOLUTE LYMPHOCYTES (AUTO) 2.3 10^3/uL (0.5-4.7); ABSOLUTE MONOCYTES (AUTO) 1.1 10^3/uL (0.1-1.4); ABSOLUTE NEUT (AUTO) 5.9 10^3/uL (1.7-8.2); BASOPHILS % (AUTO) 0.7 % (0-2); EOSINOPHILS % (AUTO) 1.7 % (0-6); HEMATOCRIT 23.5 % (36.0-47.0); HGB HCT DIFFERENCE 0.5; LYMPHOCYTES % (AUTO) 24.1 % (13-45); MEAN CORPUSCULAR HEMOGLOBIN 33.6 pg (27.0-33.4); MEAN CORPUSCULAR HGB CONC 33.9 g/dL (32.0-36.0); MEAN CORPUSCULAR VOLUME 99 fl (80-97); RED BLOOD COUNT 2.36 10^6/uL (3.72-5.28); RED CELL DISTRIBUTION WIDTH 16.7 % (11.5-14.0); SEGMENTED NEUTROPHILS % (AUTO) 61.5 % (42-78); WHITE BLOOD COUNT 9.6 10^3/uL (4.0-10.5)
[2016-11-16 07:48] LABS: ALANINE AMINOTRANSFERASE 41 U/L (9-52); ALBUMIN 2.3 g/dL (3.5-5.0); ALKALINE PHOSPHATASE 108 U/L (38-126); ANION GAP 9 (5-19); ASPARTATE AMINO TRANSFERASE 39 U/L (14-36); BILIRUBIN,DIRECT 2.2 mg/dL (0.0-0.4); BILIRUBIN,TOTAL 2.9 mg/dL (0.2-1.3); BLOOD UREA NITROGEN 4 mg/dL (7-20); CALCIUM 8.3 mg/dL (8.4-10.2); CARBON DIOXIDE 20 mmol/L (22-30); CHLORIDE 107 mmol/L (98-107); CREATININE RESULT 1.64 mg/dL (0.52-1.25); GLUCOSE 87 mg/dL (75-110); SODIUM 136.1 mmol/L (137-145); TOTAL PROTEIN 5.6 g/dL (6.3-8.2)
[2016-11-16] MEDS: OXYCODONE HCL IR 5 MG TABLET PO PRN ×2 (08:09→16:25)
[2016-11-16] MEDS: LOPERAMIDE HCL 2 MG CAPSULE PO PRN (08:48)
[2016-11-16] MEDS: ONDANSETRON HCL INJ/PF 4 MG/2 ML SDV IV PRN ×2 (08:49→23:12)
[2016-11-16] MEDS ORDERED: POTASSIUM CHLORIDE 10 MEQ TABLET.SA PO ONE (09:30)
[2016-11-16] MEDS: POTASSIUM CHLORIDE 10 MEQ TABLET.SA PO SCH (10:48)
[2016-11-16] MEDS: MULTIVITAMIN TABLET PO SCH (10:48)
[2016-11-16] MEDS: DULOXETINE HCL 30 MG CAPSULE.DR PO SCH (10:51)
[2016-11-16] MEDS: CIPROFLOXACIN HCL 500 MG TABLET PO SCH ×2 (10:51→23:05)
[2016-11-16] MEDS: LACTOBACILLUS ACIDOPHILUS 250 MG TAB PO SCH ×2 (10:51→17:09)
[2016-11-16] MEDS: MAGNESIUM OXIDE 400 MG TABLET PO SCH ×2 (10:51→23:05)
[2016-11-16] MEDS: BUSPIRONE HCL 10 MG TABLET PO SCH ×2 (10:52→23:13)
[2016-11-16] MEDS: NORMAL SALINE 10 ML SDV (SCHEDULED) IV SCH ×2 (10:52→23:08)
[2016-11-16] MEDS: SPIRONOLACTONE 25 MG TABLET PO SCH (10:58)
[2016-11-16] MEDS ORDERED: LOPERAMIDE HCL 2 MG CAPSULE PO ONE (11:45)
--- NOTE | 2016-11-16 12:49 | PDOC PROGRESS REPORT ---
Subjective Progress Note for:: 11/16/16 Subjective:: Patient feels generally better daily. She states that she has constant loose watery stools. It doesn't look like this is a new problem as she is on Imodium and Questran as an outpatient. She carries diagnosis of chronic pancreatitis but does not take pancreatic enzyme replacement. She denies fevers, chills, headache, chest pain. Physical Exam Vital Signs: Temp Pulse Resp BP Pulse Ox 98.9 F 73 16 100/54 L 100 11/16/16 12:00 11/16/16 12:00 11/16/16 12:00 11/16/16 12:00 11/16/16 12:00 Intake & Output 11/15/16 11/16/16 11/17/16 06:59 06:59 06:59 Intake Total 390 1190 Output Total 1800 450 Balance -1410 740 Weight 66 kg 62 kg GENERAL: No acute distress HEENT: Conjunctiva clear, nonicteric, moist mucous membranes, no JVD, midline trachea RESPIRATORY: Clear to auscultation bilaterally, no wheezes, no rhonchi CARDIAC: Regular rate and rhythm, no murmurs/gallops/rubs ABDOMEN: Distended, mild diffuse tenderness, obvious ascites EXTREMETIES: No edema, cyanosis, clubbing NEUROLOGIC: Alert, oriented to person/place/time, CN's grossly intact, no focal deficits SKIN: No rash, wounds. PSYCH: Depressed mood, normal affect Results Laboratory Results: 11/16/16 06:58 11/16/16 06:58 11/15/16 11/15/16 11/15/16 06:25 06:25 16:20 WBC RBC Hgb Hct MCV MCH MCHC RDW Plt Count Seg Neutrophils % Lymphocytes % Monocytes % Eosinophils % Basophils % Absolute Neutrophils Absolute Lymphocytes Absolute Monocytes Absolute Eosinophils Absolute Basophils Retic Count (auto) 5.83 H Absolute Retic 0.149 H Sodium Potassium Chloride Carbon Dioxide Anion Gap BUN Creatinine Est GFR ( Amer) Est GFR (Non-Af Amer) Glucose Calcium Iron 51.0 TIBC 120 L % Saturation 43 Ferritin 545.00 H Total Bilirubin AST ALT Alkaline Phosphatase Total Protein Albumin Vitamin B12 960.0 H Folate 17.80 Stool for White Cells RARE H 11/16/16 11/16/16 06:58 06:58 WBC 9.6 RBC 2.36 L Hgb 8.0 L Hct 23.5 L MCV 99 H MCH 33.6 H MCHC 33.9 RDW 16.7 H Plt Count 157 Seg Neutrophils % 61.5 Lymphocytes % 24.1 Monocytes % 12.0 Eosinophils % 1.7 Basophils % 0.7 Absolute Neutrophils 5.9 Absolute Lymphocytes 2.3 Absolute Monocytes 1.1 Absolute Eosinophils 0.2 Absolute Basophils 0.1 Retic Count (auto) Absolute Retic Sodium 136.1 L Potassium 3.0 L* Chloride 107 Carbon Dioxide 20 L Anion Gap 9 BUN 4 L Creatinine 1.64 H Est GFR ( Amer) 40 L Est GFR (Non-Af Amer) 33 L Glucose 87 Calcium 8.3 L Iron TIBC % Saturation Ferritin Total Bilirubin 2.9 H AST 39 H ALT 41 Alkaline Phosphatase 108 Total Protein 5.6 L Albumin 2.3 L Vitamin B12 Folate Stool for White Cells 11/11/16 13:55 Ascities Fluid Gram Stain - Final 11/11/16 13:55 Ascities Fluid Body Fluid Culture - Final NO AEROBIC OR ANAEROBIC ORGANISMS RECOVERED Impressions: Chest X-Ray 11/10/16 14:17 IMPRESSION: Improved aeration of the lung bases compared to previous. Abdomen/Pelvis CT 11/10/16 19:03 IMPRESSION: Large amount of ascites, increased compared with the previous study. Irregular peritoneum and omental contours, partially obscured by fluid. Mildly distended gallbladder. Fatty infiltration of the liver with Heterogeneous parenchyma. New Small bilateral pleural effusions and lower lobe subsegmental atelectasis, left greater than right. Paracentesis Ultrasound 11/11/16 00:00 IMPRESSION: Successful ultrasound-guided diagnostic and therapeutic paracentesis Guidance Fluoroscopy 11/12/16 00:00 IMPRESSION: SUCCESSFUL PLACEMENT OF A 5 FR DUAL LUMEN 32 CM PICC IN THE RIGHT BASILIC VEIN. Interventional Vascular Procedure 11/12/16 00:00 IMPRESSION: SUCCESSFUL PLACEMENT OF A 5 FR DUAL LUMEN 32 CM PICC IN THE RIGHT BASILIC VEIN. PICC Line Insertion 11/12/16 10:55 IMPRESSION: SUCCESSFUL PLACEMENT OF A 5 FR DUAL LUMEN 32 CM PICC IN THE RIGHT BASILIC VEIN. Abdomen Ultrasound 11/13/16 07:58 IMPRESSION: 1. The liver is prominent at 17.8 cm. 2. There are no gallstones. There is no evidence of cholecystitis. 3. There is a small amount of ascites around the liver. Assessment & Plan - Diagnosis (1) Sepsis Qualifiers: Sepsis type: sepsis due to unspecified organism Qualified Code(s): A41.9 - Sepsis, unspecified organism Is this a current diagnosis for this admission?: YesPlan: She is being currently treated for spontaneous bacterial peritonitis associated with cirrhosis. White count normal, afebrile, clinically improving. (2) Spontaneous bacterial peritonitis Is this a current diagnosis for this admission?: YesPlan: Continue Cipro and Flagyl by mouth. Peritoneal fluid culture negative. (3) Ascites due to alcoholic cirrhosis Is this a current diagnosis for this admission?: YesPlan: Continue spironolactone. Discontinued Lasix secondary to hypotension and orthostasis. Patient had diagnostic/therapeutic paracentesis on 11/11/2016. She may need repeat therapeutic paracentesis periodically. (4) Chronic liver disease and cirrhosis Is this a current diagnosis for this admission?: YesPlan: Discussions have been initiated with patient today regarding palliative care. Eleonora Sale[employer]PRODUCE SERVICE TEAM MEMBER with palliative program has assessed patient. (5) Anemia in chronic illness Is this a current diagnosis for this admission?: YesPlan: Secondary to chronic disease. Iron/B 12/folic acid levels normal. (6) Anxiety and depression Is this a current diagnosis for this admission?: YesPlan: Decreased Cymbalta and trazodone secondary to consideration of serotonin syndrome based on excessive chronic diarrhea. (7) Chronic pancreatitis Qualifiers: Pancreatitis type: unspecified pancreatitis type Qualified Code(s): K86.1 - Other chronic pancreatitis Is this a current diagnosis for this admission?: YesPlan: Start patient on Pancrease. (8) Debility Is this a current diagnosis for this admission?: YesPlan: Patient was at [facility] for rehabilitation prior to returning to the hospital. She does not seem in favor of returning to a rehabilitation facility. We will have physical therapy assess and try and work towards getting patient home with home hospice services. (9) Hypokalemia Is this a current diagnosis for this admission?: YesPlan: Replace as needed. (10) Hypomagnesemia Is this a current diagnosis for this admission?: Yes (11) Diarrhea Is this a current diagnosis for this admission?: YesPlan: Likely associated with antibiotic use and probably chronic pancreatitis. Also need to consider possible serotonin syndrome given IV doses of Cymbalta and trazodone. I will decrease the dose of both these medications. C. difficile negative. Check stool culture and fecal leukocytes. This doesn't appear to be a new problem as patient takes Imodium and Questran as an outpatient. Start Pancrease for chronic pancreatitis. (12) Do not resuscitate Is this a current diagnosis for this admission?: Yes - Time Time Spent with patient: 35 or more minutes Anticipated discharge: Home, Hospice Within: within 24 hours
[2016-11-16] MEDS ORDERED: LIPASE/PROTEASE/AMYLASE 1 CAP CAPSULE.DR PO ONE ×3 (13:30)
[2016-11-16] MEDS: LIPASE/PROTEASE/AMYLASE 1 CAP CAPSULE.DR PO SCH ×3 (15:45)
[2016-11-16] MEDS: FOLIC ACID/VITAMIN B COMP W-C CAPSULE PO SCH (15:45)
[2016-11-16] MEDS: TRAZODONE HCL 50 MG TABLET PO SCH (23:05)
[2016-11-17] MEDS: METRONIDAZOLE 500 MG TABLET PO SCH ×2 (05:17→13:46)
[2016-11-17] MEDS: OXYCODONE HCL IR 5 MG TABLET PO PRN ×2 (05:30→13:46)
[2016-11-17] MEDS: ONDANSETRON HCL INJ/PF 4 MG/2 ML SDV IV PRN (05:30)
[2016-11-17 06:01] LABS: ALANINE AMINOTRANSFERASE 36 U/L (9-52); ALBUMIN 2.3 g/dL (3.5-5.0); ALKALINE PHOSPHATASE 109 U/L (38-126); ANION GAP 12 (5-19); ASPARTATE AMINO TRANSFERASE 55 U/L (14-36); BILIRUBIN,DIRECT 2.7 mg/dL (0.0-0.4); BILIRUBIN,TOTAL 3.3 mg/dL (0.2-1.3); BLOOD UREA NITROGEN 5 mg/dL (7-20); CALCIUM 8.3 mg/dL (8.4-10.2); CARBON DIOXIDE 18 mmol/L (22-30); CHLORIDE 108 mmol/L (98-107); CREATININE RESULT 1.65 mg/dL (0.52-1.25); GLUCOSE 82 mg/dL (75-110); MAGNESIUM 1.9 mg/dL (1.6-2.3); POTASSIUM 3.9 mmol/L (3.6-5.0); SODIUM 137.5 mmol/L (137-145); TOTAL PROTEIN 5.3 g/dL (6.3-8.2)
[2016-11-17 06:06] LABS: ABSOLUTE BASOPHILS # (AUTO) 0.1 10^3/uL (0.0-0.2); ABSOLUTE EOSINOPHILS # (AUTO) 0.1 10^3/uL (0.0-0.6); ABSOLUTE LYMPHOCYTES (AUTO) 2.2 10^3/uL (0.5-4.7); ABSOLUTE MONOCYTES (AUTO) 1.5 10^3/uL (0.1-1.4); ABSOLUTE NEUT (AUTO) 8.2 10^3/uL (1.7-8.2); BASOPHILS % (AUTO) 0.7 % (0-2); EOSINOPHILS % (AUTO) 1.1 % (0-6); HEMATOCRIT 23.9 % (36.0-47.0); HGB HCT DIFFERENCE -0.2; LYMPHOCYTES % (AUTO) 18.6 % (13-45); MEAN CORPUSCULAR HEMOGLOBIN 32.9 pg (27.0-33.4); MEAN CORPUSCULAR HGB CONC 32.9 g/dL (32.0-36.0); MEAN CORPUSCULAR VOLUME 100 fl (80-97); RED BLOOD COUNT 2.39 10^6/uL (3.72-5.28); RED CELL DISTRIBUTION WIDTH 16.7 % (11.5-14.0); SEGMENTED NEUTROPHILS % (AUTO) 67.6 % (42-78); WHITE BLOOD COUNT 12.1 10^3/uL (4.0-10.5)
[2016-11-17 06:08] LABS: HEMOGLOBIN 7.9 g/dL (12.0-15.5)
[2016-11-17] MEDS: LIPASE/PROTEASE/AMYLASE 1 CAP CAPSULE.DR PO SCH ×6 (07:38→15:24)
[2016-11-17] MEDS ORDERED: NORMAL SALINE 250 ML IV PRN ×2 (08:51)
[2016-11-17] MEDS: LACTOBACILLUS ACIDOPHILUS 250 MG TAB PO SCH (11:17)
[2016-11-17] MEDS: SPIRONOLACTONE 25 MG TABLET PO SCH (11:18)
[2016-11-17] MEDS: DULOXETINE HCL 30 MG CAPSULE.DR PO SCH (11:19)
[2016-11-17] MEDS: MULTIVITAMIN TABLET PO SCH (11:20)
[2016-11-17] MEDS: MAGNESIUM OXIDE 400 MG TABLET PO SCH (11:20)
[2016-11-17] MEDS: CIPROFLOXACIN HCL 500 MG TABLET PO SCH (11:20)
[2016-11-17] MEDS: BUSPIRONE HCL 10 MG TABLET PO SCH (11:21)
[2016-11-17] MEDS: NORMAL SALINE 10 ML SDV (SCHEDULED) IV SCH (11:23)
[2016-11-17] MEDS: POTASSIUM CHLORIDE 10 MEQ TABLET.SA PO SCH (11:24)
--- NOTE | 2016-11-17 12:39 | PDOC DISCHARGE SUMMARY ---
General - Admit/Disc Date/PCP Admission Date/Primary Care Provider: 11/10/16 19:11 Discharge Date: 11/17/16 - Discharge Diagnosis (1) Sepsis Is this a current diagnosis for this admission?: Yes (2) Spontaneous bacterial peritonitis Is this a current diagnosis for this admission?: Yes (3) Ascites due to alcoholic cirrhosis Is this a current diagnosis for this admission?: Yes (4) Chronic liver disease and cirrhosis Is this a current diagnosis for this admission?: Yes (5) Anemia in chronic illness Is this a current diagnosis for this admission?: Yes (6) Anxiety and depression Is this a current diagnosis for this admission?: Yes (7) Chronic pancreatitis Is this a current diagnosis for this admission?: Yes (8) Debility Is this a current diagnosis for this admission?: Yes (9) Hypokalemia Is this a current diagnosis for this admission?: Yes (10) Hypomagnesemia Is this a current diagnosis for this admission?: Yes (11) Diarrhea Is this a current diagnosis for this admission?: Yes (12) Do not resuscitate Is this a current diagnosis for this admission?: Yes - Additional Information Resuscitation Status: Full Code Discharge Diet: Regular Discharge Activity: Activity As Tolerated Home Medications: Buspirone HCl [Buspar 15 mg Tablet] 15 mg PO Q12 09/20/16 Duloxetine HCl [Cymbalta] 60 mg PO DAILY 09/20/16 Trazodone HCl [Desyrel] 200 mg PO QHS 09/20/16 Folic Acid/Vitamin B Comp W-C [Nephrocaps Multiple Vitamin Capsule] 1 cap PO ACSUPPER #30 capsule 11/06/16 Magnesium Oxide [Mag-Ox 400 mg Tablet] 400 mg PO BID #60 tablet 11/06/16 Multivitamin [Tab-A-Jina (Multiple Vitamin) Tablet] 1 tab PO DAILY #30 tablet Loperamide HCl [Imodium 2 mg Capsule] 2 mg PO Q12HP PRN 11/10/16 Acidophilus/Bifido Longum [Lactobacillus Capsule] 1 cap PO BID #20 capsule 11/17 Ciprofloxacin HCl [Cipro 500 mg Tablet] 500 mg PO Q12 #14 tablet 11/17/16 Lipase/Protease/Amylase [Pancrease Ec Capsule] 1 each PO AC #90 capsule. 11/17 Metronidazole [Flagyl 500 mg Tablet] 500 mg PO Q8 #21 tablet 11/17/16 Oxycodone HCl [Oxy-Ir 5 mg Tablet] 5 mg PO Q6HP PRN #30 tablet 11/17/16 Spironolactone [Aldactone 25 mg Tablet] 50 mg PO DAILY #60 tablet 11/17/16 History of Present Illness Patient complains of: Abdominal pain History of Present Illness: SANAZ COSBY is a 51 year old female complaining of pain and swelling of her abdomen and inability to eat, and very limited fluid intake for several days. Patient was hospitalized at [facility] for 2 weeks and just transferred to [facility]. She had been admitted at [facility] with chronic pancreatitis, bacterial peritonitis, cirrhosis with ascites requiring paracentesis, sepsis. She also has a pancreatic pseudocyst and a left pleural effusion. Patient says that she currently has had some vomiting as well as diarrhea. Has difficulty breathing because her abdomen is swollen. Has generalized anterior chest pain. No UTI symptoms. Not aware of any fever. Upon evaluation in the ED patient was found to have tense ascites She was subsequently readmitted for paracentesis. Hospital Course Hospital Course: Patient was admitted for abdominal pain is result of spontaneous bacterial peritonitis. She underwent diagnostic and therapeutic paracentesis and was placed initially on IV antibiotics. Clinical condition improved and patient was initially transitioned to oral antibiotics. She has been placed on spironolactone. She was initially on Lasix but became hypotensive and hypokalemic. This is now been discontinued. Her volume status is been maintained relatively well on spironolactone. Patient had anemia requiring transfusion 1 unit PRBC. After much discussion patient decided to be discharged home with home hospice services given end-stage liver disease. Physical Exam Vital Signs: Temp Pulse Resp BP Pulse Ox 98.9 F 81 16 96/55 L 96 11/17/16 09:21 11/17/16 09:21 11/17/16 09:21 11/17/16 09:21 11/17/16 09:21 Intake & Output 11/16/16 11/17/16 11/18/16 06:59 06:59 06:59 Intake Total 1190 550 0 Output Total 450 550 Balance 740 0 0 Weight 62 kg 61.3 kg GENERAL: No acute distress HEENT: Conjunctiva clear, nonicteric, moist mucous membranes, no JVD, midline trachea RESPIRATORY: Clear to auscultation bilaterally, no wheezes, no rhonchi CARDIAC: Regular rate and rhythm, no murmurs/gallops/rubs ABDOMEN: Distended, mild diffuse tenderness, obvious ascites EXTREMETIES: No edema, cyanosis, clubbing NEUROLOGIC: Alert, oriented to person/place/time, CN's grossly intact, no focal deficits SKIN: No rash, wounds. PSYCH: Depressed mood, normal affect Results Laboratory Results: 11/17/16 05:24 11/17/16 05:24 11/17/16 11/17/16 11/17/16 05:24 05:24 09:17 WBC 12.1 H RBC 2.39 L Hgb 7.9 L Hct 23.9 L MCV 100 H MCH 32.9 MCHC 32.9 RDW 16.7 H Plt Count 151 Seg Neutrophils % 67.6 Lymphocytes % 18.6 Monocytes % 12.0 Eosinophils % 1.1 Basophils % 0.7 Absolute Neutrophils 8.2 Absolute Lymphocytes 2.2 Absolute Monocytes 1.5 H Absolute Eosinophils 0.1 Absolute Basophils 0.1 Sodium 137.5 Potassium 3.9 Chloride 108 H Carbon Dioxide 18 L Anion Gap 12 BUN 5 L Creatinine 1.65 H Est GFR ( Amer) 40 L Est GFR (Non-Af Amer) 33 L Glucose 82 Calcium 8.3 L Magnesium 1.9 Total Bilirubin 3.3 H AST 55 H ALT 36 Alkaline Phosphatase 109 Total Protein 5.3 L Albumin 2.3 L Blood Type A POSITIVE Antibody Screen NEGATIVE Impressions: Chest X-Ray 11/10/16 14:17 IMPRESSION: Improved aeration of the lung bases compared to previous. Abdomen/Pelvis CT 11/10/16 19:03 IMPRESSION: Large amount of ascites, increased compared with the previous study. Irregular peritoneum and omental contours, partially obscured by fluid. Mildly distended gallbladder. Fatty infiltration of the liver with Heterogeneous parenchyma. New Small bilateral pleural effusions and lower lobe subsegmental atelectasis, left greater than right. Paracentesis Ultrasound 11/11/16 00:00 IMPRESSION: Successful ultrasound-guided diagnostic and therapeutic paracentesis Guidance Fluoroscopy 11/12/16 00:00 IMPRESSION: SUCCESSFUL PLACEMENT OF A 5 FR DUAL LUMEN 32 CM PICC IN THE RIGHT BASILIC VEIN. Interventional Vascular Procedure 11/12/16 00:00 IMPRESSION: SUCCESSFUL PLACEMENT OF A 5 FR DUAL LUMEN 32 CM PICC IN THE RIGHT BASILIC VEIN. PICC Line Insertion 11/12/16 10:55 IMPRESSION: SUCCESSFUL PLACEMENT OF A 5 FR DUAL LUMEN 32 CM PICC IN THE RIGHT BASILIC VEIN. Abdomen Ultrasound 11/13/16 07:58 IMPRESSION: 1. The liver is prominent at 17.8 cm. 2. There are no gallstones. There is no evidence of cholecystitis. 3. There is a small amount of ascites around the liver. Qualifiers PATEINT BEING DISCHARGED WITH ANY OF THE FOLLOWING DIAGNOSIS?: No Plan Time Spent: Less than 30 Minutes
[2016-11-17] MEDS: FOLIC ACID/VITAMIN B COMP W-C CAPSULE PO SCH (15:24)
[2016-11-17 16:05] VITALS: BP 100/59
== END 2016-11-17 17:37 | disposition hospice, home (50) | DRG 871 ==
LOC: ER 13:06 → EH 16:25 → OBSVTOIN 19:11 → EH 19:20 → ICU 11-11 03:08 → 4S 11-13 21:59
PROVIDERS: ADMIT Emergency Medicine; ATTEND Emergency Medicine
PROC: 0W9G3ZZ Drainage of Peritoneal Cavity, Percutaneous Approach (ICD-10-PCS; 2016-11-11)
PROC: 02HV33Z Insertion of Infusion Device into Superior Vena Cava, Percutaneous Approach (ICD-10-PCS; principal; 2016-11-12)
PROC: B518YZA Fluoroscopy of Superior Vena Cava using Other Contrast, Guidance (ICD-10-PCS; 2016-11-12)
PROC: B548ZZA Ultrasonography of Superior Vena Cava, Guidance (ICD-10-PCS; 2016-11-12)
PROC: 30233N1 Transfusion of Nonautologous Red Blood Cells into Peripheral Vein, Percutaneous Approach (ICD-10-PCS; 2016-11-17)
DX: A41.9 Sepsis, unspecified organism (principal); K65.2 Spontaneous bacterial peritonitis; K86.1 Other chronic pancreatitis; K70.31 Alcoholic cirrhosis of liver with ascites; Z66 Do not resuscitate; D63.8 Anemia in other chronic diseases classified elsewhere; E87.6 Hypokalemia; E83.42 Hypomagnesemia; J44.9 Chronic obstructive pulmonary disease, unspecified; R19.7 Diarrhea, unspecified; F41.8 Other specified anxiety disorders; F17.210 Nicotine dependence, cigarettes, uncomplicated; Z88.0 Allergy status to penicillin
CPT/HCPCS: 36415; 36430; 36569; 49083; 51702; 71010; 74176; 76705; 76937; 77001; 80048; 80053; 80076; 80307; 81001; 82607; 82728; 82746; 82803; 83540; 83550; 83605; 83690; 83735; 85025; 85027; 85045; 85610; 86850; 86900; 86901; 86920; 87040; 87045; 87070; 87075; 87086; 87205; 87493; 89050; 89055; 93005; 93010; 93976; 96374; 99285; C1769; G0378; G8978-GP; G8979-GP; J0744; J1170; J1642; J2405; J3010; J3475; J3480; J3490; P9016

== ENCOUNTER 2016-12-25 07:17 | Day surgery (SDC) | payer MEDICARE, OTHER ==
[2016-12-25 08:01] LABS: HEMATOCRIT 30.3 % (36.0-47.0); HEMOGLOBIN 10.2 g/dL (12.0-15.5); HGB HCT DIFFERENCE 0.3; MEAN CORPUSCULAR HGB CONC 33.5 g/dL (32.0-36.0); MEAN CORPUSCULAR VOLUME 98 fl (80-97); RED BLOOD COUNT 3.08 10^6/uL (3.72-5.28); RED CELL DISTRIBUTION WIDTH 15.6 % (11.5-14.0); WHITE BLOOD COUNT 10.8 10^3/uL (4.0-10.5)
[2016-12-25 08:15] LABS: PARTIAL THROMBOPLASTIN TIME 26.6 SEC (23.5-35.8); PROTHROMBIN TIME 12.7 SEC (11.4-15.4)
[2016-12-25 08:23] LABS: BLOOD UREA NITROGEN 23 mg/dL (7-20); CREATININE RESULT 1.55 mg/dL (0.52-1.25)
[2016-12-25 11:33] VITALS: BP 100/55
--- NOTE | 2016-12-25 14:46 | RADIOLOGY REPORT (SQ) ---
EXAM DESCRIPTION: U/S ABD PARACENTESIS COMPLETED DATE/TIME: 12/25/2016 10:42 am REASON FOR STUDY: ASCITES COMPARISON MULTIPLE PREVIOUS LIMITATIONS: None. PROCEDURE: After obtaining informed consent, the patient was brought to the ultrasound suite. The p rocedure was performed with the patient on a gurney. Ultrasound was used to identify a prominent poc ket of ascites in the right lower quadrant. An appropriate access site was selected. The patient wa s prepped and draped in usual sterile fashion. The access site was anesthetized with 4 mL 1% lidoca ine. A [id number] needle was advanced into the fluid. After aspiration of fluid the needle, th e catheter was advanced off the needle into the fluid. A total of 4,750 mL of clear yellow fluid was removed. The patient tolerated the procedure well left the department in satisfactory condition. Th erapeutic only, no specimens were sent to the lab. IMPRESSION: Successful ultrasound-guided therapeutic paracentesis COMMENT: Patient medication list reviewed: Yes- Quality ID# [id number]:Eligible professional attests to doc umenting in the medical record they obtained, updated, or reviewed the patient's current medications. Quality ID #[id number]: The patient was prepped and draped using maximum sterile barrier technique including cap, mask, sterile gown, sterile gloves, a large sterile sheet, hand hygiene, and 2% Chlorhexidine fo r cutaneous antisepsis. When ultrasound is used, sterile ultrasound techniques are followed requiring sterile gel and sterile probes. Quality ID #[id number]: Final reports for procedures using fluoroscopy that document radiation exposure shila ramona, or exposure time and number of fluorographic images (if radiation exposure indices are not avail able) TECHNICAL DOCUMENTATION: JOB ID: [id number] [employer]- All Rights Reserved
== END 2016-12-25 11:25 | disposition home or self-care (01) ==
LOC: RAD 07:17
PROVIDERS: ATTEND Nurse Practitioner
PROC: 0W9G3ZZ Drainage of Peritoneal Cavity, Percutaneous Approach (ICD-10-PCS; principal; 2016-12-25)
DX: R18.8 Other ascites (principal); K72.90 Hepatic failure, unspecified without coma; K74.60 Unspecified cirrhosis of liver; Z88.2 Allergy status to sulfonamides; Z88.0 Allergy status to penicillin
CPT/HCPCS: 36415; 49083; 82565; 84520; 85027; 85610; 85730